=== PATIENT | female | born 1960 | race Caucasian/White ===

== ENCOUNTER → 2018-04-13 | Outpatient (CLI) | payer OTHER ==
[~2018-04-13] MED LIST: ACHD5005 PO; ALBU2.5V4 IH; AMLO10TA PO; AMLO10TA4 PO; BUDE6HFA IH; CIPR500T4 PO; DOCU-143 PO; FENO134C PO; FLUT9.9S NS; IOHEXOL 350 MG/ML 100 ML (OMNIPAQUE 350) VIAL IV ONE; LISI10TA2 PO; MTF500T PO; NS 250 ML (IVPB) BAG IV ONE; OXYC-12 PO; PIOG30TA38 PO; RT-ALBUINH IH
[2018-04-13 12:32] LABS: CREATININE SERUM 1.03 MG/DL (0.60-1.30)
--- NOTE | 2018-04-13 14:06 | Diagnostic Imaging Report ---
PROCEDURE: CT abdomen and pelvis with contrast. TECHNIQUE: Multiple contiguous axial images were obtained through the abdomen and pelvis after administration of intravenous contrast. INDICATION: Left lower quadrant pain. FINDINGS: The previous CT abdomen/pelvis exam of 03/09/2016 noted a 3.3 cm defect in the anterior abdominal wall on the left. A portion of the mesenteric fat and a segment of bowel had extended through this defect. There is no obstruction of the bowel, however. Reportedly, in the interval since the prior exam, the defect was surgically repaired. On this study, however, there is again evidence of a defect in the anterior abdominal wall on the left. This now measures 4.1 cm. Numerous segments of small bowel have extended through this defect, although there is no obstruction of the bowel. No other acute abnormality of the abdomen is identified. The liver, spleen, pancreas, adrenals, gallbladder, kidneys, aorta, and inferior vena cava are unremarkable for an acute abnormality. The stomach is not well distended and consequently difficult to assess. The appendix was visualized and is not abnormally thickened. The appendix does appear to lie low in the pelvis on the left. The urinary bladder and prostate gland are grossly unremarkable. The sections through the lung bases fail to show any sign of pneumonia or of pleural effusion. 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 The bone windows are unremarkable for a fracture or for a destructive lesion. IMPRESSION: 1. In the interval since the prior exam, a recurrent hernia has developed through the anterior abdominal wall on the left. There are now numerous segments of small bowel present within the hernia. The segments of bowel are probably incarcerated, but there is no obstruction of the bowel. 2. There is no acute abnormality of the abdomen or pelvis noted otherwise. 3. These results were discussed with Dr. Wynne. Dictated by: Dictated on workstation # [id number]
== END ==
LOC: RAD 11:37
PROVIDERS: ATTEND Surgery
DX: K43.2 Incisional hernia without obstruction or gangrene (principal)
CPT/HCPCS: 36415; 74177; 82565; 84520

== ENCOUNTER 2018-05-01 05:48 | Outpatient (CLI) | payer OTHER ==
[~2018-05-01] VITALS: Ht 162.6 cm; Wt 78.0 kg
[~2018-05-01 05:48] MED LIST changes: -IOHEXOL 350 MG/ML 100 ML (OMNIPAQUE 350) VIAL IV ONE; -NS 250 ML (IVPB) BAG IV ONE
[2018-05-01 14:57] VITALS: BP 147/96
[2018-05-01] MEDS ORDERED: LISI10TA2 PO (15:01)
[2018-05-01] MEDS ORDERED: METF-397 PO (15:01)
[2018-05-01] MEDS ORDERED: BUDE10.2 IH (15:01)
== END 2018-05-01 15:10 | disposition home or self-care (01) ==
LOC: PREOP 05:48
PROVIDERS: ATTEND Surgery
DX: Z01.818 Encounter for other preprocedural examination (principal)
CPT/HCPCS: 87081

== ENCOUNTER 2018-05-04 07:50 | Day surgery (SDC) | payer OTHER ==
[~2018-05-04] VITALS: Ht 162.6 cm; Wt 78.0 kg
[~2018-05-04 07:50] MED LIST changes: +BUDE10.2 IH; +METF-397 PO
--- OUTSIDE RECORDS SUMMARY | 2018-05-04 07:54 | XMS REPORT ---
Author Author LEONA CALVO [facility] Address [address] [place] [address] Care Team Providers Care Community Organizer Name Role Phone LEONA CALVO Unavailable PROBLEMS Type Condition ICD9-CM Code JQC18-JG Code Onset Dates Condition Status SNOMED Code Problem Unilateral inguinal hernia without obstruction or gangrene, recurrence not specified K40.90 Active 65363552 Problem Breast lesion N64.9 Active 072724301 Problem Vaginal lesion N89.8 Active 866708373 Problem Type 2 diabetes mellitus without complication E11.9 Active 811063964 Problem Normal cardiac stress test Z13.6 Active 065090541 Problem Diabetes E11.9 Active 063476016 Problem Establishing care with new doctor, encounter for Z71.89 Active 973328521 Problem Hyperlipidemia, unspecified hyperlipidemia type E78.5 Active 07192764 Problem Cough R05 Active 67260557 Problem Hammertoe M20.40 Active 256498574 Problem Sleep apnea G47.30 Active 00690698 Problem Tobacco dependence F17.200 Active 20849447 Problem Abnormal colonoscopy R93.3 Active 411518151 Problem Unilateral recurrent inguinal hernia without obstruction or gangrene K40.91 Active 03064709 Problem COPD (chronic obstructive pulmonary disease) J44.9 Active 86939179 Problem GERD (gastroesophageal reflux disease) K21.9 Active 505954261 Problem Essential hypertension I10 Active 39300768 Problem Gastroparesis K31.84 Active 133480740 Problem Hyperlipidemia E78.5 Active 79121290 Problem Stress incontinence in female N39.3 Active 96497754 ALLERGIES Substance Reaction Event Type Date Status Sulfamethoxazole Unknown Drug Allergy Jan, Active Lipitor Stiff neck, aching muscles in neck Drug Allergy Jan, Active ENCOUNTERS Encounter Location Date Diagnosis [facility] [address] [facility] [id number] [address] Jan, Chigger bites B88.0 [facility] [id number] [place] [address] Dec, Type 2 diabetes mellitus without complication E11.9 and Unilateral recurrent inguinal hernia without obstruction or gangrene K40.91 [facility] [id number] [place] [address]396 November, Essential hypertension I10 and Diabetes E11.9 [facility] [address] [address] Oct, [facility] [address] [address] Sep, Diabetes E11.9 and Essential hypertension I10 [place] [address] [address] Aug, Diabetes E11.9 ; Viral upper respiratory tract infection J06.9 ; COPD (chronic obstructive pulmonary disease) J44.9 ; Essential hypertension I10 ; Unilateral recurrent inguinal hernia without obstruction or gangrene K40.91 ; Dysuria R30.0 ; Yeast infection of the vagina B37.3 and Vaginal itching L29.8 [facility] [id number] [place] [address] Jul, Essential hypertension I10 and COPD (chronic obstructive pulmonary disease) J44.9 [facility] [id number] [place] [address]- 5[address] Mar, Left lower quadrant pain R10.32 ; Type 2 diabetes mellitus without complication E11.9 and Cardiac arrhythmia, unspecified cardiac arrhythmia type I49.9 [facility] [id number] [place] [address]- 0712 Oct, COPD (chronic obstructive pulmonary disease) J44.9 ; Diabetes E11.9 and Mouth pain K13.79 [facility] [id number] [place] [address]64- [address] Sep, [facility] [address] [address] Sep, COPD (chronic obstructive pulmonary disease) J44.9 ; Diabetes E11.9 and Mouth pain K13.[address] [address] Aug, Type 2 diabetes mellitus without complication E11.9 [place] [address] [address] Aug, [address] [address] Aug, Type 2 diabetes mellitus without complication E11.[address] [address] Aug, Establishing care with new doctor, encounter for Z71.89 ; Type 2 diabetes mellitus without complication E11.9 ; Essential hypertension I10 ; Cough R05 ; Hammertoe M20.40 and Sleep apnea G47.[address] [address]- [address] Jul, [address] [address] Jun, Vaginal lesion N89.[address] [address] Jun, [address] [address]- [address] Jun, Well woman exam Z01.419 ; Papanicolaou smear Z12.4 ; COPD ( chronic obstructive pulmonary disease) J44.9 ; Routine screening for STI ( sexually transmitted infection) Z11.3 ; Vaginal itching L29.8 ; Vaginal lesion N89.8 ; Hyperlipidemia, unspecified hyperlipidemia type E78.5 ; Type 2 diabetes mellitus without complication E11.9 ; Vaginal dryness N89.8 ; Unilateral inguinal hernia without obstruction or gangrene, recurrence not specified K40.90 ; Cough R05 ; Stress incontinence in female N39.3 and Breast lesion N64.[address] [address] May, Bronchitis J40 [facility] [address] [id number] [address] May, Routine adult health maintenance Z00.00 ; Essential hypertension I10 ; Hyperlipidemia E78.5 ; COPD (chronic obstructive pulmonary disease) J44.9 ; Unilateral recurrent inguinal hernia without obstruction or gangrene K40.91 and Type 2 diabetes mellitus without complication E11.9 [facility] [id number] [place] [address] 98947- 7880 Oct, [facility] [id number] [place] [address] 45583- 5732 Oct, [facility] [id number] [place] [address] 37670- 9174 Sep, [facility] [id number] [place] [address] 69116- 1168 Sep, [facility] [id number] [place] [address] 28183- 3679 Sep, [facility] [id number] [place] [address] 14580- 4899 Sep, [facility] [id number] [place] [address] 02402- 5629 Aug, [facility] [address] [address] Aug, [facility] [id number] [place] [address] 52403- 0877 Jul, [facility] [address] [address] Jul, [facility] [id number] [place] [address] 949486- 8554 Jun, [facility] [address] [address] Jun, [facility] [id number] [place] [address] Jun, [facility] [place] [facility] [address] [id number] [place] [address] Jun, [facility] [place] [facility] [address] [id number] [place] [address] Jun, [facility] [place] [facility] [address] [id number] [place] [address]199 Mar, [facility] [place] [facility] [address] [id number] [place] [address] 1796 Mar, [facility] [place] [facility] [address] [id number] [place] [address]- 55[address] Feb, [facility] [place] [facility] [address] [id number] [place] [address]- 2396 Feb, [facility] [place] [facility] [address] [id number] [place] [address]- 5040 Feb, [facility] [place] [facility] [address] [id number] [place] [address]- 4357 Feb, [facility] [place] [facility] [address] [id number] [place] [address] 5750 Dec, [facility] [place] [facility] [address] [id number] [place] [address]- 8821 Dec, [facility] [place] [facility] [address] [id number] [place] [address]- 7476 November, [facility] [place] [facility] [address] [id number] [place] [address]- 6102 November, [facility] [place] [facility] [address] [id number] [place] [address]- 7321 November, [facility] [place] [facility] [address] [id number] [place] [address]- 0192 November, [facility] [place] [facility] [address] [id number] [place] [address]- 5498 Sep, [facility] [place] [facility] [address] [id number] [place] [address]- 4344 Sep, [facility] [place] [facility] [address] [id number] [place] [address]- 8295 Sep, [facility] [place] [facility] [address] [id number] [place] [address]- 2679 Sep, [facility] [place] [facility] [address] [id number] [place] [address]- 2219 Jul, [facility] [place] [facility] [address] [id number] [place] [address]- 9360 Jul, [facility] [place] [facility] [address] [id number] [place] [address]- 3888 Jun, [facility] [address] [id number] [place] [address]- 5485 Jun, [facility] [place] [facility] [address] [id number] [place] [address]- 2604 Jun, [facility] [place] [facility] [address] [id number] [place] [address]- 7764 Jun, [facility] [place] [facility] [address] [id number] [place] [address]- 6061 May, [facility] [place] [facility] [address] [id number] [place] [address]- 8561 May, [facility] [place] [facility] [address] [id number] [place] [address]- 2546 Apr, [facility] [place] [facility] [address] [id number] [place] [address]- 2541 Apr, [facility] [place] [facility] [address] [id number] [place] [address]- 2546 Apr, [facility] [place] [facility] [address] [id number] [place] [address]- 2542 Mar, [facility] [place] [facility] [address] [id number] [place] [address]- 4285 Mar, [facility] [address] [id number] [place] [address] Mar, [facility] [place] [facility] [address] [id number] [place] [address]- 0008 Feb, [facility] [place] [facility] [address] [id number] [place] [address]- 2161 Feb, [facility] [place] [facility] [address] [id number] [place] [address]- 9781 Jan, [facility] [place] [facility] [address] [id number] [place] [address]- 6379 November, [facility] [place] [facility] [address] [id number] [place] [address]- 4731 Oct, [facility] [place] [facility] [address] [id number] [place] [address]- 3821 Oct, [facility] [place] [facility] [address] [id number] [place] [address]- 6224 Jul, [facility] [place] [facility] [address] [id number] [place] [address]- 2783 Jul, [facility] [place] [facility] [address] [id number] [place] [address]- 0533 Jul, [facility] [place] [facility] [address] [id number] [place] [address]- 0819 Jul, [facility] [place] [facility] [address] [id number] [place] [address]- 7511 Jul, [facility] [place] [facility] [address] [id number] [place] [address]- 7196 Jul, [facility] [place] [facility] [address] [id number] [place] [address]- 3981 Jul, [facility] [place] [facility] [address] [id number] [place] [address]- 8221 Jul, [facility] [place] [facility] [address] [id number] [place] [address]- 6427 Jun, [facility] [place] [facility] [address] [id number] [place] [address]- 5111 Jun, [facility] [place] [facility] [address] [id number] [place] [address]- 6041 Apr, [facility] [place] [facility] [address] [id number] [place] [address] Apr, [facility] [place] [facility] [address] [id number] [place] [address]- 2245 Apr, [facility] [place] [facility] [address] [id number] [place] [address]- 9709 Apr, [facility] [place] [facility] [address] [id number] [place] [address]- 9905 Apr, [facility] [place] [facility] [address] [id number] [place] [address]- 9422 Apr, [facility] [place] [facility] [address] [id number] [place] [address]- 8551 Apr, [facility] [place] [facility] [address] [id number] [place] [address]- 8119 Apr, [facility] [place] [facility] [address] [id number] [place] [address]- 6459 Apr, [facility] [place] [facility] [address] [id number] [place] [address]- 6608 Apr, [facility] [place] [facility] [address] [id number] [place] [address]- 0739 Mar, [facility] [place] [facility] [address] [id number] [place] [address]- 1679 Mar, [facility] [place] [facility] [address] [id number] [place] [address]- 4749 Feb, [facility] [place] [facility] [address] [id number] [place] [address]- 8325 Feb, [facility] [place] [facility] [address] [id number] [place] [address]- 2208 Feb, [facility] [place] [facility] [address] [id number] [place] [address]- 7666 Feb, [facility] [place] [facility] [address] [id number] [place] [address]- 1687 Feb, [facility] [place] [facility] [address] [id number] [place] [address]- 0005 Feb, [facility] [place] [facility] [address] [id number] [place] [address]- 6877 Feb, [facility] [place] [facility] [address] [id number] [place] [address]- 4935 Feb, [facility] [place] [facility] [address] [id number] [place] [address]- 0299 Feb, [facility] [place] [facility] [address] [id number] [place] [address]- 6150 Feb, [facility] [place] [facility] [address] [id number] [place] [address]- 5945 Jan, [facility] [place] [facility] [address] [id number] [place] [address]- 0362 Jan, [facility] [place] [facility] [address] [id number] [place] [address]- 7742 Jan, [facility] [place] [facility] [address] [id number] [place] [address]- 8640 Jan, [facility] [place] [facility] [address] [id number] [place] [address]- 5100 November, [facility] [place] [facility] [address] [id number] [place] [address]- 7935 Oct, [facility] [place] [facility] [address] [id number] [place] [address]- 7847 Sep, [facility] [place] [facility] [address] [id number] [place] [address]- 3373 Sep, [facility] [address] [facility] [id number] [place] [address]- 7128 Sep, [facility] [address] [facility] [id number] [address]- [address] Sep, IMMUNIZATIONS No Known Immunizations SOCIAL HISTORY Never Assessed REASON FOR VISIT Rash Pt has a very itchy rash on body, started at ankles and wrists and has spread over last 3-4 days BOO Tran PLAN OF CARE Activity Details Follow Up prn Reason: VITAL SIGNS Height 64 in 2018-01-02 Weight 161.4 lbs 2018-01-02 Temperature 98.2 degrees Fahrenheit 2018-01-02 Heart Rate 78 bpm 2018-01-02 Respiratory Rate 22 2018-01-02 BMI 27.70 kg/m2 2018-01-02 Blood pressure systolic 160 mmHg 2018-01-02 Blood pressure diastolic 98 mmHg 2018-01-02 MEDICATIONS Medication Instructions Dosage Frequency Start Date End Date Duration Status HydrOXYzine HCl 25 MG Orally 4 times a day 1 tablet as needed 6h Jan, Active Symbicort 160-4.5 mcg/actuation inhale 2 puffs by inhalation route 2 times per day in the morning and evening Oct, Active MetFORMIN HCl ER 500 MG Orally twice a day 2 tablets with meals 12h Sep 45 days Active Flonase 50 mcg/actuation 1 sprays by Nasal route 2 times per day in each nostril Oct, Active ProAir HFA 90 mcg/actuation 2 puffs by Inhalation route 4 times per day for 30 day(s) Sep, Active Lisinopril 20 MG Orally Once a day 0.5 tablet 24h 180 days Active Amlodipine Besylate 10 MG Orally Once a day 1 tablet 24h 90 days Active RESULTS No Results PROCEDURES No Known procedures INSTRUCTIONS MEDICATIONS ADMINISTERED No Known Medications MEDICAL (GENERAL) HISTORY Type Description Date Medical History hypertension Medical History type II diabetes Medical History chronic obstructive pulmonary disease (COPD) Medical History hyperlipidemia Medical History gastroparesis Medical History sleep apnea (CPAP) Medical History incisional hernia Medical History Abnormal colonoscopy Surgical History tonsillectomy 2002 Surgical History partial hysterectomy- still has ovaries 1991 Surgical History removal of pre-cancerous cells from cervix 2002 Surgical History Colonoscopy 09/2015 Hospitalization History Surgery and OB deliveries only Hospitalization History Overnight Monitoring for pain management of abdominal hernia 2014
--- OUTSIDE RECORDS SUMMARY | 2018-05-04 07:54 | XMS REPORT ---
Author Author MERARY JOSUE Organization [facility] Address [address] [place] [address] Care Team Providers Care Stabilizer Operator Name Role Phone MERARY JOSUE Unavailable PROBLEMS Type Condition ICD9-CM Code ETZ65-NO Code Onset Dates Condition Status SNOMED Code Problem Unilateral inguinal hernia without obstruction or gangrene, recurrence not specified K40.90 Active 48399658 Problem Breast lesion N64.9 Active 565951238 Problem Vaginal lesion N89.8 Active 725511363 Problem Type 2 diabetes mellitus without complication E11.9 Active 492735184 Problem Normal cardiac stress test Z13.6 Active 097860473 Problem Diabetes E11.9 Active 817696600 Problem Establishing care with new doctor, encounter for Z71.89 Active 526263999 Problem Hyperlipidemia, unspecified hyperlipidemia type E78.5 Active 27083877 Problem Cough R05 Active 21368506 Problem Hammertoe M20.40 Active 453879319 Problem Sleep apnea G47.30 Active 69438232 Problem Tobacco dependence F17.200 Active 69134992 Problem Abnormal colonoscopy R93.3 Active 799672149 Problem Unilateral recurrent inguinal hernia without obstruction or gangrene K40.91 Active 87690883 Problem COPD (chronic obstructive pulmonary disease) J44.9 Active 05031818 Problem GERD (gastroesophageal reflux disease) K21.9 Active 395866187 Problem Essential hypertension I10 Active 37218437 Problem Gastroparesis K31.84 Active 743104871 Problem Hyperlipidemia E78.5 Active 36152585 Problem Stress incontinence in female N39.3 Active 61359197 ALLERGIES Substance Reaction Event Type Date Status Sulfamethoxazole Unknown Drug Allergy Dec, Active Lipitor Stiff neck, aching muscles in neck Drug Allergy Dec, Active ENCOUNTERS Encounter Location Date Diagnosis [facility] [address] [facility] [id number] [address] Jan, Chigger bites B88.0 [facility] [id number] [place] [address] 2737 Dec, Type 2 diabetes mellitus without complication E11.9 and Unilateral recurrent inguinal hernia without obstruction or gangrene K40.91 [facility] [id number] [place] [address]- 26[address] November, Essential hypertension I10 and Diabetes E11.9 [facility] [address] [address] Oct, [place] [id number] [place] [address]- 6764 Sep, Diabetes E11.9 and Essential hypertension I10 [place] [id number] [place] [address]367- 1806 Aug, Diabetes E11.9 ; Viral upper respiratory tract infection J06.9 ; COPD (chronic obstructive pulmonary disease) J44.9 ; Essential hypertension I10 ; Unilateral recurrent inguinal hernia without obstruction or gangrene K40.91 ; Dysuria R30.0 ; Yeast infection of the vagina B37.3 and Vaginal itching L29.8 [facility] [id number] [place] [address] Jul, Essential hypertension I10 and COPD (chronic obstructive pulmonary disease) J44.9 [facility] [id number] [place] [address]- 7140 Mar, Left lower quadrant pain R10.32 ; Type 2 diabetes mellitus without complication E11.9 and Cardiac arrhythmia, unspecified cardiac arrhythmia type I49.9 [place] [id number] [place] [address]- 0361 Oct, COPD (chronic obstructive pulmonary disease) J44.9 ; Diabetes E11.9 and Mouth pain K13.79 [facility] [id number] [place] [address]- 3458 Sep, [facility] [id number] [place] [address] 36[address]- 3438 Sep, COPD (chronic obstructive pulmonary disease) J44.9 ; Diabetes E11.9 and Mouth pain K13.[address] [address] Aug, Type 2 diabetes mellitus without complication E11.9 [place] [address] [address] Aug, [address] [address] Aug, Type 2 diabetes mellitus without complication E11.[address] [address] Aug, Establishing care with new doctor, encounter for Z71.89 ; Type 2 diabetes mellitus without complication E11.9 ; Essential hypertension I10 ; Cough R05 ; Hammertoe M20.40 and Sleep apnea G47.[address] [address] Jul, [address] [address]- [address] Jun, Vaginal lesion N89.[address] [address]- [address]87 Jun, [address] [address]- [address] 09 Jun, 2015 Well woman exam Z01.419 ; Papanicolaou smear [...] in female N39.3 and Breast lesion N64.[address] [address] May, Bronchitis J40 [facility] [address] [address] May, Routine adult health maintenance Z00.00 ; Essential hypertension I10 ; Hyperlipidemia E78.5 ; COPD (chronic obstructive pulmonary disease) J44.9 ; Unilateral recurrent inguinal hernia without obstruction or gangrene K40.91 and Type 2 diabetes mellitus without complication E11.9 [facility] [address] [id number] [address] Oct, [facility] [address], [place] [address] Oct, [facility] [id number] [place] [address]- 4048 Sep, [facility] [address], [place] [address] Sep, [facility] [address], [place] [address] Sep, [facility] [address], [place] [address] Sep, [facility] [address], [place] [address] Aug, [facility] [address], [place] [address] Aug, [facility] [address], [place] [address] Jul, [facility] [address], [place] [address] Jul, [facility] [address] [address] Jun, [facility] [address] [address] Jun, [facility] [address] [place] [address] Jun, [facility] [address] [id number] [place] [address]- [address] Jun, [facility] [place] [facility] [address] [id number] [place] [address]- 9211 Jun, [facility] [address] [id number] [place] [address]- 6099 Mar, [facility] [place] [facility] [address] [id number] [place] [address]- 47[address] Mar, [facility] [place] [facility] [address] [id number] [place] [address]- 1159 Feb, [facility] [place] [facility] [address] [id number] [place] [address]- 5231 Feb, [facility] [place] [facility] [address] [id number] [place] [address]- 9690 Feb, [facility] [place] [facility] [address] [id number] [place] [address]- 9138 Feb, [facility] [place] [facility] [address] [id number] [place] [address]- 6[address] Dec, [facility] [place] [facility] [address] [id number] [place] [address]- 377[address] Dec, [facility] [place] [facility] [address] [id number] [place] [address]- 3074 November, [facility] [place] [facility] [address] [id number] [place] [address]- 9341 November, [facility] [place] [facility] [address] [id number] [place] [address]- 6380 November, [facility] [place] [facility] [address] [id number] [place] [address]- 6676 November, [facility] [place] [facility] [address] [id number] [place] [address]- 2191 Sep, [facility] [place] [facility] [address] [id number] [place] [address]- 1491 Sep, [facility] [place] [facility] [address] [id number] [place] [address]- 2339 Sep, [facility] [place] [facility] [address] [id number] [place] [address]- 7617 Sep, [facility] [place] [facility] [address] [id number] [place] [address]- 7463 Jul, [facility] [place] [facility] [address] [id number] [place] [address]- 9595 Jul, [facility] [place] [facility] [address] [id number] [place] [address]- 1575 Jun, [facility] [place] [facility] [address] [id number] [place] [address]- 5654 Jun, [facility] [place] [facility] [address] [id number], [place] [address]- [address] Jun, [facility] [place] [facility] [address] [id number] [place] [address]- 7130 Jun, [facility] [place] [facility] [address] [facility] [id number], [place] [address]- [address] May, [facility] [place] [facility] [address] [id number], [place] [address]- 3064 May, [facility] [place] [facility] [address] [id number], [place] [address]- 3242 Apr, [facility] [place] [facility] [address] [id number], [place] [address]- 1704 Apr, [facility] [place] [facility] [address] [id number], [place] [address]- 6206 Apr, [facility] [place] [facility] [address] [facility] [id number], [place] [address]- 5[address] Mar, [facility] [place] [facility] [address] [id number], [place] [address]- 3299 Mar, [facility] [address] [id number] [place] [address]- 2112 Mar, [facility] [address] [id number] [place] [address]- 3311 Feb, [facility] [address] [id number] [place] [address]- 8975 Feb, [facility] [address] [id number] [place] [address]- 7691 Jan, [facility] [address] [id number] [place] [address]- 4090 November, [facility] [address] [id number] [place] [address]- 1180 Oct, [facility] [address] [id number] [place] [address]- 9938 Oct, [facility] [address] [id number] [place] [address]- 4033 Jul, [facility] [address] [id number] [place] [address]- 8712 Jul, [facility] [address] [id number] [place] [address]- 8064 Jul, [facility] [address] [id number] [place] [address]- 8118 Jul, [facility] [place] [facility] [address] [id number], [place] [address]- 7307 Jul, [facility] [place] [facility] [address] [id number] [place] [address]- 3746 14 Jul, 2012 [facility] [place] [facility] [address] [id number] [place] [address]- 9636 Jul, [facility] [place] [facility] [address] [id number] [place] [address]- 9388 Jul, [facility] [place] [facility] [address] [id number] [place] [address] Jun, [facility] [place] [facility] [address] [id number] [place] [address] Jun, [facility] [place] [facility] [address] [id number] [place] [address]- 0375 Apr, [facility] [place] [facility] [address] [id number] [place] [address]- 4351 Apr, [facility] [place] [facility] [address] [id number] [place] [address]- 0796 Apr, [facility] [place] [facility] [address] [id number] [place] [address]- 4202 Apr, [facility] [place] [facility] [address] [id number] [place] [address]- 5755 Apr, [facility] [place] [facility] [address] [id number] [place] [address]- 1626 Apr, [facility] [place] [facility] [address] [id number] [place] [address]- 8622 Apr, [facility] [place] [facility] [address] [id number] [place] [address]- 0132 Apr, [facility] [place] [facility] [address] [id number] [place] [address]- 4309 Apr, [facility] [place] [facility] [address] [id number] [place] [address]- 8634 Apr, [facility] [place] [facility] [address] [id number] [place] [address]- 8809 Mar, [facility] [place] [facility] [address] [id number] [place] [address] Mar, [facility] [place] [facility] [address] [id number] [place] [address] Feb, [facility] [place] [facility] [address] [id number] [place] [address]- 7135 Feb, [facility] [place] [facility] [address] [id number] [place] [address]- 6987 Feb, [facility] [place] [facility] [address] [id number] [place] [address]- 4122 Feb, [facility] [place] [facility] [address] [id number] [place] [address]- 3302 Feb, [facility] [place] [facility] [address] [id number] [place] [address]- 7155 Feb, [facility] [place] [facility] [address] [id number] [place] [address]- 4222 Feb, [facility] [place] [facility] [address] [id number] [place] [address]- 7115 Feb, [facility] [place] [facility] [address] [id number] [place] [address]- 2900 Feb, [facility] [place] [facility] [address] [id number] [place] [address]- 5821 Feb, [facility] [place] [facility] [address] [id number] [place] [address]- 7389 Jan, [facility] [place] [facility] [address] [id number] [place] [address]- 8926 Jan, [facility] [place] [facility] [address] [id number] [place] [address]- 7842 Jan, [facility] [place] [facility] [address] [id number] [place] [address]- 9587 Jan, [facility] [place] [facility] [address] [id number] [place] [address]- 2602 November, [facility] [place] [facility] [address] [id number] [place] [address]- 7831 Oct, [facility] [place] [facility] [address] [id number] [place] [address]- 8857 Sep, [facility] [place] [facility] [address] [facility] [id number] [place] [address]- 77[address] Sep, [facility] [address] [facility] [id number] [place] [address]- 7984 Sep, [facility] [address] [facility] [id number] [place] [address]- 1474 Sep, IMMUNIZATIONS No Known Immunizations SOCIAL HISTORY Never Assessed REASON FOR VISIT Diabetes, PT is here with concerns about getting the hernia sergury-Lyn HADDAD PLAN OF CARE Activity Details Follow Up 3 Months Reason:DM VITAL SIGNS Height 64 in 2017-12-19 Weight 166.7 lbs 2017-12-19 Temperature 97.9 degrees Fahrenheit 2017-12-19 Heart Rate 74 bpm 2017-12-19 Respiratory Rate 18 2017-12-19 Oximetry on room air:97 % 2017-12-19 BMI 28.61 kg/m2 2017-12-19 Blood pressure systolic 108 mmHg 2017-12-19 Blood pressure diastolic 76 mmHg 2017-12-19 MEDICATIONS Medication Instructions Dosage Frequency Start Date End Date Duration Status Symbicort 160-4.5 mcg/actuation inhale 2 puffs by inhalation route 2 times per day in the morning and evening Oct, Active Flonase 50 mcg/actuation 1 sprays by Nasal route 2 times per day in each nostril Oct, Active Amlodipine Besylate 10 MG Orally Once a day 1 tablet 24h 90 days Active Lisinopril 20 MG Orally Once a day 0.5 tablet 24h 180 days Active MetFORMIN HCl ER 500 MG Orally twice a day 2 tablets with meals 12h Sep 45 days Active ProAir HFA 90 mcg/actuation 2 puffs by Inhalation route 4 times per day for 30 day(s) Sep, Active RESULTS Name Result Date Reference Range A1C (IN HOUSE) 2017-12-19 A1C IN HOUSE 6.9 4.3 - 5.6 % Previous A1c 7.4 Lot 856 Exp date 09/2019 MICROALBUMIN, URINE (IN HOUSE) 2017-12-19 MICROALBUMIN abnormal Lot # [id number] Exp date 10/2018 Clarity clear Color yellow ALB 150 CRE 300 A:C (IN HOUSE) 30-300 Control normal Control Lot # Exp date PROCEDURES Procedure Date Ordered Result Body Site MICROALBUMIN, SEMIQUANT December 19, 2017 GLYCATED HEMOGLOBIN TEST December 19, 2017 INSTRUCTIONS MEDICATIONS ADMINISTERED No Known Medications MEDICAL [...]
--- OUTSIDE RECORDS SUMMARY | 2018-05-04 07:54 | XMS REPORT ---
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 Name Role Phone BRIDGETT SAMAYOA Unavailable PROBLEMS Type Condition ICD9-CM Code JOA14-US Code Onset Dates Condition Status SNOMED Code Problem Unilateral inguinal hernia without obstruction or gangrene, recurrence not specified K40.90 Active 59528606 Problem Breast lesion N64.9 Active 028955830 Problem Vaginal lesion N89.8 Active 152170385 Problem Type 2 diabetes mellitus without complication E11.9 Active 562336473 Problem Normal cardiac stress test Z13.6 Active 286851825 Problem Diabetes E11.9 Active 431968567 Problem Establishing care with new doctor, encounter for Z71.89 Active 052144063 Problem Hyperlipidemia, unspecified hyperlipidemia type E78.5 Active 68294373 Problem Cough R05 Active 41032010 Problem Hammertoe M20.40 Active 354547360 Problem Sleep apnea G47.30 Active 28599518 Problem Tobacco dependence F17.200 Active 44096596 Problem Abnormal colonoscopy R93.3 Active 148950238 Problem Unilateral recurrent inguinal hernia without obstruction or gangrene K40.91 Active 01450003 Problem COPD (chronic obstructive pulmonary disease) J44.9 Active 04798705 Problem GERD (gastroesophageal reflux disease) K21.9 Active 207729620 Problem Essential hypertension I10 Active 79315468 Problem Gastroparesis K31.84 Active 488982853 Problem Hyperlipidemia E78.5 Active 83315302 Problem Stress incontinence in female N39.3 Active 56046479 ALLERGIES Substance Reaction Event Type Date Status Sulfamethoxazole Unknown Drug Allergy Mar, Active Lipitor Stiff neck, aching muscles in neck Drug Allergy Mar, Active ENCOUNTERS Encounter Location Date Diagnosis [facility] [address] [facility] [id number] [place] [address] Apr, [facility] [address] [place] [id number] [place] [address]- 1522 14 Mar, 2018 Kaity vaginitis B37.3 [place] [address] [address]- [address] Jan, Chigger bites B88.0 [place] [address] [id number] [place] [address]181- 3430 Dec, Type 2 diabetes mellitus without complication E11.9 and Unilateral recurrent inguinal hernia without obstruction or gangrene K40.91 [place] [address] [address] [id number] [place] [address] 16260- 9655 November, Essential hypertension I10 and Diabetes E11.9 [place] [address] [address]- 1171 Oct, [place] [address] [address]- [address] Sep, Diabetes E11.9 and Essential hypertension I10 [place] [address] [id number] [place] [address] 90147- 6491 Aug, Diabetes E11.9 ; Viral upper respiratory tract infection J06.9 ; COPD (chronic obstructive pulmonary disease) J44.9 ; Essential hypertension I10 ; Unilateral recurrent inguinal hernia without obstruction or gangrene K40.91 ; Dysuria R30.0 ; Yeast infection of the vagina B37.3 and Vaginal itching L29.8 [facility] [id number] [place] [address]65 -[address]73 Jul, Essential hypertension I10 and COPD (chronic obstructive pulmonary disease) J44.9 [place] [address] [address] [id number] [place] [address] 03232- 0706 Mar, Left lower quadrant pain R10.32 ; Type 2 diabetes mellitus without complication E11.9 and Cardiac arrhythmia, unspecified cardiac arrhythmia type I49.9 [place] [address] [address] [id number] [place] [address] 22588- 4797 Oct, COPD (chronic obstructive pulmonary disease) J44.9 ; Diabetes E11.9 and Mouth pain K13.79 [place] [address] [id number] [place] [address] 06994- 2423 Sep, [address] [address] Sep, COPD (chronic obstructive pulmonary disease) J44.9 ; Diabetes E11.9 and Mouth pain K13.[address] [address]- 9240 Aug, Type 2 diabetes mellitus without complication E11.[address] [address]- [address] Aug, [address] [address]- 5172 Aug, Type 2 diabetes mellitus without complication E11.[address] [address]- 2270 Aug, Establishing care with new doctor, encounter for Z71.89 ; Type 2 diabetes mellitus without complication E11.9 ; Essential hypertension I10 ; Cough R05 ; Hammertoe M20.40 and Sleep apnea G47.30 [place] [id number] [place] [address] 6[address]- [address]157 Jul, [place] [id number] [place] [address] 32382- 9759 Jun, Vaginal lesion N89.[address] 8[address]- [address] Jun, [place] [id number] [place] [address] 19648- 4485 Jun, Well woman exam Z01.419 ; Papanicolaou [...] in female N39.3 and Breast lesion N64.9 [facility] [id number] [place] [address] 08797- 2042 May, Bronchitis J40 [facility] [address] [address]- [address] May, Routine adult health maintenance Z00.00 ; Essential hypertension I10 ; Hyperlipidemia E78.5 ; COPD (chronic obstructive pulmonary disease) J44.9 ; Unilateral recurrent inguinal hernia without obstruction or gangrene K40.91 and Type 2 diabetes mellitus without complication E11.9 [facility] [id number] [place] [address] 18241- 8703 Oct, [facility] [id number] [place] [address] 21627- 4808 Oct, [facility] [id number] [place] [address] 93940- 7985 Sep, [facility] [id number] [place] [address] 96380- 3215 Sep, [facility] [id number] [place] [address] 42987- 2333 Sep, [facility] [id number] [place] [address] 29299- 7803 Sep, [facility] [id number] [place] [address] 29248- 3207 Aug, [facility] [id number] [place] [address] 02104- 2039 Aug, [facility] [id number] [place] [address] 51699- 5559 Jul, [facility] [id number] [place] [address] 13727- 0071 Jul, [facility] [place] [facility] [address] [id number] [place] [address]- 1753 Jun, [facility] [place] [facility] [address] [id number] [place] [address]- 0168 Jun, [facility] [place] [facility] [address] [id number] [place] [address]- 2402 Jun, [facility] [place] [facility] [address] [id number] [place] [address]- 3787 Jun, [facility] [place] [facility] [address] [id number] [place] [address]- 6013 Jun, [facility] [place] [facility] [address] [id number] [place] [address]- 9993 Mar, [facility] [place] [facility] [address] [id number] [place] [address] Mar, [facility] [place] [facility] [address] [id number] [place] [address]- 2109 Feb, [facility] [place] [facility] [address] [id number] [place] [address]- 4609 Feb, [facility] [place] [facility] [address] [id number] [place] [address]- 9188 Feb, [facility] [place] [facility] [address] [id number] [place] [address]- 2491 Feb, [facility] [place] [facility] [address] [id number] [place] [address]- 5602 Dec, [facility] [place] [facility] [address] [id number] [place] [address]- 0555 Dec, [facility] [place] [facility] [address] [id number] [place] [address]- 0962 November, [facility] [place] [facility] [address] [id number] [place] [address]- 4756 November, [facility] [place] [facility] [address] [id number] [place] [address]- 2205 November, [facility] [place] [facility] [address] [id number] [place] [address]- 2266 November, [facility] [place] [facility] [address] [id number] [place] [address]- 6355 Sep, [facility] [place] [facility] [address] [id number] [place] [address]- 3732 Sep, [facility] [place] [facility] [address] [id number] [place] [address]- 9852 Sep, [facility] [place] [facility] [address] [id number] [place] [address]- 6137 Sep, [facility] [place] [facility] [address] [id number] [place] [address]- 6938 Jul, [facility] [place] [facility] [address] [id number] [place] [address]- 8488 Jul, [facility] [place] [facility] [address] [id number] [place] [address]- 2968 Jun, [facility] [place] [facility] [address] [id number] [place] [address]- 7897 Jun, [facility] [place] [facility] [address] [id number] [place] [address]- 9487 Jun, [facility] [place] [facility] [address] [id number], [place] [address]- 8070 Jun, [facility] [place] [facility] [address] [id number], [place] [address]- 2547 May, [facility] [place] [facility] [address] [id number] [place] [address]- 2549 May, [facility] [place] [facility] [address] [id number], [place] [address]- 5146 Apr, [facility] [place] [facility] [address] [id number] [place] [address]- 2546 Apr, [facility] [place] [facility] [address] [id number] [place] [address]- 2147 Apr, [facility] [address] [id number] [place] [address]- 3099 Mar, [facility] [place] [facility] [address] [id number] [place] [address]- 0483 Mar, [facility] [address] [id number] [place] [address]- 6453 Mar, [facility] [place] [facility] [address] [id number] [place] [address]- 1894 Feb, [facility] [address] [id number] [place] [address]- 4238 Feb, [facility] [address] [id number] [place] [address]- 9787 Jan, [facility] [address] [id number] [place] [address]- 4822 November, [facility] [address] [id number] [place] [address]- 5467 Oct, [facility] [address] [id number] [place] [address]- 2235 Oct, [facility] [address] [id number] [place] [address]- 2574 Jul, [facility] [address] [id number] [place] [address]- 0259 Jul, [facility] [place] [facility] [address] [id number] [place] [address]- 3782 24 Jul, 2012 [facility] [place] [facility] [address] [id number] [place] [address]- 4992 Jul, [facility] [place] [facility] [address] [id number] [place] [address]- 4797 15 Jul, 2012 [facility] [place] [facility] [address] [id number] [place] [address]- 5787 14 Jul, 2012 [facility] [place] [facility] [address] [id number] [place] [address]- 6977 Jul, [facility] [place] [facility] [address] [id number] [place] [address]- 8685 Jul, [facility] [place] [facility] [address] [id number] [place] [address]- 8738 Jun, [facility] [place] [facility] [address] [id number] [place] [address]- 2727 Jun, [facility] [place] [facility] [address] [id number] [place] [address]- 0894 Apr, [facility] [place] [facility] [address] [id number] [place] [address]- 2994 Apr, [facility] [place] [facility] [address] [id number] [place] [address]- 7872 Apr, [facility] [place] [facility] [address] [id number] [place] [address]- 0912 Apr, [facility] [place] [facility] [address] [id number] [place] [address]- 8553 Apr, [facility] [place] [facility] [address] [id number] [place] [address]- 0236 Apr, [facility] [place] [facility] [address] [id number] [place] [address]- 9999 Apr, [facility] [place] [facility] [address] [id number] [place] [address]- 7337 Apr, [facility] [place] [facility] [address] [id number] [place] [address]- 8711 Apr, [facility] [place] [facility] [address] [id number] [place] [address]- 7516 Apr, [facility] [place] [facility] [address] [id number] [place] [address]- 6282 Mar, [facility] [place] [facility] [address] [id number] [place] [address]- 0785 Mar, [facility] [place] [facility] [address] [id number] [place] [address]- 4455 Feb, [facility] [place] [facility] [address] [id number] [place] [address]- 8937 Feb, [facility] [place] [facility] [address] [id number] [place] [address]- 7508 Feb, [facility] [place] [facility] [address] [id number] [place] [address]- 7085 Feb, [facility] [place] [facility] [address] [id number] [place] [address]- 4228 Feb, [facility] [place] [facility] [address] [id number] [place] [address]- 2569 Feb, [facility] [place] [facility] [address] [id number] [place] [address]- 0809 Feb, [facility] [place] [facility] [address] [id number] [place] [address]- 1723 Feb, [facility] [place] [facility] [address] [id number] [place] [address]- 9832 Feb, [facility] [place] [facility] [address] [id number] [place] [address]- 4802 Feb, [facility] [place] [facility] [address] [id number] [place] [address]- 0512 Jan, [facility] [place] [facility] [address] [id number] [place] [address]- 4150 Jan, [facility] [place] [facility] [address] [id number] [place] [address]- 9472 Jan, [facility] [place] [facility] [address] [id number] [place] [address]- 2552 Jan, [facility] [place] [facility] [address] [id number] [place] [address]- 5245 November, [facility] [place] [facility] [address] [facility] [id number] [place] [address]- 6170 Oct, [facility] [address] [facility] [id number], [place] [address]- 4991 Sep, [facility] [address] [facility] [id number], [place] [address]- 4674 Sep, [facility] [address] [facility] [id number], [place] [address]- 9717 Sep, [facility] [address] [facility] [id number], [place] [address]- 0885 Sep, IMMUNIZATIONS No Known Immunizations SOCIAL HISTORY Never Assessed REASON FOR VISIT Vaginal itching and redness off and on for about a month. BOO More, check belly button. BOO More PLAN OF CARE Activity Details Follow Up 1 Week Reason: VITAL SIGNS Height 64 in 2018-03-17 Weight 166.8 lbs 2018-03-17 Temperature 97.6 degrees Fahrenheit 2018-03-17 Heart Rate 87 bpm 2018-03-17 Respiratory Rate 20 2018-03-17 BMI 28.63 kg/m2 2018-03-17 Blood pressure systolic 154 mmHg 2018-03-17 Blood pressure diastolic 88 mmHg 2018-03-17 MEDICATIONS Medication Instructions Dosage Frequency Start Date End Date Duration Status Flonase 50 mcg/actuation 1 sprays by Nasal route 2 times per day in each nostril Oct, Active Diflucan 150 MG Orally one time 1 tablet Mar, Mar, 1 dose Active Lisinopril 20 MG Orally Once a day 0.5 tablet 24h 180 days Active Symbicort 160-4.5 mcg/actuation inhale 2 puffs by inhalation route 2 times per day in the morning and evening Oct, Active ProAir HFA 90 mcg/actuation 2 puffs by Inhalation route 4 times per day for 30 day(s) Sep, Active MetFORMIN HCl ER 500 MG Orally twice a day 2 tablets with meals 12h 07 Sep 45 days Active Amlodipine Besylate 10 MG Orally Once a day 1 tablet 24h 90 days Active RESULTS No Results PROCEDURES Procedure Date Ordered Result Body Site Bacterial Vaginosis In House Mar 17, 2018 CULTURE, BACTERIA, OTHER Mar 17, 2018 INSTRUCTIONS MEDICATIONS ADMINISTERED No Known Medications MEDICAL [...]
--- OUTSIDE RECORDS SUMMARY | 2018-05-04 07:55 | XMS REPORT ---
Author Author MERARY JOSUE [facility] Address [address] [place] [address] Care Team Providers Care End Lathe Operator Name Role Phone MERARY JSOUE Unavailable PROBLEMS Type Condition ICD9-CM Code RFC41-SD Code Onset Dates Condition Status SNOMED Code Problem Unilateral inguinal hernia without obstruction or gangrene, recurrence not specified K40.90 Active 95583510 Problem Breast lesion N64.9 Active 057256871 Problem Vaginal lesion N89.8 Active 154750852 Problem Type 2 diabetes mellitus without complication E11.9 Active 722973694 Problem Normal cardiac stress test Z13.6 Active 080516159 Problem Diabetes E11.9 Active 613947086 Problem Establishing care with new doctor, encounter for Z71.89 Active 868963204 Problem Hyperlipidemia, unspecified hyperlipidemia type E78.5 Active 10125935 Problem Cough R05 Active 93271636 Problem Hammertoe M20.40 Active 575040806 Problem Sleep apnea G47.30 Active 73933006 Problem Tobacco dependence F17.200 Active 51048180 Problem Abnormal colonoscopy R93.3 Active 813107601 Problem Unilateral recurrent inguinal hernia without obstruction or gangrene K40.91 Active 62694836 Problem COPD (chronic obstructive pulmonary disease) J44.9 Active 44792360 Problem GERD (gastroesophageal reflux disease) K21.9 Active 979128973 Problem Essential hypertension I10 Active 34136840 Problem Gastroparesis K31.84 Active 194288448 Problem Hyperlipidemia E78.5 Active 69052082 Problem Stress incontinence in female N39.3 Active 58570375 ALLERGIES No Information ENCOUNTERS Encounter Location Date Diagnosis [facility] [address] [facility] [id number] [address] Jan, Chigger bites B88.0 [facility] [address] [facility] [id number] [address] Dec, Type 2 diabetes mellitus without complication E11.9 and Unilateral recurrent inguinal hernia without obstruction or gangrene K40.91 [facility] [id number] [place] [address] November, Essential hypertension I10 and Diabetes E11.9 [facility] [id number] [place] [address] 70993- 3094 Oct, [facility] [address] [address] Sep, Diabetes E11.9 and Essential hypertension I10 [place] [id number] [place] [address] 11870- 8436 Aug, Diabetes E11.9 ; Viral upper respiratory tract infection J06.9 ; COPD (chronic obstructive pulmonary disease) J44.9 ; Essential hypertension I10 ; Unilateral recurrent inguinal hernia without obstruction or gangrene K40.91 ; Dysuria R30.0 ; Yeast infection of the vagina B37.3 and Vaginal itching L29.8 [facility] IN [facility] [id number] [place] [address] -[address]239 Jul, Essential hypertension I10 and COPD (chronic obstructive pulmonary disease) J44.9 [place] [id number] [place] [address] 92936- 7566 Mar, Left lower quadrant pain R10.32 ; Type 2 diabetes mellitus without complication E11.9 and Cardiac arrhythmia, unspecified cardiac arrhythmia type I49.9 [place] [id number] [place] [address] 64499- 9818 Oct, COPD (chronic obstructive pulmonary disease) J44.9 ; Diabetes E11.9 and Mouth pain K13.79 [facility] [id number] [place] [address] 13548- 9770 Sep, [place] [id number] [place] [address] 61236- 1531 Sep, COPD (chronic obstructive pulmonary disease) J44.9 ; Diabetes E11.9 and Mouth pain K13.79 [place] [id number] [place] [address] 05347- 7140 Aug, Type 2 diabetes mellitus without complication E11.9 [place] [id number] [place] [address] 32439- 5289 Aug, [place] [id number] [place] [address] 47206- 7129 Aug, Type 2 diabetes mellitus without complication E11.9 [place] [address] [id number] [place] [address] 09610- 6014 Aug, Establishing care with new doctor, encounter for Z71.89 ; Type 2 diabetes mellitus without complication E11.9 ; Essential hypertension I10 ; Cough R05 ; Hammertoe M20.40 and Sleep apnea G47.30 [place] [id number] [place] [address] 26526- 6670 Jul, [place] [address] [address]- [address] Jun, Vaginal lesion N89.8 [place] [address] [id number] [place] [address] 44925- 5675 Jun, [place] [id number] [place] [address] 75314- 7521 Jun, Well woman exam Z01.419 ; Papanicolaou [...] in female N39.3 and Breast lesion N64.9 [place] [address] [id number] [place] [address] 80761- 6822 May, Bronchitis J40 [place] [address] [place] [address]- 1503 May, Routine adult health maintenance Z00.00 ; Essential hypertension I10 ; Hyperlipidemia E78.5 ; COPD (chronic obstructive pulmonary disease) J44.9 ; Unilateral recurrent inguinal hernia without obstruction or gangrene K40.91 and Type 2 diabetes mellitus without complication E11.9 [facility] [address] [address] Oct, [facility] [id number] [place] [address] 71100- 7564 Oct, [facility] [address] [address] Sep, [facility] [id number] [place] [address] 80763- 5246 Sep, [facility] [address] [id number] [address] 7798 Sep, [facility] [id number] [address] 15[address] Sep, [facility] [address] [address] 4099 Aug, [facility] [address] [address] 14[address] Aug, [facility] [address] [address] 8[address] Jul, [facility] [address] [address] 6255 Jul, [facility] [address] [address] Jun, [facility] [address] [address] 3879 Jun, [facility] [id number] [address]- 5710 Jun, [facility] [id number] [place] [address] 2088 Jun, [facility] [address] [id number] [place] [address]- 7881 Jun, [facility] [place] [facility] [address] [id number] [place] [address]- 9136 Mar, [facility] [address] [id number] [place] [address]- 6636 Mar, [facility] [place] [facility] [address] [id number] [place] [address]- 8444 Feb, [facility] [place] [facility] [address] [id number] [place] [address]- 9145 Feb, [facility] [place] [facility] [address] [id number] [place] [address]- 7550 Feb, [facility] [place] [facility] [address] [id number] [place] [address]- 4898 Feb, [facility] [address] [id number] [place] [address]- 6037 Dec, [facility] [place] [facility] [address] [id number] [place] [address]- 4294 Dec, [facility] [address] [id number] [place] [address]- 3889 November, [facility] [place] [facility] [address] [id number] [place] [address]- 5495 November, [facility] [place] [facility] [address] [id number] [place] [address]- 9690 November, [facility] [place] [facility] [address] [id number] [place] [address]- 5808 November, [facility] [place] [facility] [address] [id number] [place] [address]- 5532 Sep, [facility] [place] [facility] [address] [id number] [place] [address]- 3122 Sep, [facility] [place] [facility] [address] [id number] [place] [address]- 8596 Sep, [facility] [place] [facility] [address] [id number] [place] [address]- 1975 Sep, [facility] [place] [facility] [address] [id number] [place] [address]- 5051 Jul, [facility] [place] [facility] [address] [id number] [place] [address]- 6916 Jul, [facility] [place] [facility] [address] [id number] [place] [address]- 4193 Jun, [facility] [place] [facility] [address] [id number] [place] [address]- 4931 Jun, [facility] [place] [facility] [address] [id number] [place] [address]- 6506 Jun, [facility] [place] [facility] [address] [id number] [place] [address]- 6279 Jun, [facility] [place] [facility] [address] [id number] [place] [address]- 5518 May, [facility] [place] [facility] [address] [facility] [id number] [place] [address]- 4219 May, [facility] [place] [facility] [address] [facility] [id number] [place] [address]- 0924 Apr, [facility] [place] [facility] [address] [id number] [place] [address]- 8500 Apr, [facility] [place] [facility] [address] [id number] [place] [address]- 5174 Apr, [facility] [place] [facility] [address] [id number] [place] [address]- 4306 Mar, [facility] [place] [facility] [address] [id number] [place] [address]- 9776 Mar, [facility] [place] [facility] [address] [id number] [place] [address]- 3734 Mar, [facility] [address] [id number] [place] [address]- 9925 Feb, [facility] [address] [id number] [place] [address]- 0900 Feb, [facility] [address] [id number] [place] [address]- 5017 Jan, [facility] [address] [id number] [place] [address]- 1747 November, [facility] [address] [id number] [place] [address]- 5809 Oct, [facility] [address] [id number] [place] [address]- 1670 Oct, [facility] [address] [id number] [place] [address]- 6493 Jul, [facility] [address] [id number] [place] [address]- 9832 Jul, [facility] [address] [id number] [place] [address]- 5999 Jul, [facility] [address] [id number] [place] [address]- 6349 Jul, [facility] [address] [id number] [place] [address]- 5410 Jul, [facility] [address] [id number] [place] [address]- 8455 Jul, [facility] [place] [facility] [address] [id number] [place] [address]- 1616 Jul, [facility] [place] [facility] [address] [id number] [place] [address]- 4631 Jul, [facility] [address] [id number] [place] [address]- 2498 Jun, [facility] [place] [facility] [address] [id number] [place] [address] Jun, [facility] [place] [facility] [address] [id number] [place] [address] Apr, [facility] [place] [facility] [address] [id number] [place] [address] Apr, [facility] [place] [facility] [address] [id number] [place] [address]- 8742 Apr, [facility] [place] [facility] [address] [id number] [place] [address]- 0844 Apr, [facility] [place] [facility] [address] [id number] [place] [address]- 4917 Apr, [facility] [place] [facility] [address] [id number] [place] [address]- 4504 Apr, [facility] [place] [facility] [address] [id number] [place] [address]- 7669 Apr, [facility] [place] [facility] [address] [id number] [place] [address]- 1318 Apr, [facility] [place] [facility] [address] [id number] [place] [address]- 4622 Apr, [facility] [place] [facility] [address] [id number] [place] [address]- 2938 Apr, [facility] [place] [facility] [address] [id number] [place] [address]- 1429 Mar, [facility] [place] [facility] [address] [id number] [place] [address]- 0537 Mar, [facility] [place] [facility] [address] [id number] [place] [address]- 4424 Feb, [facility] [place] [facility] [address] [id number] [place]99 Feb, [facility] [place] [facility] [address] [id number] [place] [address]- 5783 Feb, [facility] [place] [facility] [address] [id number] [place] [address]- 2883 Feb, [facility] [place] [facility] [address] [id number] [place] [address]- 6458 Feb, [facility] [place] [facility] [address] [id number] [place] [address]- 2879 Feb, [facility] [place] [facility] [address] [id number] [place] [address]- 7872 Feb, [facility] [place] [facility] [address] [id number] [place] [address]- 7541 Feb, [facility] [place] [facility] [address] [id number] [place] [address]- 8562 Feb, [facility] [place] [facility] [address] [id number] [place] [address]- 8676 Feb, [facility] [place] [facility] [address] [id number] [place] [address]- 1763 Jan, [facility] [place] [facility] [address] [id number] [place] [address]- 0776 Jan, [facility] [place] [facility] [address] [id number] [place] [address]- 1963 Jan, [facility] [place] [facility] [address] [id number] [place] [address]- 4404 Jan, [facility] [place] [facility] [address] [id number] [place] [address]- 4839 November, [facility] [place] [facility] [address] [id number] [place] [address]- 0647 Oct, [facility] [place] [facility] [address] [id number] [place] [address]- 4429 Sep, [facility] [place] [facility] [address] [id number] [place] [address]- 4675 Sep, [facility] [place] [facility] [address] [facility] [id number] [place] [address]- 0507 Sep, [facility] [address] [facility] [id number] [place] [address]- 7990 Sep, IMMUNIZATIONS No Known Immunizations SOCIAL HISTORY Never Assessed REASON FOR VISIT Repository Medication PLAN OF CARE VITAL SIGNS MEDICATIONS Medication Instructions Dosage Frequency Start Date End Date Duration Status Amlodipine Besylate 10 MG Orally Once a day 1 tablet 24h 90 days Active MetFORMIN HCl ER 500 MG Orally twice a day 2 tablets with meals 12h 07 Sep 45 days Active RESULTS No Results PROCEDURES No [...]
--- OUTSIDE RECORDS SUMMARY | 2018-05-04 07:55 | XMS REPORT ---
Author Author MERARY JOSUE Organization [facility] Address [address] [place] [address] Care Team Providers Care Side Laster Staple Name Role Phone MERARY JOSUE Unavailable PROBLEMS Type Condition ICD9-CM Code BHL12-[place] Code Onset Dates Condition Status SNOMED Code Problem Unilateral inguinal hernia without obstruction or gangrene, recurrence not specified K40.90 Active 12215512 Problem Breast lesion N64.9 Active 206439713 Problem Vaginal lesion N89.8 Active 385911444 Problem Type 2 diabetes mellitus without complication E11.9 Active 225314712 Problem Normal cardiac stress test Z13.6 Active 473708241 Problem Diabetes E11.9 Active 284390794 Problem Establishing care with new doctor, encounter for Z71.89 Active 584456871 Problem Hyperlipidemia, unspecified hyperlipidemia type E78.5 Active 36768444 Problem Cough R05 Active 49513803 Problem Hammertoe M20.40 Active 010405173 Problem Sleep apnea G47.30 Active 53551350 Problem Tobacco dependence F17.200 Active 92065410 Problem Abnormal colonoscopy R93.3 Active 525893509 Problem Unilateral recurrent inguinal hernia without obstruction or gangrene K40.91 Active 12581794 Problem COPD (chronic obstructive pulmonary disease) J44.9 Active 83757630 Problem GERD (gastroesophageal reflux disease) K21.9 Active 599652625 Problem Essential hypertension I10 Active 14295969 Problem Gastroparesis K31.84 Active 800689766 Problem Hyperlipidemia E78.5 Active 87939948 Problem Stress incontinence in female N39.3 Active 48195270 ALLERGIES Substance Reaction Event Type Date Status Sulfamethoxazole Unknown Drug Allergy Sep, Active Lipitor Stiff neck, aching muscles in neck Drug Allergy Sep, Active ENCOUNTERS Encounter Location Date Diagnosis [facility] [address] [facility] [id number] [address] Jan, Chigger bites B88.0 [facility] [id number] [place] [address] Dec, Type 2 diabetes mellitus without complication E11.9 and Unilateral recurrent inguinal hernia without obstruction or gangrene K40.91 [facility] [id number] [place] [address]- [address] November, Essential hypertension I10 and Diabetes E11.9 [facility] [address] [address] Oct, [place] [id number] [place] [address]- 7614 Sep, Diabetes E11.9 and Essential hypertension I10 [place] [id number] [place] [address]- 8322 Aug, Diabetes E11.9 ; Viral upper respiratory tract infection J06.9 ; COPD (chronic obstructive pulmonary disease) J44.9 ; Essential hypertension I10 ; Unilateral recurrent inguinal hernia without obstruction or gangrene K40.91 ; Dysuria R30.0 ; Yeast infection of the vagina B37.3 and Vaginal itching L29.8 [facility] IN [facility] [id number] [place] [address] Jul, Essential hypertension I10 and COPD (chronic obstructive pulmonary disease) J44.9 [facility] [id number] [place] [address]- [address] Mar, Left lower quadrant pain R10.32 ; Type 2 diabetes mellitus without complication E11.9 and Cardiac arrhythmia, unspecified cardiac arrhythmia type I49.9 [place] [id number] [place] [address]- 7305 Oct, COPD (chronic obstructive pulmonary disease) J44.9 ; Diabetes E11.9 and Mouth pain K13.79 [facility] [id number] [place] [address]- [address] Sep, [facility] [id number] [place] [address]- 47[address] Sep, COPD (chronic obstructive pulmonary disease) J44.9 ; Diabetes E11.9 and Mouth pain K13.[address] [address] Aug, Type 2 diabetes mellitus without complication E11.9 [place] [address] [address] Aug, [address] [address]- [address] Aug, Type 2 diabetes mellitus without complication E11.[address] [address]- [address] Aug, Establishing care with new doctor, encounter for Z71.89 ; Type 2 diabetes mellitus without complication E11.9 ; Essential hypertension I10 ; Cough R05 ; Hammertoe M20.40 and Sleep apnea G47.[address] [address]- [address] Jul, [address] [address]- [address] Jun, Vaginal lesion N89.[address] [address]- [address] Jun, [address] [address]- [address] 09 Jun, 2015 Well woman exam Z01.419 [...] in female N39.3 and Breast lesion N64.[address] [address] May, Bronchitis J40 [facility] [address] [address] May, Routine adult health maintenance Z00.00 ; Essential hypertension I10 ; Hyperlipidemia E78.5 ; COPD (chronic obstructive pulmonary disease) J44.9 ; Unilateral recurrent inguinal hernia without obstruction or gangrene K40.91 and Type 2 diabetes mellitus without complication E11.9 [facility] [address] [id number] [address] Oct, [facility] [address] [address] Oct, [facility] [id number] [place] [address]284- 0962 Sep, [facility] [id number], [place] [address] Sep, [facility] [address] [address] Sep, [facility] [address] [address] Sep, [facility] [address] [address] Aug, [facility] [address] [address] Aug, [facility] [address], [place] [address] Jul, [facility] [address] [address] Jul, [facility] [address] [address] Jun, [facility] [address] [address] Jun, [facility] [id number] [place] [address] Jun, [facility] [address] [id number] [place] [address] 98[address] Jun, [facility] [place] [facility] [address] [id number] [place] [address] 5[address] Jun, [facility] [address] [id number] [place] [address] 57[address] Mar, [facility] [place] [facility] [address] [id number] [place] [address]- 64[address] Mar, [facility] [place] [facility] [address] [id number] [place] [address]- 0712 Feb, [facility] [place] [facility] [address] [id number] [place] [address]- 0896 Feb, [facility] [place] [facility] [address] [id number] [place] [address]- 6710 Feb, [facility] [place] [facility] [address] [id number] [place] [address]- 2514 Feb, [facility] [place] [facility] [address] [id number] [place] [address]- 4242 Dec, [facility] [place] [facility] [address] [id number] [place] [address]- 6130 Dec, [facility] [place] [facility] [address] [id number] [place] [address]- 67[address] November, [facility] [place] [facility] [address] [id number] [place] [address]- 4[address] November, [facility] [place] [facility] [address] [id number] [place] [address]- 6927 November, [facility] [place] [facility] [address] [id number] [place] [address]- 0226 November, [facility] [place] [facility] [address] [id number] [place] [address]- 0540 Sep, [facility] [place] [facility] [address] [id number] [place] [address]- 9563 Sep, [facility] [place] [facility] [address] [id number] [place] [address]- 0253 Sep, [facility] [place] [facility] [address] [id number] [place] [address]- 7839 Sep, [facility] [place] [facility] [address] [id number] [place] [address]- 5186 Jul, [facility] [place] [facility] [address] [id number] [place] [address]- 7317 Jul, [facility] [place] [facility] [address] [id number] [place] [address]- 1496 Jun, [facility] [place] [facility] [address] [id number] [place] [address]- 4113 Jun, [facility] [place] [facility] [address] [id number], [place] [address]- [address] Jun, [facility] [place] [facility] [address] [id number] [place] [address]- 37[address] Jun, [facility] [place] [facility] [address] [facility] [id number], [place] [address] May, [facility] [place] [facility] [address] [id number], [place] [address]- [address] May, [facility] [place] [facility] [address] [id number], [place] [address]- 64[address] Apr, [facility] [place] [facility] [address] [id number], [place] [address]- [address] Apr, [facility] [place] [facility] [address] [id number], [place] [address]- [address] Apr, [facility] [place] [facility] [address] [facility] [id number], [place] [address]- 1826 Mar, [facility] [place] [facility] [address] [id number], [place] [address]- 0847 Mar, [facility] [address] [id number] [place] [address]- 3067 Mar, [facility] [address] [id number] [place] [address]- 6520 Feb, [facility] [address] [id number] [place] [address]- 9339 Feb, [facility] [address] [id number] [place] [address]- 8198 Jan, [facility] [address] [id number] [place] [address]- 8698 November, [facility] [address] [id number] [place] [address]- 8652 Oct, [facility] [address] [id number] [place] [address]- 4465 Oct, [facility] [address] [id number] [place] [address]- 4185 Jul, [facility] [address] [id number] [place] [address]- 7456 Jul, [facility] [address] [id number] [place] [address]- 6432 Jul, [facility] [address] [id number] [place] [address]- 1245 Jul, [facility] [place] [facility] [address] [id number], [place] [address]- 9275 Jul, [facility] [place] [facility] [address] [id number] [place] [address]- 1316 14 Jul, 2012 [facility] [place] [facility] [address] [id number] [place] [address]- 1959 Jul, [facility] [place] [facility] [address] [id number] [place] [address]- 4277 Jul, [facility] [place] [facility] [address] [id number] [place] [address] Jun, [facility] [place] [facility] [address] [id number] [place] [address] Jun, [facility] [place] [facility] [address] [id number] [place] [address]- 5357 Apr, [facility] [place] [facility] [address] [id number] [place] [address]- 8941 Apr, [facility] [place] [facility] [address] [id number] [place] [address]- 3595 Apr, [facility] [place] [facility] [address] [id number] [place] [address]- 1060 Apr, [facility] [place] [facility] [address] [id number] [place] [address]- 2730 Apr, [facility] [place] [facility] [address] [id number] [place] [address]- 7966 Apr, [facility] [place] [facility] [address] [id number] [place] [address]- 8654 Apr, [facility] [place] [facility] [address] [id number] [place] [address]- 7924 Apr, [facility] [place] [facility] [address] [id number] [place] [address]- 5787 Apr, [facility] [place] [facility] [address] [id number] [place] [address]- 8876 Apr, [facility] [place] [facility] [address] [id number] [place] [address]- 3490 Mar, [facility] [place] [facility] [address] [id number] [place] 164[address] Mar, [facility] [place] [facility] [address] [id number] [place] [address] Feb, [facility] [place] [facility] [address] [id number] [place] [address]- 3586 Feb, [facility] [place] [facility] [address] [id number] [place] [address]- 1226 Feb, [facility] [place] [facility] [address] [id number] [place] [address]- 7459 Feb, [facility] [place] [facility] [address] [id number] [place] [address]- 7761 Feb, [facility] [place] [facility] [address] [id number] [place] [address]- 3498 Feb, [facility] [place] [facility] [address] [id number] [place] [address]- 7423 Feb, [facility] [place] [facility] [address] [id number] [place] [address]- 7451 Feb, [facility] [place] [facility] [address] [id number] [place] [address]- 6477 Feb, [facility] [place] [facility] [address] [id number] [place] [address]- 0258 Feb, [facility] [place] [facility] [address] [id number] [place] [address]- 3598 Jan, [facility] [place] [facility] [address] [id number] [place] [address]- 6066 Jan, [facility] [place] [facility] [address] [id number] [place] [address]- 1747 Jan, [facility] [place] [facility] [address] [id number] [place] [address]- 9358 Jan, [facility] [place] [facility] [address] [id number] [place] [address]- 1265 November, [facility] [place] [facility] [address] [id number] [place] [address]- 1212 Oct, [facility] [place] [facility] [address] [id number] [place] [address]- 1192 Sep, [facility] [place] [facility] [address] [facility] [id number] [place] [address]- 0600 Sep, [facility] [address] [facility] [id number] [place] [address]- 3015 Sep, [facility] [address] [facility] [id number] [place] [address]- 8902 Sep, IMMUNIZATIONS No Known Immunizations SOCIAL HISTORY Never Assessed REASON FOR VISIT Diabetes - Jermaine HADDAD PLAN OF CARE Activity Details Follow Up 3 Months Reason:DM VITAL SIGNS Height 64 in 2017-09-07 Weight 170.8 lbs 2017-09-07 Temperature 98.4 degrees Fahrenheit 2017-09-07 Heart Rate 88 bpm 2017-09-07 Respiratory Rate 20 2017-09-07 Oximetry on room air:98 % 2017-09-07 BMI 29.31 kg/m2 2017-09-07 Blood pressure systolic 140 mmHg 2017-09-07 Blood pressure diastolic 90 mmHg 2017-09-07 MEDICATIONS Medication Instructions Dosage Frequency Start Date End Date Duration Status ProAir HFA 90 mcg/actuation 2 puffs by Inhalation route 4 times per day for 30 day(s) Sep, Active Flonase 50 mcg/actuation 1 sprays by Nasal route 2 times per day in each nostril Oct, Active MetFORMIN HCl ER 500 mg Orally twice a day 2 tablets with meals 12h Sep 90 days Active Amlodipine Besylate 10 MG Orally Once a day 1 tablet 24h 90 days Active Lisinopril 20 MG Orally Once a day 0.5 tablet 24h 180 days Active Symbicort 160-4.5 mcg/actuation inhale 2 puffs by inhalation route 2 times per day in the morning and evening Oct, Active RESULTS No Results PROCEDURES No Known [...]
--- OUTSIDE RECORDS SUMMARY | 2018-05-04 07:55 | XMS REPORT ---
Author Author MERARY JOSUE [facility] Address [address] [place] [address] Care Team Providers Care Clerk Typist Name Role Phone MERARY JOSUE Unavailable PROBLEMS Type Condition ICD9-CM Code ATT90-DW Code Onset Dates Condition Status SNOMED Code Problem Unilateral inguinal hernia without obstruction or gangrene, recurrence not specified K40.90 Active 44389223 Problem Breast lesion N64.9 Active 312048366 Problem Vaginal lesion N89.8 Active 141772755 Problem Type 2 diabetes mellitus without complication E11.9 Active 905210709 Problem Normal cardiac stress test Z13.6 Active 633441049 Problem Diabetes E11.9 Active 302640383 Problem Establishing care with new doctor, encounter for Z71.89 Active 873304348 Problem Hyperlipidemia, unspecified hyperlipidemia type E78.5 Active 25846611 Problem Cough R05 Active 40025253 Problem Hammertoe M20.40 Active 279845862 Problem Sleep apnea G47.30 Active 95214655 Problem Tobacco dependence F17.200 Active 58271267 Problem Abnormal colonoscopy R93.3 Active 574108828 Problem Unilateral recurrent inguinal hernia without obstruction or gangrene K40.91 Active 59607450 Problem COPD (chronic obstructive pulmonary disease) J44.9 Active 80192677 Problem GERD (gastroesophageal reflux disease) K21.9 Active 471137207 Problem Essential hypertension I10 Active 96489860 Problem Gastroparesis K31.84 Active 604362881 Problem Hyperlipidemia E78.5 Active 91114485 Problem Stress incontinence in female N39.3 Active 85304680 ALLERGIES No Information ENCOUNTERS Encounter Location Date Diagnosis [facility] [address] [id number] [address] Jan, Chigger bites B88.0 [facility] [address] [id number], [place] [address] Dec, Type 2 diabetes mellitus without complication E11.9 and Unilateral recurrent inguinal hernia without obstruction or gangrene K40.91 [facility] [id number] [place] [address] November, Essential hypertension I10 and Diabetes E11.9 [facility] [id number] [place] [address] 81736- [address]209 Oct, [facility] [address] [address] Sep, Diabetes E11.9 and Essential hypertension I10 [facility] [id number] [place] [address]- 7554 Aug, Diabetes E11.9 ; Viral upper respiratory tract infection J06.9 ; COPD (chronic obstructive pulmonary disease) J44.9 ; Essential hypertension I10 ; Unilateral recurrent inguinal hernia without obstruction or gangrene K40.91 ; Dysuria R30.0 ; Yeast infection of the vagina B37.3 and Vaginal itching L29.8 [facility] [id number] [place] [address] -[address]95 Jul, Essential hypertension I10 and COPD (chronic obstructive pulmonary disease) J44.9 [facility] [id number] [place] [address] 19368- 3777 Mar, Left lower quadrant pain R10.32 ; Type 2 diabetes mellitus without complication E11.9 and Cardiac arrhythmia, unspecified cardiac arrhythmia type I49.9 [facility] [id number] [place] [address] 16053- 5924 Oct, COPD (chronic obstructive pulmonary disease) J44.9 ; Diabetes E11.9 and Mouth pain K13.79 [facility] [id number] [place] [address] 86506- 2496 Sep, [facility] [id number] [place] [address] 51180- 6900 Sep, COPD (chronic obstructive pulmonary disease) J44.9 ; Diabetes E11.9 and Mouth pain K13.79 [facility] [id number] [place] [address] 90167- 7728 Aug, Type 2 diabetes mellitus without complication E11.9 [facility] [id number] [place] [address] 92457- 2329 Aug, [facility] [id number] [place] [address] 70913- 2288 Aug, Type 2 diabetes mellitus without complication E11.9 [facility] [id number] [place] [address] 16292- 7732 Aug, Establishing care with new doctor, encounter for Z71.89 ; Type 2 diabetes mellitus without complication E11.9 ; Essential hypertension I10 ; Cough R05 ; Hammertoe M20.40 and Sleep apnea G47.30 [facility] [id number] [place] [address] 84605- 8113 Jul, [facility] [address] [address]- [address] Jun, Vaginal lesion N89.8 [facility] [id number] [place] [address] 51361- 2863 Jun, [facility] [id number] [place] [address] 61330- 2230 Jun, Well woman exam Z01.419 ; Papanicolaou [...] in female N39.3 and Breast lesion N64.9 [facility] [id number] [place] [address] 38608- 9226 May, Bronchitis J40 [facility] [address] [place] [address] 9[address] May, Routine adult health maintenance Z00.00 ; Essential hypertension I10 ; Hyperlipidemia E78.5 ; COPD (chronic obstructive pulmonary disease) J44.9 ; Unilateral recurrent inguinal hernia without obstruction or gangrene K40.91 and Type 2 diabetes mellitus without complication E11.9 [facility] [address] [address] Oct, [facility] [id number] [place] [address] 55968- 7248 Oct, [facility] [address] [address] Sep, [facility] [id number] [place] [address] 68134- 0103 Sep, [facility] [address] [id number] [address] Sep, [facility] [address] [id number] [address] Sep, [facility] [address] [address] Aug, [facility] [address] [address] Aug, [facility] [address] [address]64 Jul, [facility] [address] [address] Jul, [facility] [address] Jun, [facility] [address] [address]99 Jun, [facility] [address] [address] Jun, [facility] [address] [place] [address] Jun, [facility] [address] [id number] [place] [address]- 95[address] Jun, [facility] [place] [facility] [address] [id number] [place] [address]- 0496 Mar, [facility] [address] [id number] [place] [address]- 1307 Mar, [facility] [place] [facility] [address] [id number] [place] [address]- 7669 Feb, [facility] [place] [facility] [address] [id number] [place] [address]- 4066 Feb, [facility] [place] [facility] [address] [id number] [place] [address]- 3562 Feb, [facility] [place] [facility] [address] [id number] [place] [address]- 7295 Feb, [facility] [address] [id number] [place] [address]- 5741 Dec, [facility] [place] [facility] [address] [id number] [place] [address]- 7672 Dec, [facility] [address] [id number] [place] [address]- 1682 November, [facility] [place] [facility] [address] [id number] [place] [address]- 3488 November, [facility] [place] [facility] [address] [id number] [place] [address]- 7251 November, [facility] [place] [facility] [address] [id number] [place] [address]- 3586 November, [facility] [place] [facility] [address] [id number] [place] [address]- 7414 Sep, [facility] [place] [facility] [address] [id number] [place] [address]- 3339 Sep, [facility] [place] [facility] [address] [id number] [place] [address]- 9928 Sep, [facility] [place] [facility] [address] [id number] [place] [address]- 0878 Sep, [facility] [place] [facility] [address] [id number] [place] [address]- 8435 Jul, [facility] [place] [facility] [address] [id number] [place] [address]- 3743 Jul, [facility] [place] [facility] [address] [id number] [place] [address]- 2443 Jun, [facility] [place] [facility] [address] [id number] [place] [address]- 8247 Jun, [facility] [place] [facility] [address] [id number] [place] [address]- 0486 Jun, [facility] [place] [facility] [address] [id number] [place] [address]- 5853 Jun, [facility] [place] [facility] [address] [id number] [place] [address]- 9445 May, [facility] [place] [facility] [address] [id number], [place] [address]- 6777 May, [facility] [place] [facility] [address] [id number], [place] [address]- 0501 Apr, [facility] [place] [facility] [address] [id number], [place] [address]- 3699 Apr, [facility] [place] [facility] [address] [id number] [place] [address]- 0335 Apr, [facility] [place] [facility] [address] [id number], [place] [address]- 2906 Mar, [facility] [place] [facility] [address] [id number], [place] [address]- 8896 Mar, [facility] [place] [facility] [address] [id number], [place] [address]- 2114 Mar, [facility] [address] [id number] [place] [address]- 2005 Feb, [facility] [address] [id number] [place] [address]- 5619 Feb, [facility] [address] [id number] [place] [address]- 6753 Jan, [facility] [address] [id number] [place] [address]- 1290 November, [facility] [address] [id number] [place] [address]- 1431 Oct, [facility] [address] [id number] [place] [address]- 4584 Oct, [facility] [address] [id number] [place] [address]- 4248 Jul, [facility] [address] [id number] [place] [address]- 4977 Jul, [facility] [address] [id number] [place] [address]- 8606 Jul, [facility] [address] [id number] [place] [address]- 6455 Jul, [facility] [address] [id number] [place] [address]- 9401 Jul, [facility] [address] [id number], [place] [address]- 9394 Jul, [facility] [place] [facility] [address] [id number] [place] [address]- 9072 Jul, [facility] [place] [facility] [address] [id number] [place] [address]- 5625 Jul, [facility] [address] [id number] [place] [address]- 5662 Jun, [facility] [place] [facility] [address] [id number] [place] [address] Jun, [facility] [place] [facility] [address] [id number] [place] [address] Apr, [facility] [place] [facility] [address] [id number] [place] [address] Apr, [facility] [place] [facility] [address] [id number] [place] [address]- 4390 Apr, [facility] [place] [facility] [address] [id number] [place] [address]- 7573 Apr, [facility] [place] [facility] [address] [id number] [place] [address]- 5613 Apr, [facility] [place] [facility] [address] [id number] [place] [address]- 8555 Apr, [facility] [place] [facility] [address] [id number] [place] [address]- 6700 Apr, [facility] [place] [facility] [address] [id number] [place] [address]- 5019 Apr, [facility] [place] [facility] [address] [id number] [place] [address]- 9442 Apr, [facility] [place] [facility] [address] [id number] [place] [address]- 7224 Apr, [facility] [place] [facility] [address] [id number] [place] [address]- 4861 Mar, [facility] [place] [facility] [address] [id number] [place] [address]- 4565 Mar, [facility] [place] [facility] [address] [id number] [place] [address]- 8605 Feb, [facility] [place] [facility] [address] [id number] [place] [address] Feb, [facility] [place] [facility] [address] [id number] [place] [address]- 3131 Feb, [facility] [place] [facility] [address] [id number] [place] [address]- 0263 Feb, [facility] [place] [facility] [address] [id number] [place] [address]- 7517 Feb, [facility] [place] [facility] [address] [id number] [place] [address]- 6697 Feb, [facility] [place] [facility] [address] [id number] [place] [address]- 1055 Feb, [facility] [place] [facility] [address] [id number] [place] [address]- 6293 Feb, [facility] [place] [facility] [address] [id number] [place] [address]- 0481 Feb, [facility] [place] [facility] [address] [id number] [place] [address]- 7231 Feb, [facility] [place] [facility] [address] [id number] [place] [address]- 2830 Jan, [facility] [place] [facility] [address] [id number] [place] [address]- 9219 Jan, [facility] [place] [facility] [address] [id number] [place] [address]- 0293 Jan, [facility] [place] [facility] [address] [id number] [place] [address]- 5443 Jan, [facility] [place] [facility] [address] [id number] [place] [address]- 6036 November, [facility] [place] [facility] [address] [id number] [place] [address]- 6154 Oct, [facility] [place] [facility] [address] [id number] [place] [address]- 4424 Sep, [facility] [place] [facility] [address] [id number] [place] [address]- 1645 Sep, [facility] [place] [facility] [address] [id number] [place] [address]- 5400 Sep, [facility] [address] [id number] [place] [address]- 1090 Sep, IMMUNIZATIONS No Known Immunizations SOCIAL HISTORY Never Assessed REASON FOR VISIT Appointment PLAN OF CARE VITAL SIGNS MEDICATIONS Unknown Medications RESULTS No Results PROCEDURES No Known procedures [...]
--- OUTSIDE RECORDS SUMMARY | 2018-05-04 07:56 | XMS REPORT ---
Author Author BALAJI DAMON [facility] eClinicalWorks Address Unknown Phone Unavailable Care Team Providers Care Steward/Stewardess Tourist Class Name Role Phone BALAJI DAMON Unavailable Allergies, Adverse Reactions, Alerts Substance Reaction Event Type Sulfamethoxazole Info Not Available Drug Allergy Lipitor Stiff neck, aching muscles in neck Drug Allergy Problems Problem Type Condition Code Onset Dates Condition Status Assessment Breast lesion N64.9 Active Assessment Stress incontinence in female N39.3 Active Problem Gastroparesis K31.84 Active Assessment Cough R05 Active Problem Essential hypertension I10 Active Assessment Unilateral inguinal hernia without obstruction or gangrene, recurrence not specified K40.90 Active Problem Tobacco dependence F17.200 Active Problem COPD (chronic obstructive pulmonary disease) J44.9 Active Problem GERD (gastroesophageal reflux disease) K21.9 Active Problem Hyperlipidemia, unspecified hyperlipidemia type E78.5 Active Problem Unilateral inguinal hernia without obstruction or gangrene, recurrence not specified K40.90 Active Assessment Hyperlipidemia, unspecified hyperlipidemia type E78.5 Active Assessment Type 2 diabetes mellitus without complication E11.9 Active Problem Vaginal lesion N89.8 Active Assessment Vaginal dryness N89.8 Active Problem Type 2 diabetes mellitus without complication E11.9 Active Problem Hyperlipidemia E78.5 Active Problem Stress incontinence in female N39.3 Active Problem Breast lesion N64.9 Active Assessment Routine screening for STI (sexually transmitted infection) Z11.3 Active Assessment COPD (chronic obstructive pulmonary disease) J44.9 Active Assessment Vaginal lesion N89.8 Active Assessment Vaginal itching L29.8 Active Problem Unilateral recurrent inguinal hernia without obstruction or gangrene K40.91 Active Problem Sleep apnea G47.30 Active Assessment Papanicolaou smear Z12.4 Active Assessment Well woman exam Z01.419 Active Medications Medication Code System Code Instructions Start Date End Date Status Dosage Norvasc [facility] [address]-07 10 MG Orally Once a day 1 tablet Fenofibrate Micronized [facility] [address]-71 134 MG Orally Once a day Jul 18, 2014 take 1 capsule (134 mg) by oral route once daily with food Symbicort [facility] [address]-36 160-4.5 mcg/actuation October 30, 2012 inhale 2 puffs by inhalation route 2 times per day in the morning and evening MiraLax [facility] [address]-47 17 gram/dose Orally Once a day Jun 25, 2014 take 8.5 g mixed with 8 oz. water or juice by Oral route 1 time per day metformin ND 0 500 mg sq 2 times a day Mar 11, 2014 2 tablet by Oral route 2 times per day ProAir HFA [facility] [address]-48 90 mcg/actuation September 23, 2011 2 puffs by Inhalation route 4 times per day for 30 day(s) Albuterol Sulfate [facility] [address]-71 2.5 mg /3 mL (0.083 %) September 07, 2013 1 Each by Inhalation route every 4 hours for cough and wheeze PRN for wheezing or cough Lisinopril [facility] [address]-69 10 MG Orally Once a day September 05, 2014 take 1 tablet by Oral route 1 time per day Take in am Procedures Procedure Coding System Code Date No Charge CPT-4 22945 Jun 11, 2015 TRICHOMONAS VAGIN, DIR PROBE CPT-4 14419 Jun 11, 2015 SPECIMEN HANDLING CPT-4 07968 Jun 11, 2015 TEST FOR BLOOD, FECES CPT-4 11051 Jun 11, 2015 CULTURE, BACTERIA, OTHER CPT-4 77545 Jun 11, 2015 Office Visit, Est Pt., Level 3 CPT-4 97388 Jun 11, 2015 Vital Signs Date/Time: Jun 11, 2015 Temperature 97.5 F Weight 183.9 lbs Height 64 in BMI 31.56 Index Blood Pressure Diastolic 74 mmHg Blood Pressure Systolic 115 mmHg Cardiac Monitoring Heart Rate 90 bpm Results No Known Results Summary Purpose eClinicalWorks Submission
--- OUTSIDE RECORDS SUMMARY | 2018-05-04 07:56 | XMS REPORT ---
Author Author BALAJI DAMON [facility] eClinicalWorks Address Unknown Phone Unavailable Care Team Providers Care Air Tucker Name Role Phone BALAJI DAMON Unavailable Allergies No Known Allergies Problems Problem Type Condition Code Onset Dates Condition Status Problem Tobacco dependence F17.200 Active Problem COPD (chronic obstructive pulmonary disease) J44.9 Active Problem GERD (gastroesophageal reflux disease) K21.9 Active Problem Hyperlipidemia, unspecified hyperlipidemia type E78.5 Active Problem Unilateral inguinal hernia without obstruction or gangrene, recurrence not specified K40.90 Active Problem Vaginal lesion N89.8 Active Problem Type 2 diabetes mellitus without complication E11.9 Active Problem Hyperlipidemia E78.5 Active Problem Stress incontinence in female N39.3 Active Problem Breast lesion N64.9 Active Problem Unilateral recurrent inguinal hernia without obstruction or gangrene K40.91 Active Problem Sleep apnea G47.30 Active Problem Gastroparesis K31.84 Active Problem Essential hypertension I10 Active Medications Medication Code System Code Instructions Start Date End Date Status Dosage Diflucan [facility] [address]-36 150 MG Orally Once a day Jun 16, 2015 1 tablet Results No Known Results Summary Purpose eClinicalWorks Submission
--- OUTSIDE RECORDS SUMMARY | 2018-05-04 07:56 | XMS REPORT ---
Author Author KALIA SHAH Organization [facility] Address [address] [place] [address] Care Team Providers Care Smocker Name Role Phone KALIA SHAH Unavailable PROBLEMS Type Condition ICD9-CM Code XNM87-IU Code Onset Dates Condition Status SNOMED Code Problem Unilateral inguinal hernia without obstruction or gangrene, recurrence not specified K40.90 Active 79823682 Problem Breast lesion N64.9 Active 349314759 Problem Vaginal lesion N89.8 Active 996795034 Problem Type 2 diabetes mellitus without complication E11.9 Active 745108417 Problem Normal cardiac stress test Z13.6 Active 231237047 Problem Diabetes E11.9 Active 836635167 Problem Establishing care with new doctor, encounter for Z71.89 Active 294737708 Problem Hyperlipidemia, unspecified hyperlipidemia type E78.5 Active 69923233 Problem Cough R05 Active 21033030 Problem Hammertoe M20.40 Active 325509663 Problem Sleep apnea G47.30 Active 29542003 Problem Tobacco dependence F17.200 Active 90878753 Problem Abnormal colonoscopy R93.3 Active 128002340 Problem Unilateral recurrent inguinal hernia without obstruction or gangrene K40.91 Active 85950644 Problem COPD (chronic obstructive pulmonary disease) J44.9 Active 04019615 Problem GERD (gastroesophageal reflux disease) K21.9 Active 193984269 Problem Essential hypertension I10 Active 73561296 Problem Gastroparesis K31.84 Active 008033463 Problem Hyperlipidemia E78.5 Active 65663023 Problem Stress incontinence in female N39.3 Active 09036891 ALLERGIES Substance Reaction Event Type Date Status Sulfamethoxazole Unknown Drug Allergy Jul, Active Lipitor Stiff neck, aching muscles in neck Drug Allergy Jul, Active ENCOUNTERS Encounter Location Date Diagnosis [facility] [address] [facility] [id number] [address] Dec, Type 2 diabetes mellitus without complication E11.9 and Unilateral recurrent inguinal hernia without obstruction or gangrene K40.91 [facility] [address] [address] November, Essential hypertension I10 and Diabetes E11.9 [facility] [id number] [place] [address] Oct, [facility] [id number] [place] [address] 40662- 5917 Sep, Diabetes E11.9 and Essential hypertension I10 [facility] [facility] [id number] [place] [address]692- 4757 Aug, Diabetes E11.9 ; Viral upper respiratory tract infection J06.9 ; COPD (chronic obstructive pulmonary disease) J44.9 ; Essential hypertension I10 ; Unilateral recurrent inguinal hernia without obstruction or gangrene K40.91 ; Dysuria R30.0 ; Yeast infection of the vagina B37.3 and Vaginal itching L29.8 [facility] [id number] [place] [address] Jul, Essential hypertension I10 and COPD (chronic obstructive pulmonary disease) J44.9 [facility] [facility] [id number] [place] [address] 47707- 4565 Mar, Left lower quadrant pain R10.32 ; Type 2 diabetes mellitus without complication E11.9 and Cardiac arrhythmia, unspecified cardiac arrhythmia type I49.9 [facility] [facility] [id number] [address] Oct, COPD (chronic obstructive pulmonary disease) J44.9 ; Diabetes E11.9 and Mouth pain K13.79 [facility] [id number] [place] [address] 85371- 7639 Sep, [facility] [id number] [place] [address] 46128- 1563 Sep, COPD (chronic obstructive pulmonary disease) J44.9 ; Diabetes E11.9 and Mouth pain K13.79 [place] [id number] [place] [address] 9[address]11- 0645 Aug, Type 2 diabetes mellitus without complication E11.9 [place] [address] [address] Aug, [facility] [facility] [id number] [place] [address] 7[address]87- 1[address] Aug, Type 2 diabetes mellitus without complication E11.9 [facility] [facility] [address] [address] Aug, Establishing care with new doctor, encounter for Z71.89 ; Type 2 diabetes mellitus without complication E11.9 ; Essential hypertension I10 ; Cough R05 ; Hammertoe M20.40 and Sleep apnea G47.30 [place] [id number] [place] [address]76- [address]796 Jul, [address] [address] Jun, Vaginal lesion N89.[address] [address]- [address] Jun, [address] [address]- 1388 Jun, Well woman exam Z01.419 ; Papanicolaou [...] in female N39.3 and Breast lesion N64.9 [place] [id number] [place] [address]40- 7139 May, Bronchitis J40 [address] [address] May, Routine adult health maintenance Z00.00 ; Essential hypertension I10 ; Hyperlipidemia E78.5 ; COPD (chronic obstructive pulmonary disease) J44.9 ; Unilateral recurrent inguinal hernia without obstruction or gangrene K40.91 and Type 2 diabetes mellitus without complication E11.9 [facility] [address] [address] 14 Oct, 2014 [facility] [id number] [place] [address] 74254- 9645 Oct, [facility] [address] [address] Sep, [facility] [id number] [place] [address]53- 4517 Sep, [facility] [id number] [address] Sep, [facility] [address] [place] [address] 28654- 3198 Sep, [facility] [address] [address] Aug, [facility] [address] [address] Aug, [facility] [address] [address] Jul, [facility] [address] [address] Jul, [facility] [address] [address] Jun, [facility] [address] [address] Jun, [facility] [id number] [address] Jun, [facility] [id number] [place] [address] [place] [address] Jun, [facility] [place] [facility] [address] [id number] [place] [address]21 Jun, [facility] [place] [facility] [address] [id number] [place] [address] 2833 Mar, [facility] [place] [facility] [address] [id number] [place] [address] 6426 Mar, [facility] [place] [facility] [address] [id number] [place] [address] Feb, [facility] [place] [facility] [address] [id number] [place] [address]- 9710 Feb, [facility] [place] [facility] [address] [id number] [place] [address]- 4212 Feb, [facility] [place] [facility] [address] [id number] [place] [address]- 0076 Feb, [facility] [place] [facility] [address] [id number] [place] [address]- 9589 Dec, [facility] [place] [facility] [address] [id number] [place] [address]- 2372 Dec, [facility] [place] [facility] [address] [id number] [place] [address]- 8705 November, [facility] [place] [facility] [address] [id number] [place] [address]- 7976 November, [facility] [place] [facility] [address] [id number] [place] [address]- 5401 November, [facility] [place] [facility] [address] [id number] [place] [address]- 8175 November, [facility] [place] [facility] [address] [id number] [place] [address]- 9291 Sep, [facility] [place] [facility] [address] [id number] [place] [address]- 0157 Sep, [facility] [place] [facility] [address] [id number] [place] [address] 2549 07 Sep, 2013 [facility] [place] [facility] [address] [id number] [place] [address]- 1629 07 Sep, 2013 [facility] [place] [facility] [address] [id number] [place] [address]- 9709 Jul, [facility] [place] [facility] [address] [id number] [place] [address]- 5818 Jul, [facility] [place] [facility] [address] [id number] [place] [address]- 7789 05 Jun, 2013 [facility] [place] [facility] [address] [id number] [place] [address]- 7265 Jun, [facility] [place] [facility] [address] [id number] [place] [address]- 7482 Jun, [facility] [place] [facility] [address] [id number] [place] [address]- 3385 Jun, [facility] [place] [facility] [address] [id number] [place] [address]- 8039 May, [facility] [place] [facility] [address] [id number] [place] [address]- 7465 May, [facility] [place] [facility] [address] [facility] [id number] [place] [address]- 7846 Apr, [facility] [place] [facility] [address] [id number] [place] [address]- 254 Apr, [facility] [place] [facility] [address] [id number] [place] [address]- 2545 Apr, [facility] [place] [facility] [address] [id number] [place] [address]- 2546 27 Mar, 2013 [facility] [place] [facility] [address] [id number] [place] [address]- 2546 18 Mar, 2013 [facility] [place] [facility] [address] [id number] [place] [address]- 7316 Mar, [facility] [address] [id number] [place] [address]- 5971 Feb, [facility] [address] [id number] [place] [address]- 8456 Feb, [facility] [address] [id number] [place] [address]- 5234 Jan, [facility] [address] [id number] [place] [address]- 6378 November, [facility] [address] [id number] [place] [address]- 6361 Oct, [facility] [address] [id number] [place] [address]- 6203 Oct, [facility] [address] [id number] [place] [address]- 3318 Jul, [facility] [place] [facility] [address] [id number] [address]- 4[address] Jul, [facility] [address] [id number] [place] [address]- 7841 Jul, [facility] [place] [facility] [address] [id number] [place] [address]- 0798 Jul, [facility] [address] [id number] [place] [address]- 4265 Jul, [facility] [place] [facility] [address] [id number] [address]- 4306 Jul, [facility] [place] [facility] [address] [id number] [place] [address]- 1074 Jul, [facility] [place] [facility] [address] [id number] [place] [address]- 5058 Jul, [facility] [place] [facility] [address] [id number] [place] [address]- 1374 Jun, [facility] [place] [facility] [address] [id number] [place] [address]- 5312 Jun, [facility] [place] [facility] [address] [id number] [place] [address]- 7360 Apr, [facility] [place] [facility] [address] [id number] [place] [address]- 5389 Apr, [facility] [place] [facility] [address] [id number] [place] [address]- 4899 Apr, [facility] [place] [facility] [address] [id number] [place] [address]- 8089 Apr, [facility] [place] [facility] [address] [id number] [place] [address]- 9533 Apr, [facility] [place] [facility] [address] [id number] [place] [address]- 3582 Apr, [facility] [place] [facility] [address] [id number] [place] [address]- 4090 Apr, [facility] [place] [facility] [address] [id number] [place] [address]- 6706 Apr, [facility] [place] [facility] [address] [id number] [place] [address]- 3108 Apr, [facility] [place] [facility] [address] [id number] [place] [address]- 2564 Apr, [facility] [place] [facility] [address] [id number] [place] [address]- 7937 Mar, [facility] [place] [facility] [address] [id number] [place] [address]- 2531 Mar, [facility] [place] [facility] [address] [id number] [place] [address] Feb, [facility] [place] [facility] [address] [id number] [place] [address]- 4666 Feb, [facility] [place] [facility] [address] [id number] [place] [address]- 2901 Feb, [facility] [place] [facility] [address] [id number] [place] [address]- 7119 Feb, [facility] [place] [facility] [address] [id number] [place] [address]- 9114 Feb, [facility] [place] [facility] [address] [id number] [place] [address]- 6812 Feb, [facility] [place] [facility] [address] [id number] [place] [address]- 1953 Feb, [facility] [place] [facility] [address] [id number] [place] [address]- 2790 Feb, [facility] [place] [facility] [address] [id number] [place] [address]- 0809 Feb, [facility] [place] [facility] [address] [id number] [place] [address]- 0907 Feb, [facility] [place] [facility] [address] [id number] [place] [address]- 1975 Jan, [facility] [place] [facility] [address] [id number] [place] [address]- 3874 Jan, [facility] [place] [facility] [address] [id number] [place] [address]- 9475 Jan, [facility] [place] [facility] [address] [id number] [place] [address]- 0921 Jan, [facility] [place] [facility] [address] [id number] [place] [address]- 6080 November, [facility] [place] [facility] [address] [id number] [place] [address]- 5618 Oct, [facility] [place] [facility] [address] [id number] [place] [address]- 9218 Sep, [facility] [place] [facility] [address] [id number] [place] [address]- 5637 Sep, [facility] [place] [facility] [address] [id number] [place] [address]99 Sep, [facility] [address] [facility] [id number] [place] [address]- 2517 Sep, IMMUNIZATIONS No Known Immunizations SOCIAL HISTORY Never Assessed REASON FOR VISIT Shortness of breath, cough- out of all chronic meds JStrasserRN PLAN OF CARE Activity Details Follow Up prn Reason: VITAL SIGNS Height 64 in 2017-07-27 Weight 176 lbs 2017-07-27 Temperature 98.2 degrees Fahrenheit 2017-07-27 Heart Rate 85 bpm 2017-07-27 Respiratory Rate 20 2017-07-27 Oximetry 90 % 2017-07-27 BMI 30.21 kg/m2 2017-07-27 Blood pressure systolic 170 mmHg 2017-07-27 Blood pressure diastolic 110 mmHg 2017-07-27 MEDICATIONS Medication Instructions Dosage Frequency Start Date End Date Duration Status Fenofibrate Micronized 134 MG Orally Once a day take 1 capsule (134 mg) by oral route once daily with food 24h Jul, Not-Taking Lisinopril 10 MG TAKE ONE TABLET BY MOUTH ONCE DAILY IN THE MORNING 30 Active Flonase 50 mcg/actuation 1 sprays by Nasal route 2 times per day in each nostril Oct, Not-Taking Albuterol Sulfate 2.5 mg /3 mL (0.083 %) 1 Each by Inhalation route every 4 hours for cough and wheeze PRN for wheezing or cough Sep, Active Actos 30 MG Orally Once a day samples 1 tablet Aug, Not- Taking MiraLax 17 gram/dose Orally Once a day take 8.5 g mixed with 8 oz. water or juice by Oral route 1 time per day 24h Jun, Not-Taking Amlodipine Besylate 10 MG TAKE ONE TABLET BY MOUTH ONCE DAILY 90 Not-Taking Norvasc 10 MG Orally Once a day 1 tablet 24h 30 days Active ProAir HFA 90 mcg/actuation 2 puffs by Inhalation route 4 times per day for 30 day(s) Sep, Active Diflucan 150 MG Orally Once a day 1 tablet 24h 14 Jun, 2015 1 dose Not -Taking metformin 500 mg sq 2 times a day 2 tablet by Oral route 2 times per day 12h 08 Mar, 2014 Not-Taking Symbicort 160-4.5 mcg/actuation inhale 2 puffs by inhalation route 2 times per day in the morning and evening Oct, Not-Taking RESULTS No Results PROCEDURES Procedure Date Ordered Result Body Site MEASURE BLOOD OXYGEN LEVEL Jul 27, 2017 INSTRUCTIONS MEDICATIONS ADMINISTERED No Known Medications [...]
--- OUTSIDE RECORDS SUMMARY | 2018-05-04 07:56 | XMS REPORT ---
Author Author BALAJI DAMON [facility] eClinicalWorks Address Unknown Phone Unavailable Care Team Providers Care Chief Sales Officer Name Role Phone BALAJI DAMON Unavailable Allergies, [...] apnea G47.30 Active Problem Gastroparesis K31.84 Active Assessment Vaginal lesion N89.8 Active Problem Essential hypertension I10 Active Medications Medication Code System Code Instructions Start Date End Date Status Dosage metformin NDC 0 500 mg sq 2 times a day Mar 11, 2014 2 tablet by Oral route 2 times per day MiraLax [facility] [address]-83 17 gram/dose Orally Once a day Jun 25, 2014 take 8.5 g mixed with 8 oz. water or juice by Oral route 1 time per day Symbicort [facility] [address]-66 160-4.5 mcg/actuation October 30, 2012 inhale 2 puffs by inhalation route 2 times per day in the morning and evening Lisinopril [facility] [address]-62 10 MG Orally Once a day September 05, 2014 take 1 tablet by Oral route 1 time per day Take in am ProAir HFA [facility] [address]-76 90 mcg/actuation September 23, 2011 2 puffs by Inhalation route 4 times per day for 30 day(s) Albuterol Sulfate [facility] [address]-59 2.5 mg /3 mL (0.083 %) September 07, 2013 1 Each by Inhalation route every 4 hours for cough and wheeze PRN for wheezing or cough [facility] [address]-48 10 MG Orally Once a day 1 tablet Procedures Procedure Coding System Code Date BIOPSY OF VAGINA CPT-4 23708 Jun 23, 2015 Vital Signs Date/Time: Jun 23, 2015 Temperature 97.5 F Weight 185.8 lbs Height 64 in BMI 31.89 Index Blood Pressure Diastolic 92 mmHg Blood Pressure Systolic 146 mmHg Cardiac Monitoring Heart Rate 84 bpm Results No Known Results Summary Purpose eClinicalWorks Submission
--- OUTSIDE RECORDS SUMMARY | 2018-05-04 07:56 | XMS REPORT ---
Author Author MERARY JOSUE [facility] eClinicalWorks Address Unknown Phone Unavailable Care Team Providers Care Grounds Keeper Name Role Phone MERARY JOSUE CP Unavailable Allergies, Adverse Reactions, Alerts Substance Reaction Event Type Sulfamethoxazole Info Not Available Drug Allergy Lipitor Stiff neck, aching muscles in neck Drug Allergy Problems Problem Type Condition Code Onset Dates Condition Status Assessment Bronchitis J40 Active Problem Sleep apnea G47.30 Active Problem Unilateral recurrent inguinal hernia without obstruction or gangrene K40.91 Active Problem Hyperlipidemia E78.5 Active Problem COPD (chronic obstructive pulmonary disease) J44.9 Active Problem Type 2 diabetes mellitus without complication E11.9 Active Problem Essential hypertension I10 Active Problem Gastroparesis K31.84 Active Problem GERD (gastroesophageal reflux disease) K21.9 Active Problem Tobacco dependence F17.200 Active Medications Medication Code System Code Instructions Start Date End Date Status Dosage MiraLax [facility] [address]-86 17 gram/dose Orally Once a day Jun 25, 2014 take 8.5 g mixed with 8 oz. water or juice by Oral route 1 time per day Zithromax Z-Jonathan [facility] [address]-55 250 MG Orally Once a day May 27, 2015 Jun 01, 2015 2 tablets on the first day, then 1 tablet daily for 4 days Albuterol Sulfate [facility] [address]-94 2.5 mg /3 mL (0.083 %) September 07, 2013 1 Each by Inhalation route every 4 hours for cough and wheeze PRN for wheezing or cough Lisinopril [facility] [address]-80 10 MG Orally Once a day September 05, 2014 take 1 tablet by Oral route 1 time per day Take in am metformin ND 0 500 mg sq 2 times a day Mar 11, 2014 2 tablet by Oral route 2 times per day ProAir HFA [facility] [address]-01 90 mcg/actuation September 23, 2011 2 puffs by Inhalation route 4 times per day for 30 day(s) Fenofibrate Micronized [facility] [address]-03 134 MG Orally Once a day Jul 18, 2014 take 1 capsule (134 mg) by oral route once daily with food Symbicort [facility] [address]-31 160-4.5 mcg/actuation October 30, 2012 inhale 2 puffs by inhalation route 2 times per day in the morning and evening Norvasc [facility] [address]-51 10 MG Orally Once a day 1 tablet Procedures Procedure Coding System Code Date Office Visit, Est Pt., Level 3 CPT-4 29522 May 27, 2015 Vital Signs Date/Time: May 27, 2015 Temperature 97.8 F Weight 180.5 lbs Height 64 in BMI 30.98 Index Blood Pressure Diastolic 76 mmHg Blood Pressure Systolic 102 mmHg Cardiac Monitoring Heart Rate 96 bpm Results No Known Results Summary Purpose eClinicalWorks Submission
--- OUTSIDE RECORDS SUMMARY | 2018-05-04 07:56 | XMS REPORT ---
Author Author ABIGAIL GOMEZ [facility] eClinicalWorks Address Unknown Phone Unavailable Care Team Providers Care Risk Intern Name Role Phone ABIGAIL GOMEZ CP Unavailable Allergies No Known Allergies Problems Problem [...] Active Problem Essential hypertension I10 Active Medications No Known Medications Results No Known Results Summary Purpose eClinicalWorks Submission
--- OUTSIDE RECORDS SUMMARY | 2018-05-04 07:56 | XMS REPORT ---
Author Author ABIAGIL GOMEZ [facility] eClinicalWorks Address Unknown Phone Unavailable Care Team Providers Care Associate Professor Of Management Name Role Phone ABIGAIL GOMEZ Unavailable Allergies, Adverse Reactions, Alerts Substance Reaction Event Type Sulfamethoxazole Info Not Available Drug Allergy Lipitor Stiff neck, aching muscles in neck Drug Allergy Problems Problem Type Condition Code Onset Dates Condition Status Assessment Routine adult health maintenance Z00.00 Active Problem Sleep apnea G47.30 Active Problem Unilateral recurrent inguinal hernia without obstruction or gangrene K40.91 Active Problem Hyperlipidemia E78.5 Active Problem COPD (chronic obstructive pulmonary disease) J44.9 Active Problem Type 2 diabetes mellitus without complication E11.9 Active Problem Essential hypertension I10 Active Problem Gastroparesis K31.84 Active Problem GERD (gastroesophageal reflux disease) K21.9 Active Problem Tobacco dependence F17.200 Active Assessment Unilateral recurrent inguinal hernia without obstruction or gangrene K40.91 Active Assessment COPD (chronic obstructive pulmonary disease) J44.9 Active Assessment Hyperlipidemia E78.5 Active Assessment Type 2 diabetes mellitus without complication E11.9 Active Assessment Essential hypertension I10 Active Medications Medication Code System Code Instructions Start Date End Date Status Dosage Norvasc [facility] [address]-66 10 MG Orally Once a day 1 tablet Lisinopril [facility] [address]-85 10 MG Orally Once a day September 05, 2014 take 1 tablet by Oral route 1 time per day Take in am MiraLax [facility] [address]-28 17 gram/dose Orally Once a day Jun 25, 2014 take 8.5 g mixed with 8 oz. water or juice by Oral route 1 time per day Fenofibrate Micronized [facility] [address]-49 134 MG Orally Once a day Jul 18, 2014 take 1 capsule (134 mg) by oral route once daily with food Albuterol Sulfate [facility] [address]-13 2.5 mg /3 mL (0.083 %) September 07, 2013 1 Each by Inhalation route every 4 hours for cough and wheeze PRN for wheezing or cough metformin NDC 0 500 mg sq 2 times a day Mar 11, 2014 2 tablet by Oral route 2 times per day Procedures Procedure Coding System Code Date Office Visit, Est Pt., Level 4 CPT-4 94945 May 14, 2015 GLYCATED HEMOGLOBIN TEST CPT-4 68990 May 14, 2015 Vital Signs Date/Time: May 14, 2015 Temperature 97.7 F Weight 187.8 lbs Height 64 in BMI 32.23 Index Blood Pressure Diastolic 100 mmHg Blood Pressure Systolic 176 mmHg Cardiac Monitoring Heart Rate 84 bpm Results Name Result Date Reference Range Unit Abnormality Flag A1C (IN HOUSE) Summary Purpose eClinicalWorks Submission
--- OUTSIDE RECORDS SUMMARY | 2018-05-04 07:57 | XMS REPORT ---
Author Author MERARY JOSUE [facility] Address [address] [place] [address] Care Team Providers Care Project Management Instructor Name Role Phone MERARY JOSUE Unavailable PROBLEMS Type Condition ICD9-CM Code RGY52-OD Code Onset Dates Condition Status SNOMED Code Problem Type 2 diabetes mellitus without complication E11.9 Active 10118343 Problem Stress incontinence in female N39.3 Active 12166458 Problem Breast lesion N64.9 Active 511724366 Problem Establishing care with new doctor, encounter for Z71.89 Active 727911455 Assessment Left lower quadrant pain R10.32 Mar, Active 888294232 Problem Cough R05 Active 31849577 Assessment Cardiac arrhythmia, unspecified cardiac arrhythmia type I49.9 Mar, Active 36855703 Problem Hyperlipidemia, unspecified hyperlipidemia type E78.5 Active 95174622 Problem Unilateral inguinal hernia without obstruction or gangrene, recurrence not specified K40.90 Active 88724186 Problem Hammertoe M20.40 Active 384567947 Problem Vaginal lesion N89.8 Active 490770581 Problem Unilateral recurrent inguinal hernia without obstruction or gangrene K40.91 Active 21407175 Problem Sleep apnea G47.30 Active 12009436 Problem Normal cardiac stress test Z13.6 Active 191780317 Problem Abnormal colonoscopy R93.3 Active 107266469 Problem Tobacco dependence F17.200 Active 49198356 Problem GERD (gastroesophageal reflux disease) K21.9 Active 181194023 Problem Gastroparesis K31.84 Active 239676763 Problem COPD (chronic obstructive pulmonary disease) J44.9 Active 60166664 Problem Essential hypertension I10 Active 67149062 Problem Hyperlipidemia E78.5 Active 73042476 ALLERGIES Substance Reaction Event Type Date Status Sulfamethoxazole Unknown Drug Allergy Mar, Active Lipitor Stiff neck, aching muscles in neck Drug Allergy Mar, Active SOCIAL HISTORY No smoking Hx information available PLAN OF CARE VITAL SIGNS Height 64 in 2016-03-04 Weight 175.0 lbs 2016-03-04 Heart Rate 88 bpm 2016-03-04 Respiratory Rate 20 2016-03-04 BMI 30.04 kg/m2 2016-03-04 Blood pressure systolic 158 mmHg 2016-03-04 Blood pressure diastolic 102 mmHg 2016-03-04 MEDICATIONS Medication Instructions Dosage Frequency Start Date End Date Duration Status ProAir HFA 90 mcg/actuation 2 puffs by Inhalation route 4 times per day for 30 day(s) Sep, Active Symbicort 160-4.5 mcg/actuation inhale 2 puffs by inhalation route 2 times per day in the morning and evening Oct, Active Actos 30 MG Orally Once a day samples 1 tablet Aug, Active MiraLax 17 gram/dose Orally Once a day take 8.5 g mixed with 8 oz. water or juice by Oral route 1 time per day 24h Jun, Active Lisinopril 10 MG TAKE ONE TABLET BY MOUTH ONCE DAILY IN THE MORNING 30 Active Norvasc 10 MG Orally Once a day 1 tablet 24h Active Albuterol Sulfate 2.5 mg /3 mL (0.083 %) 1 Each by Inhalation route every 4 hours for cough and wheeze PRN for wheezing or cough Sep, Active metformin 500 mg sq 2 times a day 2 tablet by Oral route 2 times per day 12h Mar, Active Flonase 50 mcg/actuation 1 sprays by Nasal route 2 times per day in each nostril Oct, Active Amlodipine Besylate 10 MG TAKE ONE TABLET BY MOUTH ONCE DAILY 90 Active RESULTS Name Result Date Reference Range CBC 2016-03-04 Please note WBC RBC Hemoglobin Hematocrit MCV MCH MCHC RDW Platelets NRBC Neutrophils Lymphs Monocytes Eos Basos Immature Granulocytes Neutrophils (Absolute) Lymphs (Absolute) Monocytes(Absolute) Eos (Absolute) Baso (Absolute) Immature Grans (Abs) Immature Cells Bands Blasts/blast like cells Megakaryocytes Metamyelocytes Myelocytes Other, Lineage Uncertain Promyelocytes Hematology Comments: Request Problem Request Problem CMP 2016-03-04 NTI Urine Tube (Shields) [place] CMP14 Default Request Problem Request Problem Sodium, Serum Potassium, Serum Chloride, Serum Carbon Dioxide, Total BUN Creatinine, Serum eGFR If NonAfricn Am eGFR If Africn Am BUN/Creatinine Ratio Glucose, Serum Calcium, Serum Bilirubin, Total AST (SGOT) ALT (SGPT) Alkaline Phosphatase, S Protein, Total, Serum Albumin, Serum Globulin, Total A/G Ratio Specimen Identification Status Please note A1C (IN HOUSE) 2016-03-04 A1C IN HOUSE 6.8 4.3 - 5.6 % Previous A1c 6.[id number] Scan : Abdomen & Pelvis w/ Contrast 2016-03-09 PROCEDURES Procedure Date Ordered Related Diagnosis Body Site Office Visit, Est Pt., Level 3 Mar 04, 2016 IMMUNIZATIONS No Known Immunizations
--- OUTSIDE RECORDS SUMMARY | 2018-05-04 07:59 | XMS REPORT | Continuity of Care Document ---
Author Author [facility] Address Unknown Phone Unavailable Allergies Active Description Code Type Severity Reaction Onset Reported/Identified Relationship to Patient Clinical Status Yes Sulfa(Sulfonamide Antibiotics) Drug Allergy N/A N/A 09/23/2011 Yes Sulfa(Sulfonamide Antibiotics) Drug Allergy 09/23/2011 Yes Lipitor 10 mg tablet Drug Allergy N/A N/A 07/25/2012 Yes Lipitor 10 mg tablet Drug Allergy 07/25/2012 Yes Sulfa (Sulfonamide Antibiotics) [id number] Drug Allergy Mild N/A 2014 Yes Khxpveg-Xhh-Nua Reductase Inhibitor [id number] Drug Allergy Unknown N/A Medications There is no data. Problems Date Dx Coded Attending Type Code Diagnosis Diagnosed By 09/23/2011 401.1 HYPERTENSION, BENIGN ESSENTIAL 09/23/2011 466.0 Bronchitis, Acute 09/23/2011 V65.42 COUNSELING - SMOKING CESSATION 09/23/2011 V70.0 ROUTINE GENERAL MEDICAL EXAMINATION AT A HEALTH CARE FACILITY 09/23/2011 KIMMIE HATHAWAY DO 401.1 HYPERTENSION, BENIGN ESSENTIAL 09/23/2011 KIMMIE HATHAWAY DO 466.0 Bronchitis, Acute 09/23/2011 KIMMIE HATHAWAY DO V65.42 COUNSELING - SMOKING CESSATION 09/23/2011 KIMMIE HATHAWAY DO V70.0 ROUTINE GENERAL MEDICAL EXAMINATION AT A HEALTH CARE FACILITY 09/23/2011 YE MIRZA APRN 401.1 HYPERTENSION, BENIGN ESSENTIAL 09/23/2011 YE MIRZA APRN 466.0 Bronchitis, Acute 09/23/2011 YE MIRZA APRN V65.42 COUNSELING - SMOKING CESSATION 09/23/2011 YE MIRZA APRN V70.0 ROUTINE GENERAL MEDICAL EXAMINATION AT A HEALTH CARE FACILITY 09/23/2011 KIMMIE HATHAWAY DO 401.1 HYPERTENSION, BENIGN ESSENTIAL 09/23/2011 KIMMIE HATHAWAY DO K 466.0 Bronchitis, Acute 09/23/2011 HATHAWAY DO, KIMMIE K V65.42 COUNSELING - SMOKING CESSATION 09/23/2011 HATHAWAY DO, KIMMIE K V70.0 ROUTINE GENERAL MEDICAL EXAMINATION AT A HEALTH CARE FACILITY 09/23/2011 401.1 HYPERTENSION, BENIGN ESSENTIAL 09/23/2011 466.0 Bronchitis, Acute 09/23/2011 V65.42 COUNSELING - SMOKING CESSATION 09/23/2011 V70.0 ROUTINE GENERAL MEDICAL EXAMINATION AT A HEALTH CARE FACILITY 09/23/2011 401.1 HYPERTENSION, BENIGN ESSENTIAL 09/23/2011 466.0 Bronchitis, Acute 09/23/2011 V65.42 COUNSELING - SMOKING CESSATION 09/23/2011 V70.0 ROUTINE GENERAL MEDICAL EXAMINATION AT A HEALTH CARE FACILITY 09/23/2011 401.1 HYPERTENSION, BENIGN ESSENTIAL 09/23/2011 466.0 Bronchitis, Acute 09/23/2011 V65.42 COUNSELING - SMOKING CESSATION 09/23/2011 V70.0 ROUTINE GENERAL MEDICAL EXAMINATION AT A HEALTH CARE FACILITY 09/23/2011 HATHAWAY DO, KIMMIE K 401.1 HYPERTENSION, BENIGN ESSENTIAL 09/23/2011 HATHAWAY DO, KIMMIE K 466.0 Bronchitis, Acute 09/23/2011 HATHAWAY DO, KIMMIE K V65.42 COUNSELING - SMOKING CESSATION 09/23/2011 HATHAWAY DO, KIMMIE K V70.0 ROUTINE GENERAL MEDICAL EXAMINATION AT A HEALTH CARE FACILITY 09/23/2011 HATHAWAY DO, KIMMIE K 401.1 HYPERTENSION, BENIGN ESSENTIAL 09/23/2011 HATHAWAY DO, KIMMIE K 466.0 Bronchitis, Acute 09/23/2011 HATHAWAY DO, KIMMIE K V65.42 COUNSELING - SMOKING CESSATION 09/23/2011 HATHAWAY DO, KIMMIE K V70.0 ROUTINE GENERAL MEDICAL EXAMINATION AT A HEALTH CARE FACILITY 09/23/2011 HATHAWAY DO, KIMMIE K 401.1 HYPERTENSION, BENIGN ESSENTIAL 09/23/2011 HATHAWAY DO, KIMMIE K 466.0 Bronchitis, Acute 09/23/2011 HATHAWAY DO, KIMMIE K V65.42 COUNSELING - SMOKING CESSATION 09/23/2011 HATHAWAY DO, KIMMIE K V70.0 ROUTINE GENERAL MEDICAL EXAMINATION AT A HEALTH CARE FACILITY 09/23/2011 HATHAWAY DO, KIMMIE K 401.1 HYPERTENSION, BENIGN ESSENTIAL 09/23/2011 HATHAWAY DO, KIMMIE K 466.0 Bronchitis, Acute 09/23/2011 HATHAWAY DO, KIMMIE K V65.42 COUNSELING - SMOKING CESSATION 09/23/2011 HATHAWAY DO, KIMMIE K V70.0 ROUTINE GENERAL MEDICAL EXAMINATION AT A HEALTH CARE FACILITY 09/23/2011 ROLAND SIZER MACHINE, TIN R 401.1 HYPERTENSION, BENIGN ESSENTIAL 09/23/2011 ROLAND SIZER MACHINE, TIN R 466.0 Bronchitis, Acute 09/23/2011 ROLAND SIZER MACHINE, TIN R V65.42 COUNSELING - SMOKING CESSATION 09/23/2011 ROLAND SIZER MACHINE, TIN R V70.0 ROUTINE GENERAL MEDICAL EXAMINATION AT A HEALTH CARE FACILITY 09/23/2011 YUKI SIZER MACHINEREGYE R 401.1 HYPERTENSION, BENIGN ESSENTIAL 09/23/2011 YUKI SIZER MACHINE, YE R 466.0 Bronchitis, Acute 09/23/2011 YUKI SIZER MACHINE, YE R V65.42 COUNSELING - SMOKING CESSATION 09/23/2011 YUKI SIZER MACHINE YE R V70.0 ROUTINE GENERAL MEDICAL EXAMINATION AT A HEALTH CARE FACILITY 09/23/2011 HATHAWAY DO, KIMMIE K 401.1 HYPERTENSION, BENIGN ESSENTIAL 09/23/2011 HATHAWAY DO, KIMMIE K 466.0 Bronchitis, Acute 09/23/2011 HATHAWAY DO, KIMMIE K V65.42 COUNSELING - SMOKING CESSATION 09/23/2011 HATHAWAY DO, KIMMIE K V70.0 ROUTINE GENERAL MEDICAL EXAMINATION AT A HEALTH CARE FACILITY 09/23/2011 HATHAWAY DO, KIMMIE K 401.1 HYPERTENSION, BENIGN ESSENTIAL 09/23/2011 HATHAWAY DO, KIMMIE K 466.0 Bronchitis, Acute 09/23/2011 HATHAWAY DO, KIMMIE K V65.42 COUNSELING - SMOKING CESSATION 09/23/2011 HATHAWAY DO, KIMMIE K V70.0 ROUTINE GENERAL MEDICAL EXAMINATION AT A HEALTH CARE FACILITY 09/23/2011 HATHAWAY DO, KIMMIE K 401.1 HYPERTENSION, BENIGN ESSENTIAL 09/23/2011 HATHAWAY DO, KIMMIE K 466.0 Bronchitis, Acute 09/23/2011 HATHAWAY DO, KIMMIE K V65.42 COUNSELING - SMOKING CESSATION 09/23/2011 HATHAWAY DO, KIMMIE K V70.0 ROUTINE GENERAL MEDICAL EXAMINATION AT A HEALTH CARE FACILITY 09/23/2011 HATHAWAY DO, KIMMIE K 401.1 HYPERTENSION, BENIGN ESSENTIAL 09/23/2011 HATHAWAY DO, KIMMIE K 466.0 Bronchitis, Acute 09/23/2011 HATHAWAY DO, KIMMIE K V65.42 COUNSELING - SMOKING CESSATION 09/23/2011 HATHAWAY DO, KIMMIE K V70.0 ROUTINE GENERAL MEDICAL EXAMINATION AT A HEALTH CARE FACILITY 09/23/2011 ALLYSON VERA APRN 401.1 HYPERTENSION, BENIGN ESSENTIAL 09/23/2011 ALLYSON VERA APRN 466.0 Bronchitis, Acute 09/23/2011 ALLYSON VERA APRN V65.42 COUNSELING - SMOKING CESSATION 09/23/2011 ALLYSON VERA APRN V70.0 ROUTINE GENERAL MEDICAL EXAMINATION AT A HEALTH CARE FACILITY 09/29/2011 790.29 PREDIABETES 09/29/2011 HATHAWAY DO, KIMMIE K 790.29 Prediabetes 09/29/2011 YE MIRZA APRN R 790.29 Prediabetes 09/29/2011 HATHAWAY DO, KIMMIE K 790.29 Prediabetes 09/29/2011 790.29 Prediabetes 09/29/2011 790.29 Prediabetes 09/29/2011 790.29 Prediabetes 09/29/2011 HATHAWAY DO, KIMMIE K 790.29 Prediabetes 09/29/2011 HATHAWAY DO, KIMMIE K 790.29 Prediabetes 09/29/2011 HATHAWAY DO, KIMMIE K 790.29 Prediabetes 09/29/2011 HATHAWAY DO, KIMMIE K 790.29 Prediabetes 09/29/2011 TIN WATKINS APRN R 790.29 Prediabetes 09/29/2011 YE MIRZA APRN R 790.29 Prediabetes 09/29/2011 HATHAWAY DO, KIMMIE K 790.29 Prediabetes 09/29/2011 HATHAWAY DO, KIMMIE K 790.29 Prediabetes 09/29/2011 HATHAWAY DO, KIMMIE K 790.29 PREDIABETES 09/29/2011 HATHAWAY DO, KIMMIE K 790.29 Prediabetes 09/29/2011 ALLYSON VERA APRN 790.29 Prediabetes 01/11/2012 228.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 UNSPECIFIED SITE 01/11/2012 786.05 SHORTNESS OF BREATH 01/11/2012 V16.3 FAMILY HISTORY OF MALIGNANT NEOPLASM OF BREAST 01/11/2012 HATHAWAY DO, KIMMIE K 228.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 UNSPECIFIED SITE 01/11/2012 HATHAWAY DO, KIMMIE K 786.05 Shortness Of Breath 01/11/2012 HATHAWAY DO, KIMMIE K V16.3 FAMILY HISTORY OF MALIGNANT NEOPLASM OF BREAST 01/11/2012 YE MIRZA APRN R 228.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 UNSPECIFIED SITE 01/11/2012 MIRZA SIZER MACHINE, YE R 786.05 Shortness Of Breath 01/11/2012 MIRZA SIZER MACHINE, YE R V16.3 FAMILY HISTORY OF MALIGNANT NEOPLASM OF BREAST 01/11/2012 HATHAWAY DO, KIMMIE K 228.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 UNSPECIFIED SITE 01/11/2012 HATHAWAY DO, KIMMIE K 786.05 Shortness Of Breath 01/11/2012 HATHAWAY DO, KIMMIE K V16.3 FAMILY HISTORY OF MALIGNANT NEOPLASM OF BREAST 01/11/2012 228.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 UNSPECIFIED SITE 01/11/2012 786.05 Shortness Of Breath 01/11/2012 V16.3 FAMILY HISTORY OF MALIGNANT NEOPLASM OF BREAST 01/11/2012 228.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 UNSPECIFIED SITE 01/11/2012 786.05 Shortness Of Breath 01/11/2012 V16.3 FAMILY HISTORY OF MALIGNANT NEOPLASM OF BREAST 01/11/2012 228.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 UNSPECIFIED SITE 01/11/2012 786.05 Shortness Of Breath 01/11/2012 V16.3 FAMILY HISTORY OF MALIGNANT NEOPLASM OF BREAST 01/11/2012 HATHAWAY DO, KIMMIE K 228.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 UNSPECIFIED SITE 01/11/2012 HATHAWAY DO, KIMMIE K 786.05 Shortness Of Breath 01/11/2012 HATHAWAY DO, KIMMIE K V16.3 FAMILY HISTORY OF MALIGNANT NEOPLASM OF BREAST 01/11/2012 HATHAWAY DO, KIMMIE K 228.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 UNSPECIFIED SITE 01/11/2012 HATHAWAY DO, KIMMIE K 786.05 Shortness Of Breath 01/11/2012 HATHAWAY DO, KIMMIE K V16.3 FAMILY HISTORY OF MALIGNANT NEOPLASM OF BREAST 01/11/2012 HATHAWAY DO, KIMMIE K 228.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 UNSPECIFIED SITE 01/11/2012 HATHAWAY DO, KIMMIE K 786.05 Shortness Of Breath 01/11/2012 HATHAWAY DO, KIMMIE K V16.3 FAMILY HISTORY OF MALIGNANT NEOPLASM OF BREAST 01/11/2012 HATHAWAY DO, KIMMIE K 228.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 UNSPECIFIED SITE 01/11/2012 HATHAWAY DO, KIMMIE K 786.05 Shortness Of Breath 01/11/2012 HATHAWAY DO, KIMMIE K V16.3 FAMILY HISTORY OF MALIGNANT NEOPLASM OF BREAST 01/11/2012 ROLAND SIZER MACHINE, TIN R 228.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 UNSPECIFIED SITE 01/11/2012 ROLAND SIZER MACHINE, TIN R 786.05 Shortness Of Breath 01/11/2012 KATIE WATKINS APRNINA R V16.3 FAMILY HISTORY OF MALIGNANT NEOPLASM OF BREAST 01/11/2012 BARON MIRZA APRNIA R 228.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 UNSPECIFIED SITE 01/11/2012 BARON MIRZA APRNIA R 786.05 Shortness Of Breath 01/11/2012 BARON MIRZA APRNIA R V16.3 FAMILY HISTORY OF MALIGNANT NEOPLASM OF BREAST 01/11/2012 HATHAWAY DO, KIMMIE K 228.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 UNSPECIFIED SITE 01/11/2012 HATHAWAY DO, KIMMIE K 786.05 Shortness Of Breath 01/11/2012 HATHAWAY DO, KIMMIE K V16.3 FAMILY HISTORY OF MALIGNANT NEOPLASM OF BREAST 01/11/2012 HATHAWAY DO, KIMMIE K 228.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 UNSPECIFIED SITE 01/11/2012 HATHAWAY DO, KIMMIE K 786.05 Shortness Of Breath 01/11/2012 HATHAWAY DO, KIMMIE K V16.3 FAMILY HISTORY OF MALIGNANT NEOPLASM OF BREAST 01/11/2012 HATHAWAY DO, KIMMIE K 228.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 UNSPECIFIED SITE 01/11/2012 HATHAWAY DO, KIMMIE K 786.05 SHORTNESS OF BREATH 01/11/2012 HATHAWAY DO, KIMMIE K V16.3 FAMILY HISTORY OF MALIGNANT NEOPLASM OF BREAST 01/11/2012 HATHAWAY DO, KIMMIE K 228.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 UNSPECIFIED SITE 01/11/2012 HATHAWAY DO, KIMMIE K 786.05 Shortness Of Breath 01/11/2012 HATHAWAY DO, KIMMIE K V16.3 FAMILY HISTORY OF MALIGNANT NEOPLASM OF BREAST 01/11/2012 ALLYSON VERA APRN 228.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 UNSPECIFIED SITE 01/11/2012 ALLYSON VERA APRN 786.05 Shortness Of Breath 01/11/2012 ALLYSON VERA APRN V16.3 FAMILY HISTORY OF MALIGNANT NEOPLASM OF BREAST 02/15/2012 V76.10 BREAST CANCER SCREENING 02/15/2012 V76.47 VAGINAL PAP SMEAR SCREENING 02/15/2012 HATHAWAY DO KIMMIE K V76.10 Breast Cancer Screening 02/15/2012 HATHAWAY DO, KIMMIE K V76.47 Vaginal Pap Smear Screening 02/15/2012 YE MIRZA APRN R V76.10 Breast Cancer Screening 02/15/2012 YE MIRZA APRN R V76.47 Vaginal Pap Smear Screening 02/15/2012 HATHAWAY DO, KIMMIE K V76.10 Breast Cancer Screening 02/15/2012 HATHAWAY DO, KIMMIE K V76.47 Vaginal Pap Smear Screening 02/15/2012 V76.10 Breast Cancer Screening 02/15/2012 V76.47 Vaginal Pap Smear Screening 02/15/2012 V76.10 Breast Cancer Screening 02/15/2012 V76.47 Vaginal Pap Smear Screening 02/15/2012 V76.10 Breast Cancer Screening 02/15/2012 V76.47 Vaginal Pap Smear Screening 02/15/2012 HATHAWAY DO, KIMMIE K V76.10 Breast Cancer Screening 02/15/2012 HATHAWAY DO, KIMMIE K V76.47 Vaginal Pap Smear Screening 02/15/2012 HATHAWAY DO, KIMMIE K V76.10 Breast Cancer Screening 02/15/2012 HATHAWAY DO, KIMMIE K V76.47 Vaginal Pap Smear Screening 02/15/2012 HATHAWAY DO, KIMMIE K V76.10 Breast Cancer Screening 02/15/2012 HATHAWAY DO, KIMMIE K V76.47 Vaginal Pap Smear Screening 02/15/2012 HATHAWAY DO, KIMMIE K V76.10 Breast Cancer Screening 02/15/2012 HATHAWAY DO, KIMIME K V76.47 Vaginal Pap Smear Screening 02/15/2012 ROLAND COLLINS TIN R V76.10 Breast Cancer Screening 02/15/2012 ROLAND COLLINS TIN R V76.47 Vaginal Pap Smear Screening 02/15/2012 REG MIRZA APRNRICIA R V76.10 Breast Cancer Screening 02/15/2012 BARON MIRZA APRNIA R V76.47 Vaginal Pap Smear Screening 02/15/2012 HATHAWAY DO, KIMMIE K V76.10 Breast Cancer Screening 02/15/2012 HATHAWAY DO, KIMMIE K V76.47 Vaginal Pap Smear Screening 02/15/2012 HATHAWAY DO, KIMMIE K V76.10 Breast Cancer Screening 02/15/2012 HATHAWAY DO, KIMMIE K V76.47 Vaginal Pap Smear Screening 02/15/2012 HATHAWAY DO, KIMMIE K V76.10 BREAST CANCER SCREENING 02/15/2012 HATHAWAY DO, KIMMIE K V76.47 VAGINAL PAP SMEAR SCREENING 02/15/2012 HATHAWAY DO, KIMMIE K V76.10 Breast Cancer Screening 02/15/2012 HATHAWAY DO, KIMMIE K V76.47 Vaginal Pap Smear Screening 02/15/2012 ALLYSON VERA APRN V76.10 Breast Cancer Screening 02/15/2012 ALLYSON VERA APRN V76.47 Vaginal Pap Smear Screening 02/28/2012 709.9 UNSPECIFIED DISORDER OF SKIN AND SUBCUTANEOUS TISSUE 02/28/2012 HATHAWAY DO, KIMMIE K 709.9 Unspecified Disorder Of Skin And Subcutaneous Tissue 02/28/2012 YE MIRZA APRN 709.9 Unspecified Disorder Of Skin And Subcutaneous Tissue 02/28/2012 HATHAWAY DO, KIMMIE K 709.9 Unspecified Disorder Of Skin And Subcutaneous Tissue 02/28/2012 709.9 Unspecified Disorder Of Skin And Subcutaneous Tissue 02/28/2012 709.9 Unspecified Disorder Of Skin And Subcutaneous Tissue 02/28/2012 709.9 Unspecified Disorder Of Skin And Subcutaneous Tissue 02/28/2012 HATHAWAY DO, KIMMIE K 709.9 Unspecified Disorder Of Skin And Subcutaneous Tissue 02/28/2012 HATHAWAY DO, KIMMIE K 709.9 Unspecified Disorder Of Skin And Subcutaneous Tissue 02/28/2012 HATHAWAY DO, KIMMIE K 709.9 Unspecified Disorder Of Skin And Subcutaneous Tissue 02/28/2012 HATHAWAY DO, KIMMIE K 709.9 Unspecified Disorder Of Skin And Subcutaneous Tissue 02/28/2012 TIN WATKINS APRN 709.9 Unspecified Disorder Of Skin And Subcutaneous Tissue 02/28/2012 YE MIRZA APRN R 709.9 Unspecified Disorder Of Skin And Subcutaneous Tissue 02/28/2012 HATHAWAY DO, KIMMIE K 709.9 Unspecified Disorder Of Skin And Subcutaneous Tissue 02/28/2012 HATHAWAY DO, KIMMIE K 709.9 Unspecified Disorder Of Skin And Subcutaneous Tissue 02/28/2012 HATHAWAY DO, KIMMIE K 709.9 UNSPECIFIED DISORDER OF SKIN AND SUBCUTANEOUS TISSUE 02/28/2012 HATHAWAY DO, KIMMIE K 709.9 Unspecified Disorder Of Skin And Subcutaneous Tissue 02/28/2012 ALLYSON VERA APRN 709.9 Unspecified Disorder Of Skin And Subcutaneous Tissue 04/24/2012 276.51 DEHYDRATION 04/24/2012 HATHAWAY DO, KIMMIE K 276.51 Dehydration 04/24/2012 YE MIRZA APRN R 276.51 Dehydration 04/24/2012 HATHAWAY DO, KIMMIE K 276.51 Dehydration 04/24/2012 276.51 Dehydration 04/24/2012 276.51 Dehydration 04/24/2012 276.51 Dehydration 04/24/2012 HATHAWAY DO, KIMMIE K 276.51 Dehydration 04/24/2012 HATHAWAY DO, KIMMIE K 276.51 Dehydration 04/24/2012 HATHAWAY DO, KIMMIE K 276.51 Dehydration 04/24/2012 HATHAWAY DO, KIMMIE K 276.51 Dehydration 04/24/2012 TIN WATKINS APRN 276.51 Dehydration 04/24/2012 BARON MIRZA APRNIA R 276.51 Dehydration 04/24/2012 HATHAWAY DO, KIMMIE K 276.51 Dehydration 04/24/2012 HATHAWAY DO, KIMMIE K 276.51 Dehydration 04/24/2012 HATHAWAY DO, KIMMIE K 276.51 DEHYDRATION 04/24/2012 HATHAWAY DO, KIMMIE K 276.51 Dehydration 04/24/2012 ALLYSON VERA APRN 276.51 Dehydration 05/01/2012 250.00 DIABETES MELLITUS TYPE 2 05/01/2012 729.82 CRAMP OF LIMB 05/01/2012 780.50 UNSPECIFIED SLEEP DISTURBANCE 05/01/2012 780.57 UNSPECIFIED SLEEP APNEA 05/01/2012 HATHAWAY DO, KIMMIE K 250.00 DIABETES MELLITUS TYPE 2 05/01/2012 HATHAWAY DO, KIMMIE K 729.82 CRAMP OF LIMB 05/01/2012 HATHAWAY DO, KIMMIE K 780.50 UNSPECIFIED SLEEP DISTURBANCE 05/01/2012 HATHAWAY DO, KIMMIE K 780.57 UNSPECIFIED SLEEP APNEA 05/01/2012 BARON MIRZA APRNIA R 250.00 DIABETES MELLITUS TYPE 2 05/01/2012 YE MIRZA APRN R 729.82 CRAMP OF LIMB 05/01/2012 BARON MIRZA APRNIA R 780.50 UNSPECIFIED SLEEP DISTURBANCE 05/01/2012 BARON MIRZA APRNIA R 780.57 UNSPECIFIED SLEEP APNEA 05/01/2012 HATHAWAY DO, KIMMIE K 250.00 DIABETES MELLITUS TYPE 2 05/01/2012 HATHAWAY DO, KIMMIE K 729.82 Cramp Of Limb 05/01/2012 HATHAWAY DO, KIMMIE K 780.50 UNSPECIFIED SLEEP DISTURBANCE 05/01/2012 HATHAWAY DO, KIMMIE K 780.57 UNSPECIFIED SLEEP APNEA 05/01/2012 250.00 DIABETES MELLITUS TYPE 2 05/01/2012 729.82 Cramp Of Limb 05/01/2012 780.50 UNSPECIFIED SLEEP DISTURBANCE 05/01/2012 780.57 UNSPECIFIED SLEEP APNEA 05/01/2012 250.00 DIABETES MELLITUS TYPE 2 05/01/2012 729.82 Cramp Of Limb 05/01/2012 780.50 UNSPECIFIED SLEEP DISTURBANCE 05/01/2012 780.57 UNSPECIFIED SLEEP APNEA 05/01/2012 250.00 DIABETES MELLITUS TYPE 2 05/01/2012 729.82 Cramp Of Limb 05/01/2012 780.50 UNSPECIFIED SLEEP DISTURBANCE 05/01/2012 780.57 UNSPECIFIED SLEEP APNEA 05/01/2012 HATHAWAY DO, KIMMIE K 250.00 DIABETES MELLITUS TYPE 2 05/01/2012 HATHAWAY DO, KIMMIE K 729.82 Cramp Of Limb 05/01/2012 HATHAWAY DO, KIMMIE K 780.50 UNSPECIFIED SLEEP DISTURBANCE 05/01/2012 HATHAWAY DO, KIMMIE K 780.57 UNSPECIFIED SLEEP APNEA 05/01/2012 HATHAWAY DO, KIMMIE K 250.00 DIABETES MELLITUS TYPE 2 05/01/2012 HATHAWAY DO, KIMMIE K 729.82 Cramp Of Limb 05/01/2012 HATHAWAY DO, KIMMIE K 780.50 UNSPECIFIED SLEEP DISTURBANCE 05/01/2012 HATHAWAY DO, KIMMIE K 780.57 UNSPECIFIED SLEEP APNEA 05/01/2012 HATHAWAY DO, KIMMIE K 250.00 DIABETES MELLITUS TYPE 2 05/01/2012 HATHAWAY DO, KIMMIE K 729.82 Cramp Of Limb 05/01/2012 HATHAWAY DO, KIMMIE K 780.50 UNSPECIFIED SLEEP DISTURBANCE 05/01/2012 HATHAWAY DO, KIMMIE K 780.57 UNSPECIFIED SLEEP APNEA 05/01/2012 HATHAWAY DO, KIMMIE K 250.00 DIABETES MELLITUS TYPE 2 05/01/2012 HATHAWAY DO, KIMMIE K 729.82 Cramp Of Limb 05/01/2012 HATHAWAY DO, KIMMIE K 780.50 UNSPECIFIED SLEEP DISTURBANCE 05/01/2012 HATHAWAY DO, KIMMIE K 780.57 UNSPECIFIED SLEEP APNEA 05/01/2012 ROLAND SIZER MACHINE, TIN R 250.00 DIABETES MELLITUS TYPE 2 05/01/2012 ROLAND SIZER MACHINE, TIN R 729.82 Cramp Of Limb 05/01/2012 ROLAND SIZER MACHINE, TIN R 780.50 UNSPECIFIED SLEEP DISTURBANCE 05/01/2012 ROLAND SIZER MACHINE, TIN R 780.57 UNSPECIFIED SLEEP APNEA 05/01/2012 YUKI SIZER MACHINEREGYE R 250.00 DIABETES MELLITUS TYPE 2 05/01/2012 YUKI SIZER MACHINE YE R 729.82 Cramp Of Limb 05/01/2012 YE MIRZA APRN R 780.50 UNSPECIFIED SLEEP DISTURBANCE 05/01/2012 YE MIRZA APRN R 780.57 UNSPECIFIED SLEEP APNEA 05/01/2012 HATHAWAY DO, KIMMIE K 250.00 DIABETES MELLITUS TYPE 2 05/01/2012 HATHAWAY DO, KIMMIE K 729.82 Cramp Of Limb 05/01/2012 HATHAWAY DO, KIMMIE K 780.50 UNSPECIFIED SLEEP DISTURBANCE 05/01/2012 HATHAWAY DO, KIMMIE K 780.57 UNSPECIFIED SLEEP APNEA 05/01/2012 HATHAWAY DO, KIMMIE K 250.00 DIABETES MELLITUS TYPE 2 05/01/2012 HATHAWAY DO, KIMMIE K 729.82 Cramp Of Limb 05/01/2012 HATHAWAY DO, KIMMIE K 780.50 UNSPECIFIED SLEEP DISTURBANCE 05/01/2012 HATHAWAY DO, KIMMIE K 780.57 UNSPECIFIED SLEEP APNEA 05/01/2012 HATHAWAY DO, KIMMIE K 250.00 DIABETES MELLITUS TYPE 2 05/01/2012 HATHAWAY DO, KIMMIE K 729.82 CRAMP OF LIMB 05/01/2012 HATHAWAY DO, KIMMIE K 780.50 UNSPECIFIED SLEEP DISTURBANCE 05/01/2012 HATHAWAY DO, KIMMIE K 780.57 UNSPECIFIED SLEEP APNEA 05/01/2012 HATHAWAY DO, KIMMIE K 250.00 DIABETES MELLITUS TYPE 2 05/01/2012 HATHAWAY DO, KIMMIE K 729.82 Cramp Of Limb 05/01/2012 HATHAWAY DO, KIMMIE K 780.50 UNSPECIFIED SLEEP DISTURBANCE 05/01/2012 HATHAWAY DO, KIMMIE K 780.57 UNSPECIFIED SLEEP APNEA 05/01/2012 ALLYSON VERA APRN 250.00 DIABETES MELLITUS TYPE 2 05/01/2012 ALLYSON VERA APRN 729.82 Cramp Of Limb 05/01/2012 ALLYSON VERA APRN 780.50 UNSPECIFIED SLEEP DISTURBANCE 05/01/2012 ALLYSON VERA APRN 780.57 UNSPECIFIED SLEEP APNEA 07/11/2012 YE MIRZA APRN R 112.1 CANDIDIASIS VAGINAL 07/11/2012 YE MIRZA APRN R 455.6 UNSPECIFIED HEMORRHOIDS WITHOUT COMPLICATION 07/11/2012 YE MIRZA APRN R 461.9 SINUSITIS ACUTE 07/11/2012 YE MIRZA APRN R 564.00 UNSPECIFIED CONSTIPATION 07/11/2012 HATHAWAY DO, KIMMIE K 112.1 Candidiasis Vaginal 07/11/2012 HATHAWAY DO, KIMMIE K 455.6 UNSPECIFIED HEMORRHOIDS WITHOUT COMPLICATION 07/11/2012 HATHAWAY DO, KIMMIE K 461.9 Sinusitis Acute 07/11/2012 HATHAWAY DO, KIMMIE K 564.00 Unspecified Constipation 07/11/2012 112.1 Candidiasis Vaginal 07/11/2012 455.6 UNSPECIFIED HEMORRHOIDS WITHOUT COMPLICATION 07/11/2012 461.9 Sinusitis Acute 07/11/2012 564.00 Unspecified Constipation 07/11/2012 112.1 Candidiasis Vaginal 07/11/2012 455.6 UNSPECIFIED HEMORRHOIDS WITHOUT COMPLICATION 07/11/2012 461.9 Sinusitis Acute 07/11/2012 564.00 Unspecified Constipation 07/11/2012 112.1 Candidiasis Vaginal 07/11/2012 455.6 UNSPECIFIED HEMORRHOIDS WITHOUT COMPLICATION 07/11/2012 461.9 Sinusitis Acute 07/11/2012 564.00 Unspecified Constipation 07/11/2012 HATHAWAY DO, KIMMIE K 112.1 Candidiasis Vaginal 07/11/2012 HATHAWAY DO, KIMMIE K 455.6 UNSPECIFIED HEMORRHOIDS WITHOUT COMPLICATION 07/11/2012 HATHAWAY DO, KIMMIE K 461.9 Sinusitis Acute 07/11/2012 HATHAWAY DO, KIMMIE K 564.00 Unspecified Constipation 07/11/2012 HATHAWAY DO, KIMMIE K 112.1 Candidiasis Vaginal 07/11/2012 HATHAWAY DO, KIMMIE K 455.6 UNSPECIFIED HEMORRHOIDS WITHOUT COMPLICATION 07/11/2012 HATHAWAY DO, KIMMIE K 461.9 Sinusitis Acute 07/11/2012 HATHAWAY DO, KIMMIE K 564.00 Unspecified Constipation 07/11/2012 HATHAWAY DO, KIMMIE K 112.1 Candidiasis Vaginal 07/11/2012 HATHAWAY DO, KIMMIE K 455.6 UNSPECIFIED HEMORRHOIDS WITHOUT COMPLICATION 07/11/2012 HATHAWAY DO, KIMMIE K 461.9 Sinusitis Acute 07/11/2012 HATHAWAY DO, KIMMIE K 564.00 Unspecified Constipation 07/11/2012 HATHAWAY DO, KIMMIE K 112.1 Candidiasis Vaginal 07/11/2012 HATHAWAY DO, KIMMIE K 455.6 UNSPECIFIED HEMORRHOIDS WITHOUT COMPLICATION 07/11/2012 HATHAWAY DO, KIMMIE K 461.9 Sinusitis Acute 07/11/2012 HATHAWAY DO, KIMMIE K 564.00 Unspecified Constipation 07/11/2012 ROLAND SIZER MACHINE, TIN R 112.1 Candidiasis Vaginal 07/11/2012 ROLAND SIZER MACHINE, TIN R 455.6 UNSPECIFIED HEMORRHOIDS WITHOUT COMPLICATION 07/11/2012 ROLAND SIZER MACHINE, TIN R 461.9 Sinusitis Acute 07/11/2012 ROLAND SIZER MACHINE, TIN R 564.00 Unspecified Constipation 07/11/2012 YUKI SIZER MACHINE, YE R 112.1 Candidiasis Vaginal 07/11/2012 YUKI SIZER MACHINE, YE R 455.6 UNSPECIFIED HEMORRHOIDS WITHOUT COMPLICATION 07/11/2012 YUKI SIZER MACHINE, YE R 461.9 Sinusitis Acute 07/11/2012 YUKI SIZER MACHINE, YE R 564.00 Unspecified Constipation 07/11/2012 HATHAWAY DO, KIMMIE K 112.1 Candidiasis Vaginal 07/11/2012 HATHAWAY DO, KIMMIE K 455.6 UNSPECIFIED HEMORRHOIDS WITHOUT COMPLICATION 07/11/2012 HATHAWAY DO, KIMMIE K 461.9 Sinusitis Acute 07/11/2012 HATHAWAY DO, KIMMIE K 564.00 Unspecified Constipation 07/11/2012 HATHAWAY DO, KIMMIE K 112.1 Candidiasis Vaginal 07/11/2012 HATHAWAY DO, KIMMIE K 455.6 UNSPECIFIED HEMORRHOIDS WITHOUT COMPLICATION 07/11/2012 HATHAWAY DO, KIMMIE K 461.9 Sinusitis Acute 07/11/2012 HATHAWAY DO, KIMMIE K 564.00 Unspecified Constipation 07/11/2012 HATHAWAY DO, KIMMIE K 112.1 Candidiasis Vaginal 07/11/2012 HATHAWAY DO, KIMMIE K 455.6 UNSPECIFIED HEMORRHOIDS WITHOUT COMPLICATION 07/11/2012 HATHAWAY DO, KIMMIE K 461.9 Sinusitis Acute 07/11/2012 HATHAWAY DO, KIMMIE K 564.00 Unspecified Constipation 07/11/2012 ALLYSON VERA APRN T 112.1 Candidiasis Vaginal 07/11/2012 JODY MAYERNALLYSON T 455.6 UNSPECIFIED HEMORRHOIDS WITHOUT COMPLICATION 07/11/2012 ALLYSON VERA APRN T 461.9 Sinusitis Acute 07/11/2012 ALLYSON VERA APRN T 564.00 Unspecified Constipation 07/25/2012 YUKI COLLINS, YE R 564.00 CONSTIPATION 07/25/2012 HATHAWAY DO, KIMMIE K 564.00 CONSTIPATION 07/25/2012 564.00 CONSTIPATION 07/25/2012 564.00 CONSTIPATION 07/25/2012 564.00 CONSTIPATION 07/25/2012 HATHAWAY DO, KIMMIE K 564.00 CONSTIPATION 07/25/2012 HATHAWAY DO, KIMMIE K 564.00 CONSTIPATION 07/25/2012 HATHAWAY DO, KIMMIE K 564.00 CONSTIPATION 07/25/2012 HATHAWAY DO, KIMMIE K 564.00 CONSTIPATION 07/25/2012 TIN WATKINS APRN R 564.00 CONSTIPATION 07/25/2012 YE MIRZA APRN R 564.00 CONSTIPATION 07/25/2012 HATHAWAY DO, KIMMIE K 564.00 CONSTIPATION 07/25/2012 HATHAWAY DO, KIMMIE K 564.00 CONSTIPATION 07/25/2012 HATHAWAY DO, KIMMIE K 564.00 CONSTIPATION 07/25/2012 ALLYSON VERA APRN 564.00 CONSTIPATION 08/01/2012 HATHAWAY DO, KIMMIE K 536.3 GASTROPARESIS 08/01/2012 536.3 GASTROPARESIS 08/01/2012 536.3 GASTROPARESIS 08/01/2012 536.3 GASTROPARESIS 08/01/2012 HATHAWAY DO, KIMMIE K 536.3 GASTROPARESIS 08/01/2012 HATHAWAY DO, KIMMIE K 536.3 GASTROPARESIS 08/01/2012 HATHAWAY DO, KIMMIE K 536.3 GASTROPARESIS 08/01/2012 HATHAWAY DO, KIMMIE K 536.3 GASTROPARESIS 08/01/2012 TIN WATKINS APRN R 536.3 GASTROPARESIS 08/01/2012 YE MIRZA APRN R 536.3 GASTROPARESIS 08/01/2012 HATHAWAY DO, KIMMIE K 536.3 GASTROPARESIS 08/01/2012 HATHAWAY DO, KIMMIE K 536.3 GASTROPARESIS 08/01/2012 HATHAWAY DO, KIMMIE K 536.3 GASTROPARESIS 08/01/2012 ALLYSON VERA APRN 536.3 GASTROPARESIS 10/30/2012 078.10 VIRAL WARTS UNSPECIFIED 10/30/2012 388.70 OTALGIA UNSPECIFIED 10/30/2012 521.00 UNSPECIFIED DENTAL CARIES 10/30/2012 627.8 OTHER SPECIFIED MENOPAUSAL AND POSTMENOPAUSAL DISORDERS 10/30/2012 791.0 PROTEINURIA 10/30/2012 078.10 VIRAL WARTS UNSPECIFIED 10/30/2012 388.70 OTALGIA UNSPECIFIED 10/30/2012 521.00 UNSPECIFIED DENTAL CARIES 10/30/2012 627.8 OTHER SPECIFIED MENOPAUSAL AND POSTMENOPAUSAL DISORDERS 10/30/2012 791.0 PROTEINURIA 10/30/2012 078.10 VIRAL WARTS UNSPECIFIED 10/30/2012 388.70 OTALGIA UNSPECIFIED 10/30/2012 521.00 UNSPECIFIED DENTAL CARIES 10/30/2012 627.8 OTHER SPECIFIED MENOPAUSAL AND POSTMENOPAUSAL DISORDERS 10/30/2012 791.0 PROTEINURIA 10/30/2012 HATHAWAY DO, KIMMIE K 078.10 VIRAL WARTS UNSPECIFIED 10/30/2012 HATHAWAY DO, KIMMIE K 388.70 OTALGIA UNSPECIFIED 10/30/2012 HATHAWAY DO, KIMMIE K 521.00 UNSPECIFIED DENTAL CARIES 10/30/2012 HATHAWAY DO, KIMMIE K 627.8 OTHER SPECIFIED MENOPAUSAL AND POSTMENOPAUSAL DISORDERS 10/30/2012 HATHAWAY DO, KIMMIE K 791.0 PROTEINURIA 10/30/2012 HATHAWAY DO, KIMMIE K 078.10 VIRAL WARTS UNSPECIFIED 10/30/2012 HATHAWAY DO, KIMMIE K 388.70 OTALGIA UNSPECIFIED 10/30/2012 HATHAWAY DO, KIMMIE K 521.00 UNSPECIFIED DENTAL CARIES 10/30/2012 HATHAWAY DO, KIMMIE K 627.8 OTHER SPECIFIED MENOPAUSAL AND POSTMENOPAUSAL DISORDERS 10/30/2012 HATHAWAY DO, KIMMIE K 791.0 PROTEINURIA 10/30/2012 HATHAWAY DO, KIMMIE K 078.10 VIRAL WARTS UNSPECIFIED 10/30/2012 HATHAWAY DO, KIMMIE K 388.70 OTALGIA UNSPECIFIED 10/30/2012 HATHAWAY DO, KIMMIE K 521.00 UNSPECIFIED DENTAL CARIES 10/30/2012 HATHAWAY DO, KIMMIE K 627.8 OTHER SPECIFIED MENOPAUSAL AND POSTMENOPAUSAL DISORDERS 10/30/2012 HATHAWAY DO, KIMMIE K 791.0 PROTEINURIA 10/30/2012 HATHAWAY DO, KIMMIE K 078.10 VIRAL WARTS UNSPECIFIED 10/30/2012 HATHAWAY DO, KIMMIE K 388.70 OTALGIA UNSPECIFIED 10/30/2012 HATHAWAY DO, KIMMIE K 521.00 UNSPECIFIED DENTAL CARIES 10/30/2012 HATHAWAY DO, KIMMEI K 627.8 OTHER SPECIFIED MENOPAUSAL AND POSTMENOPAUSAL DISORDERS 10/30/2012 HATHAWAY DO, KIMMIE K 791.0 PROTEINURIA 10/30/2012 TIN WATKINS APRN 078.10 VIRAL WARTS UNSPECIFIED 10/30/2012 ROLAND SIZER MACHINE, TIN R 388.70 OTALGIA UNSPECIFIED 10/30/2012 ROLAND SIZER MACHINE, TIN R 521.00 UNSPECIFIED DENTAL CARIES 10/30/2012 ROLAND SIZER MACHINE, TIN R 627.8 OTHER SPECIFIED MENOPAUSAL AND POSTMENOPAUSAL DISORDERS 10/30/2012 ROLAND SIZER MACHINE, TIN R 791.0 PROTEINURIA 10/30/2012 YUKI SIZER MACHINE, YE R 078.10 VIRAL WARTS UNSPECIFIED 10/30/2012 YUKI SIZER MACHINEREGYE R 388.70 OTALGIA UNSPECIFIED 10/30/2012 YUKI SIZER MACHINE, YE R 521.00 UNSPECIFIED DENTAL CARIES 10/30/2012 YUKI SIZER MACHINE, YE R 627.8 OTHER SPECIFIED MENOPAUSAL AND POSTMENOPAUSAL DISORDERS 10/30/2012 YUKI SIZER MACHINEREGYE R 791.0 PROTEINURIA 10/30/2012 HATHAWAY DO, KIMMIE K 078.10 VIRAL WARTS UNSPECIFIED 10/30/2012 HATHAWAY DO, KIMMIE K 388.70 OTALGIA UNSPECIFIED 10/30/2012 HATHAWAY DO, KIMMIE K 521.00 UNSPECIFIED DENTAL CARIES 10/30/2012 HATHAWAY DO, KIMMIE K 627.8 OTHER SPECIFIED MENOPAUSAL AND POSTMENOPAUSAL DISORDERS 10/30/2012 HATHAWAY DO, KIMMIE K 791.0 PROTEINURIA 10/30/2012 HATHAWAY DO, KIMMIE K 078.10 VIRAL WARTS UNSPECIFIED 10/30/2012 HATHAWAY DO, KIMMIE K 388.70 OTALGIA UNSPECIFIED 10/30/2012 HATHAWAY DO, KIMMIE K 521.00 UNSPECIFIED DENTAL CARIES 10/30/2012 HATHAWAY DO, KIMMIE K 627.8 OTHER SPECIFIED MENOPAUSAL AND POSTMENOPAUSAL DISORDERS 10/30/2012 HATHAWAY DO, KIMMIE K 791.0 PROTEINURIA 10/30/2012 HATHAWAY DO, KIMMIE K 078.10 VIRAL WARTS UNSPECIFIED 10/30/2012 HATHAWAY DO, KIMMIE K 388.70 OTALGIA UNSPECIFIED 10/30/2012 HATHAWAY DO, KIMMIE K 521.00 UNSPECIFIED DENTAL CARIES 10/30/2012 HATHAWAY DO, KIMMIE K 627.8 OTHER SPECIFIED MENOPAUSAL AND POSTMENOPAUSAL DISORDERS 10/30/2012 HATHAWAY DO, KIMMIE K 791.0 PROTEINURIA 10/30/2012 ALLYSON VERA APRN 078.10 VIRAL WARTS UNSPECIFIED 10/30/2012 ALLYSON VERA APRN 388.70 OTALGIA UNSPECIFIED 10/30/2012 ALLYSON VERA APRN 521.00 UNSPECIFIED DENTAL CARIES 10/30/2012 ALLYSON VERA APRN 627.8 OTHER SPECIFIED MENOPAUSAL AND POSTMENOPAUSAL DISORDERS 10/30/2012 ALLYSON VERA APRN 791.0 PROTEINURIA 01/01/2013 132.2 PHTHIRUS PUBIS (PUBIC LOUSE) 01/01/2013 132.2 PHTHIRUS PUBIS (PUBIC LOUSE) 01/01/2013 HATHAWAY DO, KIMMIE K 132.2 PHTHIRUS PUBIS (PUBIC LOUSE) 01/01/2013 HATHAWAY DO, KIMMIE K 132.2 PHTHIRUS PUBIS (PUBIC LOUSE) 01/01/2013 HATHAWAY DO, KIMMIE K 132.2 PHTHIRUS PUBIS (PUBIC LOUSE) 01/01/2013 HATHAWAY DO, KIMMIE K 132.2 PHTHIRUS PUBIS (PUBIC LOUSE) 01/01/2013 ROLAND COLLINS TIN R 132.2 PHTHIRUS PUBIS (PUBIC LOUSE) 01/01/2013 REG MIRZA APRNRICIA R 132.2 PHTHIRUS PUBIS (PUBIC LOUSE) 01/01/2013 HATHAWAY DO, KIMMIE K 132.2 PHTHIRUS PUBIS (PUBIC LOUSE) 01/01/2013 HATHAWAY DO, KIMMIE K 132.2 PHTHIRUS PUBIS (PUBIC LOUSE) 01/01/2013 HATHAWAY DO, KIMMIE K 132.2 PHTHIRUS PUBIS (PUBIC LOUSE) 01/01/2013 ALLYSON VERA APRN 132.2 PHTHIRUS PUBIS (PUBIC LOUSE) 03/08/2013 530.81 GERD 03/08/2013 729.5 PAIN IN LIMB 03/08/2013 V58.69 LONG-TERM ( CURRENT) USE OF OTHER MEDICATIONS 03/08/2013 HATHAWAY DO, KIMMIE K 530.81 GERD 03/08/2013 HATHAWAY DO, KIMMIE K 729.5 PAIN IN LIMB 03/08/2013 HATHAWAY DO, KIMMIE K V58.69 LONG-TERM (CURRENT) USE OF OTHER MEDICATIONS 03/08/2013 HATHAWAY DO, KIMMIE K 530.81 GERD 03/08/2013 HATHAWAY DO, KIMMIE K 729.5 PAIN IN LIMB 03/08/2013 HATHAWAY DO, KIMMIE K V58.69 LONG-TERM (CURRENT) USE OF OTHER MEDICATIONS 03/08/2013 HATHAWAY DO, KIMMIE K 530.81 GERD 03/08/2013 HATHAWAY DO, KIMMIE K 729.5 PAIN IN LIMB 03/08/2013 HATHAWAY DO, KIMMIE K V58.69 LONG-TERM (CURRENT) USE OF OTHER MEDICATIONS 03/08/2013 HATHAWAY DO, KIMMIE K 530.81 GERD 03/08/2013 HATHAWAY DO, KIMMIE K 729.5 PAIN IN LIMB 03/08/2013 HATHAWAY DO, KIMMIE K V58.69 LONG-TERM (CURRENT) USE OF OTHER MEDICATIONS 03/08/2013 ROLAND SIZER MACHINE, TIN R 530.81 GERD 03/08/2013 ROLAND SIZER MACHINE, TIN R 729.5 PAIN IN LIMB 03/08/2013 ROLAND SIZER MACHINE, TIN R V58.69 LONG-TERM (CURRENT) USE OF OTHER MEDICATIONS 03/08/2013 BARON MIRZA APRNIA R 530.81 GERD 03/08/2013 REG MIRZA APRNRICIA R 729.5 PAIN IN LIMB 03/08/2013 YUKI MAYERN YE R V58.69 LONG-TERM (CURRENT) USE OF OTHER MEDICATIONS 03/08/2013 HATHAWAY DO, KIMMIE K 530.81 GERD 03/08/2013 HATHAWAY DO, KIMMIE K 729.5 PAIN IN LIMB 03/08/2013 HATHAWAY DO, KIMMIE K V58.69 LONG-TERM (CURRENT) USE OF OTHER MEDICATIONS 03/08/2013 HATHAWAY DO, KIMMIE K 530.81 GERD 03/08/2013 HATHAWAY DO, KIMMIE K 729.5 PAIN IN LIMB 03/08/2013 HATHAWAY DO, KIMMIE K V58.69 LONG-TERM (CURRENT) USE OF OTHER MEDICATIONS 03/08/2013 HATHAWAY DO, KIMMIE K 530.81 GERD 03/08/2013 HATHAWAY DO, KIMMIE K 729.5 PAIN IN LIMB 03/08/2013 HATHAWAY DO, KIMMIE K V58.69 LONG-TERM (CURRENT) USE OF OTHER MEDICATIONS 03/08/2013 ALLYSON VERA APRN 530.81 GERD 03/08/2013 ALLYSON VERA APRN 729.5 PAIN IN LIMB 03/08/2013 ALLYSON VERA APRN V58.69 LONG-TERM (CURRENT) USE OF OTHER MEDICATIONS 04/10/2013 HATHAWAY DO, KIMMIE K 550.90 HERNIA INGUINAL 04/10/2013 HATHAWAY DO, KIMMIE K 550.90 HERNIA INGUINAL 04/10/2013 HATHAWAY DO, KIMMIE K 550.90 HERNIA INGUINAL 04/10/2013 ROLAND MAYERNKATIETIN R 550.90 HERNIA INGUINAL 04/10/2013 YUKI MAYERNYE R 550.90 HERNIA INGUINAL 04/10/2013 HATHAWAY DO, KIMMIE K 550.90 HERNIA INGUINAL 04/10/2013 HATHAWAY DO, KIMMIE K 550.90 HERNIA INGUINAL 04/10/2013 HATHAWAY DO, KIMMIE K 550.90 HERNIA INGUINAL 04/10/2013 ALLYSON VERA APRN 550.90 HERNIA INGUINAL 05/21/2013 HATHAWAY DO, KIMMIE K 522.5 PERIAPICAL ABSCESS WITHOUT SINUS 05/21/2013 HATHAWAY DO, KIMMIE K 522.5 PERIAPICAL ABSCESS WITHOUT SINUS 05/21/2013 KATIE WATKINS APRNINA R 522.5 PERIAPICAL ABSCESS WITHOUT SINUS 05/21/2013 YE MIRZA APRN R 522.5 PERIAPICAL ABSCESS WITHOUT SINUS 05/21/2013 HATHAWAY DO, KIMMIE K 522.5 PERIAPICAL ABSCESS WITHOUT SINUS 05/21/2013 HATHAWAY DO, KIMMIE K 522.5 PERIAPICAL ABSCESS WITHOUT SINUS 05/21/2013 HATHAWAY DO, KIMMIE K 522.5 PERIAPICAL ABSCESS WITHOUT SINUS 05/21/2013 ALLYSON VERA APRN 522.5 PERIAPICAL ABSCESS WITHOUT SINUS 06/04/2013 HATHAWAY DO, KIMMIE K 272.4 OTHER AND UNSPECIFIED HYPERLIPIDEMIA 06/04/2013 HATHAWAY DO, KIMMIE K 496 COPD 06/04/2013 ROLAND COLLINS TIN R 272.4 OTHER AND UNSPECIFIED HYPERLIPIDEMIA 06/04/2013 ROLAND MAYERN TIN R 496 COPD 06/04/2013 REG MIRZA APRNRICIA R 272.4 OTHER AND UNSPECIFIED HYPERLIPIDEMIA 06/04/2013 YUKI MAYERN, YE R 496 COPD 06/04/2013 HATHAWAY DO, KIMMIE K 272.4 OTHER AND UNSPECIFIED HYPERLIPIDEMIA 06/04/2013 HATHAWAY DO, KIMMIE K 496 COPD 06/04/2013 HATHAWAY DO, KIMMIE K 272.4 OTHER AND UNSPECIFIED HYPERLIPIDEMIA 06/04/2013 HATHAWAY DO, KIMMIE K 496 COPD 06/04/2013 HATHAWAY DO, KIMMIE K 272.4 OTHER AND UNSPECIFIED HYPERLIPIDEMIA 06/04/2013 HATHAWAY DO, KIMMIE K 496 COPD 06/04/2013 ALLYSON VERA APRN 272.4 OTHER AND UNSPECIFIED HYPERLIPIDEMIA 06/04/2013 ALLYSON VERA APRN 496 COPD 07/31/2013 ROLAND SIZER MACHINE, TIN R 461.9 SINUSITIS ACUTE 07/31/2013 ROLAND SIZER MACHINE, TIN R 786.2 COUGH 07/31/2013 ROLAND SIZER MACHINE, TIN R 789.09 ABDOMINAL PAIN OTHER SPECIFIED SITE 07/31/2013 BARON MIRZA APRNIA R 461.9 SINUSITIS ACUTE 07/31/2013 YUKI SIZER MACHINE, YE R 786.2 COUGH 07/31/2013 YUKI SIZER MACHINE, YE R 789.09 ABDOMINAL PAIN OTHER SPECIFIED SITE 07/31/2013 HATHAWAY DO, KIMMIE K 461.9 SINUSITIS ACUTE 07/31/2013 HATHAWAY DO, KIMMIE K 786.2 COUGH 07/31/2013 HATHAWAY DO, KIMMIE K 789.09 ABDOMINAL PAIN OTHER SPECIFIED SITE 07/31/2013 HATHAWAY DO, KIMMIE K 461.9 SINUSITIS ACUTE 07/31/2013 HATHAWAY DO, KIMMIE K 786.2 COUGH 07/31/2013 HATHAWAY DO, KIMMIE K 789.09 ABDOMINAL PAIN OTHER SPECIFIED SITE 07/31/2013 HATHAWAY DO, KIMMIE K 461.9 SINUSITIS ACUTE 07/31/2013 HATHAWAY DO, KIMMIE K 786.2 COUGH 07/31/2013 HATHAWAY DO, KIMMIE K 789.09 ABDOMINAL PAIN OTHER SPECIFIED SITE 07/31/2013 ALLYSON VERA APRN 461.9 SINUSITIS ACUTE 07/31/2013 ALLYSON VERA APRN 786.2 COUGH 07/31/2013 ALLYSON VERA APRN 789.09 ABDOMINAL PAIN OTHER SPECIFIED SITE 09/07/2013 YE MIRZA APRN R 305.1 TOBACCO ABUSE 09/07/2013 BARON MIRZA APRNIA R 491.21 BRONCHITIS AECB 09/07/2013 HATHAWAY DO, KIMMIE K 305.1 TOBACCO ABUSE 09/07/2013 HATHAWAY DO, KIMMIE K 491.21 BRONCHITIS AECB 09/07/2013 HATHAWAY DO, KIMMIE K 305.1 TOBACCO ABUSE 09/07/2013 HATHAWAY DO, KIMMIE K 491.21 BRONCHITIS AECB 09/07/2013 HATHAWAY DO, KIMMIE K 305.1 TOBACCO ABUSE 09/07/2013 HATHAWAY DO, IKMMIE K 491.21 BRONCHITIS AECB 09/07/2013 ALLYSON VERA APRN 305.1 TOBACCO ABUSE 09/07/2013 ALLYSON VERA APRN 491.21 BRONCHITIS AECB 12/04/2013 HATHAWAY DO KIMMIE K 112.1 CANDIDIASIS OF VULVA AND VAGINA 12/04/2013 HATHAWAY ENOCH SKINNERA K 228.01 HEMANGIOMA OF SKIN AND SUBCUTANEOUS TISSUE 12/04/2013 HATHAWAY KIMMIE SKINNER K 564.00 UNSPECIFIED CONSTIPATION 12/04/2013 ENOCH HATHAWAY DOA K 112.1 CANDIDIASIS OF VULVA AND VAGINA 12/04/2013 MAG SKINNERENOCHA K 228.01 HEMANGIOMA OF SKIN AND SUBCUTANEOUS TISSUE 12/04/2013 HATHAWAY DO KIMMIE K 564.00 UNSPECIFIED CONSTIPATION 12/04/2013 MAG SKINNER KIMMIE K 112.1 CANDIDIASIS OF VULVA AND VAGINA 12/04/2013 HATHAWAY DO KIMMIE K 228.01 HEMANGIOMA OF SKIN AND SUBCUTANEOUS TISSUE 12/04/2013 HATHAWAY KIMMIE SKINNER K 564.00 UNSPECIFIED CONSTIPATION 12/04/2013 ALLYSON VERA APRN 112.1 CANDIDIASIS OF VULVA AND VAGINA 12/04/2013 ALLYSON VERA APRN 228.01 HEMANGIOMA OF SKIN AND SUBCUTANEOUS TISSUE 12/04/2013 ALLYSON VERA APRN 564.00 UNSPECIFIED CONSTIPATION 06/25/2014 KIMMIE HATHAWAY DO 625.8 OTHER SPECIFIED SYMPTOMS ASSOCIATED WITH FEMALE GENITAL ORGANS 06/25/2014 KIMMIE HATHAWAY DO 780.79 OTHER MALAISE AND FATIGUE 06/25/2014 ALLYSON VERA APRN 625.8 OTHER SPECIFIED SYMPTOMS ASSOCIATED WITH FEMALE GENITAL ORGANS 06/25/2014 ALLYSON VERA APRN 780.79 OTHER MALAISE AND FATIGUE 10/02/2014 ALLYSON VERA APRN 493.92 ASTHMA (ACUTE) EXACERBATION 11/16/2014 DENA MINOR MD Ot 250.00 DIAB CARMEN WO COMPL, TYPE II OR UNSPEC TY 11/16/2014 DENA MINOR MD Ot 272.0 PURE HYPERCHOLESTEROLEM 11/16/2014 DENA MINOR MD Ot 305.1 TOBACCO USE DISORDER 11/16/2014 DENA MINOR MD Ot 401.9 HYPERTENSION NOS 11/16/2014 DENA MINOR MD Ot 496 CHR AIRWAY OBSTRUCT NEC 11/16/2014 DENA MINOR MD Ot 552.20 OBSTR VENTRAL HERNIA NOS 11/16/2014 IVÁN WALL, DENA Ot 250.00 11/16/2014 IVÁN WALL, DENA Ot 272.0 11/16/2014 IVÁN WALL, DENA Ot 305.1 11/16/2014 IVÁN WALL, DENA Ot 401.9 11/16/2014 IVÁN WALL, DENA Ot 496 11/16/2014 IVÁN WALL, DENA Ot 552.20 11/18/2014 GASPAR PA, ATRUN M Ot 429.9 11/18/2014 GASPAR PA, TARUN M Ot 491.21 11/18/2014 GASPAR PA, TARUN M Ot 793.11 11/18/2014 Ot 496 11/18/2014 Ot 786.6 11/18/2014 Ot 496 11/18/2014 Ot 786.6 12/17/2014 GASPAR PA, TARUN M Ot 429.9 12/17/2014 GASPAR PA, TARUN M Ot 491.21 12/17/2014 GASPAR PA, TARUN M Ot 793.11 12/17/2014 Ot 496 12/17/2014 Ot 786.6 12/17/2014 Ot 496 12/17/2014 Ot 786.6 02/05/2015 Ot 496 02/05/2015 Ot 786.6 06/17/2015 GASPAR PA, TARUN M Ot 429.9 06/17/2015 GASPAR PA, TARUN M Ot 491.21 06/17/2015 GASPAR PA, TARUN M Ot 793.11 06/17/2015 Ot 496 06/17/2015 Ot 786.6 09/02/2015 GASPAR PA, TARUN M Ot 429.9 09/02/2015 GASPAR PA, TARUN M Ot 491.21 09/02/2015 GASPAR PA, TARUN M Ot 793.11 09/02/2015 Ot 496 09/02/2015 Ot 786.6 09/02/2015 BALAJI DAMON APRN Ot Z12.31 09/02/2015 ZEV PALMA DO Ot K63.5 POLYP OF [place] 09/10/2015 ZEV PALMA DO Ot Z01.818 09/10/2015 ZEV PALMA DO Ot Z01.818 03/05/2016 LIAT, MERARY THRESHING OPERATOR Ot R10.32 LEFT LOWER QUADRANT PAIN 03/10/2016 MERARY JOSUE Ot R10.32 LEFT LOWER QUADRANT PAIN 03/31/2016 TARUN YANG Ot 429.9 HEART DISEASE NOS 03/31/2016 TARUN YANG Ot 491.21 OBSTR CHRONIC BRONCHITIS, W (ACUTE) EXAC 03/31/2016 TARUN YANG Ot 793.11 SOLITARY PULMONARY NODULE 03/31/2016 Ot 496 CHR AIRWAY OBSTRUCT NEC 03/31/2016 Ot 786.6 CHEST SWELLING/MASS/LUMP 03/31/2016 BALAJI DAMON APRN Ot Z12.31 ENCNTR SCREEN MAMMOGRAM FOR MALIGNANT NE 03/31/2016 ZEV PALMA DO Ot Z01.818 ENCOUNTER FOR OTHER PREPROCEDURAL EXAMIN 03/31/2016 MERARY JOSUE Ot R10.32 LEFT LOWER QUADRANT PAIN 03/31/2016 MERARY JOSUE Ot R10.32 LEFT LOWER QUADRANT PAIN 04/05/2016 ZEV PALMA DO Ot K43.9 VENTRAL HERNIA WITHOUT OBSTRUCTION OR GA 04/05/2016 ZEV PALMA DO Ot Z01.818 ENCOUNTER FOR OTHER PREPROCEDURAL EXAMIN 04/06/2016 TARUN YANG Ot 429.9 HEART DISEASE NOS 04/06/2016 TARUN YANG Ot 491.21 OBSTR CHRONIC BRONCHITIS, W (ACUTE) EXAC 04/06/2016 TARUN YANG Ot 793.11 SOLITARY PULMONARY NODULE 04/06/2016 Ot 496 CHR AIRWAY OBSTRUCT NEC 04/06/2016 Ot 786.6 CHEST SWELLING/MASS/LUMP 04/06/2016 BALAJI DAMON APRN Ot Z12.31 ENCNTR SCREEN MAMMOGRAM FOR MALIGNANT NE 04/06/2016 ZEV PALMA DO Ot Z01.818 ENCOUNTER FOR OTHER PREPROCEDURAL EXAMIN 04/06/2016 MERARY JOSUE THRESHING OPERATOR Ot R10.32 LEFT LOWER QUADRANT PAIN 04/06/2016 MERARY JOSUE THRESHING OPERATOR Ot R10.32 LEFT LOWER QUADRANT PAIN 04/06/2016 MERARY JOSUEP Ot R10.32 LEFT LOWER QUADRANT PAIN 04/06/2016 MERARY JOSUE THRESHING OPERATOR Ot R10.32 LEFT LOWER QUADRANT PAIN 04/06/2016 TARUN YANG Ot 429.9 HEART DISEASE NOS 04/06/2016 TARUN YANG Ot 491.21 OBSTR CHRONIC BRONCHITIS, W (ACUTE) EXAC 04/06/2016 TARUN YANG Ot 793.11 SOLITARY PULMONARY NODULE 04/06/2016 Ot 496 CHR AIRWAY OBSTRUCT NEC 04/06/2016 Ot 786.6 CHEST SWELLING/MASS/LUMP 04/07/2016 TARUN YANG Ot 429.9 HEART DISEASE NOS 04/07/2016 TARUN YANG Ot 491.21 OBSTR CHRONIC BRONCHITIS, W (ACUTE) EXAC 04/07/2016 TARUN YANG Ot 793.11 SOLITARY PULMONARY NODULE 04/07/2016 ZEV PALMA DO Ot K43.9 VENTRAL HERNIA WITHOUT OBSTRUCTION OR GA 04/07/2016 ZEV PALMA DO Ot Z01.818 ENCOUNTER FOR OTHER PREPROCEDURAL EXAMIN 04/13/2016 TARUN YANG Ot 429.9 HEART DISEASE NOS 04/13/2016 TARUN YANG Ot 491.21 OBSTR CHRONIC BRONCHITIS, W (ACUTE) EXAC 04/13/2016 TARUN YANG Ot 793.11 SOLITARY PULMONARY NODULE 04/13/2016 Ot 496 CHR AIRWAY OBSTRUCT NEC 04/13/2016 Ot 786.6 CHEST SWELLING/MASS/LUMP 04/13/2016 BALAJI DAMON APRN Ot Z12.31 ENCNTR SCREEN MAMMOGRAM FOR MALIGNANT NE 04/13/2016 ZEV PALMA DO Ot Z01.818 ENCOUNTER FOR OTHER PREPROCEDURAL EXAMIN 04/13/2016 MERARY JOSUE THRESHING OPERATOR Ot R10.32 LEFT LOWER QUADRANT PAIN 04/13/2016 MERARY JOSUEP Ot R10.32 LEFT LOWER QUADRANT PAIN 04/16/2016 MIKAL WALL FACJacky, VIVEK FACP CCDS Ot E11.9 TYPE 2 DIABETES MELLITUS WITHOUT COMPLIC 04/16/2016 MIKAL WALL FACJacky, VIVEK FACP CCDS Ot I10 ESSENTIAL (PRIMARY) HYPERTENSION 04/16/2016 MIKAL WALL FACC, ALI FACP CCDS Ot J44.9 CHRONIC OBSTRUCTIVE PULMONARY DISEASE, U 04/16/2016 MIKAL WALL FACC, ALI FACP CCDS Ot R06.02 SHORTNESS OF BREATH 04/16/2016 MIKAL WALL FACC, ALI FACP CCDS Ot R07.89 OTHER CHEST PAIN 04/16/2016 MIKAL WALL FACC, ALI FACP CCDS Ot Z72.0 TOBACCO USE 04/16/2016 MIKAL WALL FACC, ALI FACP CCDS Ot E11.9 TYPE 2 DIABETES MELLITUS WITHOUT COMPLIC 04/16/2016 MIKAL WALL FACC, ALI FACP CCDS Ot I10 ESSENTIAL (PRIMARY) HYPERTENSION 04/16/2016 MIKAL WALL FACC, ALI FACP CCDS Ot J44.9 CHRONIC OBSTRUCTIVE PULMONARY DISEASE, U 04/16/2016 MIKAL WALL FACC, ALI FACP CCDS Ot R06.02 SHORTNESS OF BREATH 04/16/2016 MIKAL YANG, ALI FACP CCDS Ot R07.89 OTHER CHEST PAIN 04/16/2016 MIKAL WALL [facility], ALI FACP CCDS Ot Z72.0 TOBACCO USE 04/21/2016 ZEV PALMA DO Ot K43.9 VENTRAL HERNIA WITHOUT OBSTRUCTION OR GA 04/21/2016 ZEV PALMA DO Ot Z01.812 ENCOUNTER FOR PREPROCEDURAL LABORATORY E 04/21/2016 ZEV PALMA DO Ot Z11.2 ENCOUNTER FOR SCREENING FOR OTHER BACTER 04/22/2016 ZEV PALMA DO Ot K43.9 VENTRAL HERNIA WITHOUT OBSTRUCTION OR GA 04/22/2016 ZEV PALMA DO Ot Z01.812 ENCOUNTER FOR PREPROCEDURAL LABORATORY E 04/22/2016 ZEV PALMA DO Ot Z11.2 ENCOUNTER FOR SCREENING FOR OTHER BACTER 04/22/2016 ZEV PALMA DO Ot K43.9 VENTRAL HERNIA WITHOUT OBSTRUCTION OR GA 04/22/2016 ZEV PALMA DO Ot Z01.812 ENCOUNTER FOR PREPROCEDURAL LABORATORY E 04/22/2016 ZEV PALMA DO Ot Z11.2 ENCOUNTER FOR SCREENING FOR OTHER BACTER 04/29/2016 ZEV PALMA DO Ot K43.9 VENTRAL HERNIA WITHOUT OBSTRUCTION OR GA 04/30/2016 ZEV PALMA DO Ot K43.9 VENTRAL HERNIA WITHOUT OBSTRUCTION OR GA 05/24/2016 TARUN YANG Ot 429.9 HEART DISEASE NOS 05/24/2016 TARUN YANG Ot 491.21 OBSTR CHRONIC BRONCHITIS, W (ACUTE) EXAC 05/24/2016 TARUN YANG Ot 793.11 SOLITARY PULMONARY NODULE 05/24/2016 Ot 496 CHR AIRWAY OBSTRUCT NEC 05/24/2016 Ot 786.6 CHEST SWELLING/MASS/LUMP 05/24/2016 BALAJI DAMON APRN Ot Z12.31 ENCNTR SCREEN MAMMOGRAM FOR MALIGNANT NE 05/24/2016 ZEV PALMA DO Ot Z01.818 ENCOUNTER FOR OTHER PREPROCEDURAL EXAMIN 05/24/2016 MERARY JOSUE THRESHING OPERATOR Ot R10.32 LEFT LOWER QUADRANT PAIN 05/24/2016 MERARY JOSUE THRESHING OPERATOR Ot R10.32 LEFT LOWER QUADRANT PAIN 05/24/2016 MIKAL WALL FACC, ALI FACP CCDS Ot E11.9 TYPE 2 DIABETES MELLITUS WITHOUT COMPLIC 05/24/2016 MIKAL WALL FACC, ALI FACP CCDS Ot I10 ESSENTIAL (PRIMARY) HYPERTENSION 05/24/2016 MIKAL WALL FACC, VIVEK FACP CCDS Ot J44.9 CHRONIC OBSTRUCTIVE PULMONARY DISEASE, U 05/24/2016 MIKAL WALL FACC, ALI FACP CCDS Ot R06.02 SHORTNESS OF BREATH 05/24/2016 MIKAL WALL FACC, ALI FACP CCDS Ot R07.89 OTHER CHEST PAIN 05/24/2016 MIKAL WALL FACC, ALI FACP CCDS Ot Z72.0 TOBACCO USE 05/24/2016 MIKAL WALL FACC, ALI FACP CCDS Ot E11.9 TYPE 2 DIABETES MELLITUS WITHOUT COMPLIC 05/24/2016 MIKAL WALL FACC, ALI FACP CCDS Ot I10 ESSENTIAL (PRIMARY) HYPERTENSION 05/24/2016 MIKAL WALL FACC, ALI FACP CCDS Ot J43.8 OTHER EMPHYSEMA 05/24/2016 MIKAL WALL FACC, ALI FACP CCDS Ot R06.02 SHORTNESS OF BREATH 05/24/2016 MIKAL WALL FACC, ALI FACP CCDS Ot R07.89 OTHER CHEST PAIN 05/24/2016 MIKAL WALL FACC, ALI FACP CCDS Ot Z72.0 TOBACCO USE 05/24/2016 Ot 496 CHR AIRWAY OBSTRUCT NEC 05/24/2016 Ot 786.6 CHEST SWELLING/MASS/LUMP 05/24/2016 MERARY JOSUE THRESHING OPERATOR Ot R10.32 LEFT LOWER QUADRANT PAIN 05/24/2016 MERARY JOSUE THRESHING OPERATOR Ot R10.32 LEFT LOWER QUADRANT PAIN 05/24/2016 MIKAL WALL FACC, ALI FACP CCDS Ot E11.9 TYPE 2 DIABETES MELLITUS WITHOUT COMPLIC 05/24/2016 MIKAL WALL FACC, ALI FACP CCDS Ot I10 ESSENTIAL (PRIMARY) HYPERTENSION 05/24/2016 MIKAL WALL FACC, ALI FACP CCDS Ot J44.9 CHRONIC OBSTRUCTIVE PULMONARY DISEASE, U 05/24/2016 MIKAL WALL FACC, ALI FACP CCDS Ot R06.02 SHORTNESS OF BREATH 05/24/2016 MIKAL WALL FACC, ALI FACP CCDS Ot R07.89 OTHER CHEST PAIN 05/24/2016 MIKAL WALL FACC, ALI FACP CCDS Ot Z72.0 TOBACCO USE 05/24/2016 MIKAL WALL FACC, ALI FACP CCDS Ot E11.9 TYPE 2 DIABETES MELLITUS WITHOUT COMPLIC 05/24/2016 MIKAL WALL FACC, ALI FACP CCDS Ot I10 ESSENTIAL (PRIMARY) HYPERTENSION 05/24/2016 MIKAL WALL FACC, ALI FACP CCDS Ot J43.8 OTHER EMPHYSEMA 05/24/2016 MIKAL WALL FACC, ALI FACP CCDS Ot R06.02 SHORTNESS OF BREATH 05/24/2016 MIKAL WALL FACC, ALI FACP CCDS Ot R07.89 OTHER CHEST PAIN 05/24/2016 MIKAL WALL FACC, ALI FACP CCDS Ot Z72.0 TOBACCO USE 05/25/2016 MIKAL WALL FACC, ALI FACP CCDS Ot E11.9 TYPE 2 DIABETES MELLITUS WITHOUT COMPLIC 05/25/2016 MIKAL WALL FACC, ALI FACP CCDS Ot I10 ESSENTIAL (PRIMARY) HYPERTENSION 05/25/2016 MIKAL WALL FACC, ALI FACP CCDS Ot J43.8 OTHER EMPHYSEMA 05/25/2016 MIKAL WALL FACC, ALI FACP CCDS Ot R06.02 SHORTNESS OF BREATH 05/25/2016 MIKAL WALL FACC, ALI FACP CCDS Ot R07.89 OTHER CHEST PAIN 05/25/2016 MIKAL WALL FACC, ALI FACP CCDS Ot Z72.0 TOBACCO USE 04/13/2018 TARUN YANG Ot 429.9 HEART DISEASE NOS 04/13/2018 TARUN YANG Ot 491.21 OBSTR CHRONIC BRONCHITIS, W (ACUTE) EXAC 04/13/2018 TARUN YANG Ot 793.11 SOLITARY PULMONARY NODULE 04/13/2018 Ot 496 CHR AIRWAY OBSTRUCT NEC 04/13/2018 Ot 786.6 CHEST SWELLING/MASS/LUMP 04/13/2018 BALAJI DAMON APRN Ot Z12.31 ENCNTR SCREEN MAMMOGRAM FOR MALIGNANT NE 04/13/2018 ZEV PALMA DO Ot Z01.818 ENCOUNTER FOR OTHER PREPROCEDURAL EXAMIN 04/13/2018 MERARY JOSUE THRESHING OPERATOR Ot R10.32 LEFT LOWER QUADRANT PAIN 04/13/2018 MERARY JOSUE THRESHING OPERATOR Ot R10.32 LEFT LOWER QUADRANT PAIN 04/13/2018 MIKAL WALL FACC, VIVEK FACP CCDS Ot E11.9 TYPE 2 DIABETES MELLITUS WITHOUT COMPLIC 04/13/2018 MIKAL WALL FACC, ALI FACP CCDS Ot I10 ESSENTIAL (PRIMARY) HYPERTENSION 04/13/2018 MIKAL WALL FACC, ALI FACP CCDS Ot J44.9 CHRONIC OBSTRUCTIVE PULMONARY DISEASE, U 04/13/2018 MIKAL WALL FACC, ALI FACP CCDS Ot R06.02 SHORTNESS OF BREATH 04/13/2018 MIKAL WALL FACC, ALI FACP CCDS Ot R07.89 OTHER CHEST PAIN 04/13/2018 MIKAL WALL FACC, VIVEK FACP CCDS Ot Z72.0 TOBACCO USE 04/13/2018 MIKAL WALL FACC, ALI FACP CCDS Ot E11.9 TYPE 2 DIABETES MELLITUS WITHOUT COMPLIC 04/13/2018 MIKAL WALL FACC, ALI FACP CCDS Ot I10 ESSENTIAL (PRIMARY) HYPERTENSION 04/13/2018 MIKAL WALL FACC, ALI FACP CCDS Ot J43.8 OTHER EMPHYSEMA 04/13/2018 MIKAL WALL FACC, ALI FACP CCDS Ot R06.02 SHORTNESS OF BREATH 04/13/2018 MIKAL WALL FACC, ALI FACP CCDS Ot R07.89 OTHER CHEST PAIN 04/13/2018 MIKAL WALL FACC, ALI FACP CCDS Ot Z72.0 TOBACCO USE 04/13/2018 TARUN YANG Ot 429.9 HEART DISEASE NOS 04/13/2018 TARUN YANG Ot 491.21 OBSTR CHRONIC BRONCHITIS, W (ACUTE) EXAC 04/13/2018 TARUN YANG Ot 793.11 SOLITARY PULMONARY NODULE 04/13/2018 Ot 496 CHR AIRWAY OBSTRUCT NEC 04/13/2018 Ot 786.6 CHEST SWELLING/MASS/LUMP 04/13/2018 BALAJI DAMON APRN Ot Z12.31 ENCNTR SCREEN MAMMOGRAM FOR MALIGNANT NE 04/13/2018 ZEV PALMA DO Ot Z01.818 ENCOUNTER FOR OTHER PREPROCEDURAL EXAMIN 04/13/2018 MERARY JOSUE THRESHING OPERATOR Ot R10.32 LEFT LOWER QUADRANT PAIN 04/13/2018 MERARY JOSUE THRESHING OPERATOR Ot R10.32 LEFT LOWER QUADRANT PAIN 04/13/2018 MIKAL WALL FACC, ALI FACP CCDS Ot E11.9 TYPE 2 DIABETES MELLITUS WITHOUT COMPLIC 04/13/2018 MIKAL WALL FACC, ALI FACP CCDS Ot I10 ESSENTIAL (PRIMARY) HYPERTENSION 04/13/2018 MIKAL WALL FACC, ALI FACP CCDS Ot J44.9 CHRONIC OBSTRUCTIVE PULMONARY DISEASE, U 04/13/2018 MIKAL WALL FACC, ALI FACP CCDS Ot R06.02 SHORTNESS OF BREATH 04/13/2018 MIKAL WALL FACC, ALI FACP CCDS Ot R07.89 OTHER CHEST PAIN 04/13/2018 MIKAL WALL FACC, ALI FACP CCDS Ot Z72.0 TOBACCO USE 04/13/2018 MIKAL WALL FACC, ALI FACP CCDS Ot E11.9 TYPE 2 DIABETES MELLITUS WITHOUT COMPLIC 04/13/2018 MIKAL WALL FACC, ALI FACP CCDS Ot I10 ESSENTIAL (PRIMARY) HYPERTENSION 04/13/2018 MIKAL WALL FACC, ALI FACP CCDS Ot J43.8 OTHER EMPHYSEMA 04/13/2018 MIKAL WALL FACC, ALI FACP CCDS Ot R06.02 SHORTNESS OF BREATH 04/13/2018 MIKAL WALL FACC, ALI FACP CCDS Ot R07.89 OTHER CHEST PAIN 04/13/2018 MIKAL WALL FACC, ALI FACP CCDS Ot Z72.0 TOBACCO USE 04/14/2018 ZEV PALMA DO Ot K43.2 INCISIONAL HERNIA WITHOUT OBSTRUCTION OR Procedures Code Description [place] [address] A1C (IN-HOUSE) 05/01/2012 07641 CMP 05/01/2012 28769 LIPID PANEL 05/01/2012 [id number] GFR CALC (RESULT ONLY) 05/01/2012 63596 ROUTINE VENIPUNCTURE 10/30/2012 36842 MICRO ALBUMIN-IN HOUSE 10/30/2012 21593 A1C (IN-HOUSE) 10/30/2012 22866 CMP 10/30/2012 [id number] GFR CALC (RESULT ONLY) 10/30/2012 18485 MICROALBUMIN 10/31/2012 26884 WART DESTRUCT 1-14 (CRYO) 11/01/2012 JOSE SIMS 03/21/2013 78802 ROUTINE VENIPUNCTURE 05/21/2013 95286 THERAPUTIC INJ SQ/IM 05/21/2013 J0696 ROCEPHIN INJ 1 g 05/21/2013 J1040 DEPO MEDROL 80 MG INJ 05/21/2013 85568 CMP 05/21/2013 49691 MICROALBUMIN 05/21/2013 35441 MICRO ALBUMIN-IN HOUSE 05/21/2013 55787 A1C (IN-HOUSE) 06/04/2013 80289 UA W/ CULTURE IF INDICATED 07/31/2013 36167 OXIMETRY 08/01/2013 03740 NEBULIZER TREATMENT 09/07/2013 J7644 ATROVENT/IPRATROPIUM BROMIDE NON-COMP 09/07/2013 66430 A1C (IN-HOUSE) 12/04/2013 24362 A1C (IN-HOUSE) 03/11/2014 39037 ROUTINE VENIPUNCTURE 06/25/2014 32137 XRAY CHEST 2 VIEW 06/25/[address] CHEST W/O DYE 06/25/2014 84086 EKG, TRACING (IN-HOUSE) 06/25/2014 82519 A1C (IN-HOUSE) 06/25/2014 56093 MICRO ALBUMIN-IN HOUSE 06/25/2014 37391 CBC 06/26/2014 [id number] GFR CALC (RESULT ONLY) 06/26/2014 33135 CMP 06/26/2014 70580 LIPID PANEL 06/26/2014 66363 MICROALBUMIN 06/26/[address] CHEST W/O DYE 06/28/2014 J7613 ALBUTEROL UNIT DOSE FORM INHALED 10/02/2014 88950 THERAPUTIC INJ SQ/IM 10/02/2014 J2930 SOLUMEDROL INJ 10/02/2014 77286 OXIMETRY 10/04/2014 Results Test Result Range Automated blood complete blood count (hemogram) panel - 03/04/16 17:45 Blood leukocytes automated count (number/volume) 6.4 10*3/uL 4.3-11.0 Blood erythrocytes automated count (number/volume) 5.01 10*6/uL 4.35-5.85 Venous blood hemoglobin measurement (mass/volume) 13.4 g/dL 11.5-16.0 Blood hematocrit (volume fraction) 40 % 35-52 Automated erythrocyte mean corpuscular volume 81 [foz_us] 80-99 Automated erythrocyte mean corpuscular hemoglobin (mass per erythrocyte) 27 pg 25-34 Automated erythrocyte mean corpuscular hemoglobin concentration measurement ( mass/volume) 33 g/dL 32-36 Automated erythrocyte distribution width ratio 15.4 % 10.0-14.5 Automated blood platelet count (count/volume) 356 10*3/uL 130-400 Automated blood platelet mean volume measurement 9.5 [foz_us] 7.4-10.4 Comprehensive metabolic panel - 03/04/16 17:45 Serum or plasma sodium measurement (moles/volume) 139 mmol/L 135-145 Serum or plasma potassium measurement (moles/volume) 3.6 mmol/L 3.6-5.0 Serum or plasma chloride measurement (moles/volume) 101 mmol/L 98-107 Carbon dioxide 26 mmol/L 21-32 Serum or plasma anion gap determination (moles/volume) 12 mmol/L 5-14 Serum or plasma urea nitrogen measurement (mass/volume) 18 mg/dL 7-18 Serum or plasma creatinine measurement (mass/volume) 1.01 mg/dL 0.60-1.30 Serum or plasma urea nitrogen/creatinine mass ratio 18 NRG Serum or plasma creatinine measurement with calculation of estimated glomerular filtration rate 56 NRG Serum or plasma glucose measurement (mass/volume) 101 mg/dL 70-105 Serum or plasma calcium measurement (mass/volume) 9.5 mg/dL 8.5-10.1 Serum or plasma total bilirubin measurement (mass/volume) 0.4 mg/dL 0.1-1.0 Serum or plasma alkaline phosphatase measurement (enzymatic activity/volume) 81 U/L 40-136 Serum or plasma aspartate aminotransferase measurement (enzymatic activity/ volume) 17 U/L 5-34 Serum or plasma alanine aminotransferase measurement (enzymatic activity/volume ) 16 U/L 0-55 Serum or plasma protein measurement (mass/volume) 7.7 g/dL 6.4-8.2 Serum or plasma albumin measurement (mass/volume) 4.3 g/dL 3.2-4.5 Automated blood complete blood count (hemogram) panel - 03/09/16 07:53 Blood leukocytes automated count (number/volume) 8.4 10*3/uL 4.3-11.0 Blood erythrocytes automated count (number/volume) 4.79 10*6/uL 4.35-5.85 Venous blood hemoglobin measurement (mass/volume) 13.1 g/dL 11.5-16.0 Blood hematocrit (volume fraction) 39 % 35-52 Automated erythrocyte mean corpuscular volume 82 [foz_us] 80-99 Automated erythrocyte mean corpuscular hemoglobin (mass per erythrocyte) 27 pg 25-34 Automated erythrocyte mean corpuscular hemoglobin concentration measurement ( mass/volume) 34 g/dL 32-36 Automated erythrocyte distribution width ratio 15.2 % 10.0-14.5 Automated blood platelet count (count/volume) 364 10*3/uL 130-400 Automated blood platelet mean volume measurement 10.0 [foz_us] 7.4-10.4 Comprehensive metabolic panel - 03/09/16 07:53 Serum or plasma sodium measurement (moles/volume) 141 mmol/L 135-145 Serum or plasma potassium measurement (moles/volume) 3.3 mmol/L 3.6-5.0 Serum or plasma chloride measurement (moles/volume) 101 mmol/L 98-107 Carbon dioxide 25 mmol/L 21-32 Serum or plasma anion gap determination (moles/volume) 15 mmol/L 5-14 Serum or plasma urea nitrogen measurement (mass/volume) 11 mg/dL 7-18 Serum or plasma creatinine measurement (mass/volume) 0.84 mg/dL 0.60-1.30 Serum or plasma urea nitrogen/creatinine mass ratio 13 NRG Serum or plasma creatinine measurement with calculation of estimated glomerular filtration rate > NRG Serum or plasma glucose measurement (mass/volume) 129 mg/dL 70-105 Serum or plasma calcium measurement (mass/volume) 9.6 mg/dL 8.5-10.1 Serum or plasma total bilirubin measurement (mass/volume) 0.2 mg/dL 0.1-1.0 Serum or plasma alkaline phosphatase measurement (enzymatic activity/volume) 84 U/L 40-136 Serum or plasma aspartate aminotransferase measurement (enzymatic activity/ volume) 14 U/L 5-34 Serum or plasma alanine aminotransferase measurement (enzymatic activity/volume ) 14 U/L 0-55 Serum or plasma protein measurement (mass/volume) 7.4 g/dL 6.4-8.2 Serum or plasma albumin measurement (mass/volume) 4.1 g/dL 3.2-4.5 Complete blood count (CBC) with automated white blood cell (WBC) differential - 04/21/16 15:25 Blood leukocytes automated count (number/volume) 6.0 10*3/uL 4.3-11.0 Blood erythrocytes automated count (number/volume) 4.80 10*6/uL 4.35-5.85 Venous blood hemoglobin measurement (mass/volume) 13.1 g/dL 11.5-16.0 Blood hematocrit (volume fraction) 39 % 35-52 Automated erythrocyte mean corpuscular volume 82 [foz_us] 80-99 Automated erythrocyte mean corpuscular hemoglobin (mass per erythrocyte) 27 pg 25-34 Automated erythrocyte mean corpuscular hemoglobin concentration measurement ( mass/volume) 33 g/dL 32-36 Automated erythrocyte distribution width ratio 15.2 % 10.0-14.5 Automated blood platelet count (count/volume) 358 10*3/uL 130-400 Automated blood platelet mean volume measurement 10.2 [foz_us] 7.4-10.4 Automated blood neutrophils/100 leukocytes 58 % 42-75 Automated blood lymphocytes/100 leukocytes 27 % 12-44 Blood monocytes/100 leukocytes 10 % 0-12 Automated blood eosinophils/100 leukocytes 3 % 0-10 Automated blood basophils/100 leukocytes 2 % 0-10 Blood neutrophils automated count (number/volume) 3.5 10*3 1.8-7.8 Blood lymphocytes automated count (number/volume) 1.6 10*3 1.0-4.0 Blood monocytes automated count (number/volume) 0.6 10*3 0.0-1.0 Automated eosinophil count 0.2 10*3/uL 0.0-0.3 Automated blood basophil count (count/volume) 0.1 10*3/uL 0.0-0.1 Methicillin resistant Staphylococcus aureus (MRSA) screening culture - 15:25 Methicillin resistant Staphylococcus aureus (MRSA) screening culture NEG NRG Capillary blood glucose measurement by glucometer (mass/volume) - 04/29/16 06: 41 Capillary blood glucose measurement by glucometer (mass/volume) 160 mg/dL 70-110 Capillary blood glucose measurement by glucometer (mass/volume) - 04/29/16 09: 18 Capillary blood glucose measurement by glucometer (mass/volume) 141 mg/dL 70-110 CULTURE, URINE - 08/08/17 18:25 CULTURE, URINE, ROUTINE SEE NOTE NRG CULTURE, GENITAL - 03/17/18 16:55 CULTURE, GENITAL SEE NOTE NRG [id number] - 04/13/18 12:05 Serum or plasma urea nitrogen measurement (mass/volume) 16 mg/dL 7-18 Serum or plasma creatinine measurement (mass/volume) 1.03 mg/dL 0.60-1.30 Serum or plasma urea nitrogen/creatinine mass ratio 16 NRG Serum or plasma creatinine measurement with calculation of estimated glomerular filtration rate 55 NRG Methicillin resistant Staphylococcus aureus (MRSA) screening culture - 15:07 Methicillin resistant Staphylococcus aureus (MRSA) screening culture NEG NRG Encounters ACCT No. Visit Date/Time Discharge Status Pt. Type Provider Facility Loc./Unit Complaint [id number] 10/02/2014 17:35:00 10/02/2014 23:59:59 CLS Outpatient ALLYSON VERA APRN [id number] 06/25/2014 16:15:00 06/25/2014 23:59:59 CLS Outpatient KIMMIE HATHAWAY DO [id number] 03/11/2014 15:54:00 03/11/2014 23:59:59 CLS Outpatient KIMMIE HATHAWAY DO [id number] 12/04/2013 16:18:00 12/04/2013 23:59:59 CLS Outpatient KIMMIE HATHAWAY DO [id number] 09/07/2013 13:23:00 09/07/2013 23:59:59 CLS Outpatient YE MIRZA APRN [id number] 07/31/2013 18:05:00 07/31/2013 23:59:59 CLS Outpatient TIN WATKINS APRN [id number] 06/04/2013 14:03:00 06/04/2013 23:59:59 CLS Outpatient KIMMIE HATHAWAY DO [id number] 05/21/2013 14:11:00 05/21/2013 23:59:59 CLS Outpatient KIMMIE HATHAWAY DO [id number] 04/10/2013 09:27:00 04/10/2013 23:59:59 CLS Outpatient KIMMIE HATHAWAY DO [id number] 03/21/2013 14:57:00 03/21/2013 23:59:59 CLS Outpatient KIMMIE HATHAWAY DO [id number] 08/01/2012 09:28:00 08/01/2012 23:59:59 CLS Outpatient KIMMIE HATHAWAY DO [id number] 07/25/2012 14:16:00 07/25/2012 23:59:59 CLS Outpatient YE MIRZA APRN [id number] 07/11/2012 11:29:00 07/11/2012 23:59:59 CLS Outpatient KIMMIE HATHAWAY DO Geraldine [id number] 05/01/2012 14:44:00 05/01/2012 23:59:59 CLS Outpatient [id number] 05/01/2012 14:44:00 05/01/2012 23:59:59 CLS Outpatient KIMMIE HATHAWAY DO [id number] 03/08/2013 11:06:00 Document Registration [id number] 01/01/2013 13:13:00 Document Registration [id number] 10/30/2012 14:06:00 Document Registration [id number] 05/01/2018 05:48:00 05/01/2018 15:10:00 DIS Outpatient ZEV PALMA DO [facility] PREOP RECURRENT SPIGELIAN HERNIA [id number] 04/13/2018 11:37:00 04/13/2018 23:59:59 CLS Outpatient ZEV PALMA DO [facility] RAD HERNIA OF ABD CAVITY [id number] 04/29/2016 06:18:00 04/29/2016 12:14:00 [facility] [id number] 04/21/2016 14:56:00 04/21/2016 16:00:00 DIS Outpatient ZEV PALMA DO [facility] PREOP LEFT SPIGELILAN HERNIA [id number] 04/14/2016 15:25:00 04/14/2016 23:59:59 CLS Outpatient MIKAL WALL FACC, VIVEK BISHOP CCDS [facility] CARD CHEST DISCOMFORT [id number] 04/13/2016 13:19:00 04/13/2016 23:59:59 CLS Outpatient MIKAL WALL FACC, VIVEK BISHOP CCDS [facility] CARD SOB,COPD,DMII ,CHEST DISCOMFORT [id number] 04/08/2016 09:00:00 04/08/2016 23:59:59 CLS Preadmit ZEV PALMA DO [facility] LEFT SPIGELIAN HERNIA [id number] 04/05/2016 15:03:00 04/05/2016 16:30:00 DIS Outpatient ZEV PALMA DO [facility] PREOP LEFT SPIGELIAN HERNIA [id number] 03/09/2016 07:41:00 03/09/2016 23:59:59 CLS Outpatient MERARY JOSUE [facility] RAD LLQ PAIN [id number] 03/04/2016 17:34:00 03/04/2016 23:59:59 CLS Outpatient MERARY JOSUE [facility] LAB LEFT LOWER QUADRANT PAIN [id number] 09/02/2015 09:09:00 09/02/2015 15:05:00 DIS Outpatient ZEV PALMA DO [facility] POSITIVE FOR OCCULT BLOOD IN STOOL [id number] 08/29/2015 05:41:00 08/29/2015 23:59:59 CLS Outpatient ZEV PALMA DO [facility] PREOP OCCULT BLOOD IN STOOL [id number] 08/01/2015 05:41:00 08/01/2015 23:59:59 CLS Outpatient ZEV PALMA DO [facility] PREOP [id number] 06/17/2015 13:49:00 06/17/2015 23:59:59 CLS Outpatient BALAJI DAMON APRN [facility] RAD SCREENING [id number] 11/16/2014 03:19:00 11/16/2014 13:05:00 DIS Inpatient DENA MINOR MD [facility] SURGICAL ABD PAIN,HERNIA [id number] 06/26/2014 07:58:00 06/26/2014 23:59:59 CLS Outpatient TARUN YANG [facility] RAD COPD BRONCHITIS [id number] 05/04/2018 09:00:00 PEN Preadmit ZEV PALMA DO [facility] SDC RECURRENT SPIGELIAN HERNIA [id number] 11/18/2014 11:06:00 Document Registration [id number] 11/16/2014 01:53:00 Document Registration [id number] 01/02/2018 15:20:00 01/02/2018 23:59:59 CLS Outpatient MERARY JOSUE APRN [facility] [id number] 03/17/2018 14:20:00 Document Registration [id number] 08/08/2017 16:40:00 Document Registration
[2018-05-04] MEDS ORDERED: ceFAZolin INJECTION 1,000 MG in NS (IVPB) 50 ML IV ONE (08:00)
--- NOTE | 2018-05-04 08:10 | Progress Note-Pre Operative ---
Pre-Operative Progress Note H&P Reviewed The H&P was reviewed, patient examined and no changes noted. Date Seen by Provider: May 04, 2018 Time Seen by Provider: 08:09 Date H&P Reviewed: May 04, 2018 Time H&P Reviewed: 08:09 Pre-Operative Diagnosis: recurrent left spigelian hernia ZEV PALMA DO May 04, 2018 08:09
[2018-05-04] MEDS ORDERED: CATHETER FLUSH 10 ML SYR IV PRN (08:15)
[2018-05-04] MEDS: LACTATED RINGERS 1,000 ML IV PRN ×2 (08:25→10:44)
[2018-05-04] MEDS ORDERED: LIDOCAINE 1% INJ 20 ML 20 ML VIAL ONE (08:40)
[2018-05-04] MEDS ORDERED: BUPIVACAINE 0.5% 30 ML (SENSORCAINE) VIAL ONE ×2 (08:40→11:14)
[2018-05-04 08:43] LABS: BASOPHILS # (AUTO) 0.1 10^3/uL (0.0-0.1); BASOPHILS % (AUTO) 1 % (0-10); EOSINOPHILS # (AUTO) 0.1 10^3/uL (0.0-0.3); EOSINOPHILS % (AUTO) 2 % (0-10); HEMATOCRIT 43 % (35-52); HEMOGLOBIN 14.5 G/DL (11.5-16.0); LYMPHOCYTES # (AUTO) 1.9 X 10^3 (1.0-4.0); LYMPHOCYTES % (AUTO) 25 % (12-44); MEAN CORPUSCULAR HEMOGLOBIN 28 PG (25-34); MEAN CORPUSCULAR HGB CONC 34 G/DL (32-36); MEAN CORPUSCULAR VOLUME 84 FL (80-99); MEAN PLATELET VOLUME 9.8 FL (7.4-10.4); MONOCYTES # (AUTO) 0.8 X 10^3 (0.0-1.0); MONOCYTES % (AUTO) 10 % (0-12); NEUTROPHILS # (AUTO) 4.6 X 10^3 (1.8-7.8); NEUTROPHILS % (AUTO) 62 % (42-75); PLATELET COUNT 341 10^3/uL (130-400); RED BLOOD COUNT 5.11 10^6/uL (4.35-5.85); RED CELL DISTRIBUTION WIDTH 14.5 % (10.0-14.5); WHITE BLOOD COUNT 7.4 10^3/uL (4.3-11.0)
[2018-05-04] MEDS ORDERED: RT-ALBUTEROL SULF 2.5 MG/3 ML PRE-MIX VIAL INH ONE (09:00)
[2018-05-04] MEDS ORDERED: FAMOTIDINE 20MG/2ML IV (PEPCID) IV ONE (09:00)
[2018-05-04] MEDS ORDERED: LIDOCAINE PF 2% 5 ML (XYLOCAINE) VIAL ONE (09:50)
[2018-05-04] MEDS ORDERED: ONDANSETRON 4 MG/2 ML (SDV) Z0FRAN ONE (09:50)
[2018-05-04] MEDS ORDERED: fentaNYL INJECTION 100 MCG/2 ML AMP ONE (09:50)
[2018-05-04] MEDS ORDERED: MIDAZOLAM 2 MG/2 ML (VERSED) VIAL ONE (09:50)
[2018-05-04] MEDS ORDERED: proPOfol 200 MG/20 ML (DIPRIVAN) VIAL IV ONE (09:50)
[2018-05-04] MEDS ORDERED: SEVOFLURANE (ULTANE) 15 ML INHAL SOLN ONE ×8 (10:00→12:56)
[2018-05-04] MEDS ORDERED: ROCURONIUM 10 MG/ML 5 ML SYRINGE IV ONE (11:14)
[2018-05-04] MEDS ORDERED: NEOSTIGMINE 1 MG/ML 5 ML SYRINGE ONE (11:26)
[2018-05-04] MEDS ORDERED: GLYCOPYRROLATE 0.2 MG/ML (ROBINUL) 2 ML VIAL ONE (11:26)
[2018-05-04] MEDS ORDERED: ONDANSETRON 4 MG/2 ML (SDV) Z0FRAN IVP PRN (13:00)
[2018-05-04] MEDS ORDERED: morphine INJ 10 MG/ML 1ML (SYR OR VIAL) IVP ONE (13:00)
[2018-05-04] MEDS ORDERED: MEPERIDINE (DEMEROL) INJ 50 MG/ML IVP ONE (13:00)
--- NOTE | 2018-05-04 13:12 | Anesthesia-General Post-Op ---
General Patient Condition Mental Status/LOC: Same as Preop Cardiovascular: Satisfactory Nausea/Vomiting: Absent Respiratory: Satisfactory Pain: Controlled Complications: Absent Post Op Complications Complications None Follow Up Care/Instructions Patient Instructions None needed. Anesthesia/Patient Condition Patient Condition Patient is doing well, no complaints, stable vital signs, no apparent adverse anesthesia problems. No complications reported per nursing. FEMI SULLIVAN CRNA May 04, 2018 13:12
--- NOTE | 2018-05-04 13:31 | Progress Note-Post Operative ---
Post-Operative Progess Note Surgeon (s)/Escrow Agent (s) Surgeon ZEV PALMA DO Escrow Agent: Dr. Galan Pre-Operative Diagnosis recurrent left spigelian hernia Post-Operative Diagnosis left recurrent incarcerated spigelian hernia Procedure & Operative Findings Date of Procedure 05/04/18 Procedure Performed/Findings laparoscopic to open left spigelian hernia repair. Anesthesia Type gen Estimated Blood Loss Estimated blood loss (mL): min Specimens/Packing Specimens Removed hernia sac ZEV PALMA DO May 04, 2018 13:31
[2018-05-04] MEDS ORDERED: ACHD5005 PO (13:33)
[2018-05-04] MEDS ORDERED: DOCU-143 PO (13:33)
--- NOTE | 2018-05-04 13:38 | Discharge Inst-Simple/Standard ---
Discharge Inst-Standard Discharge Medications New, Converted or Re-Newed RX: RX on Chart Patient Instructions/Follow Up Plan of Care/Instructions/FU: 3 weeks [place] Activity as Tolerated: No Discharge Diet: Regular Diet Other Inst to Patient Follow up Appt: Make appointment for 3 week. Instructions: No lifting greater than 10 pounds. No strenuous activity. May shower in 24 hours, no tub bath or soaking. Use incentive spirometer at home as directed. No Smoking Wear abdominal binder for comfort. Skin/Wound Care: May remove bandages in 24 hours. Symptoms to Report: Appetite Changes, Extremity Discoloration, Numbness/Tingling, Swelling Increased , Bleeding Excessive, Eyesight Changes, Pain Increased, Urine Color Change, Constipation(Persistent), Fever over 101 degree F, Pain/Pressure in chest, Urinating Difficulty, Cough Up/Vomit Blood, Heart Beat Irreg/Pounding, Pain/ Pressure in jaw, Vaginal Bleeding Increase, Cramps in feet or legs, Lightheadedness, Pain/Pressure in shoulder, Diarrhea(Persistent), Memory Changes Suddenly, Questions/Concerns, Weight gain consecutive days, Dizziness/ Fainting, Nausea/Vomiting, Shortness of Breath, Weight gain over 2 pounds If questions or concerns contact your physician Or seek help at emergency department. ZEV WYNNE DO May 04, 2018 13:38
[2018-05-04 14:16] VITALS: BP 162/86
[2018-05-04 14:20] VITALS: BP 162/86
[2018-05-04 14:45] VITALS: BP 158/96
[2018-05-04] MEDS ORDERED: HYDROcodone/APAP 5 MG/325 MG (LORTAB) TAB PO ONE (15:00)
[2018-05-04] MEDS ORDERED: HYDROcodone/APAP 5 MG/325 MG (LORTAB) TAB ONE (15:00)
[2018-05-04 15:15] VITALS: BP 145/88
--- NOTE | 2018-05-04 22:47 | OPERATIVE REPORT ---
DATE OF SERVICE: 05/04/2018 PREOPERATIVE DIAGNOSIS: Recurrent left spigelian hernia. POSTOPERATIVE DIAGNOSIS: Recurrent incarcerated left spigelian hernia. PROCEDURE: Laparoscopic to open left recurrent incarcerated spigelian hernia repair. SURGEON: Gelacio Wynne DO. SEO INTERN: Dr. Galan, assisted in retraction, dissection and closure. ANESTHESIA: General. ESTIMATED BLOOD LOSS: Minimal. COMPLICATIONS: None. INDICATIONS: The patient is a 58-year-old female with recurrent left spigelian hernia. She had a CT scan demonstrating the recurrence. She understands risks and benefits of procedure and wished to proceed with procedure. Consent was signed in the chart. PROCEDURE: The patient was taken to the operating suite. She was prepped and draped in sterile fashion. Surgical pause was performed. Incision was made in the left upper quadrant. A Zaina technique was used to enter the abdomen and once the abdomen was opened a balloon trocar was inserted and pneumoperitoneum was achieved. Under direct visualization of the laparoscope, a 5 mm trocar was placed in the right lower quadrant and one in the right upper quadrant. The omentum was caked up and attached to the mesh that was previously placed. This was then all dissected down both bluntly and with the LigaSure. Omentum and small bowel was incarcerated through the hernia defect, which was then able to be reduced. Once reduced, the defect was on the inferior aspect of the mesh extending caudad. At this time, it was determined to go open to close the defect. A 15 blade scalpel was used to make an incision over the defect. The hernia sac was dissected around bluntly and with cautery all the way down to the fascia, the hernia sac was then opened and amputated. The fascia still was fairly weak to this area, but was able to be closed with 0 Prolene in a running fashion. The muscle on top of the fascia has retracted, but it was able to be closed using 0 Vicryl in ftiptb-cn-herst fashion. At this time, it was determined that the best option for reinforcement would be Phasix with an onlay fashion. This was then cut to size and placed within the wound and tacked to the abdominal wall using 0 Vicryl. Adequate coverage over was present. The Navid's fascia was then closed using 3-0 Vicryl. The skin was closed with giselle. The abdomen was then reinsufflated. Demonstrating adequate closure on the inside. We considered using an underlay as well; however, due to the mesh abutting right up to the repair with questionable adherence to the previously placed mesh it is was felt this may cause more harm than good. The abdomen was reinspected. No other pathology noted. The 0 Vicryl was used to close the 12 mm incision for the balloon trocar. The abdomen was then desufflated, the trocars were removed. Skin was then closed with giselle. The abdomen was then washed and dried and sterile bandages were applied. The patient tolerated procedure well without any complications. She was taken to recovery room in stable condition. Job ID: [id number] DocumentID: [id number] Dictated Date: 05/04/2018 14:13:05 Investigation Specialist Date: 05/04/2018 22:46:23 Dictated By: DO SARAH BAY
== END 2018-05-04 16:10 | disposition home or self-care (01) ==
LOC: SDC 07:50
PROVIDERS: ATTEND Surgery
DX: K43.0 Incisional hernia with obstruction, without gangrene (principal); E11.40 Type 2 diabetes mellitus with diabetic neuropathy, unspecified; I10 Essential (primary) hypertension; F17.210 Nicotine dependence, cigarettes, uncomplicated; J44.9 Chronic obstructive pulmonary disease, unspecified; G47.33 Obstructive sleep apnea (adult) (pediatric); K21.9 Gastro-esophageal reflux disease without esophagitis; Z79.84 Long term (current) use of oral hypoglycemic drugs; Z79.899 Other long term (current) drug therapy
CPT/HCPCS: 36415; 82962; 85025; 88302; 94640; 94664

== ENCOUNTER → 2018-08-10 | Outpatient (CLI) | payer OTHER ==
--- NOTE | 2018-08-10 18:01 | Diagnostic Imaging Report ---
INDICATION: Left leg pain. TECHNIQUE: Left leg arterial Doppler study performed in routine fashion with color flow Doppler and waveform analysis. FINDINGS: The left common femoral artery is patent with triphasic flow. Profunda femoris artery is patent. There is occlusion of the left SFA in the mid thigh, with refilling distally via collaterals. Flow below the occluded level is monophasic. Tibial vessels are patent with monophasic flow. 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 Dictated by: Dictated on workstation # [id number]
== END ==
LOC: RAD 14:41
PROVIDERS: ATTEND Nurse Practitioner Community Health
DX: I77.1 Stricture of artery (principal); R25.2 Cramp and spasm
CPT/HCPCS: 93926

== ENCOUNTER 2018-10-03 07:22 | Day surgery (SDC) | payer OTHER ==
[2018-10-03] VITALS (15 sets, daily range): BP systolic 110–166; BP diastolic 67–108
[~2018-10-03] VITALS: Ht 162.6 cm; Wt 75.7 kg
[2018-10-03] MEDS ORDERED: LIDOCAINE 1% INJ 20 ML 20 ML VIAL ONE (07:38)
[2018-10-03] MEDS ORDERED: HEParin 1000 UNIT/ML (10ML VIAL) FOR BOLUS ONE ×2 (07:38→10:27)
[2018-10-03] MEDS: NS IV 1000 ML 1,000 ML IV SCH ×2 (08:03→16:14)
[2018-10-03 08:08] LABS: HEMOGLOBIN 13.5 G/DL (11.5-16.0); MEAN PLATELET VOLUME 9.7 FL (7.4-10.4); RED CELL DISTRIBUTION WIDTH 14.7 % (10.0-14.5); WHITE BLOOD COUNT 8.3 10^3/uL (4.3-11.0)
[2018-10-03 08:22] LABS: INR 0.9 (0.8-1.4); PROTHROMBIN TIME PATIENT 12.8 SEC (12.2-14.7)
[2018-10-03 08:28] LABS: ALBUMIN 4.2 GM/DL (3.2-4.5); BILIRUBIN,TOTAL 0.4 MG/DL (0.1-1.0); CALCIUM 10.1 MG/DL (8.5-10.1); CREATININE SERUM 1.15 MG/DL (0.60-1.30); POTASSIUM 3.7 MMOL/L (3.6-5.0); TOTAL PROTEIN 7.6 GM/DL (6.4-8.2)
[2018-10-03] MEDS ORDERED: OMEG1CAP58 PO (08:29)
[2018-10-03] MEDS ORDERED: CYAN250T PO (08:29)
[2018-10-03] MEDS ORDERED: AMLO10TA7 PO (08:29)
[2018-10-03] MEDS ORDERED: MAGN250T13 PO (08:29)
[2018-10-03] MEDS ORDERED: BIOT50002 SL (08:29)
[2018-10-03] MEDS ORDERED: CYCL10TA9 PO (08:29)
[2018-10-03] MEDS ORDERED: MIDAZOLAM 5 MG/5 ML (VERSED) VIAL ONE (09:47)
[2018-10-03] MEDS ORDERED: fentaNYL INJECTION 100 MCG/2 ML AMP ONE (09:47)
--- NOTE | 2018-10-03 10:11 | Cardiac Procedure Note-CS/ASA ---
Pre-Procedure Note Pre-Op Procedure Note H&P Reviewed The H&P was reviewed, patient examined and no changes noted. Date H&P Reviewed: Oct 03, 2018 Time H&P Reviewed: 10:11 Conscious Sedation Pre-Proced Time 10:11 ASA Score 3 For ASA 3 and 4: Consider anesthesia and medical clearance. Also, for patients with a history of failed moderate sedation consider anesthesia. Airway Lungs Heart ASA score ASA 1: a normal healthy patient ASA 2: a patient with a mild systemic disease (mid diabetes, controlled hypertension, obesity ASA 3: a patient with a severe systemic disease that limits activity (angina , COPD, prior Myocardial infarction) ASA 4: a patient with an incapacitating disease that is a constant threat to life (CHF, renal failure) ASA 5: a moribund patient not expected to survive 24 hrs. (ruptured aneurysm) ASA 6: a declared brain- patient whose organs are being harvested. For emergent operations, add the letter E after the classification Mallampati Classification Grade 2 Sedation Plan Analgesia, Amnesia, Plan communicated to team members, Discussed options with patient/fam, Discussed risks with patient/fam The patient is an appropriate candidate to undergo the planned procedure, sedation, and anesthesia. The patient immediately re-assessed prior to indication. VIVEK REN MD FACP FAC CCDS Oct 03, 2018 10:11
[2018-10-03] MEDS ORDERED: CLOPIDOGREL 300 MG (PLAVIX) TABLET PO ONE (11:43)
[2018-10-03] MEDS ORDERED: ASPIRIN 81 MG CHEW (CHILDREN'S ASA) ONE (11:43)
[2018-10-03] MEDS ORDERED: NS IV 1000 ML 1,000 ML IV SCH (12:05)
[2018-10-03] MEDS ORDERED: PATIENT MAY USE OWN MEDS, ALL PO SCH (12:15)
--- NOTE | 2018-10-03 12:52 | OPERATIVE REPORT ---
DATE OF SERVICE: 10/03/2018 PERIPHERAL ANGIOGRAPHY AND INTERVENTION REPORT INDICATIONS FOR PROCEDURE: The patient is a 58-year-old lady who has multiple peripheral arterial disease risk factors and symptoms of bilateral leg claudication and noninvasive imaging has shown considerable disease of the arterial circulation of the left leg. Angiography was carried out today after having obtained an informed consent. Informed consent was also obtained for ad hoc peripheral intervention, if needed. DESCRIPTION OF PROCEDURE: She was brought to the cardiac catheterization laboratory in a fasting state. The right groin was prepared and draped in the usual sterile fashion. A 1% lidocaine was used for local anesthesia. Modified Seldinger technique was used to advance a 5-Syriac sheath in the right femoral artery. We used a pigtail catheter to carry out abdominal aortic angiography. For this purpose, the pigtail was positioned at the level of L1 and abdominal aortic angiography was performed. The pigtail catheter was then pulled back to just above the aortoiliac bifurcation and bilateral leg artery angiography was performed with a runoff down to the level of the ankles. Subsequently, the pigtail catheter was removed after wiring the left common iliac artery. The wire was kept in position. We removed the 5-Syriac sheath. We advanced the long 6-Syriac sheath into the left common iliac artery over the wire. We then performed selective angiography of the arterial circulation of the left leg through the sheath. Subsequently, the percutaneous intervention was performed to the left superficial femoral artery that is described below. PERCUTANEOUS INTERVENTION TO THE LEFT SUPERFICIAL FEMORAL ARTERY: Following completion of the diagnostic procedure as described above, we proceeded with the percutaneous intervention to the long complete occlusion of the proximal and mid left superficial femoral artery. We used a Storq wire initially, but we were not able to cross the lesion. We then used a 0.018 Command wire to cross the lesion. The assistance was provided by a mini catheter. We were, eventually, able to cross the complete occlusion and the tip of the wire slid into the distal patent segment of the left superficial femoral artery. We were then able to advance this wire into the distal arterial circulation and this wire served as a rail for delivery of the interventional balloons and stents. Initially, we carried out balloon angioplasty of the left superficial femoral artery with a 4.0 x 200 balloon. This reduced the stenosis from 100% to approximately 60%. Small dissections were seen within the completely occluded area that was now open. We removed the balloon. We advanced an absolute Pro 6 x 100 stent. This was placed in the distal portion of the lesion. The stent was deployed. The delivery equipment was removed. We then advanced an absolute Pro 6 x 60 to cover the rest of the lesion. This proximal stent was made to slightly overlap the distal stent and deployed. The segment was then ballooned with a 5.0 x 150 mm balloon. The stent extends from the very proximal portion of the left superficial femoral artery to the mid to distal portion. Following the stent deployment, there was no significant residual stenosis and flow throughout the vessel is normal with a three-vessel distal runoff. She tolerated the procedure well. Angioplasty equipment was removed. The long sheath was exchanged over a wire for a short 6-Syriac sheath. Angiography of the right femoral artery had been carried out at the time of sheath insertion. At the end of the procedure, Mynx was used to achieve hemostasis. The patient received 7000 units of intravenous heparin during the interventional procedure. ABDOMINAL AORTIC ANGIOGRAPHY: Abdominal aortic angiography does not show any significant abdominal aortic aneurysm or dissection. The renal arteries are seen and did not show any significant lesion. There is mild tortuosity of the abdominal aorta. The aortoiliac junction is intact and does not show any significant aortoiliac disease or disease of the proximal iliac system. BILATERAL LEG ARTERY ANGIOGRAPHY: Bilateral leg artery angiography indicated complete mid vessel occlusion of the left superficial femoral artery through which successful intervention was carried out that is described above. The iliac arteries and the common femoral arteries are intact and without significant disease on both sides. The deep femoral arteries are intact and without significant disease on both sides. As stated, the left superficial femoral artery was occluded. The right superficial femoral artery has mild diffuse disease. The popliteal arteries are intact on both sides. On the right side, there appears to be a 2-vessel runoff (dorsalis pedis and peroneal). On the left side, there appears to be a 3-vessel runoff. CONCLUSIONS: Peripheral arterial disease primarily consisting of a long proximal and mid vessel occlusion of the left superficial femoral artery to which successful balloon angioplasty and stenting was carried out today. DISCUSSION AND RECOMMENDATIONS: Risk factor modification has been reviewed. She is being hospitalized for overnight observation. Job ID: [id number] DocumentID: [id number] Dictated Date: 10/03/2018 11:52:22 Mainframe Systems Administrator Date: 10/03/2018 12:52:05 Dictated By: VIVEK REN MD, MA, FACP, FACC,
[2018-10-03] MEDS: inSUlin ASPART (NovoLOG) 1 UNIT/0.01 ML (CHARGE PER UNIT) SC SCH ×3 (13:26→20:56)
[2018-10-03] MEDS ORDERED: RT-ADVAIR HFA 115/21 MCG PER PUFF IH SCH (20:00)
[2018-10-03] MEDS: ACETAMINOPHEN 325 MG TABLET PO PRN (20:57)
[2018-10-03] MEDS ORDERED: NON-FORMULARY MEDICATION 1 EA EA (Budesonide/Formoterol Fumarate (Symbicort 160-4.5 Mcg In IH SCH (21:00)
[2018-10-04 03:30] VITALS: BP 143/88
[2018-10-04] MEDS: ACETAMINOPHEN 325 MG TABLET PO PRN ×2 (03:35→09:48)
[2018-10-04] MEDS: NS IV 1000 ML 1,000 ML IV SCH (03:37)
[2018-10-04 03:55] LABS: HEMOGLOBIN 13.8 G/DL (11.5-16.0); MEAN PLATELET VOLUME 10.1 FL (7.4-10.4); RED CELL DISTRIBUTION WIDTH 15.4 % (10.0-14.5); WHITE BLOOD COUNT 8.3 10^3/uL (4.3-11.0)
[2018-10-04 04:15] LABS: BUN/CREATININE RATIO 15; CALCIUM 9.4 MG/DL (8.5-10.1); CARBON DIOXIDE 26 MMOL/L (21-32); CHLORIDE 104 MMOL/L (98-107); CREATININE SERUM 0.92 MG/DL (0.60-1.30); GFR ESTIMATED > 60; GLUCOSE 119 MG/DL (70-105); SODIUM 140 MMOL/L (135-145)
[2018-10-04] MEDS: inSUlin ASPART (NovoLOG) 1 UNIT/0.01 ML (CHARGE PER UNIT) SC SCH (04:58)
[2018-10-04] MEDS ORDERED: OMEGA 3 (FISH OIL) 1000 MG CAP PO SCH (07:00)
[2018-10-04 08:00] VITALS: BP 141/95
[2018-10-04] MEDS ORDERED: MAGNESIUM OXIDE (MAG-OX)400 MG TAB PO SCH (08:00)
--- NOTE | 2018-10-04 08:04 | Progress Note-Cardiology ---
Cardiology SOAP Progress Note Subjective: Lying in bed. No c/o CP, palpitations, syncope or near syncope. Denies any SOB. Denies any right groin pain. Frequent non-productive cough. Reports no leg discomfort bilat. Objective: I&O/Vital Signs 10/04/18 10/04/18 10/04/18 10/04/18 03:30 07:00 07:44 07:45 Temp 97.4 97.2 Pulse 96 86 Resp 22 B/P (MAP) 143/88 (106) Pulse Ox 95 94 O2 Delivery Nasal Cannula Room Air O2 Flow Rate 2.00 10/04/18 08:00 Pulse 75 Resp 10 B/P (MAP) 141/95 (110) Pulse Ox 91 O2 Delivery Nasal Cannula O2 Flow Rate 2.00 10/04/18 00:00 Intake Total 1850 ml Output Total 2000 ml Balance -150 ml Weight (Pounds): 167 Weight (Ounces): 0.0 Weight (Calculated Kilograms): 75.125998 Side: right Groin site without hematoma: Yes Condition: extremity w/d/p Bruising: mild bruising Constitutional: AAO x 3, well-developed, well-nourished Respiratory: No accessory muscle use, No respiratory distress; chest expansion is symmetric, chest is bilaterally symmetric, rhonchi (scattered) Cardiovascular: regular rate-rhythm; No JVD; S1 and S2 Gastrointestional: No tender; soft, round, audible bowel sounds Extremities: no lower extremity edema bilateral Neurologic/Psychiatric: grossly intact, power is 5/5 both on sides Skin: No rash, No ulcerations Results/Procedures: Labs Laboratory Tests 10/03/18 16:12: Glucometer 160H 10/03/18 20:47: Glucometer 235H 10/04/18 03:20: White Blood Count 8.3, Red Blood Count 4.88, Hemoglobin 13.8, Hematocrit 42, Mean Corpuscular Volume 86, Mean Corpuscular Hemoglobin 28, Mean Corpuscular Hemoglobin Concent 33, Red Cell Distribution Width 15.4H, Platelet Count 329, Mean Platelet Volume 10.1, Sodium Level 140, Potassium Level 4.0, Chloride Level 104, Carbon Dioxide Level 26, Anion Gap 10, Blood Urea Nitrogen 14, Creatinine 0.92, Estimat Glomerular Filtration Rate > 60, BUN/Creatinine Ratio 15, Glucose Level 119H, Calcium Level 9.4 Procedures S/P peripheral angiogram with successful intervention. Please refer to Dr. Turcios's procedure report of 10-03-18 for details. A/P: Assessment: Peripheral arterial disease primarily consisting of a long proximal and mid vessel occlusion of the left superficial femoral artery to which successful balloon angioplasty and stenting was carried out on 10-03-18 MPI of 04-13-16 showed no evidence of significant myocardial ischemia or infarction. Normal regional wall motion. LVEF 69%. Normal LV cavity size Echocardiogram of 04-14-16 showed LVEF approx 60%. Trivial to mild MR and TR. No evidence of any significant valvular stenosis. Thickening of the cephalic portion of the interatrial septum which measures 3.5 cm in diameter. This does not appear to be involved with any obstructive affect. Thickening was described on a CT scan of 06-26-14 6.8 cm intracardiac mass, most likely lipomatous hypertrophy of the interatrial septum, reported on CT chest of 06/26/14, stated to be unchanged on CT chest of 08/26/14 4 mm pleural-based RUL nodule, reported to be stable on the CT chest of 08/26/14 S/p surgery for large L-sided Sigelian hernia containing a loop of sigmoid colon in 2016, repeated in 2018 (Dr Wynne) Chronic tobacco use, for at least 30 yrs Hypertension DM II COPD ADAN, treated with CPAP, but she has been noncompliant Non-compliance Plan: OK to discharge home today Advise compliance with medications, instructions and f/u Advised immediate and complete smoking cessation Continue current medication regimen F/U appt with Dr. Turcios in 2 weeks Physician Assessment Physician Assessment No cp or palp or syncope or shortness of breath or groin discomfort Lungs: clear Cor: reg Ext: no c/c/e. mild bruising in R groin, no induration or tenderness, palpable distal pulses A&R * As documented in our note above that I updated (italics) and as noted below * I had a long discussion with regarding angio findings, interventions undertaken, treatment changes, risk factor modification, and outpatient f/u * We have advised to completely refrain from smoking EPIFANIO SCHOFIELD WOUND/OSTOMY CLINICAL NURSE SPECIALIST Oct 04, 2018 08:04 VIVEK TURCIOS MD [facility] Oct 04, 2018 13:25
[2018-10-04] MEDS: CYCLOBENZAPRINE 10 MG (FLEXERIL) TAB PO SCH ×2 (08:13→09:43)
[2018-10-04] MEDS ORDERED: FLUTICASONE NASAL SPRAY (FLONASE) 16 GM BTL NS SCH (09:00)
[2018-10-04] MEDS ORDERED: amLODIPine 10 MG (NORVASC) TAB PO SCH (09:00)
[2018-10-04] MEDS ORDERED: CYANOCOBALAMIN 250 MCG PO SCH (09:00)
[2018-10-04] MEDS ORDERED: NON-FORMULARY MEDICATION 1 EA EA (Fluticasone Propionate (Flonase Allergy Relief) 1 SPRAY) NS SCH (09:00)
[2018-10-04] MEDS ORDERED: ASPIRIN 81 MG CHEW (CHILDREN'S ASA) PO SCH (09:00)
[2018-10-04] MEDS ORDERED: CLOPIDOGREL 75 MG (PLAVIX) TABLET PO SCH (09:00)
[2018-10-04] MEDS ORDERED: NON-FORMULARY MEDICATION 1 EA EA (Amlodipine Besylate 10 MG) PO SCH (09:00)
[2018-10-04] MEDS ORDERED: lisINopril 10 MG (PRINIVIL) TABLET PO SCH (09:00)
[2018-10-04] MEDS ORDERED: NON-FORMULARY MEDICATION 1 EA EA (Biotin 5,000 MCG) SL SCH (09:00)
[2018-10-04] MEDS ORDERED: NON-FORMULARY MEDICATION 1 EA EA (Magnesium Oxide (Magnesium) 250 MG) PO SCH (09:00)
[2018-10-04] MEDS ORDERED: CLOP75TA28 PO (09:22)
[2018-10-04] MEDS ORDERED: ASPI-999 PO (09:22)
--- NOTE | 2018-10-04 09:24 | Discharge Inst-Cardiology ---
Discharge Inst-Cardiac Discharge Medications New Medications: Aspirin (Aspirin) 81 Mg Tab.chew 81 MG PO DAILY, #30 TAB 5 Refills Clopidogrel Bisulfate (Clopidogrel) 75 Mg Tablet 75 MG PO DAILY, #30 TAB 5 Refills Continued Medications: Amlodipine Besylate (Amlodipine Besylate) 10 Mg Tablet 10 MG PO DAILY, TAB Biotin (Biotin) 5,000 Mcg Tab.subl 5000 MCG SL DAILY, TAB Budesonide/Formoterol Fumarate (Symbicort 160-4.5 Mcg Inhaler) 10.2 Gm Hfa.aer.ad 2 PUFF IH BID, INHALER Cyanocobalamin (Vitamin B-12) (Vitamin B-12) 250 Mcg Tablet 250 MCG PO DAILY, TAB Cyclobenzaprine HCl (Cyclobenzaprine HCl) 10 Mg Tablet 10 MG PO DAILY, TAB Fluticasone Propionate (Flonase Allergy Relief) 9.9 Ml [place].susp 1 SPRAY NS DAILY, SPRAY Lisinopril (Lisinopril) 10 Mg Tablet 10 MG PO DAILY, TAB Magnesium Oxide (Magnesium) 250 Mg Tablet 250 MG PO DAILY, TAB Metformin HCl (Metformin HCl) 500 Mg Tablet 500 MG PO BID, TAB Jackson-3 Fatty Acids/Fish Oil (Jackson 3 1,000 mg Softgel) 1 Each Capsule 1 EACH PO DAILY, CAP New, Converted or Re-Newed RX: Transmitted to Pharmacy Patient Instructions Patient Instructions: DO NOT RESTART METFORMIN UNTIL SATURDAY, OCTOBER 06, 2018. THEN RESUME HOME DOSE Follow up appointment with Dr. Turcios in 2 weeks EPIFANIO SCHOFIELD Oct 04, 2018 09:24
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
== END 2018-10-04 11:00 | disposition home or self-care (01) ==
LOC: CATH 07:22 → ICU 11:55 → CATH 10-04 11:00
PROVIDERS: ATTEND Internal Medicine Cardiovascular Disease
DX: I70.203 Unspecified atherosclerosis of native arteries of extremities, bilateral legs (principal); Z11.2 Encounter for screening for other bacterial diseases; J44.9 Chronic obstructive pulmonary disease, unspecified; E11.9 Type 2 diabetes mellitus without complications; I10 Essential (primary) hypertension; F17.210 Nicotine dependence, cigarettes, uncomplicated; G47.33 Obstructive sleep apnea (adult) (pediatric); Z91.19 Patient's noncompliance with other medical treatment and regimen
CPT/HCPCS: 36415; 37226; 75625; 80048; 80053; 80061; 82962; 85027; 85610; 85730; 87081; 93005

== ENCOUNTER → 2018-12-19 | Outpatient (CLI) | payer OTHER ==
[~2018-12-19] MED LIST changes: +AMLO10TA7 PO; +ASPI-999 PO; +BIOT50002 SL; +CATHETER FLUSH 10 ML SYR IV PRN; +CLOP75TA28 PO; +CYAN250T PO; +CYCL10TA9 PO; +MAGN250T13 PO; +OMEG1CAP58 PO; +REGADENOSON 0.4 MG/5 ML SYR (LEXISCAN) IV ONE
--- NOTE | 2018-12-19 12:31 | Diagnostic Imaging Report ---
PROCEDURE: CT chest without contrast. TECHNIQUE: Multiple contiguous axial images were obtained through the chest without the use of intravenous contrast. Auto Exposure Controls were utilized during the CT exam to meet ALARA standards for radiation dose reduction. INDICATION: Hypertension and shortness of air with cardiac mass. COMPARISON: Comparison is made with CT abdomen and pelvis study from 04/13/2018. FINDINGS: No axillary lymphadenopathy is detected. Mediastinal and hilar evaluation is limited without intravenous contrast. There are coronary arterial calcifications present. A fat-containing mass in the region of the right atrium appears to be stable when compared with CT chest dating back to 08/26/2014. In the axial plane, this measures approximately 4.3 x 2.4 cm. No pericardial or pleural fluid is detected. Calcified granuloma right middle lobe is seen. No noncalcified nodules or pulmonary masses or infiltrates are seen. Upper abdomen is unremarkable. IMPRESSION: Stable noncontrast CT chest when compared with CT chest dated dating back to 2014. Fatty cardiac mass appears to be stable. No acute features seen. Dictated by: Dictated on workstation # [id number]
[2018-12-19 13:47] VITALS: BP 159/99
[2018-12-19 15:21] LABS: CALCIUM 8.7 MG/DL (8.5-10.1); CREATININE SERUM 1.03 MG/DL (0.60-1.30); POTASSIUM 3.9 MMOL/L (3.6-5.0)
--- NOTE | 2018-12-19 21:39 | STRESS TEST ---
DATE OF SERVICE: 12/19/2018 RESTING AND POST REGADENOSON TECHNETIUM-99M TETROFOSMIN SPECT CT IMAGING ORDERING PHYSICIAN: FORTUNATO Mendes. PRIMARY PHYSICIAN: [facility]. CLINICAL DIAGNOSIS: Shortness of breath, hypertension. Baseline images were carried out after injection of 9.15 mCi of technetium-99m Tetrofosmin. This was followed by 0.4 mg regadenoson, 28.4 mCi of technetium-99m Tetrofosmin stress imaging. The electrocardiogram showed sinus rhythm at baseline and did not change significantly with the regadenoson infusion. The patient tolerated the procedure well. Review of images at rest and following stress does not indicate any significant perfusion defects consistent with significant myocardial ischemia or infarction. Gated images show normal global left ventricular systolic function with normal regional wall motion. Left ventricular ejection fraction is calculated to be 75%. Left ventricular end diastolic volume is 47 mL. TID is absent (1.03). CONCLUSIONS: 1. No evidence of any significant myocardial ischemia or infarction on this study. 2. Normal regional wall motion. 3. Normal global left ventricular systolic function with a calculated ejection fraction of 75%. Job ID: [id number] DocumentID: [id number] Dictated Date: 12/19/2018 19:10:02 Molder Bench Date: 12/19/2018 21:39:08 Dictated By: VIVEK REN MD, MA, FACP, FACC,
== END ==
LOC: CARD 12:03
PROVIDERS: ATTEND Nurse Practitioner Family
DX: I10 Essential (primary) hypertension (principal); R06.02 Shortness of breath; I51.89 Other ill-defined heart diseases; I73.9 Peripheral vascular disease, unspecified
CPT/HCPCS: 36415; 71250; 78452; 80048; 93017

== ENCOUNTER → 2019-03-22 | Outpatient (CLI) | payer OTHER ==
[~2019-03-22] MED LIST changes: -CATHETER FLUSH 10 ML SYR IV PRN; -REGADENOSON 0.4 MG/5 ML SYR (LEXISCAN) IV ONE
--- NOTE | 2019-03-22 16:19 | Diagnostic Imaging Report ---
PROCEDURE: MR imaging cervical spine without contrast. TECHNIQUE: Multiplanar, multisequence MR imaging of the cervical spine was performed without contrast. INDICATION: Neck pain. COMPARISON: None. FINDINGS: Examination limited by motion. This particularly affects evaluation of cord signal and neural foraminal narrowing. Normal alignment. Vertebral body heights are preserved. Mild degenerative endplate changes are greatest at C5-C7. Normal bone marrow signal. Posterior disc osteophyte complex and ligamentous hypertrophy appear to result in moderate spinal canal narrowing at C5-C6 and C6-C7. No other substantial spinal canal narrowing given the limitations. There is likely moderate neural foraminal narrowing bilaterally at C5-C6 and on the left at C6-C7. Indeterminate poorly characterized soft tissue mass projecting laterally from the left lobe of thyroid measures approximately 4.0 x 2.8 cm. IMPRESSION: 1. Examination limited by motion. 2. There appears to be moderate spinal canal and neural foraminal narrowing at C5-C6 and C6-C7. 3. No convincing abnormal signal in the cervical cord given the limitations. 4. Indeterminate poorly characterized soft tissue mass projecting laterally from the region of the left thyroid lobe measuring at least 4.0 cm. If this is an unknown entity, recommend further evaluation with ultrasound or contrast-enhanced neck CT. Dictated by: Dictated on workstation # [id number]
== END ==
LOC: RAD 13:23
PROVIDERS: ATTEND Nurse Practitioner Community Health
DX: M48.02 Spinal stenosis, cervical region (principal); E07.89 Other specified disorders of thyroid; M25.512 Pain in left shoulder
CPT/HCPCS: 72141

== ENCOUNTER → 2019-03-27 | Outpatient (CLI) | payer OTHER ==
--- NOTE | 2019-03-27 18:31 | Diagnostic Imaging Report ---
MRI LT UPPER EXT JOINT W/O TECHNIQUE: Multiplanar, multisequence MR imaging of the left shoulder was performed without contrast. COMPARISON: None available. INDICATION: Left shoulder pain. FINDINGS: Rotator cuff: Full-thickness tear of the majority of the anterior two-thirds of the supraspinatus. The torn fibers are retracted to the level of the midhumeral head. The posterior-most insertional fibers of the supraspinatus may remain intact. Infraspinatus has mild tendinopathy along with low-grade partial-thickness interstitial tearing. Subscapularis is intact with mild tendinopathy. Teres minor is normal. No rotator cuff muscle atrophy. Glenoid labrum: By non-arthrogram imaging, the glenoid labrum appears intact. No para-labral cyst. Long head of biceps: Partial-thickness split longitudinal tearing of the extracapsular segment of the long head of the biceps is present. The origin of the long head of biceps on the supraglenoid tubercle remains intact. Bones and cartilage: Humeral head is normal in morphology without fracture or focal osseous lesion. No glenohumeral chondromalacia. Mild hypertrophic degenerative arthritis of the acromioclavicular joint. Soft tissues: Small glenohumeral joint effusion. No MRI findings to suggest adhesive capsulitis. No fluid or inflammatory like signal within the subacromial/subdeltoid space to indicate bursitis. IMPRESSION: 1. Full-thickness and near-complete tear of the anterior aspect of the supraspinatus. Torn fibers are retracted to the midhumeral head and there is no muscle belly atrophy. 2. Partial-thickness split longitudinal tear of the extracapsular segment of the long head of the biceps. 3. Mild hypertrophic degenerative arthritis of the acromioclavicular joint could predispose the subacromial impingement. Dictated by: Dictated on workstation # [id number]
== END ==
LOC: RAD 15:55
PROVIDERS: ATTEND Nurse Practitioner Community Health
DX: S46.112A Strain of muscle, fascia and tendon of long head of biceps, left arm, initial encounter (principal); M75.122 Complete rotator cuff tear or rupture of left shoulder, not specified as traumatic; M19.012 Primary osteoarthritis, left shoulder
CPT/HCPCS: 73221

== ENCOUNTER → 2019-04-06 | Outpatient (CLI) | payer OTHER ==
--- NOTE | 2019-04-06 17:05 | Diagnostic Imaging Report ---
PROCEDURE: US Thyroid. TECHNIQUE: Multiple real-time grayscale images were obtained of the thyroid in various projections. INDICATION: Left neck mass. COMPARISON: None available. FINDINGS: Right thyroid lobe: The right thyroid lobe measures 4.7 x 1.6 x 1.5 cm. It demonstrates diffuse homogeneous echogenicity. No nodules. Isthmus: The thyroid isthmus is normal in echogenicity and thickness measuring 0.3 cm. Left thyroid lobe: The left thyroid lobe measures 4.3 x 1.3 x 1.5 cm. It demonstrates diffuse homogeneous echogenicity. No nodules. There is a large hypoechoic solid vascular mass lateral to the left thyroid measuring 4.4 x 4.6 x 2.1 cm. IMPRESSION: 1. Large solid vascular mass adjacent to the left thyroid lobe could represent a parathyroid adenoma or a neoplastic process. ENT consultation is advised for further management. Dictated by: Dictated on workstation # [id number]
== END ==
LOC: RAD 13:15
PROVIDERS: ATTEND Nurse Practitioner Community Health
DX: E07.89 Other specified disorders of thyroid (principal)
CPT/HCPCS: 76536

== ENCOUNTER → 2019-04-27 | Outpatient (CLI) | payer OTHER ==
[~2019-04-27] MED LIST changes: +CATHETER FLUSH 10 ML SYR IV PRN; +HOLD METFORMIN - RECEIVED CONTRAST 20 ML VIAL IV SCH; +IOHEXOL 350 MG/ML 100 ML (OMNIPAQUE 350) VIAL IV ONE; +NS 100 ML (IVPB) BAG IV ONE
[2019-04-27 15:02] LABS: CREATININE SERUM 1.02 MG/DL (0.60-1.30)
--- NOTE | 2019-04-27 16:37 | Diagnostic Imaging Report ---
PROCEDURE: CT neck soft tissue with contrast. TECHNIQUE: Multiple contiguous axial images were obtained through the neck after the administration of contrast. Auto Exposure Controls were utilized during the CT exam to meet ALARA standards for radiation dose reduction. INDICATION: Mass in the area of the thyroid. Follow-up exam. COMPARISON: MRI cervical spine on 03/22/2019. Thyroid ultrasound on 04/06/2019. FINDINGS: Redemonstration of the soft tissue mass in the base of the left neck measuring 2.7 cm AP, 4.0 cm transverse, and 4.8 cm craniocaudal (image 68 series 2 and image 31 series 601). Prominent vessels are noted to be along the medial border of the mass and entering into the mass. This is displacing the left internal jugular vein anteriorly. No associated calcifications are seen with this mass. No significant inflammatory changes are visualized surrounding the mass. No evidence of invasion into adjacent structures. Mildly prominent lymph nodes are seen in the left neck adjacent to the mass. No pathologically enlarged lymphadenopathy is seen based on size criteria. No fluid collections are seen in the neck. The visualized intracranial contents demonstrate no evidence of pathologic intracranial enhancement or intracranial mass effect. Visualized orbital contents are unremarkable. The visualized paranasal sinuses are clear. The mastoids and middle ears are clear. The posterior nasopharynx and oropharynx demonstrate appropriate symmetry. There is no displacement of the parapharyngeal fat planes. There is no abnormal process evident within the prevertebral or retropharyngeal space. There is no evidence of abnormal thickening of the epiglottis or aryepiglottic folds. The vocal folds appear symmetric. The parotid, submandibular and thyroid gland are unremarkable. The vascular structures the neck demonstrate no evidence of high-grade stenosis on this nondedicated exam. Centrilobular emphysema is noted in the lung apices. There are mild degenerative features within the cervical spine without CT evidence of an acute or suspicious osseous abnormality. Cervical spine alignment appears within normal limits. IMPRESSION: 1. Vascular mass in the left base of the neck, relatively stable in size compared to the exam performed on 03/22/2019. This may represent slow flow vascular malformation although lack of calcification implies different etiology such as neoplasm or parathyroid adenoma. Recommend biopsy or surgical excision for further characterization. Dictated by: Dictated on workstation # [id number]
== END ==
LOC: RAD 14:05
PROVIDERS: ATTEND Nurse Practitioner Community Health
DX: D48.7 Neoplasm of uncertain behavior of other specified sites (principal)
CPT/HCPCS: 36415; 70491; 82565; 84520

== ENCOUNTER 2019-09-18 00:26 | Observation (INO) | payer OTHER ==
[~2019-09-18] VITALS: Ht 162.6 cm; Wt 74.6 kg
[~2019-09-18 00:26] MED LIST changes: -CATHETER FLUSH 10 ML SYR IV PRN; -HOLD METFORMIN - RECEIVED CONTRAST 20 ML VIAL IV SCH; -IOHEXOL 350 MG/ML 100 ML (OMNIPAQUE 350) VIAL IV ONE; -NS 100 ML (IVPB) BAG IV ONE
[2019-09-18] MEDS ORDERED: methylPREDNISolone 125 MG (Solu-MEDROL) VIAL IV STA (00:55)
[2019-09-18] MEDS ORDERED: RT-ALBUTEROL SULF 2.5 MG/3 ML PRE-MIX VIAL INH STA (00:55)
[2019-09-18] MEDS ORDERED: DEXAMETHASONE 4 MG/ML SDV (DECADRON) IH ONE (01:00)
[2019-09-18] MEDS ORDERED: RT-ALBUTEROL/IPRATROPIUM 3 ML (DUONEB) VIAL INH ONE (01:00)
[2019-09-18] MEDS ORDERED: NS IV 1000 ML 1,000 ML ONE (01:14)
[2019-09-18 01:15] LABS: BASOPHILS # (AUTO) 0.1 10^3/uL (0.0-0.1); BASOPHILS % (AUTO) 1 % (0-10); EOSINOPHILS # (AUTO) 0.1 10^3/uL (0.0-0.3); EOSINOPHILS % (AUTO) 1 % (0-10); HEMATOCRIT 42 % (35-52); HEMOGLOBIN 13.8 G/DL (11.5-16.0); LYMPHOCYTES # (AUTO) 1.2 X 10^3 (1.0-4.0); LYMPHOCYTES % (AUTO) 14 % (12-44); MEAN CORPUSCULAR HEMOGLOBIN 26 PG (25-34); MEAN CORPUSCULAR HGB CONC 33 G/DL (32-36); MEAN CORPUSCULAR VOLUME 81 FL (80-99); MEAN PLATELET VOLUME 10.2 FL (7.4-10.4); MONOCYTES # (AUTO) 0.8 X 10^3 (0.0-1.0); MONOCYTES % (AUTO) 9 % (0-12); NEUTROPHILS # (AUTO) 6.6 X 10^3 (1.8-7.8); NEUTROPHILS % (AUTO) 76 % (42-75); PLATELET COUNT 424 10^3/uL (130-400); RED CELL DISTRIBUTION WIDTH 14.5 % (10.0-14.5); WHITE BLOOD COUNT 8.7 10^3/uL (4.3-11.0)
--- NOTE | 2019-09-18 01:26 | ED Respiratory ---
General Chief Complaint: General Problems/Pain Stated Complaint: POST OP SHOULDER PAIN Source: patient History of Present Illness Date Seen by Provider: Sep 18, 2019 Time Seen by Provider: 00:52 Initial Comments PT ARRIVES VIA POV FROM HOME C/O SHORTNESS OF BREATH X 1 WEEK, WORSE TONIGHT C/O PRODUCTIVE COUGH X 1 WEEK--FROTHY WHITE SPUTUM NO FEVER AT ANY TIME OCCASIONALLY HURTS TO BREATHE, BUT NO ACTUAL CHEST PAIN NO SWELLING IN LEGS/ FEET PT HAS HISTORY OF COPD--USED ALBUTEROL NEBULIZER 2 HOURS AGO--IS THE ONLY TIME SHE HAS USED IT FOR THIS ILLNESS PT SMOKED 4 PPD, "JUST CUT BACK TO 1 PPD" PT HAD LEFT NECK MASS REMOVED 08/14/19 AT [place] 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 Allergies and Home Medications Allergies Coded Allergies: Sulfa (Sulfonamide Antibiotics) (Verified Allergy, Mild, 11/16/14) Fteqtjg-Vds-Lqv Reductase Inhibitor (Verified Allergy, Unknown, 08/29/15) Home Medications Amlodipine Besylate 10 Mg Tablet, 10 MG PO DAILY, (Reported) Aspirin 81 Mg Tab.chew, 81 MG PO DAILY Prescribed by: EPIFANIO SCHOFIELD on 10/04/18921 Biotin 5,000 Mcg Tab.subl, 5,000 MCG SL DAILY, (Reported) Budesonide/Formoterol Fumarate 10.2 Gm Hfa.aer.ad, 2 PUFF IH BID, (Reported) Clopidogrel Bisulfate 75 Mg Tablet, 75 MG PO DAILY Prescribed by: EPIFANIO SCHOFIELD on 10/04/18921 Cyanocobalamin (Vitamin B-12) 250 Mcg Tablet, 250 MCG PO DAILY, (Reported) Cyclobenzaprine HCl 10 Mg Tablet, 10 MG PO DAILY, (Reported) Fluticasone Propionate 9.9 Ml Dubois.susp, 1 SPRAY NS DAILY, (Reported) Lisinopril 10 Mg Tablet, 10 MG PO DAILY, (Reported) Magnesium Oxide 250 Mg Tablet, 250 MG PO DAILY, (Reported) Metformin HCl 500 Mg Tablet, 500 MG PO BID, (Reported) Summers-3 Fatty Acids/Fish Oil 1 Each Capsule, 1 EACH PO DAILY, (Reported) Patient Home Medication List Home Medication List Reviewed: Yes Review of Systems Review of Systems Constitutional: no symptoms reported; No chills, No diaphoresis, No dizziness, No fever EENTM: No throat pain, No throat swelling Respiratory: see HPI, cough, phlegm, short of breath, wheezing Cardiovascular: no symptoms reported; No chest pain, No edema, No palpitations, No syncope Gastrointestinal: no symptoms reported Genitourinary: no symptoms reported Musculoskeletal: no symptoms reported Skin: no symptoms reported Psychiatric/Neurological: No Symptoms Reported Hematologic/Lymphatic: No Symptoms Reported Immunological/Allergic: no symptoms reported Past Kcyasgf-Ygyrmk-Olqktx Hx Past Med/Social Hx: Reviewed and Corrections made Patient Social History Alcohol Use: Occasionally Uses Recreational Drug Use: Yes (THC "YEARS AGO" ) Drug of Choice: THC "YEARS AGO" Smoking Status: Current Everyday Smoker (4 PPD) Type Used: Cigarettes (4 PPD) Recent Foreign Travel: No Contact w/Someone Who Travel: No Recent Hopitalizations: No Immunizations Up To Date Tetanus Booster (TDap): More than 5yrs PED Vaccines UTD: No Seasonal Allergies Seasonal Allergies: No Past Medical History Surgeries: Yes Appendectomy, Hysterectomy, Tonsillectomy, Vascular Surgery Respiratory: Yes Asthma, Sleep Apnea, COPD Currently Using CPAP: Yes Cardiac: Yes Hypertension, Peripheral Vascular Neurological: Yes Headaches /Migraines Reproductive Disorders: No Female Reproductive Disorders: Denies 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, 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 Sexually Transmitted Disease: No HIV/AIDS: No Genitourinary: No Gastrointestinal: Yes Abdominal Hernia Musculoskeletal: Yes Arthritis Endocrine: Yes Diabetes, Non-Insulin dep HEENT: Yes (LEFT NECK MASS REMOVED 08/14/19) Loss of Vision: Bilateral Hearing Impairment: Denies Cancer: No Psychosocial: No Integumentary: No Blood Disorders: No Adverse Reaction/Blood Tranf: No (N/A) Family Medical History PSH: -HERNIA REPAIR X 2 -HYSTERCTOMY/OVARIES INTACT -TONSILECTOMY -STENTS IN LEFT LEG X 2 -REMOVAL OF LEFT NECK MASS 08/14/19 Physical Exam Vital Signs - First Documented 09/18/19 00:43 Temp 36.8 Pulse 20 Resp 20 B/P (MAP) 94/76 (82) Pulse Ox 95 O2 Delivery Room Air Capillary Refill : Height: 5'4.00" Weight: 167lbs. 0.0oz. [id number]; 28.7 BMI Method: General Appearance: WD/WN, no apparent distress, other (REEKS OF CIGARETTES) HEENT: PERRL/EOMI, normal ENT inspection, pharynx normal Neck: full range of motion, other (SURGICAL SITE TO LEFT NECK HEALING WELL WITH OUT SIGNS OF INFECTION) Respiratory: no respiratory distress, no accessory muscle use, wheezing (DIFFUSE WHEEZING BILATERALLY--RIGHT > LEFT), other (TALKS IN FULL SENTENCES, VOICE SLIGHTLY RASPY. 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, no motor/sensory deficits, alert, normal mood/affect, oriented x 3 Skin: normal color, warm/dry Focused Exam Sepsis Stage: Sepsis Possible Source: Pulmonary Lactate Level 09/18/19 01:40: Lactic Acid Level 2.57*H Time of Focused Exam: 01:50 Respiratory: No Accessory Muscle Use, No Respiratory Distress, Expiration, Wheezing Cardiovascular: Regular Rate, Rhythm, No Murmur Capillary Refill: Less Than 3 Seconds Peripheral Pulses: 2+ Dorsalis Pedis (R), 2+ Left Dors-Pedis (L), 2+ Radial Pulses (R), 2+ Radial Pulses (L) Skin: normal color Lactic Acid Level Laboratory Tests Test 09/18/19 01:40 Lactic Acid Level 2.57 MMOL/L (0.50-2.00) *H Within 3hrs of presentation: Admin fluids, Admin ABX, Blood cultures prior to ABX's, Focus exam, Lactate level Progress/Results/Core Measures Suspected Sepsis SIRS Temperature: Pulse: Respiratory Rate: Laboratory Tests 09/18/19 01:05: White Blood Count 8.7 Blood Pressure / Mean: 09/18/19 01:40: Lactic Acid Level 2.57*H Laboratory Tests 09/18/19 01:05: Creatinine 2.35H, INR Comment 1.0, Platelet Count 424H, Total Bilirubin 0.3 Results/Orders Lab Results Laboratory Tests Test 09/18/19 00:58 09/18/19 01:05 09/18/19 01:40 Range/Units Glucometer 183 H 70-110 MG/DL White Blood Count 8.7 4.3-11.0 10^3/uL Red Blood Count 5.24 4.35-5.85 10^6/uL Hemoglobin 13.8 11.5-16.0 G/DL Hematocrit 42 35-52 % Mean Corpuscular Volume 81 80-99 FL Mean Corpuscular Hemoglobin 26 25-34 PG Mean Corpuscular Hemoglobin Concent 33 32-36 G/DL Red Cell Distribution Width 14.5 10.0-14.5 % Platelet Count 424 H 130-400 10^3/uL Mean Platelet Volume 10.2 7.4-10.4 FL Neutrophils (%) (Auto) 76 H 42-75 % Lymphocytes (%) (Auto) 14 12-44 % Monocytes (%) (Auto) 9 0-12 % Eosinophils (%) (Auto) 1 0-10 % Basophils (%) (Auto) 1 0-10 % Neutrophils # (Auto) 6.6 1.8-7.8 X 10^3 Lymphocytes # (Auto) 1.2 1.0-4.0 X 10^3 Monocytes # (Auto) 0.8 0.0-1.0 X 10^3 Eosinophils # (Auto) 0.1 0.0-0.3 10^3/uL Basophils # (Auto) 0.1 0.0-0.1 10^3/uL Prothrombin Time 13.4 12.2-14.7 SEC INR Comment 1.0 0.8-1.4 Activated Partial Thromboplast Time 37 H 24-35 SEC Sodium Level 139 135-145 MMOL/L Potassium Level 3.9 3.6-5.0 MMOL/L Chloride Level 100 98-107 MMOL/L Carbon Dioxide Level 20 L 21-32 MMOL/L Anion Gap 19 H 5-14 MMOL/L Blood Urea Nitrogen 29 H 7-18 MG/DL Creatinine 2.35 H 0.60-1.30 MG/DL Estimat Glomerular Filtration Rate 21 BUN/Creatinine Ratio 12 Glucose Level 172 H 70-105 MG/DL Calcium Level 9.8 8.5-10.1 MG/DL Corrected Calcium 9.5 8.5-10.1 MG/DL Magnesium Level 2.0 1.6-2.4 MG/DL Total Bilirubin 0.3 0.1-1.0 MG/DL Aspartate Amino Transf (AST/SGOT) 12 5-34 U/L Alanine Aminotransferase (ALT/SGPT) 12 0-55 U/L Alkaline Phosphatase 89 40-136 U/L Total Creatine Kinase 68 29-168 U/L Creatine Kinase MB 1.8 <6.6 NG/ML Troponin I < 0.028 <0.028 NG/ML B-Type Natriuretic Peptide 53.9 <100.0 PG/ML Total Protein 8.2 6.4-8.2 GM/DL Albumin 4.4 3.2-4.5 GM/DL Procalcitonin 0.09 <0.10 NG/ML Lactic Acid Level 2.57 *H 0.50-2.00 MMOL/L Micro Results Microbiology 09/18/19 Influenza Types A,B Antigen (OBEY) - Final, Complete My Orders Orders - TIO ARBOLEDA DO Ed Iv/Invasive Line Start (09/18/19 00:55) Ekg Tracing (09/18/19 00:55) O2 (09/18/19 00:55) Monitor-Rhythm Ecg Trace Only (09/18/19 00:55) Chest 1 View, Ap/Pa Only (09/18/19 00:55) BNP (09/18/19 00:55) Cbc With Automated Diff (09/18/19 00:55) Comprehensive Metabolic Panel (09/18/19 00:55) Creatine Kinase (09/18/19 00:55) Creatine Kinase Mb (09/18/19 00:55) Lactic Acid Analyzer (09/18/19 00:55) Magnesium (09/18/19 00:55) Protime With Inr (09/18/19 00:55) Partial Thromboplastin Time (09/18/19 00:55) Ua Culture If Indicated (09/18/19 00:55) Blood Culture (09/18/19 00:55) Influenza A And B Antigens (09/18/19 00:55) Troponin I (09/18/19 00:55) Albuterol Pre-Mix Nebs (Rt) (Proventil (09/18/19 00:55) Albuterol/Ipra Inhalation Soln (Duoneb I (09/18/19 01:00) Dexamethasone Injection (Decadron Inject (09/18/19 01:00) Rt Request For Service (09/18/19 00:55) Methylprednisolone Sod Succ (Solu-Medrol (09/18/19 00:55) Svn Small Volume Nebulizer (09/18/19 00:55) Svn Small Volume Nebulizer (09/18/19 00:55) Ed Iv/Invasive Line Start (09/18/19 01:19) Ns Iv 1000 Ml (Sodium Chloride 0.9%) (09/18/19 01:19) Sputum Culture (09/18/19 01:19) Urine Culture (09/18/19 01:19) Vital Signs Adult Sepsis Patie Q15M (09/18/19 01:19) Remove Rings In Anticipation O (09/18/19 01:19) Ns Iv 1000 Ml (Sodium Chloride 0.9%) (09/18/19 01:14) Ceftriaxone For Iv Use (Rocephin For I (09/18/19 02:00) Azithromycin Injection (Zithromax Inject (09/18/19 02:00) Procalcitonin (Pct) (09/18/19 02:04) Medications Given in ED Current Medications Medications Dose Ordered Sig/Keisha Route Start Time Stop Time Status Last Admin Dose Admin Albuterol/ Ipratropium 3 ml ONCE ONCE INH 09/18/19 01:00 09/18/19 01:01 DC 09/18/19 01:11 3 ML Azithromycin 500 mg/Sodium Chloride 250 ml @ 250 mls/hr ONCE ONCE IV 09/18/19 02:00 09/18/19 02:59 DC 09/18/19 02:05 250 MLS/HR Ceftriaxone Sodium 1000 mg/ Sterile Water 10 ml @ 200 mls/hr ONCE ONCE IV 09/18/19 02:00 09/18/19 02:02 DC 09/18/19 02:05 200 MLS/HR Dexamethasone Sodium Phosphate 20 mg ONCE ONCE IH 09/18/19 01:00 09/18/19 01:01 DC 09/18/19 01:11 20 MG Vital Signs/I&O 09/18/19 09/18/19 00:43 01:12 Temp 36.8 Pulse 20 Resp 20 B/P (MAP) 94/76 (82) Pulse Ox 95 95 O2 Delivery Room Air Room Air Capillary Refill : Progress Note : Progress Note GIVEN HOUR LONG NEB TREATMENT WITH INCREASED AERATION AND DECREASED WHEEZING O2 SATS REMAINED IN MID TO UPPER 90'S NO DETERIORATION IN PT'S CONDITION DURING ER STAY ECG Initial ECG Impression Date: Sep 18, 2019 Initial ECG Impression Time: 01:13 Initial ECG Rate: 99 Initial ECG Rhythm: Normal Sinus Diagnostic Imaging Comments CXR--NO ACUTE PROCESS, PENDING RADIOLOGIST REVIEW Reviewed: Reviewed by Me Departure Communication (Admissions) 0212--SPOKE WITH DR. CAPELLAN, ACCEPTS PT FOR ADMIT. Impression Primary Impression: COPD exacerbation Additional Impressions: POSSIBLE SEPSIS NIDDM Acute renal insufficiency Influenza A Very heavy cigarette smoker Disposition: ADMITTED INPATIENT Condition: Improved Admissions Decision to Admit Reason: Admit from ER (General) Decision to Admit/Date: Sep 18, 2019 Time/Decision to Admit Time: 02:15 Departure-Patient Inst. Referrals: [facility] (PCP) Primary Care Physician MERARY JOSUE (Family) Primary Care Physician TIO ARBOLEDA DO Sep 18, 2019 01:26
[2019-09-18 01:32] LABS: PROTHROMBIN TIME PATIENT 13.4 SEC (12.2-14.7)
[2019-09-18 01:38] LABS: ALANINE AMINOTRANSFERASE 12 U/L (0-55); ALBUMIN 4.4 GM/DL (3.2-4.5); ALKALINE PHOSPHATASE 89 U/L (40-136); BILIRUBIN,TOTAL 0.3 MG/DL (0.1-1.0); BUN/CREATININE RATIO 12; CALCIUM 9.8 MG/DL (8.5-10.1); CARBON DIOXIDE 20 MMOL/L (21-32); CHLORIDE 100 MMOL/L (98-107); CREATINE KINASE 68 U/L (29-168); CREATININE SERUM 2.35 MG/DL (0.60-1.30); GFR ESTIMATED 21; GLUCOSE 172 MG/DL (70-105); POTASSIUM 3.9 MMOL/L (3.6-5.0); SODIUM 139 MMOL/L (135-145); TOTAL PROTEIN 8.2 GM/DL (6.4-8.2)
[2019-09-18 01:44] LABS: CREATINE KINASE MB 1.8 NG/ML (<6.6)
[2019-09-18] MEDS ORDERED: AZITHROMYCIN INJECTION 500 MG in NS (IVPB) 250 ML IV ONE (02:00)
[2019-09-18] MEDS: NS IV 1000 ML 1,000 ML IV SCH ×6 (02:00→20:42)
[2019-09-18] MEDS ORDERED: cefTRIAXone FOR IV USE 1,000 MG in WATER (STERILE) FOR INJECTION 10 ML IV ONE (02:00)
[2019-09-18] MEDS ORDERED: OSELTAMIVIR 75 MG (TAMIFLU) CAPSULE PO ONE (02:15)
[2019-09-18] MEDS ORDERED: NS IV 1000 ML 1,000 ML IV SCH (03:23)
[2019-09-18 04:29] LABS: BILIRUBIN,URINE NEGATIVE (NEGATIVE); CLARITY,URINE CLEAR; COLOR,URINE YELLOW; GLUCOSE, URINE (UA) TRACE (NEGATIVE); KETONES,URINE NEGATIVE (NEGATIVE); LEUKOCYTE ESTERASE ,URINE TRACE (NEGATIVE); NITRITE,URINE NEGATIVE (NEGATIVE); PROTEIN,URINE TRACE (NEGATIVE)
[2019-09-18 04:42] VITALS: BP 119/75
[2019-09-18 04:42] LABS: BACTERIA,URINE FEW /HPF; RBC,URINE 0-2 /HPF; WBC,URINE 0-2 /HPF
--- OUTSIDE RECORDS SUMMARY | 2019-09-18 04:43 | XMS REPORT ---
Author Author Dona MIRZA Organization [facility] [place] Address [address] [place] [address] Care Team Providers Care Regulatory Consultant Name Role Phone YE MIRZA Unavailable PROBLEMS Type Condition ICD9-CM Code ZIL29-KJ Code Onset Dates Condition S tatus SNOMED Code Problem Abnormal colonoscopy R93.3 Active 503036867 Problem Normal cardiac stress test Z13.6 Act alvarado 820413934 Problem Tobacco dependence F17.200 Active 8 5435153 Problem Sleep apnea G47.30 Active 17571185 Problem Hyperlipidemia E78.5 Active 96626 004 Problem Essential hypertension I10 Active 82615482 Problem Type 2 diabetes mellitus without complication E11. 9 Active 050540698 Problem Establishing care with new doctor, encounter for Z 71.89 Active 450794403 Problem Unilateral inguinal hernia w ithout obstruction or gangrene, recurrence not specified K40.90 Active 55226118 Problem Unilateral recurrent inguinal hernia without obs truction or gangrene K40.91 Active 02227159 Problem Hyperlipidemia, unspecified hyperlipidemia type E7 8.5 Active 18419491 Problem Vaginal lesion N89.8 Active 79818 7005 Problem Stress incontinence in female N39.3 Active 85069559 Problem Breast lesion N64.9 Active 264142 004 Problem Hammertoe M20.40 Active 805685231 Problem Cough R05 Active 33441021 Problem Irritable bowel syndrome with diarrhea K58.0 Active 976239263 Problem Other chronic pain G89.29 Active 8 3312776 Problem PVD (peripheral vascular disease) I73.9 Active 016153879 Problem Nontraumatic complete tear of left rotator cuff M7 5.122 Active [id number] Problem GERD (gastroesophageal reflux disease) K21.9 Active 042262437 Problem Abnormal drug screen R89.2 Active 016916692 Problem COPD (chronic obstructive pulmonary disease) J44.9 Active 13909019 Problem Gastroparesis K31.84 Active 832329 006 Problem Rotator cuff arthropathy of left shoulder M12.812 Active 15416518099838945 Problem Arterial stenosis I77.1 Active 68 987006 Problem Unspecified rotator cuff tea r or rupture of left shoulder, not specified as traumatic M75.102 Active 169035070465805 00 Problem Other specific arthropathies, not elsewhere clas sified, left shoulder M12.812 Active 225371706 ALLERGIES No Information ENCOUNTERS Encounter Location Date Diagnosis [place] [address] [address] Sep, [place] [address] [address] 17 Aug, 2019 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 [place] [address] [address] Aug, [place] [address] [address] Aug, 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 and COPD (chronic obstructive pulmonary disease) J44.9 [place] [address] [address] Aug, [place] [address] [address] Jul, [place] [address] [address] Jul, Mass of left side of neck R22.1 ; Type 2 diabetes mellitus without complication E11.9 ; COPD (chronic obstructive pulmonary disease) J44.9 ; Lung infiltrate R91.8 and 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 [place] [address] [address] Jun, [place] [address] [address] Jun, [place] [address] [address] Jun, Abnormal drug screen R89.2 [place] [address] [address] Jun, [place] [address] [address] Jun, Abnormal drug screen R89.2 [place] [address] [address] May, Encounter for immunization Z23 [place] [address] [address] May, Essential hypertension I10 ; Type 2 diab etes mellitus without complication E11.9 and Cramps, extremity R25.2 [place] [address] [address] May, Other chronic pain G89.29 and Dysuria R3 0.0 [place] [address] [address] May, Other chronic pain G89.29 ; Dysuria R30. 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812 and Unspecified rotator cuff tear or rupture of left shoulder, not specified as traumatic M75.102 [place] [address] [address] Mar, [place] [address] [address] Mar, [place] [address] [address] Mar, Thyroid mass E07.[address] [address] Mar, Cervicalgia M54.2 ; Left anterior should er pain M25.512 ; Type 2 diabetes mellitus without complication E11.9 and Localized edema R60.0 [place] [address] [address] Feb, [place] [address] [address] Feb, [place] [address] [address] Feb, [place] [address] [address] Jan, Cervicalgia M54.2 ; Dysuria R30.0 ; Type 2 diabetes mellitus E11.9 and Essential hypertension I10 [address] [address] Jan, Essential hypertension I10 and Type 2 di abetes mellitus E11.9 [place] [address] [address] Oct, Essential hypertension I10 [address] [address] Sep, Cramps, extremity R25.2 ; PVD (periphera l vascular disease) I73.9 ; Rotator cuff arthropathy of left shoulder M12.812 and Financial difficulties Z59.[address] [id number] [place] [address] 28 Aug, 2018 Rotator cuff arthropathy of left shoulde r M12.812 [place] [address] [address] 19 Aug, 2018 Arterial stenosis I77.1 [place] [address] [address] 13 Aug, 2018 [place] [address] [address] Aug, Type 2 diabetes mellitus E11.9 ; Left le g pain M79.605 ; Pain in left shoulder M25.512 ; Other chronic pain G89.29 ; Cramps, extremity R25.2 and Irritable bowel syndrome with diarrhea K58.0 [facility] [place] [address] [address] Jul, Dysuria R30.0 and Acute uppe r respiratory infection J06.9 [place] [address] [address] Jul, Type 2 diabetes mellitus E11.9 and Essen tial hypertension I10 [facility] [place] [address] [address] Jun, [facility] [place] [address] [address] Jun, Cough R05 and Acute pneumoni a J18.9 [place] [address] [address] Apr, Type 2 diabetes mellitus E11.9 ; COPD (c hronic obstructive pulmonary disease) J44.9 ; Essential hypertension I10 and Left leg pain M79.605 [place] [address] [address] Mar, Kaity vaginitis B37.3 [place] [address] [address] Jan, Chigger bites B88.0 [facility] [place] [address] [address] Dec, Type 2 diabetes mellitus without complic ation E11.9 and Unilateral recurrent inguinal hernia without obstruction or gangrene K40.91 [facility] [place] [address] [address] November, Essential hypertension I10 and Diabetes E11.9 [place] [address] [address] Oct, [place] [address] [address] Sep, Diabetes E11.9 and Essential hypertensio n I10 [place] [address] [address] Aug, Diabetes E11.9 ; Viral upper respiratory tract infection J06.9 ; COPD (chronic obstructive pulmonary disease) J44.9 ; Essential hypertension I10 ; Unilateral recurrent inguinal hernia without obstruction or gangrene K40.91 ; Dysuria R30.0 ; Yeast infection of the vagina B37.3 and Vaginal itching L29.8 [facility] [address] [facility] [id number] [address] [place] [address] Jul, Essential hypertension I10 a nd COPD (chronic obstructive pulmonary disease) J44.9 [facility] [place] [address] [address] Mar, Left lower quadrant pain R10.32 ; Type 2 diabetes mellitus without complication E11.9 and Cardiac arrhythmia, unspecified cardiac arrhythmia type I49.9 [facility] [place] [address] [address] Oct, COPD (chronic obstructive pulmonary dise ase) J44.9 ; Diabetes E11.9 and Mouth pain K13.79 [facility] [place] [address] [address] Sep, [place] [address] [address] Sep, COPD (chronic obstructive pulmonary dise ase) J44.9 ; Diabetes E11.9 and Mouth pain K13.[address] [address] Aug, Type 2 diabetes mellitus without complic ation E11.[address] [address] Aug, [address] [address] Aug, Type 2 diabetes mellitus without complic ation E11.[address] [address] Aug, Establishing care with new doctor, kwasi lao for Z71.89 ; Type 2 diabetes mellitus without complication E11.9 ; Essential hypertension I10 ; Cough R05 ; Hammertoe M20.40 and Sleep apnea G47.[address] [address] Jul, [address] [address] Jun, Vaginal lesion N89.[address] [address] Jun, [address] [address] Jun, Well woman exam Z01.419 ; Papanicolaou s mear Z12.4 ; COPD (chronic obstructive pulmonary disease) J44.9 ; Routine screening for STI (sexually transmitted infection) Z11.3 ; Vaginal itching L29.8 ; Vaginal lesion N89.8 ; Hyperlipidemia, unspecified hyperlipidemia type E78.5 ; Type 2 diabetes mellitus without complication E11.9 ; Vaginal dryness N89.8 ; Unilateral inguinal hernia without obstruction or gangrene, recurrence not specified K40.90 ; Cough R05 ; Stress incontinence in female N39.3 and Breast lesion N64.[address] [address] May, Bronchitis J40 [facility] [place] [address] [place] [id number] [place] [address] May, Routine adult health maintenance Z00.00 ; Essential hypertension I10 ; Hyperlipidemia E78.5 ; COPD (chronic obstructive pulmonary disease) J44.9 ; Unilateral recurrent inguinal hernia without obstruction or gangrene K40.91 and Type 2 diabetes mellitus without complication E11.9 [facility] [place] [address] [address] Oct, [facility] [place] [address] [address] Oct, [facility] [place] [address] [address] Sep, [facility] [place] [address] [address] Sep, [facility] [place] [address] [address] Sep, [facility] [place] [address] [address] Sep, [facility] [place] [address] [address] Aug, [facility] [place] [address] [address] Aug, [facility] [place] [address] [address] Jul, [facility] [place] [address] [place] [id number] [place] [address] Jul, [facility] [place] [address] [address] Jun, [facility] [place] [address] [address] Jun, [facility] [place] [address] [address] Jun, [facility] [place] [address] [place] [address] Jun, [facility] [place] [facility] [address] [facility] [id number] [place] [address] Jun, [facility] [place] [facility] [address] [id number] [place] [address] Mar, [facility] [place] [facility] [address] [id number] [place] [address] Mar, [facility] [place] [facility] [address] [id number] [place] [address] Feb, [facility] [place] [facility] [address] [id number] [place] [address] Feb, [facility] [place] [facility] [address] [id number] [place] [address] Feb, [facility] [place] [facility] [address] [id number] [place] [address] Feb, [facility] [place] [facility] [address] [id number] [place] [address] Dec, [facility] [place] [facility] [address] [id number] [place] [address] Dec, [facility] [place] [facility] [address] [id number] [place] [address] November, [facility] [place] [facility] [address] [id number] [place] [address] November, [facility] [place] [facility] [address] [id number] [place] [address] November, [facility] [place] [facility] [address] [id number] [place] [address] November, [facility] [place] [facility] [address] [id number] [place] [address] Sep, [facility] [place] [facility] [address] [id number] [place] [address] Sep, [facility] [place] [facility] [address] [id number] [place] [address] Sep, [facility] [place] [facility] [address] [id number] [place] [address] Sep, [facility] [place] [facility] [address] [id number] [place] [address] Jul, [facility] [place] [facility] [address] [id number] [place] [address] Jul, [facility] [place] [facility] [address] [place] [id number] [place] [address] Jun, [facility] [place] [facility] [address] [id number] [place] [address] Jun, [facility] [place] [facility] [address] [id number] [place] [address] Jun, [facility] [place] [facility] [address] [id number] [place] [address] Jun, [facility] [place] [facility] [address] [place] [id number] [place] [address] May, [facility] [place] [facility] [address] [place] [id number] [place] [address] May, [facility] [place] [facility] [address] [id number] [place] [address] Apr, [facility] [place] [facility] [address] [id number] [place] [address] Apr, [facility] [place] [facility] [address] [id number] [place] [address] Apr, [facility] [place] [facility] [address] [id number] [place] [address] Mar, [facility] [place] [facility] [address] [id number] [place] [address] Mar, [facility] [place] [facility] [address] [place] [id number] [place] [address] Mar, [facility] [place] [facility] [address] [id number] [place] [address] Feb, [facility] [place] [facility] [address] [place] [id number] [place] [address] Feb, [facility] [place] [facility] [address] [id number] [place] [address] Jan, [facility] [place] [facility] [address] [id number] [place] [address] November, [facility] [place] [facility] [address] [id number] [place] [address] Oct, [facility] [place] [facility] [address] [id number] [place] [address] Oct, [facility] [place] [facility] [address] [id number] [place] [address] Jul, [facility] [place] [facility] [address] [id number] [place] [address] Jul, [facility] [place] [facility] [address] [id number] [place] [address] Jul, [facility] [place] [facility] [address] [place] [id number] [place] [address] Jul, [facility] [place] [facility] [address] [id number] [place] [address] Jul, [facility] [place] [facility] [address] [id number] [place] [address] 14 Jul, 2012 [facility] [place] [facility] [address] [id number] [place] [address] Jul, [facility] [place] [facility] [address] [id number] [place] [address] Jul, [facility] [place] [facility] [address] [id number] [place] [address] Jun, [facility] [place] [facility] [address] [id number] [place] [address] Jun, [facility] [place] [facility] [address] [id number] [place] [address] Apr, [facility] [place] [facility] [address] [id number] [place] [address] Apr, [facility] [place] [facility] [address] [id number] [place] [address] Apr, [facility] [place] [facility] [address] [facility] [id number] [facility] [address] Apr, [facility] [place] [facility] [address] [facility] [id number] [place] [address] Apr, [facility] [place] [facility] [address] [id number] [place] [address] Apr, [facility] [place] [facility] [address] [id number] [place] [address] Apr, [facility] [place] [facility] [address] [facility] [id number] [place] [address] Apr, [facility] [place] [facility] [address] [id number] [place] [address] Apr, [facility] [place] [facility] [address] [id number] [place] [address] Apr, [facility] [place] [facility] [address] [id number] [place] [address] Mar, [facility] [place] [facility] [address] [id number] [place] [address] Mar, [facility] [place] [facility] [address] [id number] [place] [address] Feb, [facility] [place] [facility] [address] [id number] [place] [address] Feb, [facility] [place] [facility] [address] [id number] [place] [address] Feb, [facility] [place] [facility] [address] [facility] [id number] [place] [address] Feb, [facility] [place] [facility] [address] [id number] [place] [address] Feb, [facility] [place] [facility] [address] [id number] [place] [address] Feb, [facility] [place] [facility] [address] [id number] [place] [address] Feb, [facility] [place] [facility] [address] [place] [id number] [place] [address] Feb, [facility] [place] [address] [place] [id number] [place] [address] Feb, [facility] [place] [address] [place] [id number] [place] [address] Feb, [facility] [place] [address] [place] [id number] [place] [address] Jan, [facility] [place] [address] [place] [id number] [place] [address] Jan, [facility] [place] [address] [address] Jan, [facility] [place] [address] [address] Jan, [facility] [place] [address] [place] [id number] [place] [address] November, [facility] [place] [address] [address] Oct, [facility] [place] [address] [place] [id number] [place] [address] Sep, [facility] [place] [address] [address] Sep, [facility] [place] [address] [place] [id number] [place] [address] Sep, [facility] [place] [address] [place] [address] [id number] [place] [address] Sep, IMMUNIZATIONS No Known Immunizations SOCIAL HISTORY Never Assessed REASON FOR VISIT PLAN OF CARE VITAL SIGNS Weight 169.9 lbs 2013-09-07 Temperature 98 degrees Fahrenheit 2013-09-07 Heart Rate 98 bpm 2013-09-07 Blood pressure systolic 116 mmHg 2013-09-07 Blood pressure diastolic 70 mmHg 2013-09-07 MEDICATIONS Unknown Medications RESULTS No Results PROCEDURES Procedure Date Ordered Result Body Site IPRATROPIUM BROMIDE INHAL CHRISTOPH U-MG September 07, 2013 NEB/MDI RX INITIAL September 07, 2013 INSTRUCTIONS MEDICATIONS ADMINISTERED No Known Medications MEDICAL (GENERAL) HISTORY Type Description Date Medical History hypertension Medical History type II diabetes Medical History chronic obstructive pulmonary disease (C OPD) Medical History hyperlipidemia Medical History gastroparesis Medical History sleep apnea (CPAP) Medical History incisional hernia Medical History Abnormal colonoscopy Surgical History tonsillectomy 2002 Surgical History partial hysterectomy- still has ovaries 1991 Surgical History removal of pre-cancerous cells from cerv ix 2002 Surgical History Colonoscopy 09/2015 Surgical History left spigelian hernia repair 05/2018 Surgical History 2 stints put in left leg 11/2018 Surgical History biopsy of left neck mass 06/2019 Surgical History excision of left deep neck mass 08/2019 Hospitalization History Surgery and OB deliveries only Hospitalization History Overnight Monitoring for sarahi n management of abdominal hernia 2014 Hospitalization History stint in leg at via 2018 Hospitalization History neck surgery 08/2019
--- OUTSIDE RECORDS SUMMARY | 2019-09-18 04:43 | XMS REPORT ---
Author Author Migration, Dona Doctor Organization [facility] Address Unknown Phone Unavailable Care Team Providers Care Power House Engineer Name Role Phone Migration, Doctor Unavailable Unavailable PROBLEMS Type Condition ICD9-CM Code LIZ06-ZX Code Onset Dates Condition S tatus SNOMED Code Problem Abnormal colonoscopy R93.3 Active 531395894 Problem Normal cardiac stress test Z13.6 Act alvarado 263088784 Problem Tobacco dependence F17.200 Active 8 9316680 Problem Sleep apnea G47.30 Active 46046583 Problem Hyperlipidemia E78.5 Active 49690 004 Problem Essential hypertension I10 Active 67911040 Problem Type 2 diabetes mellitus without complication E11. 9 Active 818378300 Problem Establishing care with new doctor, encounter for Z 71.89 Active 466089989 Problem Unilateral inguinal hernia w ithout obstruction or gangrene, recurrence not specified K40.90 Active 59020523 Problem Unilateral recurrent inguinal hernia without obs truction or gangrene K40.91 Active 12721163 Problem Hyperlipidemia, unspecified hyperlipidemia type E7 8.5 Active 32638821 Problem Vaginal lesion N89.8 Active 93317 7005 Problem Stress incontinence in female N39.3 Active 22912159 Problem Breast lesion N64.9 Active 782605 004 Problem Hammertoe M20.40 Active 468299686 Problem Cough R05 Active 63721785 Problem Irritable bowel syndrome with diarrhea K58.0 Active 971406585 Problem Other chronic pain G89.29 Active 8 9068350 Problem PVD (peripheral vascular disease) I73.9 Active 784148289 Problem Nontraumatic complete tear of left rotator cuff M7 5.122 Active 0149764166205338 Problem GERD (gastroesophageal reflux disease) K21.9 Active 857203907 Problem Abnormal drug screen R89.2 Active 058320528 Problem COPD (chronic obstructive pulmonary disease) J44.9 Active 26724016 Problem Gastroparesis K31.84 Active 510861 006 Problem Rotator cuff arthropathy of left shoulder M12.812 Active 52464591693910303 Problem Arterial stenosis I77.1 Active 68 593654 Problem Unspecified rotator cuff tea r or rupture of left shoulder, not specified as traumatic M75.102 Active 882010135498461 00 Problem Other specific arthropathies, not elsewhere clas sified, left shoulder M12.812 Active 915550038 ALLERGIES No Information ENCOUNTERS Encounter Location Date Diagnosis [place] [address] [address] 18 Sep, 2019 [place] [address] [address] 11 Sep, 2019 Type 2 diabetes mellitus without complic ation E11.9 and Essential hypertension I10 [place] [address] [address] 04 Sep, 2019 [place] [address] [address] 17 Aug, 2019 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 [place] [address] [address] 10 Aug, 2019 [place] [address] [address] 10 Aug, 2019 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 and COPD (chronic obstructive pulmonary disease) J44.9 [place] [address] [address] 05 Aug, 2019 [place] [address] [address] Jul, [place] [address] [address] Jul, Mass of left side of neck R22.1 ; Type 2 diabetes mellitus without complication E11.9 ; COPD (chronic obstructive pulmonary disease) J44.9 ; Lung infiltrate R91.8 and 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 [place] [address] [address] Jun, [place] [address] [address] Jun, [place] [address] [address] Jun, Abnormal drug screen R89.2 [place] [address] [address] Jun, [place] [address] [address] Jun, Abnormal drug screen R89.2 [place] [address] [address] May, Encounter for immunization Z23 [place] [address] [address] May, Essential hypertension I10 ; Type 2 diab etes mellitus without complication E11.9 and Cramps, extremity R25.2 [place] [address] [address] May, Other chronic pain G89.29 and Dysuria R3 0.0 [place] [address] [address] May, Other chronic pain G89.29 ; Dysuria R30. 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 [place] [address] [address] Apr, 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 [place] [address] [address] Apr, Other specific arthropathies, not elsewh ere classified, left shoulder M12.812 and Unspecified rotator cuff tear or rupture of left shoulder, not specified as traumatic M75.102 [place] [address] [address] Mar, [place] [address] [address] Mar, [place] [address] [address] Mar, Thyroid mass E07.9 [place] [address] [address] Mar, Cervicalgia M54.2 ; Left anterior should er pain M25.512 ; Type 2 diabetes mellitus without complication E11.9 and Localized edema R60.0 [place] [address] [address] Feb, [place] [address] [address] Feb, [place] [address] [address] Feb, [place] [address] [address] Jan, Cervicalgia M54.2 ; Dysuria R30.0 ; Type 2 diabetes mellitus E11.9 and Essential hypertension I10 [place] [address] [address] Jan, Essential hypertension I10 and Type 2 di abetes mellitus E11.9 [place] [address] [address] Oct, Essential hypertension I10 [place] [address] [address] Sep, Cramps, extremity R25.2 ; PVD (periphera l vascular disease) I73.9 ; Rotator cuff arthropathy of left shoulder M12.812 and Financial difficulties Z59.8 [place] [address] [address] 28 Aug, 2018 Rotator cuff arthropathy of left shoulde r M12.812 [place] [address] [address] Aug, Arterial stenosis I77.1 [place] [address] [address] 13 Aug, 2018 [place] [address] [address] Aug, Type 2 diabetes mellitus E11.9 ; Left le g pain M79.605 ; Pain in left shoulder M25.512 ; Other chronic pain G89.29 ; Cramps, extremity R25.2 and Irritable bowel syndrome with diarrhea K58.0 [facility] [place] [address] [address] Jul, Dysuria R30.0 and Acute uppe r respiratory infection J06.[address] [address] Jul, Type 2 diabetes mellitus E11.9 and Essen tial hypertension I10 [facility] [address] [address] Jun, [facility] [address] [address] Jun, Cough R05 and Acute pneumoni a J18.[address] [address] Apr, Type 2 diabetes mellitus E11.9 ; COPD (c hronic obstructive pulmonary disease) J44.9 ; Essential hypertension I10 and Left leg pain M79.605 [place] [address] [address] Mar, Kaity vaginitis B37.3 [place] [address] [address] Jan, Chigger bites B88.0 [place] [address] [address] Dec, Type 2 diabetes mellitus without complic ation E11.9 and Unilateral recurrent inguinal hernia without obstruction or gangrene K40.91 [place] [address] [address] November, Essential hypertension I10 and Diabetes E11.9 [place] [address] [address] Oct, [place] [address] [address] Sep, Diabetes E11.9 and Essential hypertensio n I10 [address] [address] Aug, Diabetes E11.9 ; Viral upper respiratory tract infection J06.9 ; COPD (chronic obstructive pulmonary disease) J44.9 ; Essential hypertension I10 ; Unilateral recurrent inguinal hernia without obstruction or gangrene K40.91 ; Dysuria R30.0 ; Yeast infection of the vagina B37.3 and Vaginal itching L29.8 [facility] [address] [facility] [id number] [address] [place] [address] Jul, Essential hypertension I10 a nd COPD (chronic obstructive pulmonary disease) J44.9 [place] [address] [address] Mar, Left lower quadrant pain R10.32 ; Type 2 diabetes mellitus without complication E11.9 and Cardiac arrhythmia, unspecified cardiac arrhythmia type I49.9 [place] [address] [address] Oct, COPD (chronic obstructive pulmonary dise ase) J44.9 ; Diabetes E11.9 and Mouth pain K13.[address] [id number] [place] [address] Sep, [address] [address] Sep, COPD (chronic obstructive pulmonary dise ase) J44.9 ; Diabetes E11.9 and Mouth pain K13.[address] [address] Aug, Type 2 diabetes mellitus without complic ation E11.9 [place] [address] [address] Aug, [address] [address] Aug, Type 2 diabetes mellitus without complic ation E11.[address] [address] Aug, Establishing care with new doct[place] for Z71.89 ; Type 2 diabetes mellitus without complication E11.9 ; Essential hypertension I10 ; Cough R05 ; Hammertoe M20.40 and Sleep apnea G47.[address] [address] Jul, [address] [address] Jun, Vaginal lesion N89.[address] [address] Jun, [address] [address] 09 Jun, 2015 Well woman exam Z01.419 ; Papanicolaou s [...] in female N39.3 and Breast lesion N64.9 [facility] [address] [address] May, Bronchitis J40 [facility] [address] [address] May, Routine adult health maintenance Z00.00 ; Essential hypertension I10 ; Hyperlipidemia E78.5 ; COPD (chronic obstructive pulmonary disease) J44.9 ; Unilateral recurrent inguinal hernia without obstruction or gangrene K40.91 and Type 2 diabetes mellitus without complication E11.9 [facility] [address] [address] Oct, [facility] [address] [address] Oct, [facility] [address] [address] Sep, [facility] [address] [address] Sep, [facility] [address] [address] Sep, [facility] [address] [address] Sep, [facility] [address] [address] Aug, [facility] [address] [address] Aug, [facility] [address] [address] Jul, [facility] [address] [address] Jul, [facility] [address] [address] Jun, [facility] [address] [address] Jun, [facility] [place] [facility] [address] [facility] [id number] [place] [address] Jun, [facility] [place] [facility] [address] [id number] [place] [address] Jun, [facility] [place] [facility] [address] [id number] [place] [address] Jun, [facility] [place] [facility] [address] [id number] [place] [address] Mar, [facility] [place] [facility] [address] [facility] [id number] [place] [address] Mar, [facility] [place] [facility] [address] [id number] [place] [address] Feb, [facility] [place] [facility] [address] [id number] [place] [address] Feb, [facility] [place] [facility] [address] [id number] [place] [address] Feb, [facility] [place] [facility] [address] [id number] [place] [address] Feb, [facility] [place] [facility] [address] [id number] [place] [address] Dec, [facility] [place] [facility] [address] [id number] [place] [address] Dec, [facility] [place] [facility] [address] [id number] [place] [address] November, [facility] [place] [facility] [address] [id number] [place] [address] November, [facility] [place] [facility] [address] [id number] [place] [address] November, [facility] [place] [facility] [address] [id number] [place] [address] November, [facility] [place] [facility] [address] [id number] [place] [address] Sep, [facility] [place] [facility] [address] [id number] [place] [address] Sep, [facility] [place] [facility] [address] [id number] [place] [address] Sep, [facility] [place] [facility] [address] [id number] [place] [address] Sep, [facility] [place] [facility] [address] [id number] [place] [address] Jul, [facility] [place] [facility] [address] [id number] [place] [address] Jul, [facility] [place] [facility] [address] [id number] [place] [address] Jun, [facility] [place] [facility] [address] [place] [id number] [place] [address] Jun, [facility] [place] [facility] [address] [place] [id number] [place] [address] Jun, [facility] [place] [facility] [address] [id number] [place] [address] Jun, [facility] [place] [facility] [address] [id number] [place] [address] May, [facility] [place] [facility] [address] [place] [id number] [place] [address] May, [facility] [place] [facility] [address] [id number] [place] [address] Apr, [facility] [place] [facility] [address] [place] [id number] [place] [address] Apr, [facility] [place] [facility] [address] [id number] [place] [address] Apr, [facility] [place] [facility] [address] [place] [id number] [place] [address] Mar, [facility] [place] [facility] [address] [id number] [place] [address] Mar, [facility] [place] [facility] [address] [place] [id number] [place] [address] Mar, [facility] [place] [facility] [address] [id number] [place] [address] Feb, [facility] [place] [facility] [address] [id number] [place] [address] Feb, [facility] [place] [facility] [address] [id number] [place] [address] Jan, [facility] [place] [facility] [address] [id number] [place] [address] November, [facility] [place] [facility] [address] [id number] [place] [address] Oct, [facility] [place] [facility] [address] [id number] [place] [address] Oct, [facility] [place] [facility] [address] [id number] [place] [address] Jul, [facility] [place] [facility] [address] [place] [id number] [place] [address] Jul, [facility] [place] [facility] [address] [id number] [place] [address] Jul, [facility] [place] [facility] [address] [id number] [place] [address] Jul, [facility] [place] [facility] [address] [id number] [place] [address] Jul, [facility] [place] [facility] [address] [id number] [place] [address] Jul, [facility] [place] [facility] [address] [id number] [place] [address] Jul, [facility] [place] [facility] [address] [id number] [place] [address] Jul, [facility] [place] [facility] [address] [place] [id number] [place] [address] Jun, [facility] [place] [facility] [address] [id number] [place] [address] Jun, [facility] [place] [facility] [address] [id number] [place] [address] Apr, [facility] [place] [facility] [address] [facility] [id number] [place] [address] Apr, [facility] [place] [facility] [address] [facility] [id number] [place] [address] Apr, [facility] [place] [facility] [address] [id number] [place] [address] Apr, [facility] [place] [facility] [address] [id number] [place] [address] Apr, [facility] [place] [facility] [address] [facility] [id number] [place] [address] Apr, [facility] [place] [facility] [address] [id number] [place] [address] Apr, [facility] [place] [facility] [address] [id number] [place] [address] Apr, [facility] [place] [facility] [address] [id number] [place] [address] Apr, [facility] [place] [facility] [address] [facility] [id number] [place] [address] Apr, [facility] [place] [facility] [address] [id number] [place] [address] Mar, [facility] [place] [facility] [address] [id number] [place] [address] Mar, [facility] [place] [facility] [address] [id number] [place] [address] Feb, [facility] [place] [facility] [address] [facility] [id number] [place] [address] Feb, [facility] [place] [facility] [address] [facility] [id number] [place] [address] Feb, [facility] [place] [facility] [address] [facility] [id number] [place] [address] Feb, [facility] [place] [facility] [address] [id number] [place] [address] Feb, [facility] [place] [facility] [address] [place] [id number] [place] [address] Feb, [facility] [address] [place] [id number] [place] [address] Feb, [facility] [address] [place] [id number] [place] [address] Feb, [facility] [address] [place] [id number] [place] [address] Feb, [facility] [address] [place] [id number] [place] [address] Feb, [facility] [address] [place] [id number] [place] [address] Jan, [facility] [address] [place] [id number] [place] [address] Jan, [facility] [address] [place] [id number] [place] [address] Jan, [facility] [address] [place] [id number] [place] [address] Jan, [facility] [address] [place] [id number] [place] [address] November, [facility] [address] [place] [id number] [place] [address] Oct, [facility] [address] [place] [id number] [place] [address] Sep, [facility] [address] [place] [id number] [place] [address] Sep, [facility] [address] [place] [id number] [place] [address] Sep, [facility] [address] [place] [id number] [place] [address] Sep, IMMUNIZATIONS No Known Immunizations SOCIAL HISTORY Never Assessed REASON FOR VISIT PLAN OF CARE VITAL SIGNS MEDICATIONS Unknown [...]
--- OUTSIDE RECORDS SUMMARY | 2019-09-18 04:44 | XMS REPORT ---
Author Author Migration, Dona Doctor Organization [facility] Address Unknown Phone Unavailable Care Team Providers Care Agricultural Adviser Name Role Phone Migration, Doctor Unavailable Unavailable PROBLEMS Type Condition ICD9-CM Code RBD41-FR Code Onset Dates Condition S tatus SNOMED Code Problem Abnormal colonoscopy R93.3 Active 278515996 Problem Normal cardiac stress test Z13.6 Act alvarado 157423006 Problem Tobacco dependence F17.200 Active 8 3776170 Problem Sleep apnea G47.30 Active 32069985 Problem Hyperlipidemia E78.5 Active 60660 004 Problem Essential hypertension I10 Active 15884596 Problem Type 2 diabetes mellitus without complication E11. 9 Active 604107857 Problem Establishing care with new doctor, encounter for Z 71.89 Active 081622691 Problem Unilateral inguinal hernia w ithout obstruction or gangrene, recurrence not specified K40.90 Active 70130721 Problem Unilateral recurrent inguinal hernia without obs truction or gangrene K40.91 Active 01486051 Problem Hyperlipidemia, unspecified hyperlipidemia type E7 8.5 Active 16909816 Problem Vaginal lesion N89.8 Active 93779 7005 Problem Stress incontinence in female N39.3 Active 44646330 Problem Breast lesion N64.9 Active 536030 004 Problem Hammertoe M20.40 Active 954879338 Problem Cough R05 Active 69013055 Problem Irritable bowel syndrome with diarrhea K58.0 Active 593982927 Problem Other chronic pain G89.29 Active 8 0763816 Problem PVD (peripheral vascular disease) I73.9 Active 981018948 Problem Nontraumatic complete tear of left rotator cuff M7 5.122 Active 1051036705819437 Problem GERD (gastroesophageal reflux disease) K21.9 Active 672883887 Problem Abnormal drug screen R89.2 Active 640609413 Problem COPD (chronic obstructive pulmonary disease) J44.9 Active 00205881 Problem Gastroparesis K31.84 Active 517003 006 Problem Rotator cuff arthropathy of left shoulder M12.812 Active 94103284154520755 Problem Arterial stenosis I77.1 Active 68 191299 Problem Unspecified rotator cuff tea r or rupture of left shoulder, not specified as traumatic M75.102 Active 510652273849471 00 Problem Other specific arthropathies, not elsewhere clas sified, left shoulder M12.812 Active 245985049 ALLERGIES No Information ENCOUNTERS Encounter Location Date Diagnosis [place] [address] [address] Aug, [place] [address] [address] Aug, [place] [address] [address] Aug, 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 and COPD (chronic obstructive pulmonary disease) J44.9 [place] [address] [address] Aug, [place] [address] [address] Jul, [place] [address] [address] Jul, Mass of left side of neck R22.1 ; Type 2 diabetes mellitus without complication E11.9 ; COPD (chronic obstructive pulmonary disease) J44.9 ; Lung infiltrate R91.8 and 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 [place] [address] [address] Jun, [place] [address] [address] Jun, [place] [address] [address] Jun, Abnormal drug screen R89.2 [place] [address] [address] Jun, [place] [address] [address] Jun, Abnormal drug screen R89.2 [place] [address] [address] May, Encounter for immunization Z23 [place] [address] [address] May, Essential hypertension I10 ; Type 2 diab etes mellitus without complication E11.9 and Cramps, extremity R25.2 [place] [address] [address] May, Other chronic pain G89.29 and Dysuria R3 0.0 [place] [address] [address] May, Other chronic pain G89.29 ; Dysuria R30. 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 [place] [address] [address] Apr, 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 [place] [address] [address] Apr, Other specific arthropathies, not elsewh ere classified, left shoulder M12.812 and Unspecified rotator cuff tear or rupture of left shoulder, not specified as traumatic M75.102 [place] [address] [address] Mar, [place] [address] [address] Mar, [place] [address] [address] Mar, Thyroid mass E07.9 [place] [address] [address] Mar, Cervicalgia M54.2 ; Left anterior should er pain M25.512 ; Type 2 diabetes mellitus without complication E11.9 and Localized edema R60.0 [place] [address] [address] Feb, [place] [address] [address] Feb, [place] [address] [address] Feb, [place] [address] [address] Jan, Cervicalgia M54.2 ; Dysuria R30.0 ; Type 2 diabetes mellitus E11.9 and Essential hypertension I10 [place] [address] [address] Jan, Essential hypertension I10 and Type 2 di abetes mellitus E11.9 [place] [address] [address] Oct, Essential hypertension I10 [place] [address] [address] Sep, Cramps, extremity R25.2 ; PVD (periphera l vascular disease) I73.9 ; Rotator cuff arthropathy of left shoulder M12.812 and Financial difficulties Z59.8 [place] [address] [address] Aug, Rotator cuff arthropathy of left shoulde r M12.812 [place] [address] [address] Aug, Arterial stenosis I77.1 [place] [address] [address] Aug, [place] [address] [address] Aug, Type 2 diabetes mellitus E11.9 ; Left le g pain M79.605 ; Pain in left shoulder M25.512 ; Other chronic pain G89.29 ; Cramps, extremity R25.2 and Irritable bowel syndrome with diarrhea K58.0 [facility] [address] [address] Jul, Dysuria R30.0 and Acute uppe r respiratory infection J06.9 [place] [address] [address] Jul, Type 2 diabetes mellitus E11.9 and Essen tial hypertension I10 [facility] [place] [address] [address] Jun, [facility] [place] [address] [address] Jun, Cough R05 and Acute pneumoni a J18.9 [place] [address] [address] Apr, Type 2 diabetes mellitus E11.9 ; COPD (c hronic obstructive pulmonary disease) J44.9 ; Essential hypertension I10 and Left leg pain M79.605 [place] [address] [address] 14 Mar, 2018 Kaity vaginitis B37.3 [place] [address] [address] Jan, Chigger bites B88.0 [place] [address] [address] Dec, Type 2 diabetes mellitus without complic ation E11.9 and Unilateral recurrent inguinal hernia without obstruction or gangrene K40.91 [facility] [address] [place] [id number] [place] [address] November, Essential hypertension I10 and Diabetes E11.9 [facility] [address] [address] Oct, [place] [address] [address] Sep, Diabetes E11.9 and Essential hypertensio n I10 [place] [address] [address] Aug, Diabetes E11.9 ; Viral upper respiratory tract infection J06.9 ; COPD (chronic obstructive pulmonary disease) J44.9 ; Essential hypertension I10 ; Unilateral recurrent inguinal hernia without obstruction or gangrene K40.91 ; Dysuria R30.0 ; Yeast infection of the vagina B37.3 and Vaginal itching L29.8 [facility] [address] [facility] [id number] [address] [place] [address] Jul, Essential hypertension I10 a nd COPD (chronic obstructive pulmonary disease) J44.9 [place] [address] [address] Mar, Left lower quadrant pain R10.32 ; Type 2 diabetes mellitus without complication E11.9 and Cardiac arrhythmia, unspecified cardiac arrhythmia type I49.9 [place] [address] [address] Oct, COPD (chronic obstructive pulmonary dise ase) J44.9 ; Diabetes E11.9 and Mouth pain K13.79 [place] [address] [address] Sep, [place] [address] [address] Sep, COPD (chronic obstructive pulmonary dise ase) J44.9 ; Diabetes E11.9 and Mouth pain K13.79 [place] [address] [address] Aug, Type 2 diabetes mellitus without complic ation E11.9 [place] [address] [address] Aug, [place] [address] [address] Aug, Type 2 diabetes mellitus without complic ation E11.[address] [address] Aug, Establishing care with new doct[place] for Z71.89 ; Type 2 diabetes mellitus without complication E11.9 ; Essential hypertension I10 ; Cough R05 ; Hammertoe M20.40 and Sleep apnea G47.[address] [address] Jul, [address] [address] Jun, Vaginal lesion N89.[address] [address] Jun, [address] [address] Jun, Well woman exam Z01.419 ; Papanicolaou [...] in female N39.3 and Breast lesion N64.[address] [address] May, Bronchitis J40 [address] [address] May, Routine adult health maintenance Z00.00 ; Essential hypertension I10 ; Hyperlipidemia E78.5 ; COPD (chronic obstructive pulmonary disease) J44.9 ; Unilateral recurrent inguinal hernia without obstruction or gangrene K40.91 and Type 2 diabetes mellitus without complication E11.9 [facility] [address] [place] [id number] [place] [address] 14 Oct, 2014 [facility] [address] [place] [id number] [place] [address] Oct, [facility] [address] [address] Sep, [facility] [address] [address] Sep, [facility] [address] [place] [id number] [place] [address] Sep, [facility] [address] [place] [id number] [place] [address] Sep, [facility] [address] [place] [id number] [place] [address] Aug, [facility] [address] [place] [id number] [place] [address] Aug, [facility] [address] [address] Jul, [facility] [address] [place] [id number] [place] [address] Jul, [facility] [address] [place] [id number] [place] [address] Jun, [facility] [address] [place] [id number] [place] [address] Jun, [facility] [address] [place] [id number] [place] [address] Jun, [facility] [address] [place] [id number] [place] [address] Jun, [facility] [address] [place] [id number] [place] [address] Jun, [facility] [address] [place] [id number] [place] [address] Mar, [facility] [address] [facility] [id number] [place] [address] Mar, [facility] [address] [id number] [place] [address] Feb, [facility] [address] [address] [id number] [place] [address] Feb, [facility] [address] [id number] [place] [address] Feb, [facility] [address] [id number] [place] [address] Feb, [facility] [address] [id number] [place] [address] Dec, [facility] [address] [id number] [place] [address] Dec, [facility] [address] [facility] [id number] [place] [address] November, [facility] [address] [facility] [id number] [place] [address] November, [facility] [address] [facility] [id number] [place] [address] November, [facility] [address] [id number] [place] [address] November, [facility] [address] [id number] [place] [address] Sep, [facility] [address] [id number] [place] [address] Sep, [facility] [address] [facility] [id number] [place] [address] Sep, [facility] [address] [id number] [place] [address] Sep, [facility] [address] [id number] [place] [address] Jul, [facility] [address] [id number] [place] [address] Jul, [facility] [address] [id number] [place] [address] Jun, [facility] [address] [id number] [place] [address] Jun, [facility] [address] [place] [id number] [place] [address] Jun, [facility] [address] [id number] [place] [address] Jun, [facility] [address] [id number] [place] [address] May, [facility] [address] [id number] [place] [address] May, [facility] [address] [place] [id number] [place] [address] Apr, [facility] [address] [place] [id number] [place] [address] Apr, [facility] [address] [id number] [place] [address] Apr, [facility] [address] [id number] [place] [address] Mar, [facility] [address] [place] [id number] [place] [address] Mar, [facility] [address] [id number] [place] [address] Mar, [facility] [address] [facility] [id number] [place] [address] Feb, [facility] [address] [place] [id number] [place] [address] Feb, [facility] [address] [id number] [place] [address] Jan, [facility] [address] [place] [address] [id number] [place] [address] November, [facility] [address] [id number] [place] [address] Oct, [facility] [address] [id number] [place] [address] Oct, [facility] [address] [id number] [place] [address] Jul, [facility] [address] [id number] [place] [address] Jul, [facility] [address] [id number] [place] [address] Jul, [facility] [address] [id number] [place] [address] Jul, [facility] [address] [id number] [place] [address] Jul, [facility] [address] [id number] [place] [address] Jul, [facility] [address] [id number] [place] [address] Jul, [facility] [address] [id number] [place] [address] Jul, [facility] [address] [id number] [place] [address] Jun, [facility] [address] [id number] [place] [address] Jun, [facility] [address] [id number] [place] [address] Apr, [facility] [address] [id number] [place] [address] Apr, [facility] [address] [facility] [id number] [place] [address] Apr, [facility] [address] [id number] [place] [address] Apr, [facility] [address] [id number] [place] [address] Apr, [facility] [address] [facility] [id number] [facility] [place] [address] Apr, [facility] [address] [facility] [id number] [facility] [place] [address] Apr, [facility] [address] [id number] [place] [address] Apr, [facility] [address] [id number] [facility] [place] [address] Apr, [facility] [address] [facility] [id number] [facility] [place] [address] Apr, [facility] [address] [id number] [place] [address] Mar, [facility] [address] [id number] [place] [address] Mar, [facility] [address] [id number] [place] [address] Feb, [facility] [address] [id number] [place] [address] Feb, [facility] [address] [id number] [place] [address] Feb, [facility] [address] [id number] [place] [address] Feb, [facility] [address] [id number] [place] [address] Feb, [facility] [address] [id number] [place] [address] Feb, [facility] [address] [id number] [place] [address] Feb, [facility] [address] [id number] [place] [address] 14 Feb, 2012 [facility] [address] [id number] [place] [address] Feb, [facility] [address] [id number] [place] [address] Feb, [facility] [address] [id number] [place] [address] Jan, [facility] [id number] [place] [address] Jan, [facility] [id number] [place] [address] Jan, [facility] [address] [address] Jan, [facility] [id number] [place] [address] November, [facility] [id number] [place] [address] Oct, [facility] [id number] [place] [address] Sep, [facility] [id number] [place] [address] Sep, [facility] [id number] [place] [address] Sep, [facility] [id number] [place] [address] Sep, IMMUNIZATIONS No Known Immunizations SOCIAL HISTORY [...] History biopsy of left neck mass 06/2019 Hospitalization History Surgery and OB deliveries only Hospitalization History Overnight Monitoring for sarahi n management of abdominal hernia 2014 Hospitalization History stint in leg at via 2018
--- OUTSIDE RECORDS SUMMARY | 2019-09-18 04:44 | XMS REPORT ---
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 9 Active 915812836 Problem Hammertoe M20.40 Active 690259438 Problem Stress incontinence in female N39.3 Active 68874296 Problem GERD (gastroesophageal reflux disease) K21.9 Active 088187234 Problem Vaginal lesion N89.8 Active 16253 7005 Problem Breast lesion N64.9 Active 277002 004 Problem Hyperlipidemia, unspecified hyperlipidemia type E7 8.5 Active 73383150 Problem Unilateral inguinal hernia w ithout obstruction or gangrene, recurrence not specified K40.90 Active 22431729 Problem Establishing care with new doctor, encounter for Z 71.89 Active 344863350 Problem Cough R05 Active 85236869 Problem Irritable bowel syndrome with diarrhea K58.0 Active 540661902 Problem Other chronic pain G89.29 Active 8 4036693 Problem PVD (peripheral vascular disease) I73.9 Active 124637893 Problem Nontraumatic complete tear of left rotator cuff M7 5.122 Active 6830316516547500 Problem Hyperlipidemia E78.5 Active 59391 004 Problem Abnormal drug screen R89.2 Active 127626580 Problem Essential hypertension I10 Active 93112541 Problem COPD (chronic obstructive pulmonary disease) J44.9 Active 15154796 Problem Rotator cuff arthropathy of left shoulder M12.812 Active 77261990809430027 Problem Arterial stenosis I77.1 Active 68 114340 Problem Unspecified rotator cuff tea r or rupture of left shoulder, not specified as traumatic M75.102 Active 000959768268122 00 Problem Other specific arthropathies, not elsewhere clas sified, left shoulder M12.812 Active 844202096 ALLERGIES No Information ENCOUNTERS Encounter Location Date Diagnosis [place] [address] [address] Jul, [place] [address] [address] Jun, [place] [address] [address] Jun, [place] [address] [address] Jun, Abnormal drug screen R89.2 [place] [address] [address] Jun, [place] [address] [address] Jun, Abnormal drug screen R89.2 [place] [address] [address] May, Encounter for immunization Z23 [place] [address] [address] May, Essential hypertension I10 ; Type 2 diab etes mellitus without complication E11.9 and Cramps, extremity R25.2 [place] [address] [address] May, Other chronic pain G89.29 and Dysuria R3 0.0 [place] [address] [address] May, Other chronic pain G89.29 ; Dysuria R30. 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 ; Cervicalgia M54.2 ; Essential hypertension I10 ; COPD (chronic obstructive pulmonary disease) J44.9 and Diabetes E11.9 [place] [address] [address] May, Essential hypertension I10 [place] [address] [address] May, [place] [address] [address] Apr, [place] [address] [address] Apr, 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 [place] [address] [address] Apr, 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 [place] [address] [address] Apr, Other specific arthropathies, not elsewh ere classified, left shoulder M12.812 and Unspecified rotator cuff tear or rupture of left shoulder, not specified as traumatic M75.102 [place] [address] [address] Mar, [place] [address] [address] Mar, [place] [address] [address] Mar, Thyroid mass E07.9 [place] [address] [address] Mar, Cervicalgia M54.2 ; Left anterior should er pain M25.512 ; Type 2 diabetes mellitus without complication E11.9 and Localized edema R60.0 [place] [address] [address] Feb, [place] [address] [address] Feb, [place] [address] [address] Feb, [place] [address] [address] Jan, Cervicalgia M54.2 ; Dysuria R30.0 ; Type 2 diabetes mellitus E11.9 and Essential hypertension I10 [place] [address] [address] Jan, Essential hypertension I10 and Type 2 di abetes mellitus E11.9 [place] [address] [address] Oct, Essential hypertension I10 [place] [address] [address] Sep, Cramps, extremity R25.2 ; PVD (periphera l vascular disease) I73.9 ; Rotator cuff arthropathy of left shoulder M12.812 and Financial difficulties Z59.[address] [address] Aug, Rotator cuff arthropathy of left shoulde r M12.812 [place] [address] [address] Aug, Arterial stenosis I77.[address] [address] 13 Aug, [address] [address] Aug, Type 2 diabetes mellitus E11.9 ; Left le g pain M79.605 ; Pain in left shoulder M25.512 ; Other chronic pain G89.29 ; Cramps, extremity R25.2 and Irritable bowel syndrome with diarrhea K58.0 [facility] [address] [facility] [id number] [address] [place] [address] Jul, Dysuria R30.0 and Acute uppe r respiratory infection J06.9 [place] [address] [address] Jul, Type 2 diabetes mellitus E11.9 and Essen tial hypertension I10 [facility] [address] [place] [id number] [address] Jun, [facility] [place] [address] [place] [id number] [address] Jun, Cough R05 and Acute pneumoni a J18.9 [place] [address] [address] Apr, Type 2 diabetes mellitus E11.9 ; COPD (c hronic obstructive pulmonary disease) J44.9 ; Essential hypertension I10 and Left leg pain M79.605 [place] [address] [address] Mar, Kaity vaginitis B37.3 [place] [address] [address] Jan, Chigger bites B88.0 [place] [address] [address] Dec, Type 2 diabetes mellitus without complic ation E11.9 and Unilateral recurrent inguinal hernia without obstruction or gangrene K40.91 [place] [address] [address] November, Essential hypertension I10 and Diabetes E11.9 [place] [address] [address] Oct, [place] [address] [address] Sep, Diabetes E11.9 and Essential hypertensio n I10 [place] [address] [address] 05 Aug, 2017 Diabetes E11.9 ; Viral upper respiratory tract infection J06.9 ; COPD (chronic obstructive pulmonary disease) J44.9 ; Essential hypertension I10 ; Unilateral recurrent inguinal hernia without obstruction or gangrene K40.91 ; Dysuria R30.0 ; Yeast infection of the vagina B37.3 and Vaginal itching L29.8 [facility] [address] [place] [id number] [place] [address] Jul, Essential hypertension I10 a nd COPD (chronic obstructive pulmonary disease) J44.9 [place] [address] [address] Mar, Left lower quadrant pain R10.32 ; Type 2 diabetes mellitus without complication E11.9 and Cardiac arrhythmia, unspecified cardiac arrhythmia type I49.9 [place] [address] [address] Oct, COPD (chronic obstructive pulmonary dise ase) J44.9 ; Diabetes E11.9 and Mouth pain K13.79 [place] [address] [address] Sep, [place] [address] [address] Sep, COPD (chronic obstructive pulmonary dise ase) J44.9 ; Diabetes E11.9 and Mouth pain K13.79 [place] [address] [address] Aug, Type 2 diabetes mellitus without complic ation E11.9 [place] [address] [address] Aug, [place] [address] [address] Aug, Type 2 diabetes mellitus without complic ation E11.9 [place] [address] [address] Aug, Establishing care with new doctor, kwasi lao for Z71.89 ; Type 2 diabetes mellitus without complication E11.9 ; Essential hypertension I10 ; Cough R05 ; Hammertoe M20.40 and Sleep apnea G47.30 [place] [address] [address] Jul, [place] [address] [address] Jun, Vaginal lesion N89.8 [place] [address] [address] Jun, [place] [address] [address] Jun, Well woman exam Z01.419 ; Papanicolaou [...] in female N39.3 and Breast lesion N64.9 [place] [address] [address] May, Bronchitis J40 [place] [address] [address] May, Routine adult health maintenance Z00.00 ; Essential hypertension I10 ; Hyperlipidemia E78.5 ; COPD (chronic obstructive pulmonary disease) J44.9 ; Unilateral recurrent inguinal hernia without obstruction or gangrene K40.91 and Type 2 diabetes mellitus without complication E11.9 [place] [address] [address] Oct, [place] [address] [address] Oct, [place] [address] [address] Sep, [place] [address] [address] Sep, [place] [address] [address] Sep, [place] [address] [address] Sep, [place] [address] [address] Aug, [facility] [address] [facility] [id number] [place] [address] Aug, [facility] [address] [id number] [place] [address] Jul, [facility] [address] [id number] [place] [address] Jul, [facility] [address] [id number] [place] [address] Jun, [facility] [address] [id number] [place] [address] Jun, [facility] [address] [id number] [place] [address] Jun, [facility] [address] [id number] [place] [address] Jun, [facility] [address] [id number] [place] [address] Jun, [facility] [address] [id number] [place] [address] Mar, [facility] [address] [id number] [place] [address] Mar, [facility] [address] [id number] [place] [address] Feb, [facility] [address] [id number] [place] [address] Feb, [facility] [address] [id number] [place] [address] Feb, [facility] [address] [id number] [place] [address] Feb, [facility] [address] [id number] [place] [address] Dec, [facility] [address] [id number] [place] [address] Dec, [facility] [address] [id number] [place] [address] November, [facility] [address] [id number] [place] [address] November, [facility] [address] [id number] [place] [address] November, [facility] [address] [id number] [place] [address] November, [facility] [address] [id number] [place] [address] Sep, [facility] [address] [id number] [place] [address] Sep, [facility] [address] [id number] [place] [address] Sep, [facility] [address] [id number] [place] [address] Sep, [facility] [address] [id number] [place] [address] Jul, [facility] [address] [id number] [place] [address] Jul, [facility] [address] [id number] [place] [address] Jun, [facility] [address] [id number] [place] [address] Jun, [facility] [address] [id number] [place] [address] Jun, [facility] [address] [id number] [place] [address] Jun, [facility] [address] [place] [id number] [place] [address] May, [facility] [address] [id number] [place] [address] May, [facility] [address] [id number] [place] [address] Apr, [facility] [address] [id number] [place] [address] Apr, [facility] [address] [id number] [place] [address] Apr, [facility] [address] [id number] [place] [address] Mar, [facility] [address] [id number] [place] [address] Mar, [facility] [address] [id number] [place] [address] Mar, [facility] [address] [id number] [place] [address] Feb, [facility] [address] [id number] [place] [address] Feb, [facility] [address] [id number] [place] [address] Jan, [facility] [address] [id number] [place] [address] November, [facility] [address] [id number] [place] [address] Oct, [facility] [address] [id number] [place] [address] Oct, [facility] [address] [id number] [place] [address] Jul, [facility] [address] [id number] [place] [address] Jul, [facility] [address] [id number] [place] [address] Jul, [facility] [address] [id number] [place] [address] Jul, [facility] [address] [id number] [place] [address] Jul, [facility] [address] [id number] [place] [address] 14 Jul, 2012 [facility] [address] [id number] [place] [address] 08 Jul, 2012 [facility] [address] [id number] [place] [address] Jul, [facility] [address] [id number] [place] [address] Jun, [facility] [address] [id number] [place] [address] Jun, [facility] [address] [id number] [place] [address] Apr, [facility] [address] [id number] [place] [address] Apr, [facility] [address] [id number] [place] [address] Apr, [facility] [address] [id number] [place] [address] Apr, [facility] [address] [id number] [place] [address] Apr, [facility] [address] [id number] [place] [address] Apr, [facility] [address] [id number] [place] [address] Apr, [facility] [address] [id number] [place] [address] Apr, [facility] [address] [id number] [place] [address] Apr, [facility] [address] [id number] [place] [address] Apr, [facility] [address] [id number] [place] [address] 25 Mar, 2012 [facility] [address] [id number] [place] [address] 18 Mar, 2012 [facility] [address] [id number] [place] [address] Feb, [facility] [address] [id number] [place] [address] Feb, [facility] [address] [id number] [place] [address] Feb, [facility] [address] [id number] [place] [address] Feb, [facility] [address] [id number] [place] [address] Feb, [facility] [address] [id number] [place] [address] Feb, [facility] [address] [id number] [place] [address] Feb, [facility] [address] [id number] [place] [address] Feb, [facility] [address] [id number] [place] [address] Feb, [facility] [address] [id number] [place] [address] Feb, [facility] [address] [id number] [place] [address] Jan, [facility] [address] [id number] [place] [address] Jan, [facility] [address] [id number] [place] [address] Jan, [facility] [address] [id number] [place] [address] Jan, [facility] [address] [id number] [place] [address] November, [facility] [address] [id number] [place] [address] Oct, [facility] [address] [id number] [place] [address] Sep, [facility] [address] [facility] [id number] [place] [address] Sep, [facility] [address] [id number] [place] [address] Sep, [facility] [address] [facility] [id number] [place] [address] Sep, IMMUNIZATIONS No Known Immunizations SOCIAL HISTORY Never Assessed REASON FOR VISIT PLAN OF CARE VITAL SIGNS Height 64 in 2013-12-04 Weight 171.44 lbs 2013-12-04 Temperature 97.4 degrees Fahrenheit 2013-12-04 Heart Rate 88 bpm 2013-12-04 Respiratory Rate 20 2013-12-04 Blood pressure systolic 140 mmHg 2013-12-04 Blood pressure diastolic 98 mmHg 2013-12-04 MEDICATIONS Unknown Medications RESULTS No Results PROCEDURES Procedure Date Ordered Result Body Site GLYCATED HEMOGLOBIN TEST December 04, 2013 INSTRUCTIONS MEDICATIONS ADMINISTERED No Known Medications [...] 2 stints put in left leg 11/2018 Hospitalization History Surgery and OB deliveries only Hospitalization History Overnight Monitoring for sarahi n management of abdominal hernia 2014 Hospitalization History stint in leg at via 2018
--- OUTSIDE RECORDS SUMMARY | 2019-09-18 04:44 | XMS REPORT ---
Author Author Ana, Dona Doctor Organization [facility] Address Unknown Phone Unavailable Care Team Providers Care Brake Coupler Dinkey Name Role Phone Migration, Doctor Unavailable Unavailable PROBLEMS Type Condition ICD9-CM Code [id number] Code Onset Dates Condition S tatus SNOMED Code Problem Normal cardiac stress test Z13.6 Act alvarado [id number] Problem Abnormal colonoscopy R93.3 Active 949285593 Problem Sleep apnea G47.30 Active 40774183 Problem Unilateral recurrent inguinal hernia without obs truction or gangrene K40.91 Active 90414387 Problem Cough R05 Active 59176106 Problem Establishing care with new doctor, encounter for Z 71.89 Active 545122381 Problem COPD (chronic obstructive pulmonary disease) J44.9 Active 30296503 Problem Gastroparesis K31.84 Active 115562 006 Problem Unilateral inguinal hernia w ithout obstruction or gangrene, recurrence not specified K40.90 Active 78629069 Problem GERD (gastroesophageal reflux disease) K21.9 Active 858257605 Problem Breast lesion N64.9 Active 754948 004 Problem Vaginal lesion N89.8 Active 21978 7005 Problem Hyperlipidemia, unspecified hyperlipidemia type E7 8.5 Active 02946950 Problem Stress incontinence in female N39.3 Active 87945427 Problem Hammertoe M20.40 Active 430622931 Problem Diabetes E11.9 Active 485877983 Problem Type 2 diabetes mellitus without complication E11. 9 Active 300925458 Problem Rotator cuff arthropathy of left shoulder M12.812 Active 50558604851398802 Problem Essential hypertension I10 Active 54916001 Problem Arterial stenosis I77.1 Active 68 540584 Problem Tobacco dependence F17.200 Active 8 7992340 Problem Hyperlipidemia E78.5 Active 08272 004 Problem Type 2 diabetes mellitus E11.9 Activ e 67858363 Problem Irritable bowel syndrome with diarrhea K58.0 Active 241714439 Problem Other chronic pain G89.29 Active 8 0502522 Problem PVD (peripheral vascular disease) I73.9 Active 046010610 ALLERGIES No Information ENCOUNTERS Encounter Location Date Diagnosis [facility] [address] [id number] [address] [place] [id number] Mar, [facility] [address] [id number] [address] [place] [address] Feb, [facility] [address] [id number] [address] [place] [address] Feb, [facility] [address] [id number] [address] [place] [address] Feb, [facility] [address] [id number] [address] [place] [address] Jan, Cervicalgia M54.2 ; Dysuria R30.0 ; Type 2 diabetes mellitus E11.9 and Essential hypertension I10 [facility] [address] [place] [id number] [place] [address] Jan, Essential hypertension I10 a nd Type 2 diabetes mellitus E11.9 [facility] [address] [id number] [place] [address] Oct, Essential hypertension I10 [facility] [address] [id number] [place] [address] Sep, Cramps, extremity R25.2 ; PV D (peripheral vascular disease) I73.9 ; Rotator cuff arthropathy of left shoulder M12.812 and Financial difficulties Z59.8 [facility] [address] [id number] [address] [place] [address] Aug, Rotator cuff arthropathy of left shoulder M12.812 [facility] [address] [id number] [address] [place] [address] Aug, Arterial stenosis I77.1 [facility] [address] [address] [id number] [address] [place] [address] 13 Aug, 2018 [facility] [address] [id number] [address] [place] [address] Aug, Type 2 diabetes mellitus E11 .9 ; Left leg pain M79.605 ; Pain in left shoulder M25.512 ; Other chronic pain G89.29 ; Cramps, extremity R25.2 and Irritable bowel syndrome with diarrhea K58.0 [facility] [address] [address] Jul, Dysuria R30.0 and Acute uppe r respiratory infection J06.9 [place] [address] [address] Jul, Type 2 diabetes mellitus E11 .9 and Essential hypertension I10 [facility] [address] [address] Jun, [facility] [place] [address] [address] Jun, Cough R05 and Acute pneumoni a J18.9 [place] [address] [address] Apr, Type 2 diabetes mellitus E11 .9 ; COPD (chronic obstructive pulmonary disease) J44.9 ; Essential hypertension I10 and Left leg pain M79.605 [place] [address] [address] Mar, Kaity vaginitis B37.3 [place] [address] [address] Jan, Chigger bites B88.0 [place] [address] [address] Dec, Type 2 diabetes mellitus wit hout complication E11.9 and Unilateral recurrent inguinal hernia without obstruction or gangrene K40.91 [place] [address] [address] November, Essential hypertension I10 a nd Diabetes E11.9 [place] [address] [address] Oct, [place] [address] [place] [address] [place] [address] Sep, Diabetes E11.9 and Essential hypertension I10 [facility] [address] [address] Aug, Diabetes E11.9 ; Viral upper respiratory tract infection J06.9 ; COPD (chronic obstructive pulmonary disease) J44.9 ; Essential hypertension I10 ; Unilateral recurrent inguinal hernia without obstruction or gangrene K40.91 ; Dysuria R30.0 ; Yeast infection of the vagina B37.3 and Vaginal itching L29.8 [facility] [address] [address] Jul, Essential hypertension I10 a nd COPD (chronic obstructive pulmonary disease) J44.9 [place] [address] [address] Mar, Left lower quadrant pain R10 .32 ; Type 2 diabetes mellitus without complication E11.9 and Cardiac arrhythmia, unspecified cardiac arrhythmia type I49.9 [place] [address] [address] Oct, COPD (chronic obstructive pu lmonary disease) J44.9 ; Diabetes E11.9 and Mouth pain K13.79 [facility] [address] [address] Sep, [facility] [address] [address] Sep, COPD (chronic obstructive pu lmonary disease) J44.9 ; Diabetes E11.9 and Mouth pain K13.79 [place] [address] [address] Aug, Type 2 diabetes mellitus wit hout complication E11.9 [facility] [address] [address] Aug, [place] [address] [address] Aug, Type 2 diabetes mellitus wit hout complication E11.9 [place] [address] [place] [id number] [place] [address] Aug, Establishing care with patricio lopez for Z71.89 ; Type 2 diabetes mellitus without complication E11.9 ; Essential hypertension I10 ; Cough R05 ; Hammertoe M20.40 and Sleep apnea G47.30 [place] [address] [address] Jul, [place] [address] [address] Jun, Vaginal lesion N89.8 [place] [address] [address] 14 Jun, 2015 [place] [address] [address] Jun, Well woman exam Z01.419 ; Pa panicolaou smear Z12.4 ; COPD (chronic obstructive pulmonary disease) [...] in female N39.3 and Breast lesion N64.9 [place] [address] [place] [id number] [address] [place] [address] May, Bronchitis J40 [place] [address] [place] [id number] [address] [place] [address] May, Routine adult health mainten ance Z00.00 ; Essential hypertension I10 ; Hyperlipidemia E78.5 ; COPD (chronic obstructive pulmonary disease) J44.9 ; Unilateral recurrent inguinal hernia without obstruction or gangrene K40.91 and Type 2 diabetes mellitus without complication E11.9 [place] [address] [place] [id number] [address] [place] [address] 14 Oct, 2014 [facility] [address] [id number] [address] [place] [address], [place] [address] Oct, [facility] [address] [id number] [address] [place] [address] Sep, [facility] [address] [id number] [address] [place] [address], [place] [address] Sep, [facility] [address] [id number] [address] [place] [address] Sep, [facility] [address] [id number] [address] [place] [address], [place] [address] Sep, [facility] [address] [id number] [address] [place] [address], [place] [address] Aug, [facility] [address] [id number] [address] [place] [address], [place] [address] Aug, [facility] [address] [id number] [address] [place] [address], [place] [address] Jul, [facility] [address] [id number] [address] [place] [address], [place] [address] Jul, [facility] [address] [id number] [address] [place] [address], [place] [address] Jun, [facility] [address] [id number] [address] [place] [address], [place] [address] Jun, [facility] [address] [id number] [address] [place] [address] Jun, [facility] [address] [id number] [address] [place] [address], [place] [address] Jun, [facility] [address] [id number] [address] [place] [address], [place] [address] Jun, [facility] [address] [id number] [address] [place] [address], [place] [address] 08 Mar, 2014 [facility] [address] [id number] [facility] [place] [address] Mar, [facility] [address] [id number] [facility] [place] [address] Feb, [facility] [address] [id number] [address] [place] [address], [place] [address] Feb, [facility] [address] [id number] [address] [place] [address], [place] [address] Feb, [facility] [address] [id number] [address] [place] [address], [place] [address] Feb, [facility] [address] [id number] [address] [place] [address], [place] [address] Dec, [facility] [address] [id number] [address] [place] [address], [place] [address] Dec, [facility] [address] [id number] [address] [place] [address], [place] [address] November, [facility] [address] [id number] [address] [place] [address], [place] [address] November, [facility] [address] [id number] [address] [place] [address], [place] [address] November, [facility] [address] [id number] [address] [place] [address], [place] [address] November, [facility] [address] [id number] [address] [place] [address], [place] [address] Sep, [facility] [address] [id number] [address] [place] [address], [place] [address] Sep, [facility] [address] [id number] [address] [place] [address], [place] [address] Sep, [facility] [address] [id number] [address] [place] [address], [place] [address] Sep, [facility] [address] [id number] [address] [place] [address] [address] Jul, [facility] [address] [id number] [address] [place] [address], [place] [address] Jul, [facility] [address] [id number] [address] [place] [address], [place] [address] Jun, [facility] [address] [id number] [address] [place] [address], [place] [address] Jun, [facility] [address] [id number] [address] [place] [address], [place] [address] Jun, [facility] [address] [id number] [address] [place] [address], [place] [address] Jun, [facility] [address] [id number] [address] [place] [address], [place] [address] May, [facility] [address] [id number] [address] [place] [address], [place] [address] May, [facility] [address] [id number] [address] [place] [address], [place] [address] Apr, [facility] [address] [id number] [address] [place] [address], [place] [address] Apr, [facility] [address] [id number] [address] [place] [address], [place] [address] Apr, [facility] [address] [id number] [address] [place] [address], [place] [address] Mar, [facility] [address] [id number] [address] [place] [address] Mar, [facility] [address] [id number] [address] [place] [address], [place] [address] Mar, [facility] [address] [id number] [address] [place] [address], [place] [address] Feb, [facility] [address] [id number] [address] [place] [address], [place] [address] Feb, [facility] [address] [id number] [address] [place] [address], [place] [address] Jan, [facility] [address] [id number] [address] [place] [address], [place] [address] November, [facility] [address] [id number] [address] [place] [address], [place] [address] Oct, [facility] [address] [id number] [address] [place] [address], [place] [address] Oct, [facility] [address] [id number] [address] [place] [address], [place] [address] Jul, [facility] [address] [id number] [address] [place] [address], [place] [address] Jul, [facility] [address] [id number] [address] [place] [address], [place] [address] Jul, [facility] [address] [id number] [address] [place] [address], [place] [address] Jul, [facility] [address] [id number] [address] [place] [address], [place] [address] Jul, [facility] [address] [id number] [address] [place] [address], [place] [address] Jul, [facility] [address] [id number] [address] [place] [address], [place] [address] Jul, [facility] [address] [id number] [address] [place] [address], [place] [address] Jul, [facility] [address] [id number] [address] [place] [address], [place] [address] Jun, [facility] [address] [id number] [address] [place] [address], [place] [address] Jun, [facility] [address] [id number] [address] [place] [address], [place] [address] Apr, [facility] [address] [id number] [address] [place] [address], [place] [address] Apr, [facility] [address] [id number] [address] [place] [address], [place] [address] Apr, [facility] [address] [id number] [address] [place] [address], [place] [address] Apr, [facility] [address] [id number] [address] [place] [address], [place] [address] Apr, [facility] [address] [id number] [address] [place] [address], [place] [address] Apr, [facility] [address] [id number] [address] [place] [address], [place] [address] Apr, [facility] [address] [id number] [address] [place] [address], [place] [address] Apr, [facility] [address] [id number] [address] [place] [address], [place] [address] Apr, [facility] [address] [id number] [address] [place] [address], [place] [address] Apr, [facility] [address] [id number] [address] [place] [address], [place] [address] Mar, [facility] [address] [id number] [address] [place] [address], [place] [address] Mar, [facility] [address] [id number] [address] [place] [address], [place] [address] Feb, [facility] [address] [id number] [address] [place] [address], [place] [address] Feb, [facility] [address] [id number] [address] [place] [address], [place] [address] Feb, [facility] [address] [id number] [address] [place] [address], [place] [address] Feb, [facility] [address] [id number] [address] [place] [address], [place] [address] Feb, [facility] [address] [id number] [address] [place] [address] Feb, [facility] [address] [id number] [address] [place] [address] Feb, [facility] [address] [id number] [address] [place] [address] Feb, [facility] [address] [id number] [address] [place] [address] Feb, [facility] [address] [id number] [address] [place] [address] Feb, [facility] [address] [id number] [address] [place] [address] Jan, [facility] [address] [id number] [address] [place] [address] Jan, [facility] [address] [id number] [address] [place] [address] Jan, [facility] [address] [id number] [address] [place] [address] Jan, [facility] [address] [id number] [address] [place] [address] November, [facility] [address] [id number] [address] [place] [address] Oct, [facility] [address] [id number] [address] [place] [address] Sep, [facility] [address] [id number] [address] [place] [address] Sep, [facility] [address] [id number] [address] [place] [address] Sep, [facility] [address] [id number] [address] [place] [address] Sep, IMMUNIZATIONS No Known Immunizations SOCIAL HISTORY [...]
--- OUTSIDE RECORDS SUMMARY | 2019-09-18 04:44 | XMS REPORT ---
Author Author Ana, Dona Doctor Organization [facility] Address Unknown Phone Unavailable Care Team Providers Care Staff Training And Development Manager Name Role Phone Migration, Doctor Unavailable Unavailable PROBLEMS Type Condition ICD9-CM Code GWO69-IA Code Onset Dates Condition S tatus SNOMED Code Problem COPD (chronic obstructive pulmonary disease) J44.9 Active 84940955 Problem Hyperlipidemia E78.5 Active 30190 004 Problem Gastroparesis K31.84 Active 118341 006 Problem GERD (gastroesophageal reflux disease) K21.9 Active 631162076 Problem Unilateral inguinal hernia w ithout obstruction or gangrene, recurrence not specified K40.90 Active 92480952 Problem Unilateral recurrent inguinal hernia without obs truction or gangrene K40.91 Active 19491994 Problem Breast lesion N64.9 Active 991608 004 Problem Abnormal colonoscopy R93.3 Active 148237679 Problem Vaginal lesion N89.8 Active 59626 7005 Problem Normal cardiac stress test Z13.6 Act alvarado 082434096 Problem Establishing care with new doctor, encounter for Z 71.89 Active 425469782 Problem Cough R05 Active 66866661 Problem Hammertoe M20.40 Active 066107907 Problem Rotator cuff arthropathy of left shoulder M12.812 Active [id number] Problem Hyperlipidemia, unspecified hyperlipidemia type E7 8.5 Active 40849614 Problem Tobacco dependence F17.200 Active 8 4905007 Problem Arterial stenosis I77.1 Active 68 118932 Problem Stress incontinence in female N39.3 Active 47000637 Problem Sleep apnea G47.30 Active 79939544 Problem Essential hypertension I10 Active 93334008 Problem Type 2 diabetes mellitus without complication E11. 9 Active 203413677 Problem Other chronic pain G89.29 Active 8 6337560 Problem Irritable bowel syndrome with diarrhea K58.0 Active 083306422 Problem PVD (peripheral vascular disease) I73.9 Active 996000286 ALLERGIES No Information ENCOUNTERS Encounter Location Date Diagnosis [facility] [address] [facility] [id number] [address] [place] [address] Apr, [facility] [address] [facility] [id number] [address] [place] [address] Mar, Cervicalgia M54.2 ; Left ant erior shoulder pain M25.512 ; Type 2 diabetes mellitus without complication E11.9 and Localized edema R60.0 [facility] [address] [place] [id number] [address] [place] [address] Feb, [facility] [address] [place] [id number] [place] [address] Feb, [facility] [address] [place] [id number] [place] [address] Feb, [facility] [address] [place] [id number] [place] [address] Jan, Cervicalgia M54.2 ; Dysuria R30.0 ; Type 2 diabetes mellitus E11.9 and Essential hypertension I10 [facility] [address] [place] [id number] [place] [address] Jan, Essential hypertension I10 a nd Type 2 diabetes mellitus E11.9 [facility] [address] [place] [id number] [place] [address] Oct, Essential hypertension I10 [facility] [address] [place] [id number] [place] [address] Sep, Cramps, extremity R25.2 ; PV D (peripheral vascular disease) I73.9 ; Rotator cuff arthropathy of left shoulder M12.812 and Financial difficulties Z59.8 [facility] [address] [place] [id number] [address] [place] [address] Aug, Rotator cuff arthropathy of left shoulder M12.812 [facility] [address] [place] [id number] [address] [place] [address] Aug, Arterial stenosis I77.1 [facility] [address] [place] [id number] [place] [address] Aug, [facility] [id number] [place] [address] 04 Aug, 2018 Type 2 diabetes mellitus E11 .9 ; Left leg pain M79.605 ; Pain in left shoulder M25.512 ; Other chronic pain G89.29 ; Cramps, extremity R25.2 and Irritable bowel syndrome with diarrhea K58.0 [facility] [address] [address] Jul, Dysuria R30.0 and Acute uppe r respiratory infection J06.9 [place] [address] [place] [id number] [place] [address] Jul, Type 2 diabetes mellitus E11 .9 and Essential hypertension I10 [facility] [address] [address] Jun, [facility] [place] [address] [address] Jun, Cough R05 and Acute pneumoni a J18.9 [place] [address] [address] Apr, Type 2 diabetes mellitus E11 .9 ; COPD (chronic obstructive pulmonary disease) J44.9 ; Essential hypertension I10 and Left leg pain M79.605 [place] [address] [address] Mar, Kaity vaginitis B37.3 [place] [address] [address] Jan, Chigger bites B88.0 [place] [address] [address] Dec, Type 2 diabetes mellitus wit hout complication E11.9 and Unilateral recurrent inguinal hernia without obstruction or gangrene K40.91 [place] [address] [place] [id number] [place] [address] November, Essential hypertension I10 a nd Diabetes E11.9 [facility] [address] [place] [address] Oct, [facility] [address] [address] Sep, Diabetes E11.9 and Essential hypertension I10 [facility] [address] [address] Aug, Diabetes E11.9 ; Viral upper respiratory tract infection J06.9 ; COPD (chronic obstructive pulmonary disease) J44.9 ; Essential hypertension I10 ; Unilateral recurrent inguinal hernia without obstruction or gangrene K40.91 ; Dysuria R30.0 ; Yeast infection of the vagina B37.3 and Vaginal itching L29.[address] [facility] IN [facility] [address] [place] [id number] [address] [place] [address] Jul, Essential hypertension I10 a nd COPD (chronic obstructive pulmonary disease) J44.9 [place] [address] [address] Mar, Left lower quadrant pain R10 .32 ; Type 2 diabetes mellitus without complication E11.9 and Cardiac arrhythmia, unspecified cardiac arrhythmia type I49.9 [place] [address] [place] [id number] [address] [place] [address] Oct, COPD (chronic obstructive pu lmonary disease) J44.9 ; Diabetes E11.9 and Mouth pain K13.79 [facility] [address] [place] [id number] [address] [place] [address] Sep, [place] [address] [address] Sep, COPD (chronic obstructive pu lmonary disease) J44.9 ; Diabetes E11.9 and Mouth pain K13.79 [place] [address] [place] [id number] [place] [address] Aug, Type 2 diabetes mellitus wit hout complication E11.9 [facility] [address] [address] Aug, [place] [address] [facility] [id number] [address] [place] [address] Aug, Type 2 diabetes mellitus wit hout complication E11.9 [place] [address] [place] [id number] [place] [address] Aug, Establishing care with reji harmon, encounter for Z71.89 ; Type 2 diabetes mellitus without complication E11.9 ; Essential hypertension I10 ; Cough R05 ; Hammertoe M20.40 and Sleep apnea G47.30 [place] [address] [place] [address] Jul, [place] [address] [place] [id number] [place] [address] Jun, Vaginal lesion N89.8 [place] [address] [place] [id number] [address] [place] [address] 14 Jun, 2015 [place] [address] [place] [id number] [place] [address] 09 Jun, 2015 Well woman exam Z01.419 ; Pa panicolaou [...] in female N39.3 and Breast lesion N64.9 [place] [address] [facility] [id number] [address] [place] [address] May, Bronchitis J40 [place] [address] [place] [id number] [address] [place] [address] May, Routine adult health mainten ance Z00.00 ; Essential hypertension I10 ; Hyperlipidemia E78.5 ; COPD (chronic obstructive pulmonary disease) J44.9 ; Unilateral recurrent inguinal hernia without obstruction or gangrene K40.91 and Type 2 diabetes mellitus without complication E11.9 [facility] [address] [id number] [address] [place] [address] 14 Oct, 2014 [facility] [address] [id number] [address] [place] [address] Oct, [facility] [address] [id number] [address] [place] [address] Sep, [facility] [address] [id number] [address] [place] [address] Sep, [facility] [address] [id number] [address] [place] [address] Sep, [facility] [address] [id number] [address] [place] [address] Sep, [facility] [address] [id number] [address] [place] [address] Aug, [facility] [address] [id number] [address] [place] [address] Aug, [facility] [address] [id number] [address] [place] [address] Jul, [facility] [address] [id number] [address] [place] [address] Jul, [facility] [address] [id number] [address] [place] [address] Jun, [facility] [address] [id number] [address] [place] [address] Jun, [facility] [address] [id number] [address] [place] [address] Jun, [facility] [address] [id number] [address] [place] [address] Jun, [facility] [address] [id number] [address] [place] [address] Jun, [facility] [address] [id number] [facility] [place] [address] Mar, [facility] [address] [id number] [address] [place] [address], [place] [address] Mar, [facility] [address] [id number] [address] [place] [address], [place] [address] Feb, [facility] [address] [id number] [address] [place] [address], [place] [address] Feb, [facility] [address] [id number] [address] [place] [address], [place] [address] Feb, [facility] [address] [id number] [address] [place] [address], [place] [address] Feb, [facility] [address] [id number] [address] [place] [address], [place] [address] Dec, [facility] [address] [id number] [address] [place] [address], [place] [address] Dec, [facility] [address] [id number] [address] [place] [address], [place] [address] November, [facility] [address] [id number] [address] [place] [address], [place] [address] November, [facility] [address] [id number] [address] [place] [address], [place] [address] November, [facility] [address] [id number] [address] [place] [address], [place] [address] November, [facility] [address] [id number] [address] [place] [address], [place] [address] Sep, [facility] [address] [id number] [address] [place] [address], [place] [address] Sep, [facility] [address] [id number] [address] [place] [address], [place] [address] Sep, [facility] [address] [id number] [address] [place] [address], [place] [address] Sep, [facility] [address] [id number] [address] [place] [address], [place] [address] Jul, [facility] [address] [id number] [address] [place] [address], [place] [address] Jul, [facility] [address] [id number] [address] [place] [address], [place] [address] Jun, [facility] [address] [id number] [address] [place] [address], [place] [address] Jun, [facility] [address] [id number] [address] [place] [address], [place] [address] Jun, [facility] [address] [id number] [address] [place] [address], [place] [address] Jun, [facility] [address] [id number] [address] [place] [address], [place] [address] May, [facility] [address] [id number] [address] [place] [address], [place] [address] May, [facility] [address] [id number] [address] [place] [address], [place] [address] Apr, [facility] [address] [id number] [address] [place] [address], [place] [address] Apr, [facility] [address] [id number] [address] [place] [address], [place] [address] Apr, [facility] [address] [id number] [address] [place] [address], [place] [address] Mar, [facility] [address] [id number] [address] [place] [address], [place] [address] Mar, [facility] [address] [id number] [address] [place] [address], [place] [address] Mar, [facility] [address] [id number] [address] [place] [address], [place] [address] Feb, [facility] [address] [id number] [address] [place] [address], [place] [address] Feb, [facility] [address] [id number] [address] [place] [address], [place] [address] Jan, [facility] [address] [id number] [address] [place] [address], [place] [address] November, [facility] [address] [id number] [address] [place] [address], [place] [address] Oct, [facility] [address] [id number] [address] [place] [address], [place] [address] Oct, [facility] [address] [id number] [address] [place] [address], [place] [address] Jul, [facility] [address] [id number] [address] [place] [address], [place] [address] Jul, [facility] [address] [id number] [address] [place] [address], [place] [address] Jul, [facility] [address] [id number] [address] [place] [address], [place] [address] Jul, [facility] [address] [id number] [address] [place] [address], [place] [address] Jul, [facility] [address] [id number] [address] [place] [address], [place] [address] Jul, [facility] [address] [id number] [address] [place] [address], [place] [address] Jul, [facility] [address] [id number] [address] [place] [address], [place] [address] Jul, [facility] [address] [id number] [address] [place] [address], [place] [address] Jun, [facility] [address] [id number] [address] [place] [address], [place] [address] Jun, [facility] [address] [id number] [address] [place] [address], [place] [address] Apr, [facility] [address] [id number] [address] [place] [address], [place] [address] Apr, [facility] [address] [id number] [address] [place] [address], [place] [address] Apr, [facility] [address] [id number] [address] [place] [address], [place] [address] Apr, [facility] [address] [id number] [address] [place] [address], [place] [address] Apr, [facility] [address] [id number] [address] [place] [address], [place] [address] Apr, [facility] [address] [id number] [address] [place] [address], [place] [address] Apr, [facility] [address] [id number] [address] [place] [address], [place] [address] Apr, [facility] [address] [id number] [address] [place] [address], [place] [address] Apr, [facility] [address] [id number] [address] [place] [address], [place] [address] Apr, [facility] [address] [id number] [address] [place] [address], [place] [address] Mar, [facility] [address] [id number] [address] [place] [address], [place] [address] Mar, [facility] [address] [id number] [address] [place] [address], [place] [address] Feb, [facility] [address] [id number] [address] [place] [address], [place] [address] Feb, [facility] [address] [id number] [address] [place] [address], [place] [address] Feb, [facility] [address] [id number] [address] [place] [address], [place] [address] Feb, [facility] [address] [id number] [address] [place] [address], [place] [address] Feb, [facility] [address] [id number] [address] [place] [address], [place] [address] Feb, [facility] [address] [id number] [address] [place] [address], [place] [address] Feb, [facility] [address] [id number] [address] [place] [address], [place] [address] Feb, [facility] [address] [id number] [address] [place] [address], [place] [address] Feb, [facility] [address] [id number] [address] [place] [address], [place] [address] Feb, [facility] [address] [id number] [address] [place] [address], [place] [address] Jan, [facility] [address] [id number] [address] [place] [address], [place] [address] Jan, [facility] [address] [id number] [address] [place] [address], [place] [address] Jan, [facility] [address] [id number] [address] [place] [address], [place] [address] Jan, [facility] [address] [id number] [address] [place] [address], [place] [address] November, [facility] [address] [id number] [address] [place] [address], [place] [address] Oct, [facility] [address] [id number] [address] [place] [address], [place] [address] Sep, [facility] [address] [id number] [address] [place] [address], [place] [address] Sep, [facility] [address] [id number] [address] [place] [address], [place] [address] Sep, [facility] [address] [id number] [address] [place] [address], [place] [address] Sep, IMMUNIZATIONS No Known Immunizations SOCIAL HISTORY [...]
--- OUTSIDE RECORDS SUMMARY | 2019-09-18 04:44 | XMS REPORT ---
Author Author Migration, Dona Doctor Organization [facility] Address Unknown Phone Unavailable Care Team Providers Care Notary Public Name Role Phone Migration, Doctor Unavailable Unavailable PROBLEMS Type Condition ICD9-CM Code UWF24-YV Code Onset Dates Condition S tatus SNOMED Code Problem Abnormal colonoscopy R93.3 Active 790080859 Problem Normal cardiac stress test Z13.6 Act alvarado 907243658 Problem Tobacco dependence F17.200 Active 8 6866354 Problem Sleep apnea G47.30 Active 67276494 Problem Hyperlipidemia E78.5 Active 17787 004 Problem Essential hypertension I10 Active 34580762 Problem Type 2 diabetes mellitus without complication E11. 9 Active 242689840 Problem Establishing care with new doctor, encounter for Z 71.89 Active 906953476 Problem Unilateral inguinal hernia w ithout obstruction or gangrene, recurrence not specified K40.90 Active 14801133 Problem Unilateral recurrent inguinal hernia without obs truction or gangrene K40.91 Active 24267319 Problem Hyperlipidemia, unspecified hyperlipidemia type E7 8.5 Active 51673394 Problem Vaginal lesion N89.8 Active 44506 7005 Problem Stress incontinence in female N39.3 Active 58519163 Problem Breast lesion N64.9 Active 906344 004 Problem Hammertoe M20.40 Active 514514006 Problem Cough R05 Active 29492586 Problem Irritable bowel syndrome with diarrhea K58.0 Active 794290708 Problem Other chronic pain G89.29 Active 8 7379119 Problem PVD (peripheral vascular disease) I73.9 Active 690015038 Problem Nontraumatic complete tear of left rotator cuff M7 5.122 Active 7083727524384170 Problem GERD (gastroesophageal reflux disease) K21.9 Active 971180799 Problem Abnormal drug screen R89.2 Active 296574110 Problem COPD (chronic obstructive pulmonary disease) J44.9 Active 60619130 Problem Gastroparesis K31.84 Active 457796 006 Problem Rotator cuff arthropathy of left shoulder M12.812 Active 15176780012787529 Problem Arterial stenosis I77.1 Active 68 915110 Problem Unspecified rotator cuff tea r or rupture of left shoulder, not specified as traumatic M75.102 Active 273602117931003 00 Problem Other specific arthropathies, not elsewhere clas sified, left shoulder M12.812 Active 127156817 ALLERGIES No Information ENCOUNTERS Encounter Location Date Diagnosis [place] [address] [address] Aug, [place] [address] [address] Aug, [place] [address] [address] Aug, 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 and COPD (chronic obstructive pulmonary disease) J44.9 [place] [address] [address] Aug, [place] [address] [address] Jul, [place] [address] [address] Jul, Mass of left side of neck R22.1 ; Type 2 diabetes mellitus without complication E11.9 ; COPD (chronic obstructive pulmonary disease) J44.9 ; Lung infiltrate R91.8 and 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 [place] [address] [address] Jun, [place] [address] [address] Jun, [place] [address] [address] Jun, Abnormal drug screen R89.2 [place] [address] [address] Jun, [place] [address] [address] Jun, Abnormal drug screen R89.2 [place] [address] [address] May, Encounter for immunization Z23 [place] [address] [address] May, Essential hypertension I10 ; Type 2 diab etes mellitus without complication E11.9 and Cramps, extremity R25.2 [place] [address] [address] May, Other chronic pain G89.29 and Dysuria R3 0.0 [place] [address] [address] May, Other chronic pain G89.29 ; Dysuria R30. 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 [place] [address] [address] Apr, 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 [place] [address] [address] Apr, Other specific arthropathies, not elsewh ere classified, left shoulder M12.812 and Unspecified rotator cuff tear or rupture of left shoulder, not specified as traumatic M75.102 [place] [address] [address] Mar, [place] [address] [address] Mar, [place] [address] [address] Mar, Thyroid mass E07.9 [place] [address] [address] Mar, Cervicalgia M54.2 ; Left anterior should er pain M25.512 ; Type 2 diabetes mellitus without complication E11.9 and Localized edema R60.0 [place] [address] [address] Feb, [place] [address] [address] Feb, [place] [address] [address] Feb, [place] [address] [address] Jan, Cervicalgia M54.2 ; Dysuria R30.0 ; Type 2 diabetes mellitus E11.9 and Essential hypertension I10 [place] [address] [address] Jan, Essential hypertension I10 and Type 2 di abetes mellitus E11.9 [place] [address] [address] Oct, Essential hypertension I10 [place] [address] [address] Sep, Cramps, extremity R25.2 ; PVD (periphera l vascular disease) I73.9 ; Rotator cuff arthropathy of left shoulder M12.812 and Financial difficulties Z59.8 [place] [address] [address] Aug, Rotator cuff arthropathy of left shoulde r M12.812 [place] [address] [address] Aug, Arterial stenosis I77.1 [place] [address] [address] Aug, [place] [address] [address] Aug, Type 2 diabetes mellitus E11.9 ; Left le g pain M79.605 ; Pain in left shoulder M25.512 ; Other chronic pain G89.29 ; Cramps, extremity R25.2 and Irritable bowel syndrome with diarrhea K58.0 [facility] [address] [address] Jul, Dysuria R30.0 and Acute uppe r respiratory infection J06.9 [place] [address] [address] Jul, Type 2 diabetes mellitus E11.9 and Essen tial hypertension I10 [facility] IN [place] [address] [address] Jun, [facility] [place] [address] [address] Jun, Cough R05 and Acute pneumoni a J18.9 [place] [address] [address] Apr, Type 2 diabetes mellitus E11.9 ; COPD (c hronic obstructive pulmonary disease) J44.9 ; Essential hypertension I10 and Left leg pain M79.605 [place] [address] [address] 14 Mar, 2018 Kaity vaginitis B37.3 [place] [address] [address] Jan, Chigger bites B88.0 [place] [address] [address] Dec, Type 2 diabetes mellitus without complic ation E11.9 and Unilateral recurrent inguinal hernia without obstruction or gangrene K40.91 [facility] [address] [place] [id number] [place] [address] November, Essential hypertension I10 and Diabetes E11.9 [facility] [address] [address] Oct, [place] [address] [address] Sep, Diabetes E11.9 and Essential hypertensio n I10 [place] [address] [address] Aug, Diabetes E11.9 ; Viral upper respiratory tract infection J06.9 ; COPD (chronic obstructive pulmonary disease) J44.9 ; Essential hypertension I10 ; Unilateral recurrent inguinal hernia without obstruction or gangrene K40.91 ; Dysuria R30.0 ; Yeast infection of the vagina B37.3 and Vaginal itching L29.8 [facility] [address] [facility] [id number] [place] [address] Jul, Essential hypertension I10 a nd COPD (chronic obstructive pulmonary disease) J44.9 [place] [address] [address] Mar, Left lower quadrant pain R10.32 ; Type 2 diabetes mellitus without complication E11.9 and Cardiac arrhythmia, unspecified cardiac arrhythmia type I49.9 [place] [address] [address] Oct, COPD (chronic obstructive pulmonary dise ase) J44.9 ; Diabetes E11.9 and Mouth pain K13.79 [place] [address] [address] Sep, [place] [address] [address] Sep, COPD (chronic obstructive pulmonary dise ase) J44.9 ; Diabetes E11.9 and Mouth pain K13.79 [place] [address] [address] Aug, Type 2 diabetes mellitus without complic ation E11.9 [place] [address] [address] Aug, [place] [address] [address] Aug, Type 2 diabetes mellitus without complic ation E11.[address] [address] Aug, Establishing care with [place] for Z71.89 ; Type 2 diabetes mellitus without complication E11.9 ; Essential hypertension I10 ; Cough R05 ; Hammertoe M20.40 and Sleep apnea G47.[address] [address] Jul, [address] [address] Jun, Vaginal lesion N89.[address] [address] Jun, [address] [address] Jun, Well woman exam Z01.419 ; Papanicolaou [...] in female N39.3 and Breast lesion N64.[address] [address] May, Bronchitis J40 [address] [address] May, Routine adult health maintenance Z00.00 ; Essential hypertension I10 ; Hyperlipidemia E78.5 ; COPD (chronic obstructive pulmonary disease) J44.9 ; Unilateral recurrent inguinal hernia without obstruction or gangrene K40.91 and Type 2 diabetes mellitus without complication E11.9 [facility] [address] [place] [id number] [place] [address] 14 Oct, 2014 [facility] [address] [place] [id number] [place] [address] Oct, [facility] [address] [address] Sep, [facility] [address] [address] Sep, [facility] [address] [place] [id number] [place] [address] Sep, [facility] [address] [place] [id number] [place] [address] Sep, [facility] [address] [place] [id number] [place] [address] Aug, [facility] [address] [place] [id number] [place] [address] Aug, [facility] [address] [address] Jul, [facility] [address] [place] [id number] [place] [address] Jul, [facility] [address] [place] [id number] [address] Jun, [facility] [address] [place] [id number] [place] [address] Jun, [facility] [address] [place] [id number] [place] [address] Jun, [facility] [address] [place] [id number] [place] [address] Jun, [facility] [address] [place] [id number] [place] [address] Jun, [facility] [address] [place] [id number] [place] [address] Mar, [facility] [address] [facility] [id number] [place] [address] Mar, [facility] [address] [id number] [place] [address] Feb, [facility] [address] [id number] [place] [address] Feb, [facility] [address] [id number] [place] [address] Feb, [facility] [address] [id number] [place] [address] Feb, [facility] [address] [id number] [place] [address] Dec, [facility] [address] [id number] [place] [address] Dec, [facility] [address] [id number] [place] [address] November, [facility] [address] [id number] [place] [address] November, [facility] [address] [id number] [place] [address] November, [facility] [address] [id number] [place] [address] November, [facility] [address] [id number] [place] [address] Sep, [facility] [address] [id number] [place] [address] Sep, [facility] [address] [id number] [place] [address] Sep, [facility] [address] [id number] [place] [address] Sep, [facility] [address] [id number] [place] [address] Jul, [facility] [address] [id number] [place] [address] Jul, [facility] [address] [id number] [place] [address] Jun, [facility] [address] [id number] [place] [address] Jun, [facility] [address] [place] [id number] [place] [address] Jun, [facility] [address] [id number] [place] [address] Jun, [facility] [address] [id number] [place] [address] May, [facility] [address] [id number] [place] [address] May, [facility] [address] [place] [id number] [place] [address] Apr, [facility] [address] [place] [id number] [place] [address] Apr, [facility] [address] [id number] [place] [address] Apr, [facility] [address] [id number] [place] [address] Mar, [facility] [address] [place] [id number] [place] [address] Mar, [facility] [address] [id number] [place] [address] Mar, [facility] [address] [id number] [place] [address] Feb, [facility] [address] [place] [id number] [place] [address] Feb, [facility] [address] [id number] [place] [address] Jan, [facility] [address] [place] [id number] [place] [address] November, [facility] [address] [id number] [place] [address] Oct, [facility] [address] [id number] [place] [address] Oct, [facility] [address] [id number] [place] [address] Jul, [facility] [address] [id number] [place] [address] Jul, [facility] [address] [id number] [place] [address] Jul, [facility] [address] [id number] [place] [address] Jul, [facility] [address] [id number] [place] [address] Jul, [facility] [address] [id number] [place] [address] Jul, [facility] [address] [id number] [place] [address] Jul, [facility] [address] [id number] [place] [address] Jul, [facility] [address] [id number] [place] [address] Jun, [facility] [address] [id number] [place] [address] Jun, [facility] [address] [id number] [place] [address] Apr, [facility] [address] [id number] [place] [address] Apr, [facility] [address] [id number] [place] [address] Apr, [facility] [address] [id number] [place] [address] Apr, [facility] [address] [id number] [place] [address] Apr, [facility] [address] [facility] [id number] [facility] [place] [address] Apr, [facility] [address] [facility] [id number] [facility] [place] [address] Apr, [facility] [address] [id number] [place] [address] Apr, [facility] [address] [id number] [facility] [place] [address] Apr, [facility] [address] [facility] [id number] [facility] [place] [address] Apr, [facility] [address] [id number] [place] [address] Mar, [facility] [address] [id number] [place] [address] Mar, [facility] [address] [id number] [place] [address] Feb, [facility] [address] [id number] [place] [address] Feb, [facility] [address] [id number] [place] [address] Feb, [facility] [address] [id number] [place] [address] Feb, [facility] [address] [id number] [place] [address] Feb, [facility] [address] [id number] [place] [address] Feb, [facility] [address] [id number] [place] [address] Feb, [facility] [address] [id number] [place] [address] 14 Feb, 2012 [facility] [address] [id number] [place] [address] Feb, [facility] [address] [id number] [place] [address] Feb, [facility] [address] [id number] [place] [address] Jan, [facility] [id number] [place] [address] Jan, [facility] [id number] [place] [address] Jan, [facility] [address] [address] Jan, [facility] [id number] [place] [address] November, [facility] [id number] [place] [address] Oct, [facility] [id number] [place] [address] Sep, [facility] [id number] [place] [address] Sep, [facility] [id number] [place] [address] Sep, [facility] [id number] [place] [address] Sep, IMMUNIZATIONS No Known Immunizations SOCIAL HISTORY [...]
--- OUTSIDE RECORDS SUMMARY | 2019-09-18 04:45 | XMS REPORT ---
Author Author Ana, Dona Doctor Organization [facility] Address Unknown Phone Unavailable Care Team Providers Care Consumer Affairs Specialist Name Role Phone Migration, Doctor Unavailable Unavailable PROBLEMS Type Condition ICD9-CM Code OBP68-DH Code Onset Dates Condition S tatus SNOMED Code Problem Normal cardiac stress test Z13.6 Act alvarado 389001087 Problem Abnormal colonoscopy R93.3 Active 736433088 Problem Sleep apnea G47.30 Active 04798928 Problem Unilateral recurrent inguinal hernia without obs truction or gangrene K40.91 Active 14040328 Problem Cough R05 Active 41781192 Problem Establishing care with new doctor, encounter for Z 71.89 Active 390731338 Problem COPD (chronic obstructive pulmonary disease) J44.9 Active 29314118 Problem Gastroparesis K31.84 Active 005693 006 Problem Unilateral inguinal hernia w ithout obstruction or gangrene, recurrence not specified K40.90 Active 05509759 Problem GERD (gastroesophageal reflux disease) K21.9 Active 855658621 Problem Breast lesion N64.9 Active 484768 004 Problem Vaginal lesion N89.8 Active 41089 7005 Problem Hyperlipidemia, unspecified hyperlipidemia type E7 8.5 Active 69628014 Problem Stress incontinence in female N39.3 Active 63563580 Problem Hammertoe M20.40 Active 184588053 Problem Diabetes E11.9 Active 918373546 Problem Type 2 diabetes mellitus without complication E11. 9 Active 792948114 Problem Rotator cuff arthropathy of left shoulder M12.812 Active [id number] Problem Essential hypertension I10 Active 70993553 Problem Arterial stenosis I77.1 Active 68 358039 Problem Tobacco dependence F17.200 Active 8 1376073 Problem Hyperlipidemia E78.5 Active 42317 004 Problem Type 2 diabetes mellitus E11.9 Activ e 20960412 Problem Irritable bowel syndrome with diarrhea K58.0 Active 503553185 Problem Other chronic pain G89.29 Active 8 0623824 Problem PVD (peripheral vascular disease) I73.9 Active 830666383 ALLERGIES No Information ENCOUNTERS Encounter Location Date Diagnosis [facility] [address] [address] Mar, [place] [address] [address] Jan, Cervicalgia M54.2 ; Dysuria R30.0 ; Type 2 diabetes mellitus E11.9 and Essential hypertension I10 [place] [address] [address] Jan, Essential hypertension I10 a nd Type 2 diabetes mellitus E11.9 [place] [address] [address] Oct, Essential hypertension I10 [place] [address] [address] Sep, Cramps, extremity R25.2 ; PV D (peripheral vascular disease) I73.9 ; Rotator cuff arthropathy of left shoulder M12.812 and Financial difficulties Z59.8 [place] [address] [address] Aug, Rotator cuff arthropathy of left shoulder M12.812 [place] [address] [address] 19 Aug, 2018 Arterial stenosis I77.1 [place] [address] [address] Aug, [place] [address] [address] 04 Aug, 2018 Type 2 diabetes mellitus E11 .9 ; Left leg pain M79.605 ; Pain in left shoulder M25.512 ; Other chronic pain G89.29 ; Cramps, extremity R25.2 and Irritable bowel syndrome with diarrhea K58.0 [facility] [address] [place] [id number] [address] [place] [address] Jul, Dysuria R30.0 and Acute uppe r respiratory infection J06.9 [place] [address] [place] [id number] [place] [address] Jul, Type 2 diabetes mellitus E11 .9 and Essential hypertension I10 [facility] [address] [place] [id number] [address] [place] [address] Jun, [facility] [address] [place] [id number] [place] [address] Jun, Cough R05 and Acute pneumoni a J18.9 [place] [address] [place] [id number] [place] [address] Apr, Type 2 diabetes mellitus E11 .9 ; COPD (chronic obstructive pulmonary disease) J44.9 ; Essential hypertension I10 and Left leg pain M79.605 [place] [address] [place] [id number] [place] [address] 14 Mar, 2018 Kaity vaginitis B37.3 [place] [address] [address] Jan, Chigger bites B88.0 [place] [address] [place] [id number] [place] [address] Dec, Type 2 diabetes mellitus wit hout complication E11.9 and Unilateral recurrent inguinal hernia without obstruction or gangrene K40.91 [place] [address] [place] [id number] [place] [address] November, Essential hypertension I10 a nd Diabetes E11.9 [place] [address] [place] [id number] [place] [address] Oct, [place] [address] [place] [id number] [place] [address] Sep, Diabetes E11.9 and Essential hypertension I10 [place] [address] [place] [id number] [place] [address] 05 Aug, 2017 Diabetes E11.9 ; Viral upper respiratory tract infection J06.9 ; COPD (chronic obstructive pulmonary disease) J44.9 ; Essential hypertension I10 ; Unilateral recurrent inguinal hernia without obstruction or gangrene K40.91 ; Dysuria R30.0 ; Yeast infection of the vagina B37.3 and Vaginal itching L29.8 [facility] [address] [address] Jul, Essential hypertension I10 a nd COPD (chronic obstructive pulmonary disease) J44.9 [facility] [address] [address] Mar, Left lower quadrant pain R10 .32 ; Type 2 diabetes mellitus without complication E11.9 and Cardiac arrhythmia, unspecified cardiac arrhythmia type I49.9 [place] [address] [address] Oct, COPD (chronic obstructive pu lmonary disease) J44.9 ; Diabetes E11.9 and Mouth pain K13.79 [place] [address] [address] Sep, [facility] [address] [address] Sep, COPD (chronic obstructive pu lmonary disease) J44.9 ; Diabetes E11.9 and Mouth pain K13.79 [facility] [address] [address] Aug, Type 2 diabetes mellitus wit hout complication E11.9 [facility] [address] [address] Aug, [place] [address] [address] Aug, Type 2 diabetes mellitus wit hout complication E11.9 [place] [address] [address] Aug, Establishing care with reji harmon, encounter for Z71.89 ; Type 2 diabetes mellitus without complication E11.9 ; Essential hypertension I10 ; Cough R05 ; Hammertoe M20.40 and Sleep apnea G47.30 [facility] [address] [place] [address] Jul, [facility] [address] [address] Jun, Vaginal lesion N89.8 [place] [address] [address] Jun, [place] [address] [address] Jun, Well woman exam Z01.419 ; Pa [...] in female N39.3 and Breast lesion N64.9 [place] [address] [place] [id number] [place] [address] May, Bronchitis J40 [place] [address] [place] [id number] [place] [address] 11 May, 2015 [facility]ine [facility] ance Z00.00 ; Essential hypertension I10 ; Hyperlipidemia E78.5 ; COPD (chronic obstructive pulmonary disease) J44.9 ; Unilateral recurrent inguinal hernia without obstruction or gangrene K40.91 and Type 2 diabetes mellitus without complication E11.9 [place] [address] [place] [address] Oct, [place] [address] [address] Oct, [place] [address] [place] [id number] [place] [address] Sep, [place] [address] [address] Sep, [facility] [address] [id number] [address] [place] [address], [place] [address] Sep, [facility] [address] [id number] [address] [place] [address], [place] [address] Sep, [facility] [address] [id number] [address] [place] [address], [place] [address] Aug, [facility] [address] [id number] [address] [place] [address], [place] [address] Aug, [facility] [address] [id number] [address] [place] [address], [place] [address] Jul, [facility] [address] [id number] [address] [place] [address], [place] [address] Jul, [facility] [address] [id number] [address] [place] [address], [place] [address] Jun, [facility] [address] [id number] [address] [place] [address], [place] [address] Jun, [facility] [address] [id number] [address] [place] [address], [place] [address] Jun, [facility] [address] [id number] [address] [place] [address], [place] [address] Jun, [facility] [address] [id number] [address] [place] [address], [place] [address] Jun, [facility] [address] [id number] [address] [place] [address], [place] [address] Mar, [facility] [address] [id number] [address] [place] [address], [place] [address] Mar, [facility] [address] [id number] [address] [place] [address], [place] [address] Feb, [facility] [address] [id number] [address] [place] [address], [place] [address] Feb, [facility] [place] [facility] [address] [id number] [facility] [place] [address] Feb, [facility] [place] [facility] [address] [id number] [address] [place] [address], [place] [address] Feb, [facility] [place] [facility] [address] [id number] [address] [place] [address], [place] [address] Dec, [facility] [place] [facility] [address] [id number] [address] [place] [address], [place] [address] Dec, [facility] [place] [facility] [address] [id number] [address] [place] [address], [place] [address] November, [facility] [place] [facility] [address] [id number] [address] [place] [address], [place] [address] November, [facility] [place] [facility] [address] [id number] [address] [place] [address], [place] [address] November, [facility] [place] [facility] [address] [id number] [address] [place] [address], [place] [address] November, [facility] [address] [id number] [address] [place] [address], [place] [address] Sep, [facility] [place] [facility] [address] [id number] [address] [place] [address], [place] [address] Sep, [facility] [place] [facility] [address] [id number] [address] [place] [address], [place] [address] Sep, [facility] [place] [facility] [address] [id number] [address] [place] [address], [place] [address] Sep, [facility] [place] [facility] [address] [id number] [address] [place] [address], [place] [address] Jul, [facility] [place] [facility] [address] [id number] [address] [place] [address], [place] [address] Jul, [facility] [place] [facility] [address] [id number] [address] [place] [address], [place] [address] Jun, [facility] [place] [facility] [address] [id number] [address] [place] [address] [address] Jun, [facility] [address] [id number] [address] [place] [address], [place] [address] Jun, [facility] [address] [id number] [address] [place] [address], [place] [address] Jun, [facility] [address] [id number] [address] [place] [address], [place] [address] May, [facility] [address] [id number] [address] [place] [address], [place] [address] May, [facility] [address] [id number] [address] [place] [address], [place] [address] Apr, [facility] [address] [id number] [address] [place] [address], [place] [address] Apr, [facility] [address] [id number] [address] [place] [address], [place] [address] Apr, [facility] [address] [id number] [address] [place] [address], [place] [address] Mar, [facility] [address] [id number] [address] [place] [address], [place] [address] Mar, [facility] [address] [id number] [address] [place] [address], [place] [address] Mar, [facility] [address] [id number] [address] [place] [address], [place] [address] Feb, [facility] [place] [facility] [address] [id number] [address] [place] [address] Feb, [facility] [place] [facility] [address] [id number] [address] [place] [address], [place] [address] Jan, [facility] [place] [facility] [address] [id number] [address] [place] [address], [place] [address] November, [facility] [place] [facility] [address] [id number] [address] [place] [address], [place] [address] Oct, [facility] [address] [id number] [address] [place] [address], [place] [address] 29 Oct, 2012 [facility] [address] [id number] [address] [place] [address], [place] [address] Jul, [facility] [address] [id number] [address] [place] [address], [place] [address] Jul, [facility] [address] [id number] [address] [place] [address], [place] [address] Jul, [facility] [address] [id number] [address] [place] [address], [place] [address] Jul, [facility] [address] [id number] [address] [place] [address], [place] [address] Jul, [facility] [address] [id number] [address] [place] [address], [place] [address] Jul, [facility] [address] [id number] [address] [place] [address], [place] [address] Jul, [facility] [address] [id number] [address] [place] [address], [place] [address] Jul, [facility] [address] [id number] [address] [place] [address], [place] [address] Jun, [facility] [address] [id number] [address] [place] [address], [place] [address] Jun, [facility] [address] [id number] [address] [place] [address], [place] [address] Apr, [facility] [address] [id number] [address] [place] [address], [place] [address] Apr, [facility] [address] [id number] [address] [place] [address], [place] [address] Apr, [facility] [address] [id number] [address] [place] [address], [place] [address] Apr, [facility] [address] [id number] [address] [place] [address], [place] [address] Apr, [facility] [address] [id number] [address] [place] [address], [place] [address] Apr, [facility] [address] [id number] [address] [place] [address], [place] [address] Apr, [facility] [address] [id number] [address] [place] [address], [place] [address] Apr, [facility] [address] [id number] [address] [place] [address], [place] [address] Apr, [facility] [address] [id number] [address] [place] [address], [place] [address] Apr, [facility] [address] [id number] [address] [place] [address], [place] [address] Mar, [facility] [address] [id number] [address] [place] [address], [place] [address] Mar, [facility] [address] [id number] [address] [place] [address], [place] [address] Feb, [facility] [address] [id number] [address] [place] [address], [place] [address] Feb, [facility] [address] [id number] [address] [place] [address], [place] [address] Feb, [facility] [address] [id number] [address] [place] [address], [place] [address] Feb, [facility] [address] [id number] [address] [place] [address], [place] [address] Feb, [facility] [address] [id number] [address] [place] [address], [place] [address] Feb, [facility] [address] [id number] [address] [place] [address], [place] [address] Feb, [facility] [address] [id number] [address] [place] [address], [place] [address] 14 Feb, 2012 [facility] [address] [id number] [address] [place] [address] Feb, [facility] [address] [id number] [address] [place] [address] Feb, [facility] [address] [id number] [address] [place] [address] Jan, [facility] [address] [id number] [address] [place] [address] Jan, [facility] [address] [id number] [address] [place] [address] Jan, [facility] [address] [id number] [address] [place] [address] Jan, [facility] [address] [id number] [address] [place] [address] November, [facility] [address] [id number] [address] [place] [id number] Oct, [facility] [address] [id number] [address] [place] [address] Sep, [facility] [address] [id number] [address] [place] [address] Sep, [facility] [address] [id number] [address] [place] [address] Sep, [facility] [address] [id number] [address] [place] [address] Sep, IMMUNIZATIONS No Known Immunizations SOCIAL HISTORY [...] Hospitalization History stint in leg at via 2019
--- OUTSIDE RECORDS SUMMARY | 2019-09-18 04:45 | XMS REPORT ---
Author Author Ana, Dona Doctor Organization [facility] Address Unknown Phone Unavailable Care Team Providers Care Psychology Lecturer Name Role Phone Migration, Doctor Unavailable Unavailable PROBLEMS Type Condition ICD9-CM Code [id number] Code Onset Dates Condition S tatus SNOMED Code Problem Normal cardiac stress test Z13.6 Act alvarado 740585786 Problem Abnormal colonoscopy R93.3 Active 983812026 Problem Sleep apnea G47.30 Active 89586125 Problem Unilateral recurrent inguinal hernia without obs truction or gangrene K40.91 Active 63371120 Problem Cough R05 Active 79009454 Problem Establishing care with new doctor, encounter for Z 71.89 Active 250430806 Problem COPD (chronic obstructive pulmonary disease) J44.9 Active 94429777 Problem Gastroparesis K31.84 Active 886000 006 Problem Unilateral inguinal hernia w ithout obstruction or gangrene, recurrence not specified K40.90 Active 90067235 Problem GERD (gastroesophageal reflux disease) K21.9 Active 699074011 Problem Breast lesion N64.9 Active 544137 004 Problem Vaginal lesion N89.8 Active 00612 7005 Problem Hyperlipidemia, unspecified hyperlipidemia type E7 8.5 Active 82380981 Problem Stress incontinence in female N39.3 Active 83284046 Problem Hammertoe M20.40 Active 569860439 Problem Diabetes E11.9 Active 929728170 Problem Type 2 diabetes mellitus without complication E11. 9 Active 909608091 Problem Rotator cuff arthropathy of left shoulder M12.812 Active [id number] Problem Essential hypertension I10 Active 15976831 Problem Arterial stenosis I77.1 Active 68 617722 Problem Tobacco dependence F17.200 Active 8 0903871 Problem Hyperlipidemia E78.5 Active 99685 004 Problem Type 2 diabetes mellitus E11.9 Activ e 76965791 Problem Irritable bowel syndrome with diarrhea K58.0 Active 546225247 Problem Other chronic pain G89.29 Active 8 7433096 Problem PVD (peripheral vascular disease) I73.9 Active 036249028 ALLERGIES No Information ENCOUNTERS Encounter Location Date Diagnosis [facility] [address] [facility] [id number] [address] [place] [address] Mar, [facility] [address] [place] [id number] [address] [place] [address] Feb, [facility] [address] [facility] [id number] [address] [place] [address] Jan, Cervicalgia M54.2 ; Dysuria R30.0 ; Type 2 diabetes mellitus E11.9 and Essential hypertension I10 [facility] [address] [facility] [id number] [address] [place] [address] Jan, Essential hypertension I10 a nd Type 2 diabetes mellitus E11.9 [place] [address] [place] [id number] [address] [place] [address] Oct, Essential hypertension I10 [place] [address] [place] [id number] [address] [place] [address] Sep, Cramps, extremity R25.2 ; PV D (peripheral vascular disease) I73.9 ; Rotator cuff arthropathy of left shoulder M12.812 and Financial difficulties Z59.8 [facility] [address] [place] [id number] [address] [place] [address] 28 Aug, 2018 Rotator cuff arthropathy of left shoulder M12.812 [place] [id number] [place] [id number] [address] [place] [address] Aug, Arterial stenosis I77.1 [facility] [address] [place] [id number] [address] [place] [address] 13 Aug, 2018 [facility] [address] [place] [id number] [address] [place] [address] 04 Aug, 2018 Type 2 diabetes mellitus E11 .9 ; Left leg pain M79.605 ; Pain in left shoulder M25.512 ; Other chronic pain G89.29 ; Cramps, extremity R25.2 and Irritable bowel syndrome with diarrhea K58.0 [facility] [address] [facility] [id number] [address] [place] [address] Jul, Dysuria R30.0 and Acute uppe r respiratory infection J06.9 [place] [address] [address] Jul, Type 2 diabetes mellitus E11 .9 and Essential hypertension I10 [facility] [address] [address] Jun, [facility] [address] [address] Jun, Cough R05 and Acute pneumoni a J18.9 [place] [address] [address] Apr, Type 2 diabetes mellitus E11 .9 ; COPD (chronic obstructive pulmonary disease) J44.9 ; Essential hypertension I10 and Left leg pain M79.605 [place] [address] [address] Mar, Kaity vaginitis B37.3 [place] [address] [address] Jan, Chigger bites B88.0 [place] [address] [address] Dec, Type 2 diabetes mellitus wit hout complication E11.9 and Unilateral recurrent inguinal hernia without obstruction or gangrene K40.91 [place] [address] [place] [id number] [address] [place] [address] November, Essential hypertension I10 a nd Diabetes E11.9 [place] [address] [place] [id number] [address] [place] [address] Oct, [place] [address] [address] Sep, Diabetes E11.9 and Essential hypertension I10 [place] [address] [address] Aug, Diabetes E11.9 ; Viral upper respiratory tract infection J06.9 ; COPD (chronic obstructive pulmonary disease) J44.9 ; Essential hypertension I10 ; Unilateral recurrent inguinal hernia without obstruction or gangrene K40.91 ; Dysuria R30.0 ; Yeast infection of the vagina B37.3 and Vaginal itching L29.8 [facility] [address] [place] [id number] [address] [place] [address] Jul, Essential hypertension I10 a nd COPD (chronic obstructive pulmonary disease) J44.9 [facility] [address] [place] [id number] [address] [place] [address] Mar, Left lower quadrant pain R10 .32 ; Type 2 diabetes mellitus without complication E11.9 and Cardiac arrhythmia, unspecified cardiac arrhythmia type I49.9 [facility] [address] [place] [id number] [address] [place] [address] Oct, COPD (chronic obstructive pu lmonary disease) J44.9 ; Diabetes E11.9 and Mouth pain K13.79 [facility] [address] [place] [id number] [address] [place] [address] Sep, [facility] [address] [address] Sep, COPD (chronic obstructive pu lmonary disease) J44.9 ; Diabetes E11.9 and Mouth pain K13.79 [facility] [id number] [place] [address] Aug, Type 2 diabetes mellitus wit hout complication E11.9 [facility] [address] [place] [id number] [address] [place] [address] Aug, [facility] [address] [address] Aug, Type 2 diabetes mellitus wit hout complication E11.9 [facility] [address] [place] [id number] [address] [place] [address] Aug, Establishing care with reji harmon, encounter for Z71.89 ; Type 2 diabetes mellitus without complication E11.9 ; Essential hypertension I10 ; Cough R05 ; Hammertoe M20.40 and Sleep apnea G47.30 [place] [address] [address] Jul, [place] [address] [address] Jun, Vaginal lesion N89.8 [place] [address] [address] Jun, [place] [address] [address] Jun, Well woman exam Z01.419 ; Pa [...] in female N39.3 and Breast lesion N64.9 [place] [address] [address] May, Bronchitis J40 [address] [address] May, Routine adult health [facility] ance Z00.00 ; Essential hypertension I10 ; Hyperlipidemia E78.5 ; COPD (chronic obstructive pulmonary disease) J44.9 ; Unilateral recurrent inguinal hernia without obstruction or gangrene K40.91 and Type 2 diabetes mellitus without complication E11.9 [place] [address] [address] Oct, [place] [address] [address] Oct, [place] [address] [address] Sep, [facility] [address] [id number] [address] [place] [address], [place] [address] Sep, [facility] [address] [id number] [address] [place] [address], [place] [address] Sep, [facility] [address] [id number] [address] [place] [address], [place] [address] Sep, [facility] [address] [id number] [address] [place] [address], [place] [address] Aug, [facility] [address] [id number] [address] [place] [address], [place] [address] Aug, [facility] [address] [id number] [address] [place] [address], [place] [address] Jul, [facility] [address] [id number] [address] [place] [address], [place] [address] Jul, [facility] [address] [id number] [address] [place] [address], [place] [address] Jun, [facility] [address] [id number] [address] [place] [address], [place] [address] Jun, [facility] [address] [id number] [address] [place] [address], [place] [address] Jun, [facility] [address] [id number] [address] [place] [address], [place] [address] Jun, [facility] [address] [id number] [address] [place] [address], [place] [address] Jun, [facility] [address] [id number] [address] [place] [address], [place] [address] Mar, [facility] [address] [id number] [address] [place] [address], [place] [address] Mar, [facility] [address] [id number] [address] [place] [address], [place] [address] Feb, [facility] [address] [id number] [facility] [address] Feb, [facility] [address] [id number] [address] [place] [address], [place] [address] Feb, [facility] [address] [id number] [address] [place] [address], [place] [address] Feb, [facility] [address] [id number] [address] [place] [address], [place] [address] Dec, [facility] [address] [id number] [address] [place] [address], [place] [address] Dec, [facility] [address] [id number] [address] [place] [address], [place] [address] November, [facility] [address] [id number] [address] [place] [address], [place] [address] November, [facility] [address] [id number] [address] [place] [address], [place] [address] November, [facility] [address] [id number] [address] [place] [address], [place] [address] November, [facility] [address] [id number] [address] [place] [address], [place] [address] Sep, [facility] [address] [id number] [address] [place] [address], [place] [address] Sep, [facility] [address] [id number] [address] [place] [address], [place] [address] Sep, [facility] [address] [id number] [address] [place] [address], [place] [address] Sep, [facility] [address] [id number] [address] [place] [address], [place] [address] Jul, [facility] [address] [id number] [address] [place] [address], [place] [address] Jul, [facility] [address] [id number] [address] [place] [address] [address] Jun, [facility] [address] [id number] [address] [place] [address], [place] [address] Jun, [facility] [address] [id number] [address] [place] [address], [place] [address] Jun, [facility] [address] [id number] [address] [place] [address], [place] [address] Jun, [facility] [address] [id number] [address] [place] [address], [place] [address] May, [facility] [address] [id number] [address] [place] [address], [place] [address] May, [facility] [address] [id number] [address] [place] [address], [place] [address] Apr, [facility] [address] [id number] [address] [place] [address], [place] [address] Apr, [facility] [address] [id number] [address] [place] [address], [place] [address] Apr, [facility] [address] [id number] [address] [place] [address], [place] [address] Mar, [facility] [address] [id number] [address] [place] [address], [place] [address] Mar, [facility] [address] [id number] [address] [place] [address] Mar, [facility] [address] [id number] [address] [place] [address] Feb, [facility] [address] [id number] [address] [place] [address], [place] [address] Feb, [facility] [address] [id number] [address] [place] [address] Jan, [facility] [address] [id number] [address] [place] [address], [place] [address] November, [facility] [address] [id number] [address] [place] [address], [place] [address] 30 Oct, 2012 [facility] [address] [id number] [address] [place] [address], [place] [address] Oct, [facility] [address] [id number] [address] [place] [address], [place] [address] Jul, [facility] [address] [id number] [address] [place] [address], [place] [address] Jul, [facility] [address] [id number] [address] [place] [address], [place] [address] 24 Jul, 2012 [facility] [address] [id number] [address] [place] [address], [place] [address] Jul, [facility] [address] [id number] [address] [place] [address], [place] [address] 15 Jul, 2012 [facility] [address] [id number] [address] [place] [address], [place] [address] 14 Jul, 2012 [facility] [address] [id number] [address] [place] [address], [place] [address] Jul, [facility] [address] [id number] [address] [place] [address], [place] [address] Jul, [facility] [address] [id number] [address] [place] [address], [place] [address] Jun, [facility] [address] [id number] [address] [place] [address], [place] [address] Jun, [facility] [address] [id number] [address] [place] [address], [place] [address] Apr, [facility] [address] [id number] [address] [place] [address], [place] [address] Apr, [facility] [address] [id number] [address] [place] [address], [place] [address] Apr, [facility] [address] [id number] [address] [place] [address], [place] [address] Apr, [facility] [address] [id number] [address] [place] [address], [place] [address] Apr, [facility] [address] [id number] [address] [place] [address], [place] [address] Apr, [facility] [address] [id number] [address] [place] [address], [place] [address] Apr, [facility] [address] [id number] [address] [place] [address], [place] [address] Apr, [facility] [address] [id number] [address] [place] [address], [place] [address] Apr, [facility] [address] [id number] [address] [place] [address], [place] [address] Apr, [facility] [address] [id number] [address] [place] [address], [place] [address] Mar, [facility] [address] [id number] [address] [place] [address], [place] [address] Mar, [facility] [address] [id number] [address] [place] [address], [place] [address] Feb, [facility] [address] [id number] [address] [place] [address], [place] [address] Feb, [facility] [address] [id number] [address] [place] [address], [place] [address] Feb, [facility] [address] [id number] [address] [place] [address], [place] [address] Feb, [facility] [address] [id number] [address] [place] [address], [place] [address] Feb, [facility] [address] [id number] [address] [place] [address], [place] [address] Feb, [facility] [address] [id number] [address] [place] [address], [place] [address] Feb, [facility] [address] [id number] [address] [place] [address] Feb, [facility] [address] [id number] [address] [place] [address] Feb, [facility] [address] [id number] [address] [place] [address] Feb, [facility] [address] [id number] [address] [place] [address] Jan, [facility] [address] [id number] [address] [place] [address] Jan, [facility] [address] [id number] [address] [place] [address] Jan, [facility] [address] [id number] [address] [place] [address] Jan, [facility] [address] [id number] [address] [place] [address] November, [facility] [address] [id number] [address] [place] [address] Oct, [facility] [address] [id number] [address] [place] [address] Sep, [facility] [address] [id number] [address] [place] [address] Sep, [facility] [address] [id number] [address] [place] [address] Sep, [facility] [address] [id number] [address] [place] [address] Sep, IMMUNIZATIONS No Known Immunizations SOCIAL HISTORY Never Assessed REASON FOR VISIT PLAN OF CARE VITAL SIGNS Height 64 in 2014-03-11 Weight 175 lbs 2014-03-11 Temperature 98 degrees Fahrenheit 2014-03-11 Heart Rate 92 bpm 2014-03-11 Respiratory Rate 18 2014-03-11 Blood pressure systolic 160 mmHg 2014-03-11 Blood pressure diastolic 80 mmHg 2014-03-11 MEDICATIONS Unknown Medications RESULTS No Results PROCEDURES Procedure Date Ordered Result Body Site GLYCATED HEMOGLOBIN TEST Mar 11, 2014 INSTRUCTIONS MEDICATIONS ADMINISTERED No Known Medications MEDICAL [...]
--- OUTSIDE RECORDS SUMMARY | 2019-09-18 04:45 | XMS REPORT ---
Author Author Ana, Dona Doctor Organization [facility] Address Unknown Phone Unavailable Care Team Providers Care Web Designer Name Role Phone Migration, Doctor Unavailable Unavailable PROBLEMS Type Condition ICD9-CM Code [id number] Code Onset Dates Condition S tatus SNOMED Code Problem Normal cardiac stress test Z13.6 Act alvarado 752199119 Problem Abnormal colonoscopy R93.3 Active 733365247 Problem Sleep apnea G47.30 Active 30465733 Problem Unilateral recurrent inguinal hernia without obs truction or gangrene K40.91 Active 07105051 Problem Cough R05 Active 56662163 Problem Establishing care with new doctor, encounter for Z 71.89 Active 274387895 Problem COPD (chronic obstructive pulmonary disease) J44.9 Active 00860589 Problem Gastroparesis K31.84 Active 064727 006 Problem Unilateral inguinal hernia w ithout obstruction or gangrene, recurrence not specified K40.90 Active 06424145 Problem GERD (gastroesophageal reflux disease) K21.9 Active 889300832 Problem Breast lesion N64.9 Active 231829 004 Problem Vaginal lesion N89.8 Active 25792 7005 Problem Hyperlipidemia, unspecified hyperlipidemia type E7 8.5 Active 15725306 Problem Stress incontinence in female N39.3 Active 25170930 Problem Hammertoe M20.40 Active 910727685 Problem Diabetes E11.9 Active 409754964 Problem Type 2 diabetes mellitus without complication E11. 9 Active 149105738 Problem Rotator cuff arthropathy of left shoulder M12.812 Active [id number] Problem Essential hypertension I10 Active 33198544 Problem Arterial stenosis I77.1 Active 68 396544 Problem Tobacco dependence F17.200 Active 8 7275665 Problem Hyperlipidemia E78.5 Active 98380 004 Problem Type 2 diabetes mellitus E11.9 Activ e 04422284 Problem Irritable bowel syndrome with diarrhea K58.0 Active 584775285 Problem Other chronic pain G89.29 Active 8 4829382 Problem PVD (peripheral vascular disease) I73.9 Active 914826510 ALLERGIES No Information ENCOUNTERS Encounter Location Date Diagnosis [facility] [address] [address] Mar, [place] [address] [address] Jan, Cervicalgia M54.2 ; Dysuria R30.0 ; Type 2 diabetes mellitus E11.9 and Essential hypertension I10 [place] [address] [address] Jan, Essential hypertension I10 a nd Type 2 diabetes mellitus E11.9 [place] [address] [address] Oct, Essential hypertension I10 [place] [address] [address] Sep, Cramps, extremity R25.2 ; PV D (peripheral vascular disease) I73.9 ; Rotator cuff arthropathy of left shoulder M12.812 and Financial difficulties Z59.8 [place] [address] [address] Aug, Rotator cuff arthropathy of left shoulder M12.812 [place] [address] [address] 19 Aug, 2018 Arterial stenosis I77.1 [place] [address] [address] Aug, [place] [address] [address] 04 Aug, 2018 Type 2 diabetes mellitus E11 .9 ; Left leg pain M79.605 ; Pain in left shoulder M25.512 ; Other chronic pain G89.29 ; Cramps, extremity R25.2 and Irritable bowel syndrome with diarrhea K58.0 [facility] [address] [place] [id number] [place] [address] Jul, Dysuria R30.0 and Acute uppe r respiratory infection J06.9 [place] [address] [place] [id number] [address] [place] [address] Jul, Type 2 diabetes mellitus E11 .9 and Essential hypertension I10 [facility] [address] [place] [id number] [address] [place] [address] Jun, [facility] [address] [place] [id number] [address] [place] [address] Jun, Cough R05 and Acute pneumoni a J18.9 [place] [address] [place] [id number] [place] [address] Apr, Type 2 diabetes mellitus E11 .9 ; COPD (chronic obstructive pulmonary disease) J44.9 ; Essential hypertension I10 and Left leg pain M79.605 [place] [address] [place] [id number] [address] [place] [address] 14 Mar, 2018 Kaity vaginitis B37.3 [place] [address] [address] Jan, Chigger bites B88.0 [place] [address] [place] [id number] [place] [address] Dec, Type 2 diabetes mellitus wit hout complication E11.9 and Unilateral recurrent inguinal hernia without obstruction or gangrene K40.91 [place] [address] [place] [id number] [place] [address] November, Essential hypertension I10 a nd Diabetes E11.9 [place] [address] [place] [id number] [place] [address] Oct, [place] [address] [place] [id number] [place] [address] Sep, Diabetes E11.9 and Essential hypertension I10 [place] [address] [place] [id number] [place] [address] 05 Aug, 2017 Diabetes E11.9 ; Viral upper respiratory tract infection J06.9 ; COPD (chronic obstructive pulmonary disease) J44.9 ; Essential hypertension I10 ; Unilateral recurrent inguinal hernia without obstruction or gangrene K40.91 ; Dysuria R30.0 ; Yeast infection of the vagina B37.3 and Vaginal itching L29.8 [facility] [address] [address] Jul, Essential hypertension I10 a nd COPD (chronic obstructive pulmonary disease) J44.9 [facility] [address] [address] Mar, Left lower quadrant pain R10 .32 ; Type 2 diabetes mellitus without complication E11.9 and Cardiac arrhythmia, unspecified cardiac arrhythmia type I49.9 [place] [address] [address] Oct, COPD (chronic obstructive pu lmonary disease) J44.9 ; Diabetes E11.9 and Mouth pain K13.79 [place] [address] [address] Sep, [facility] [address] [address] Sep, COPD (chronic obstructive pu lmonary disease) J44.9 ; Diabetes E11.9 and Mouth pain K13.79 [facility] [address] [address] Aug, Type 2 diabetes mellitus wit hout complication E11.9 [facility] [address] [address] Aug, [place] [address] [address] Aug, Type 2 diabetes mellitus wit hout complication E11.9 [place] [address] [address] Aug, Establishing care with reji harmon, encounter for Z71.89 ; Type 2 diabetes mellitus without complication E11.9 ; Essential hypertension I10 ; Cough R05 ; Hammertoe M20.40 and Sleep apnea G47.30 [facility] [address] [place] [address] Jul, [facility] [address] [address] Jun, Vaginal lesion N89.8 [place] [address] [address] Jun, [place] [address] [address] Jun, Well woman exam Z01.419 ; Pa [...] in female N39.3 and Breast lesion N64.9 [place] [address] [place] [id number] [place] [address] May, Bronchitis J40 [place] [address] [place] [id number] [place] [address] 11 May, 2015 Routine [facility] ance Z00.00 ; Essential hypertension I10 ; Hyperlipidemia E78.5 ; COPD (chronic obstructive pulmonary disease) J44.9 ; Unilateral recurrent inguinal hernia without obstruction or gangrene K40.91 and Type 2 diabetes mellitus without complication E11.9 [place] [address] [place] [address] Oct, [place] [address] [address] Oct, [place] [address] [place] [id number] [place] [address] Sep, [place] [address] [address] Sep, [facility] [address] [id number] [address] [place] [address], [place] [address] Sep, [facility] [address] [id number] [address] [place] [address], [place] [address] Sep, [facility] [address] [id number] [address] [place] [address], [place] [address] Aug, [facility] [address] [id number] [address] [place] [address], [place] [address] Aug, [facility] [address] [id number] [address] [place] [address], [place] [address] Jul, [facility] [address] [id number] [address] [place] [address], [place] [address] Jul, [facility] [address] [id number] [address] [place] [address], [place] [address] Jun, [facility] [address] [id number] [address] [place] [address], [place] [address] Jun, [facility] [address] [id number] [address] [place] [address], [place] [address] Jun, [facility] [address] [id number] [address] [place] [address], [place] [address] Jun, [facility] [address] [id number] [address] [place] [address], [place] [address] Jun, [facility] [address] [id number] [address] [place] [address], [place] [address] Mar, [facility] [address] [id number] [address] [place] [address], [place] [address] Mar, [facility] [address] [id number] [address] [place] [address], [place] [address] Feb, [facility] [address] [id number] [address] [place] [address], [place] [address] Feb, [facility] [address] [id number] [facility] [place] [address] Feb, [facility] [address] [id number] [address] [place] [address], [place] [address] Feb, [facility] [address] [id number] [address] [place] [address], [place] [address] Dec, [facility] [address] [id number] [address] [place] [address], [place] [address] Dec, [facility] [address] [id number] [address] [place] [address], [place] [address] November, [facility] [address] [id number] [address] [place] [address], [place] [address] November, [facility] [address] [id number] [address] [place] [address], [place] [address] November, [facility] [address] [id number] [address] [place] [address], [place] [address] November, [facility] [address] [id number] [address] [place] [address], [place] [address] Sep, [facility] [address] [id number] [address] [place] [address], [place] [address] Sep, [facility] [address] [id number] [address] [place] [address], [place] [address] Sep, [facility] [address] [id number] [address] [place] [address], [place] [address] Sep, [facility] [address] [id number] [address] [place] [address], [place] [address] Jul, [facility] [address] [id number] [address] [place] [address], [place] [address] Jul, [facility] [address] [id number] [address] [place] [address], [place] [address] Jun, [facility] [address] [id number] [address] [place] [address] [address] Jun, [facility] [address] [id number] [address] [place] [address], [place] [address] Jun, [facility] [address] [id number] [address] [place] [address], [place] [address] Jun, [facility] [address] [id number] [address] [place] [address], [place] [address] May, [facility] [address] [id number] [address] [place] [address], [place] [address] May, [facility] [address] [id number] [address] [place] [address], [place] [address] Apr, [facility] [address] [id number] [address] [place] [address], [place] [address] Apr, [facility] [address] [id number] [address] [place] [address], [place] [address] Apr, [facility] [address] [id number] [address] [place] [address], [place] [address] Mar, [facility] [address] [id number] [address] [place] [address], [place] [address] Mar, [facility] [address] [id number] [address] [place] [address], [place] [address] Mar, [facility] [address] [id number] [address] [place] [address], [place] [address] Feb, [facility] [address] [id number] [address] [place] [address] Feb, [facility] [address] [id number] [address] [place] [address], [place] [address] Jan, [facility] [address] [id number] [address] [place] [address], [place] [address] November, [facility] [address] [id number] [address] [place] [address], [place] [address] Oct, [facility] [address] [id number] [address] [place] [address], [place] [address] 29 Oct, 2012 [facility] [address] [id number] [address] [place] [address], [place] [address] Jul, [facility] [address] [id number] [address] [place] [address], [place] [address] Jul, [facility] [address] [id number] [address] [place] [address], [place] [address] Jul, [facility] [address] [id number] [address] [place] [address], [place] [address] Jul, [facility] [address] [id number] [address] [place] [address], [place] [address] Jul, [facility] [address] [id number] [address] [place] [address], [place] [address] Jul, [facility] [address] [id number] [address] [place] [address], [place] [address] Jul, [facility] [address] [id number] [address] [place] [address], [place] [address] Jul, [facility] [address] [id number] [address] [place] [address], [place] [address] Jun, [facility] [address] [id number] [address] [place] [address], [place] [address] Jun, [facility] [address] [id number] [address] [place] [address], [place] [address] Apr, [facility] [address] [id number] [address] [place] [address], [place] [address] Apr, [facility] [address] [id number] [address] [place] [address], [place] [address] Apr, [facility] [address] [id number] [address] [place] [address], [place] [address] Apr, [facility] [address] [id number] [address] [place] [address], [place] [address] Apr, [facility] [address] [id number] [address] [place] [address], [place] [address] Apr, [facility] [address] [id number] [address] [place] [address], [place] [address] Apr, [facility] [address] [id number] [address] [place] [address], [place] [address] Apr, [facility] [address] [id number] [address] [place] [address], [place] [address] Apr, [facility] [address] [id number] [address] [place] [address], [place] [address] Apr, [facility] [address] [id number] [address] [place] [address], [place] [address] Mar, [facility] [address] [id number] [address] [place] [address], [place] [address] Mar, [facility] [address] [id number] [address] [place] [address], [place] [address] Feb, [facility] [address] [id number] [address] [place] [address], [place] [address] Feb, [facility] [address] [id number] [address] [place] [address], [place] [address] Feb, [facility] [address] [id number] [address] [place] [address], [place] [address] Feb, [facility] [address] [id number] [address] [place] [address], [place] [address] Feb, [facility] [address] [id number] [address] [place] [address], [place] [address] Feb, [facility] [address] [id number] [address] [place] [address], [place] [address] Feb, [facility] [address] [id number] [address] [place] [address], [place] [address] 14 Feb, 2012 [facility] [address] [id number] [address] [place] [address] Feb, [facility] [address] [id number] [address] [place] [address] Feb, [facility] [address] [id number] [address] [place] [address] Jan, [facility] [address] [id number] [address] [place] [address] Jan, [facility] [address] [id number] [address] [place] [address] Jan, [facility] [address] [id number] [address] [place] [address] Jan, [facility] [address] [id number] [address] [place] [address] November, [facility] [address] [id number] [address] [place] [address] Oct, [facility] [address] [id number] [address] [place] [address] Sep, [facility] [address] [id number] [address] [place] [address] Sep, [facility] [address] [id number] [address] [place] [address] Sep, [facility] [address] [id number] [address] [place] [address] Sep, IMMUNIZATIONS No Known Immunizations SOCIAL HISTORY Never Assessed REASON FOR VISIT PLAN OF CARE VITAL SIGNS MEDICATIONS Unknown Medications RESULTS No Results PROCEDURES Procedure Date Ordered Result Body Site CT THORAX W/O DYE Aug 06, 2014 INSTRUCTIONS MEDICATIONS ADMINISTERED No Known Medications [...]
--- OUTSIDE RECORDS SUMMARY | 2019-09-18 04:45 | XMS REPORT ---
Author Author Ana, Dona Doctor Organization [facility] Address Unknown Phone Unavailable Care Team Providers Care Shaker Tender Name Role Phone Migration, Doctor Unavailable Unavailable PROBLEMS Type Condition ICD9-CM Code LTZ63-KL Code Onset Dates Condition S tatus SNOMED Code Problem Normal cardiac stress test Z13.6 Act alvarado 041179419 Problem Abnormal colonoscopy R93.3 Active 747091991 Problem Sleep apnea G47.30 Active 58518136 Problem Unilateral recurrent inguinal hernia without obs truction or gangrene K40.91 Active 84850923 Problem Cough R05 Active 04717947 Problem Establishing care with new doctor, encounter for Z 71.89 Active 622255533 Problem COPD (chronic obstructive pulmonary disease) J44.9 Active 03046467 Problem Gastroparesis K31.84 Active 607345 006 Problem Unilateral inguinal hernia w ithout obstruction or gangrene, recurrence not specified K40.90 Active 12586658 Problem GERD (gastroesophageal reflux disease) K21.9 Active 363748508 Problem Breast lesion N64.9 Active 643259 004 Problem Vaginal lesion N89.8 Active 46547 7005 Problem Hyperlipidemia, unspecified hyperlipidemia type E7 8.5 Active 74478827 Problem Stress incontinence in female N39.3 Active 57319227 Problem Hammertoe M20.40 Active 127256358 Problem Diabetes E11.9 Active 045710415 Problem Type 2 diabetes mellitus without complication E11. 9 Active 410254906 Problem Rotator cuff arthropathy of left shoulder M12.812 Active [id number] Problem Essential hypertension I10 Active 39437097 Problem Arterial stenosis I77.1 Active 68 383220 Problem Tobacco dependence F17.200 Active 8 4179397 Problem Hyperlipidemia E78.5 Active 79457 004 Problem Type 2 diabetes mellitus E11.9 Activ e 89743858 Problem Irritable bowel syndrome with diarrhea K58.0 Active 842242570 Problem Other chronic pain G89.29 Active 8 2725958 Problem PVD (peripheral vascular disease) I73.9 Active 569812857 ALLERGIES No Information ENCOUNTERS Encounter Location Date Diagnosis [facility] [address] [facility] [id number] [address] [place] [address] Jan, [place] [address] [address] Jan, Essential hypertension I10 a nd Type 2 diabetes mellitus E11.9 [place] [address] [address] [place] [id number] [address] [place] [address] Oct, Essential hypertension I10 [place] [address] [address] Sep, Cramps, extremity R25.2 ; PV D (peripheral vascular disease) I73.9 ; Rotator cuff arthropathy of left shoulder M12.812 and Financial difficulties Z59.8 [place] [address] [place] [id number] [place] [address] Aug, Rotator cuff arthropathy of left shoulder M12.812 [place] [address] [address] Aug, Arterial stenosis I77.1 [place] [address] [place] [address] Aug, [place] [address] [place] [id number] [place] [address] Aug, Type 2 diabetes mellitus E11 .9 ; Left leg pain M79.605 ; Pain in left shoulder M25.512 ; Other chronic pain G89.29 ; Cramps, extremity R25.2 and Irritable bowel syndrome with diarrhea K58.0 [facility] [address] [facility] [id number] [address] [place] [address] Jul, Dysuria R30.0 and Acute uppe r respiratory infection J06.9 [facility] [address] [place] [id number] [address] [place] [address] Jul, Type 2 diabetes mellitus E11 .9 and Essential hypertension I10 [facility] [address] [place] [id number] [address] [place] [address] Jun, [facility] [address] [place] [address] Jun, Cough R05 and Acute pneumoni a J18.9 [place] [address] [place] [id number] [address] [place] [address] Apr, Type 2 diabetes mellitus E11 .9 ; COPD (chronic obstructive pulmonary disease) J44.9 ; Essential hypertension I10 and Left leg pain M79.605 [place] [address] [address] [place] [id number] [address] [place] [address] Mar, Kaity vaginitis B37.3 [place] [address] [address] Jan, Chigger bites B88.0 [place] [address] [address] Dec, Type 2 diabetes mellitus wit hout complication E11.9 and Unilateral recurrent inguinal hernia without obstruction or gangrene K40.91 [place] [address] [address] November, Essential hypertension I10 a nd Diabetes E11.9 [place] [address] [address] [place] [id number] [address] [place] [address] Oct, [place] [address] [address] Sep, Diabetes E11.9 and Essential hypertension I10 [place] [address] [address] Aug, Diabetes E11.9 ; Viral upper respiratory tract infection J06.9 ; COPD (chronic obstructive pulmonary disease) J44.9 ; Essential hypertension I10 ; Unilateral recurrent inguinal hernia without obstruction or gangrene K40.91 ; Dysuria R30.0 ; Yeast infection of the vagina B37.3 and Vaginal itching L29.8 [facility] [address] [place] [id number] [address] [place] [address] Jul, Essential hypertension I10 a nd COPD (chronic obstructive pulmonary disease) J44.9 [place] [place] [id number] [address] [place] [address] Mar, Left lower quadrant pain R10 .32 ; Type 2 diabetes mellitus without complication E11.9 and Cardiac arrhythmia, unspecified cardiac arrhythmia type I49.9 [place] [address] [place] [id number] [address] [place] [address] Oct, COPD (chronic obstructive pu lmonary disease) J44.9 ; Diabetes E11.9 and Mouth pain K13.79 [place] [address] [place] [id number] [address] [place] [address] Sep, [place] [address] [place] [id number] [address] [place] [address] Sep, COPD (chronic obstructive pu lmonary disease) J44.9 ; Diabetes E11.9 and Mouth pain K13.79 [place] [address] [place] [id number] [address] [place] [address] Aug, Type 2 diabetes mellitus wit hout complication E11.9 [place] [address] [place] [id number] [address] [place] [address] Aug, [place] [address] [place] [id number] [address] [place] [address] Aug, Type 2 diabetes mellitus wit hout complication E11.9 [place] [address] [place] [id number] [address] [place] [address] Aug, Establishing care with reji harmon, encounter for Z71.89 ; Type 2 diabetes mellitus without complication E11.9 ; Essential hypertension I10 ; Cough R05 ; Hammertoe M20.40 and Sleep apnea G47.30 [place] [address] [facility] [id number] [address] [place] [address] Jul, [place] [address] [place] [id number] [address] [place] [address] Jun, Vaginal lesion N89.8 [facility] [address] [place] [address] Jun, [place] [address] [place] [id number] [address] [place] [address] Jun, Well woman exam Z01.419 ; Pa [...] in female N39.3 and Breast lesion N64.9 [place] [address] [place] [id number] [address] [place] [address] May, Bronchitis J40 [place] [address] [address] May, Routine adult health mainten ance Z00.00 ; Essential hypertension I10 ; Hyperlipidemia E78.5 ; COPD (chronic obstructive pulmonary disease) J44.9 ; Unilateral recurrent inguinal hernia without obstruction or gangrene K40.91 and Type 2 diabetes mellitus without complication E11.9 [place] [address] [place] [id number] [address] [place] [address] Oct, [place] [address] [place] [id number] [address] [place] [address] Oct, [place] [address] [place] [id number] [address] [place] [address] Sep, [place] [address] [place] [id number] [address] [place] [address] Sep, [place] [address] [place] [id number] [address] [place] [address] Sep, [place] [address] [place] [id number] [address] [place] [address], [place] [address] Sep, [facility] [address] [id number] [address] [place] [address], [place] [address] Aug, [facility] [address] [id number] [address] [place] [address], [place] [address] Aug, [facility] [address] [id number] [address] [place] [address], [place] [address] Jul, [facility] [address] [id number] [address] [place] [address], [place] [address] Jul, [facility] [address] [id number] [address] [place] [address], [place] [address] Jun, [facility] [address] [id number] [address] [place] [address], [place] [address] Jun, [facility] [address] [id number] [address] [place] [address], [place] [address] Jun, [facility] [address] [id number] [address] [place] [address], [place] [address] Jun, [facility] [address] [id number] [address] [place] [address], [place] [address] Jun, [facility] [address] [id number] [address] [place] [address], [place] [address] Mar, [facility] [address] [id number] [address] [place] [address], [place] [address] Mar, [facility] [address] [id number] [address] [place] [address], [place] [address] Feb, [facility] [address] [id number] [address] [place] [address], [place] [address] Feb, [facility] [address] [id number] [address] [place] [address], [place] [address] Feb, [facility] [address] [id number] [address] [place] [address], [place] [address] Feb, [facility] [address] [id number] [address] [place] [address], [place] [address] Dec, [facility] [address] [id number] [address] [place] [address], [place] [address] Dec, [facility] [address] [id number] [address] [place] [address], [place] [address] November, [facility] [address] [id number] [address] [place] [address], [place] [address] November, [facility] [address] [id number] [address] [place] [address], [place] [address] November, [facility] [address] [id number] [address] [place] [address], [place] [address] November, [facility] [address] [id number] [address] [place] [address], [place] [address] Sep, [facility] [address] [id number] [address] [place] [address], [place] [address] Sep, [facility] [address] [id number] [address] [place] [address], [place] [address] Sep, [facility] [address] [id number] [address] [place] [address], [place] [address] Sep, [facility] [address] [id number] [address] [place] [address], [place] [address] Jul, [facility] [address] [id number] [address] [place] [address], [place] [address] Jul, [facility] [address] [id number] [address] [place] [address], [place] [address] Jun, [facility] [address] [id number] [address] [place] [address], [place] [address] Jun, [facility] [address] [id number] [address] [place] [address], [place] [address] Jun, [facility] [address] [id number] [address] [place] [address] Jun, [facility] [address] [id number] [address] [place] [address], [place] [address] May, [facility] [address] [id number] [address] [place] [address] May, [facility] [address] [id number] [address] [place] [address], [place] [address] Apr, [facility] [address] [id number] [address] [place] [address], [place] [address] Apr, [facility] [address] [id number] [address] [place] [address], [place] [address] Apr, [facility] [address] [id number] [address] [place] [address], [place] [address] Mar, [facility] [address] [id number] [address] [place] [address], [place] [address] Mar, [facility] [address] [id number] [address] [place] [address], [place] [address] Mar, [facility] [address] [id number] [address] [place] [address], [place] [address] Feb, [facility] [address] [id number] [address] [place] [address], [place] [address] Feb, [facility] [address] [id number] [address] [place] [address], [place] [address] Jan, [facility] [address] [id number] [address] [place] [address], [place] [address] November, [facility] [address] [id number] [address] [place] [address], [place] [address] Oct, [facility] [address] [id number] [address] [place] [address], [place] [address] Oct, [facility] [address] [id number] [address] [place] [address], [place] [address] Jul, [facility] [address] [id number] [address] [place] [address], [place] [address] 29 Jul, 2012 [facility] [address] [id number] [address] [place] [address], [place] [address] Jul, [facility] [address] [id number] [address] [place] [address], [place] [address] Jul, [facility] [address] [id number] [address] [place] [address], [place] [address] 15 Jul, 2012 [facility] [address] [id number] [address] [place] [address], [place] [address] 14 Jul, 2012 [facility] [address] [id number] [address] [place] [address], [place] [address] Jul, [facility] [address] [id number] [address] [place] [address], [place] [address] Jul, [facility] [address] [id number] [address] [place] [address], [place] [address] Jun, [facility] [address] [id number] [address] [place] [address], [place] [address] Jun, [facility] [address] [id number] [address] [place] [address], [place] [address] Apr, [facility] [address] [id number] [address] [place] [address], [place] [address] Apr, [facility] [address] [id number] [address] [place] [address], [place] [address] Apr, [facility] [address] [id number] [address] [place] [address], [place] [address] Apr, [facility] [address] [id number] [address] [place] [address], [place] [address] Apr, [facility] [address] [id number] [address] [place] [address], [place] [address] Apr, [facility] [address] [id number] [address] [place] [address], [place] [address] Apr, [facility] [address] [id number] [address] [place] [address], [place] [address] Apr, [facility] [address] [id number] [address] [place] [address], [place] [address] Apr, [facility] [address] [id number] [address] [place] [address], [place] [address] Apr, [facility] [address] [id number] [address] [place] [address], [place] [address] Mar, [facility] [address] [id number] [address] [place] [address], [place] [address] Mar, [facility] [address] [id number] [address] [place] [address], [place] [address] Feb, [facility] [address] [id number] [address] [place] [address], [place] [address] Feb, [facility] [address] [id number] [address] [place] [address], [place] [address] Feb, [facility] [address] [id number] [address] [place] [address], [place] [address] Feb, [facility] [address] [id number] [address] [place] [address], [place] [address] Feb, [facility] [address] [id number] [address] [place] [address], [place] [address] Feb, [facility] [address] [id number] [address] [place] [address], [place] [address] Feb, [facility] [address] [id number] [address] [place] [address], [place] [address] Feb, [facility] [address] [id number] [address] [place] [address], [place] [address] Feb, [facility] [address] [id number] [address] [place] [address], [place] [address] Feb, [facility] [address] [id number] [address] [place] [address] 30 Jan, 2012 [facility] [address] [id number] [address] [place] [address] Jan, [facility] [address] [id number] [address] [place] [address] Jan, [facility] [address] [id number] [address] [place] [address] Jan, [facility] [address] [id number] [address] [place] [address] November, [facility] [address] [id number] [address] [place] [address] Oct, [facility] [address] [facility] [id number] [address] [place] [address] Sep, [facility] [address] [facility] [id number] [address] [place] [address] Sep, [facility] [address] [id number] [address] [place] [address] Sep, [facility] [address] [facility] [id number] [address] [place] [address] Sep, IMMUNIZATIONS No Known Immunizations SOCIAL HISTORY [...] Surgical History left spigelian hernia repair 05/2018 Hospitalization History Surgery and OB deliveries only Hospitalization History Overnight Monitoring for sarahi n management of abdominal hernia 2014
--- OUTSIDE RECORDS SUMMARY | 2019-09-18 04:46 | XMS REPORT ---
Author Author Dona JOSUE Organization [facility] Address [address] [place] [address] Care Team Providers Care Test Desk Trouble Locator Name Role Phone MERARY JOSUE Unavailable PROBLEMS Type Condition ICD9-CM Code [id number] Code Onset Dates Condition S tatus SNOMED Code Problem Normal cardiac stress test Z13.6 Act alvarado 842843369 Problem Abnormal colonoscopy R93.3 Active 951040440 Problem Sleep apnea G47.30 Active 53417304 Problem Unilateral recurrent inguinal hernia without obs truction or gangrene K40.91 Active 39694527 Problem Cough R05 Active 84603126 Problem Establishing care with new doctor, encounter for Z 71.89 Active 472326012 Problem COPD (chronic obstructive pulmonary disease) J44.9 Active 84181968 Problem Gastroparesis K31.84 Active 603379 006 Problem Unilateral inguinal hernia w ithout obstruction or gangrene, recurrence not specified K40.90 Active 09695057 Problem GERD (gastroesophageal reflux disease) K21.9 Active 785669801 Problem Breast lesion N64.9 Active 895979 004 Problem Vaginal lesion N89.8 Active 61712 7005 Problem Hyperlipidemia, unspecified hyperlipidemia type E7 8.5 Active 29613314 Problem Stress incontinence in female N39.3 Active 22451577 Problem Hammertoe M20.40 Active 237767179 Problem Diabetes E11.9 Active 977995684 Problem Type 2 diabetes mellitus without complication E11. 9 Active 754948075 Problem Rotator cuff arthropathy of left shoulder M12.812 Active 53818745842890216 Problem Essential hypertension I10 Active 93533001 Problem Arterial stenosis I77.1 Active 68 105193 Problem Tobacco dependence F17.200 Active 8 6178546 Problem Hyperlipidemia E78.5 Active 50316 004 Problem Type 2 diabetes mellitus E11.9 Activ e 91081818 Problem Irritable bowel syndrome with diarrhea K58.0 Active 043876722 Problem Other chronic pain G89.29 Active 8 9480910 Problem PVD (peripheral vascular disease) I73.9 Active 281675697 ALLERGIES Substance Reaction Event Type Date Status Sulfamethoxazole Unknown Drug Allergy Sep, Active Lipitor Stiff neck, aching muscles in neck Drug Allergy Sep Active ENCOUNTERS Encounter Location Date Diagnosis [facility] [address] [facility] [id number] [address] [place] [id number] Jan, [place] [address] [facility] [id number] [address] [place] [address] Oct, Essential hypertension I10 [place] [address] [facility] [id number] [address] [place] [address] Sep, Cramps, extremity R25.2 ; PV D (peripheral vascular disease) I73.9 ; Rotator cuff arthropathy of left shoulder M12.812 and Financial difficulties Z59.8 [place] [address] [facility] [id number] [address] [place] [id number] 28 Aug, 2018 Rotator cuff arthropathy of left shoulder M12.812 [place] [id number] [facility] [id number] [address] [place] [id number] 19 Aug, 2018 Arterial stenosis I77.1 [place] [address] [facility] [id number] [address] [place] [address] 13 Aug, 2018 [facility] [address] [facility] [id number] [address] [place] [id number] 04 Aug, 2018 Type 2 diabetes mellitus E11 .9 ; Left leg pain M79.605 ; Pain in left shoulder M25.512 ; Other chronic pain G89.29 ; Cramps, extremity R25.2 and Irritable bowel syndrome with diarrhea K58.0 [facility] [address] [facility] [id number] [address] [place] [id number] Jul, Dysuria R30.0 and Acute uppe r respiratory infection J06.9 [facility] [address] [facility] [id number] [address] [place] [address] Jul, Type 2 diabetes mellitus E11 .9 and Essential hypertension I10 [facility] [id number] [place] [id number] Jun, [facility] [place] [address] [address] Jun, Cough R05 and Acute pneumoni a J18.9 [place] [address] [address] Apr, Type 2 diabetes mellitus E11 .9 ; COPD (chronic obstructive pulmonary disease) J44.9 ; Essential hypertension I10 and Left leg pain M79.605 [place] [address] [address] Mar, Kaity vaginitis B37.3 [place] [address] [address] Jan, Chigger bites B88.0 [place] [address] [address] Dec, Type 2 diabetes mellitus wit hout complication E11.9 and Unilateral recurrent inguinal hernia without obstruction or gangrene K40.91 [place] [address] [address] November, Essential hypertension I10 a nd Diabetes E11.9 [place] [address] [address] Oct, [place] [address] [address] Sep, Diabetes E11.9 and Essential hypertension I10 [place] [address] [address] Aug, Diabetes E11.9 ; Viral upper respiratory tract infection J06.9 ; COPD (chronic obstructive pulmonary disease) J44.9 ; Essential hypertension I10 ; Unilateral recurrent inguinal hernia without obstruction or gangrene K40.91 ; Dysuria R30.0 ; Yeast infection of the vagina B37.3 and Vaginal itching L29.8 [facility] [address] [facility] [id number] [address] [place] [id number] Jul, Essential hypertension I10 a nd COPD (chronic obstructive pulmonary disease) J44.9 [facility] [address] [facility] [id number] [address] [place] [address] Mar, Left lower quadrant pain R10 .32 ; Type 2 diabetes mellitus without complication E11.9 and Cardiac arrhythmia, unspecified cardiac arrhythmia type I49.9 [facility] [address] [facility] [id number] [address] [place] [id number] Oct, COPD (chronic obstructive pu lmonary disease) J44.9 ; Diabetes E11.9 and Mouth pain K13.79 [place] [address] [facility] [id number] [address] [place] [address] Sep, [place] [address] [address] [place] [id number] [place] [address] Sep, COPD (chronic obstructive pu lmonary disease) J44.9 ; Diabetes E11.9 and Mouth pain K13.79 [facility] [address] [facility] [id number] [address] [place] [id number] Aug, Type 2 diabetes mellitus wit hout complication E11.9 [facility] [address] [place] [id number] [address] [place] [address] Aug, [facility] [address] [place] [id number] [place] [address] Aug, Type 2 diabetes mellitus wit hout complication E11.9 [place] [address] [address] [place] [id number] [address] [place] [address] Aug, Establishing care with reji harmon, encounter for Z71.89 ; Type 2 diabetes mellitus without complication E11.9 ; Essential hypertension I10 ; Cough R05 ; Hammertoe M20.40 and Sleep apnea G47.30 [facility] [address] [place] [id number] [address] [place] [id number] Jul, [place] [address] [place] [address] Jun, Vaginal lesion N89.8 [place] [address] [address] [place] [id number] [address] [place] [address] Jun, [place] [address] [address] [place] [id number] [address] [place] [address] Jun, Well woman exam Z01.419 ; Pa [...] in female N39.3 and Breast lesion N64.9 [place] [address] [address] May, Bronchitis J40 [place] [address] [address] May, Routine adult health mainten ance Z00.00 ; Essential hypertension I10 ; Hyperlipidemia E78.5 ; COPD (chronic obstructive pulmonary disease) J44.9 ; Unilateral recurrent inguinal hernia without obstruction or gangrene K40.91 and Type 2 diabetes mellitus without complication E11.9 [place] [address] [address] [place] [id number] [address] [place] [address] Oct, [place] [address] [place] [id number] [address] [place] [id number] Oct, [place] [address] [address] Sep, [place] [address] [address] [place] [id number] [address] [place] [id number] Sep, [place] [address] [address] [place] [id number] [address] [place] [address] Sep, [facility] [address] [id number] [address] [place] [address], [place] [address] Sep, [facility] [address] [id number] [address] [place] [address], [place] [address] Aug, [facility] [address] [id number] [address] [place] [address], [place] [address] Aug, [facility] [address] [id number] [address] [place] [address], [place] [address] Jul, [facility] [address] [id number] [address] [place] [address], [place] [address] Jul, [facility] [address] [id number] [address] [place] [address], [place] [address] Jun, [facility] [address] [id number] [address] [place] [address], [place] [address] Jun, [facility] [address] [id number] [address] [place] [address], [place] [address] Jun, [facility] [address] [id number] [address] [place] [address], [place] [address] Jun, [facility] [address] [id number] [address] [place] [address], [place] [address] Jun, [facility] [address] [id number] [address] [place] [address], [place] [address] Mar, [facility] [address] [id number] [address] [place] [address], [place] [address] Mar, [facility] [address] [id number] [address] [place] [address], [place] [address] Feb, [facility] [address] [id number] [address] [place] [address], [place] [address] Feb, [facility] [address] [id number] [address] [place] [address], [place] [address] Feb, [facility] [address] [id number] [address] [place] [address], [place] [address] Feb, [facility] [address] [id number] [address] [place] [address], [place] [address] Dec, [facility] [address] [id number] [address] [place] [address], [place] [address] Dec, [facility] [address] [id number] [address] [place] [address], [place] [address] November, [facility] [address] [id number] [address] [place] [address], [place] [address] November, [facility] [address] [id number] [address] [place] [address], [place] [address] November, [facility] [address] [id number] [address] [place] [address], [place] [address] November, [facility] [address] [id number] [address] [place] [address], [place] [address] Sep, [facility] [address] [id number] [address] [place] [address], [place] [address] Sep, [facility] [address] [id number] [address] [place] [address], [place] [address] Sep, [facility] [address] [id number] [address] [place] [address], [place] [address] Sep, [facility] [address] [id number] [address] [place] [address], [place] [address] Jul, [facility] [address] [id number] [address] [place] [address], [place] [address] Jul, [facility] [address] [id number] [address] [place] [address], [place] [address] Jun, [facility] [address] [id number] [address] [place] [address], [place] [address] Jun, [facility] [address] [id number] [address] [place] [address], [place] [address] Jun, [facility] [address] [id number] [address] [place] [address], [place] [address] Jun, [facility] [address] [id number] [address] [place] [address], [place] [address] May, [facility] [address] [id number] [address] [place] [address], [place] [address] May, [facility] [address] [id number] [address] [place] [address], [place] [address] Apr, [facility] [address] [id number] [address] [place] [address], [place] [address] Apr, [facility] [address] [id number] [address] [place] [address], [place] [address] Apr, [facility] [address] [id number] [address] [place] [address], [place] [address] Mar, [facility] [address] [id number] [address] [place] [address], [place] [address] Mar, [facility] [address] [id number] [address] [place] [address], [place] [address] Mar, [facility] [address] [id number] [address] [place] [address], [place] [address] Feb, [facility] [address] [id number] [address] [place] [address], [place] [address] Feb, [facility] [address] [id number] [address] [place] [address], [place] [address] Jan, [facility] [address] [id number] [address] [place] [address], [place] [address] November, [facility] [address] [id number] [address] [place] [address], [place] [address] Oct, [facility] [address] [id number] [address] [place] [address], [place] [address] Oct, [facility] [address] [id number] [address] [address] Jul, [facility] [address] [id number] [address] [place] [address], [place] [address] 29 Jul, 2012 [facility] [address] [id number] [address] [place] [address], [place] [address] Jul, [facility] [address] [id number] [address] [place] [address], [place] [address] Jul, [facility] [address] [id number] [address] [place] [address] Jul, [facility] [address] [id number] [address] [place] [address], [place] [address] Jul, [facility] [address] [id number] [address] [place] [address] Jul, [facility] [address] [id number] [address] [place] [address], [place] [address] Jul, [facility] [address] [id number] [address] [place] [address], [place] [address] Jun, [facility] [address] [id number] [address] [place] [address], [place] [address] Jun, [facility] [address] [id number] [address] [place] [address], [place] [address] Apr, [facility] [address] [id number] [address] [place] [address] Apr, [facility] [address] [id number] [address] [place] [address] Apr, [facility] [address] [id number] [address] [place] [address], [place] [address] Apr, [facility] [address] [id number] [address] [place] [address], [place] [address] Apr, [facility] [address] [id number] [address] [place] [address] Apr, [facility] [address] [id number] [address] [place] [address], [place] [address] Apr, [facility] [address] [id number] [address] [place] [address], [place] [address] Apr, [facility] [address] [id number] [address] [place] [address], [place] [address] Apr, [facility] [address] [id number] [address] [place] [address], [place] [address] Apr, [facility] [address] [id number] [address] [place] [address], [place] [address] Mar, [facility] [address] [id number] [address] [place] [address], [place] [address] Mar, [facility] [address] [id number] [address] [place] [address], [place] [address] Feb, [facility] [address] [id number] [address] [place] [address], [place] [address] Feb, [facility] [address] [id number] [address] [place] [address], [place] [address] Feb, [facility] [address] [id number] [address] [place] [address], [place] [address] Feb, [facility] [address] [id number] [address] [place] [address], [place] [address] Feb, [facility] [address] [id number] [address] [place] [address], [place] [address] Feb, [facility] [address] [id number] [address] [place] [address], [place] [address] Feb, [facility] [address] [id number] [address] [place] [address], [place] [address] 14 Feb, 2012 [facility] [address] [id number] [address] [place] [address], [place] [address] Feb, [facility] [address] [id number] [address] [place] [address], [place] [address] Feb, [facility] [address] [id number] [address] [place] [address] Jan, [facility] [address] [id number] [address] [place] [address] Jan, [facility] [address] [id number] [address] [place] [address] Jan, [facility] [address] [id number] [address] [place] [address] Jan, [facility] [address] [id number] [address] [place] [address] November, [facility] [address] [id number] [address] [place] [address] Oct, [facility] [address] [id number] [address] [place] [address] Sep, [facility] [address] [id number] [address] [place] [address] Sep, [facility] [address] [id number] [address] [place] [address] Sep, [facility] [address] [id number] [address] [place] [address] Sep, IMMUNIZATIONS No Known Immunizations SOCIAL HISTORY Never Assessed REASON FOR VISIT follow up on tests pt in for follow up on tests BOO Tran PLAN OF CARE Activity Details Follow Up 3 Months Reason:DM VITAL SIGNS Height 64 in 2018-09-11 Weight 166.1 lbs 2018-09-11 Temperature 98.2 degrees Fahrenheit 2018-09-11 Heart Rate 76 bpm 2018-09-11 Respiratory Rate 20 2018-09-11 Oximetry 98 % 2018-09-11 BMI 28.51 kg/m2 2018-09-11 Blood pressure systolic 136 mmHg 2018-09-11 Blood pressure diastolic 98 mmHg 2018-09-11 MEDICATIONS Medication Instructions Dosage Frequency Start Date End Date Duration S joyaus MetFORMIN HCl ER 500 mg Or[place] twice a day 2 tablets with meals 12h 07 Sep, 2017 30 days Active Dicyclomine HCl 20 MG Orally 3 times a day 1 tablet 8h Aug, 30 day(s) Active ProAir HFA 108 (90 Base) MCG/ACT Inhalation every 6 hrs 2 puffs as needed 6h Sep, 30 days Active Flonase 50 mcg/actuation 1 sprays by Vincenzo al route 2 times per day in each nostril Oct, Active Magnesium 500 MG Orally Once a day 1 tablet with a meal 24h Aug, Active Cyclobenzaprine HCl 10 mg Orally at hs daily 1 tablet Sep, Active Symbicort 160-4.5 mcg/actuation inhale 2 puffs by inhalation route 2 times per day in the morning and evening Oct, Active Lisinopril 10 MG Orally Once a day 1 tablet 24h 90 d ays Active Amlodipine Besylate 10 MG Orally Once [...]
--- OUTSIDE RECORDS SUMMARY | 2019-09-18 04:46 | XMS REPORT ---
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 Name Role Phone Migration, Doctor Unavailable Unavailable PROBLEMS Type Condition ICD9-CM Code [id number] Code Onset Dates Condition S tatus SNOMED Code Problem Normal cardiac stress test Z13.6 Act alvarado 596274353 Problem Abnormal colonoscopy R93.3 Active 805995467 Problem Sleep apnea G47.30 Active 36335278 Problem Unilateral recurrent inguinal hernia without obs truction or gangrene K40.91 Active 42326281 Problem Cough R05 Active 38252078 Problem Establishing care with new doctor, encounter for Z 71.89 Active 679816833 Problem COPD (chronic obstructive pulmonary disease) J44.9 Active 72935366 Problem Gastroparesis K31.84 Active 911910 006 Problem Unilateral inguinal hernia w ithout obstruction or gangrene, recurrence not specified K40.90 Active 35478528 Problem GERD (gastroesophageal reflux disease) K21.9 Active 838900832 Problem Breast lesion N64.9 Active 669329 004 Problem Vaginal lesion N89.8 Active 08088 7005 Problem Hyperlipidemia, unspecified hyperlipidemia type E7 8.5 Active 42605265 Problem Stress incontinence in female N39.3 Active 80183139 Problem Hammertoe M20.40 Active 766144937 Problem Diabetes E11.9 Active 135764497 Problem Type 2 diabetes mellitus without complication E11. 9 Active 036109634 Problem Rotator cuff arthropathy of left shoulder M12.812 Active 53060471701954455 Problem Essential hypertension I10 Active 02645994 Problem Arterial stenosis I77.1 Active 68 144271 Problem Tobacco dependence F17.200 Active 8 5973038 Problem Hyperlipidemia E78.5 Active 73388 004 Problem Type 2 diabetes mellitus E11.9 Activ e 34729195 Problem Irritable bowel syndrome with diarrhea K58.0 Active 588203882 Problem Other chronic pain G89.29 Active 8 3657413 Problem PVD (peripheral vascular disease) I73.9 Active 918858287 ALLERGIES No Information ENCOUNTERS Encounter Location Date Diagnosis [facility] [address] [facility] [id number] [address] [place] [address] Jan, [place] [address] [address] Jan, Essential hypertension I10 a nd Type 2 diabetes mellitus E11.9 [place] [address] [address] [place] [id number] [address] [place] [address] Oct, Essential hypertension I10 [place] [address] [address] Sep, Cramps, extremity R25.2 ; PV D (peripheral vascular disease) I73.9 ; Rotator cuff arthropathy of left shoulder M12.812 and Financial difficulties Z59.8 [place] [address] [address] [place] [id number] [place] [address] Aug, Rotator cuff arthropathy of left shoulder M12.812 [place] [address] [address] Aug, Arterial stenosis I77.1 [place] [address] [place] [address] Aug, [place] [address] [place] [id number] [place] [address] Aug, Type 2 diabetes mellitus E11 .9 ; Left leg pain M79.605 ; Pain in left shoulder M25.512 ; Other chronic pain G89.29 ; Cramps, extremity R25.2 and Irritable bowel syndrome with diarrhea K58.0 [facility] [address] [facility] [id number] [address] [place] [address] Jul, Dysuria R30.0 and Acute uppe r respiratory infection J06.9 [facility] [address] [place] [id number] [address] [place] [address] Jul, Type 2 diabetes mellitus E11 .9 and Essential hypertension I10 [facility] [address] [place] [id number] [address] [place] [address] Jun, [facility] [address] [place] [address] Jun, Cough R05 and Acute pneumoni a J18.9 [place] [address] [address] [place] [id number] [address] [place] [address] Apr, Type 2 diabetes mellitus E11 .9 ; COPD (chronic obstructive pulmonary disease) J44.9 ; Essential hypertension I10 and Left leg pain M79.605 [place] [address] [address] [place] [id number] [address] [place] [address] Mar, Kaity vaginitis B37.3 [place] [address] [address] Jan, Chigger bites B88.0 [place] [address] [address] Dec, Type 2 diabetes mellitus wit hout complication E11.9 and Unilateral recurrent inguinal hernia without obstruction or gangrene K40.91 [place] [address] [address] November, Essential hypertension I10 a nd Diabetes E11.9 [place] [address] [address] [place] [id number] [address] [place] [address] Oct, [place] [address] [address] Sep, Diabetes E11.9 and Essential hypertension I10 [place] [address] [address] Aug, Diabetes E11.9 ; Viral upper respiratory tract infection J06.9 ; COPD (chronic obstructive pulmonary disease) J44.9 ; Essential hypertension I10 ; Unilateral recurrent inguinal hernia without obstruction or gangrene K40.91 ; Dysuria R30.0 ; Yeast infection of the vagina B37.3 and Vaginal itching L29.8 [facility] [address] [place] [id number] [address] [place] [address] Jul, Essential hypertension I10 a nd COPD (chronic obstructive pulmonary disease) J44.9 [place] [address] [place] [id number] [address] [place] [address] Mar, Left lower quadrant pain R10 .32 ; Type 2 diabetes mellitus without complication E11.9 and Cardiac arrhythmia, unspecified cardiac arrhythmia type I49.9 [place] [address] [place] [id number] [address] [place] [address] Oct, COPD (chronic obstructive pu lmonary disease) J44.9 ; Diabetes E11.9 and Mouth pain K13.79 [place] [address] [place] [id number] [address] [place] [address] Sep, [place] [address] [place] [id number] [address] [place] [address] Sep, COPD (chronic obstructive pu lmonary disease) J44.9 ; Diabetes E11.9 and Mouth pain K13.79 [place] [address] [place] [id number] [address] [place] [address] Aug, Type 2 diabetes mellitus wit hout complication E11.9 [place] [address] [place] [id number] [address] [place] [address] Aug, [place] [address] [place] [id number] [address] [place] [address] Aug, Type 2 diabetes mellitus wit hout complication E11.9 [place] [address] [place] [id number] [address] [place] [address] Aug, Establishing care with reji harmon, encounter for Z71.89 ; Type 2 diabetes mellitus without complication E11.9 ; Essential hypertension I10 ; Cough R05 ; Hammertoe M20.40 and Sleep apnea G47.30 [place] [address] [facility] [id number] [address] [place] [address] Jul, [place] [address] [place] [id number] [address] [place] [address] Jun, Vaginal lesion N89.8 [facility] [address] [place] [address] Jun, [place] [address] [place] [id number] [address] [place] [address] Jun, Well woman exam Z01.419 ; Pa [...] in female N39.3 and Breast lesion N64.9 [place] [address] [place] [id number] [address] [place] [address] May, Bronchitis J40 [place] [address] [address] May, Routine adult health mainten ance Z00.00 ; Essential hypertension I10 ; Hyperlipidemia E78.5 ; COPD (chronic obstructive pulmonary disease) J44.9 ; Unilateral recurrent inguinal hernia without obstruction or gangrene K40.91 and Type 2 diabetes mellitus without complication E11.9 [place] [address] [place] [id number] [address] [place] [address] Oct, [place] [address] [place] [id number] [address] [place] [address] Oct, [place] [address] [place] [id number] [address] [place] [address] Sep, [place] [address] [place] [id number] [address] [place] [address] Sep, [place] [address] [place] [id number] [address] [place] [address] Sep, [place] [address] [place] [id number] [address] [place] [address], [place] [address] Sep, [facility] [address] [id number] [address] [place] [address], [place] [address] Aug, [facility] [address] [id number] [address] [place] [address], [place] [address] Aug, [facility] [address] [id number] [address] [place] [address], [place] [address] Jul, [facility] [address] [id number] [address] [place] [address], [place] [address] Jul, [facility] [address] [id number] [address] [place] [address], [place] [address] Jun, [facility] [address] [id number] [address] [place] [address], [place] [address] Jun, [facility] [address] [id number] [address] [place] [address], [place] [address] Jun, [facility] [address] [id number] [address] [place] [address], [place] [address] Jun, [facility] [address] [id number] [address] [place] [address], [place] [address] Jun, [facility] [address] [id number] [address] [place] [address], [place] [address] Mar, [facility] [address] [id number] [address] [place] [address], [place] [address] Mar, [facility] [address] [id number] [address] [place] [address], [place] [address] Feb, [facility] [address] [id number] [address] [place] [address], [place] [address] Feb, [facility] [address] [id number] [address] [place] [address], [place] [address] Feb, [facility] [address] [id number] [address] [place] [address], [place] [address] Feb, [facility] [address] [id number] [address] [place] [address], [place] [address] Dec, [facility] [address] [id number] [address] [place] [address], [place] [address] Dec, [facility] [address] [id number] [address] [place] [address], [place] [address] November, [facility] [address] [id number] [address] [place] [address], [place] [address] November, [facility] [address] [id number] [address] [place] [address], [place] [address] November, [facility] [address] [id number] [address] [place] [address], [place] [address] November, [facility] [address] [id number] [address] [place] [address], [place] [address] Sep, [facility] [address] [id number] [address] [place] [address], [place] [address] Sep, [facility] [address] [id number] [address] [place] [address], [place] [address] Sep, [facility] [address] [id number] [address] [place] [address], [place] [address] Sep, [facility] [address] [id number] [address] [place] [address], [place] [address] Jul, [facility] [address] [id number] [address] [place] [address], [place] [address] Jul, [facility] [address] [id number] [address] [place] [address], [place] [address] Jun, [facility] [address] [id number] [address] [place] [address], [place] [address] Jun, [facility] [address] [id number] [address] [place] [address], [place] [address] Jun, [facility] [address] [id number] [address] [place] [address] Jun, [facility] [address] [id number] [address] [place] [address], [place] [address] May, [facility] [address] [id number] [address] [place] [address] May, [facility] [address] [id number] [address] [place] [address], [place] [address] Apr, [facility] [address] [id number] [address] [place] [address], [place] [address] Apr, [facility] [address] [id number] [address] [place] [address], [place] [address] Apr, [facility] [address] [id number] [address] [place] [address], [place] [address] Mar, [facility] [address] [id number] [address] [place] [address], [place] [address] Mar, [facility] [address] [id number] [address] [place] [address], [place] [address] Mar, [facility] [address] [id number] [address] [place] [address], [place] [address] Feb, [facility] [address] [id number] [address] [place] [address], [place] [address] Feb, [facility] [address] [id number] [address] [place] [address], [place] [address] Jan, [facility] [address] [id number] [address] [place] [address], [place] [address] November, [facility] [address] [id number] [address] [place] [address], [place] [address] Oct, [facility] [address] [id number] [address] [place] [address], [place] [address] Oct, [facility] [address] [id number] [address] [place] [address], [place] [address] Jul, [facility] [address] [id number] [address] [place] [address], [place] [address] 29 Jul, 2012 [facility] [address] [id number] [address] [place] [address], [place] [address] Jul, [facility] [address] [id number] [address] [place] [address], [place] [address] Jul, [facility] [address] [id number] [address] [place] [address], [place] [address] 15 Jul, 2012 [facility] [address] [id number] [address] [place] [address], [place] [address] 14 Jul, 2012 [facility] [address] [id number] [address] [place] [address], [place] [address] Jul, [facility] [address] [id number] [address] [place] [address], [place] [address] Jul, [facility] [address] [id number] [address] [place] [address], [place] [address] Jun, [facility] [address] [id number] [address] [place] [address], [place] [address] Jun, [facility] [address] [id number] [address] [place] [address], [place] [address] Apr, [facility] [address] [id number] [address] [place] [address], [place] [address] Apr, [facility] [address] [id number] [address] [place] [address], [place] [address] Apr, [facility] [address] [id number] [address] [place] [address], [place] [address] Apr, [facility] [address] [id number] [address] [place] [address], [place] [address] Apr, [facility] [address] [id number] [address] [place] [address], [place] [address] Apr, [facility] [address] [id number] [address] [place] [address], [place] [address] Apr, [facility] [address] [id number] [address] [place] [address], [place] [address] Apr, [facility] [address] [id number] [address] [place] [address], [place] [address] Apr, [facility] [address] [id number] [address] [place] [address], [place] [address] Apr, [facility] [address] [id number] [address] [place] [address], [place] [address] Mar, [facility] [address] [id number] [address] [place] [address], [place] [address] Mar, [facility] [address] [id number] [address] [place] [address], [place] [address] Feb, [facility] [address] [id number] [address] [place] [address], [place] [address] Feb, [facility] [address] [id number] [address] [place] [address], [place] [address] Feb, [facility] [address] [id number] [address] [place] [address], [place] [address] Feb, [facility] [address] [id number] [address] [place] [address], [place] [address] Feb, [facility] [address] [id number] [address] [place] [address], [place] [address] Feb, [facility] [address] [id number] [address] [place] [address], [place] [address] Feb, [facility] [address] [id number] [address] [place] [address], [place] [address] Feb, [facility] [address] [id number] [address] [place] [address], [place] [address] Feb, [facility] [address] [id number] [address] [place] [address], [place] [address] Feb, [facility] [address] [id number] [address] [place] [address] 30 Jan, 2012 [facility] [address] [id number] [address] [place] [address] Jan, [facility] [address] [id number] [address] [place] [address] Jan, [facility] [address] [id number] [address] [place] [address] Jan, [facility] [address] [id number] [address] [place] [address] November, [facility] [address] [id number] [address] [place] [address] Oct, [facility] [address] [facility] [id number] [address] [place] [address] Sep, [facility] [address] [facility] [id number] [address] [place] [address] Sep, [facility] [address] [id number] [address] [place] [address] Sep, [facility] [address] [facility] [id number] [address] [place] [address] Sep, IMMUNIZATIONS No Known Immunizations SOCIAL HISTORY [...]
--- OUTSIDE RECORDS SUMMARY | 2019-09-18 04:46 | XMS REPORT ---
Author Author Ana, Dona Doctor Organization [facility] Address Unknown Phone Unavailable Care Team Providers Care Electrical Accessories Ii Assembler Name Role Phone Migration, Doctor Unavailable Unavailable PROBLEMS Type Condition ICD9-CM Code [id number] Code Onset Dates Condition S tatus SNOMED Code Problem Normal cardiac stress test Z13.6 Act alvarado 152974686 Problem Abnormal colonoscopy R93.3 Active 893573376 Problem Sleep apnea G47.30 Active 10359308 Problem Unilateral recurrent inguinal hernia without obs truction or gangrene K40.91 Active 39121949 Problem Cough R05 Active 15192082 Problem Establishing care with new doctor, encounter for Z 71.89 Active 254784481 Problem COPD (chronic obstructive pulmonary disease) J44.9 Active 91692384 Problem Gastroparesis K31.84 Active 024655 006 Problem Unilateral inguinal hernia w ithout obstruction or gangrene, recurrence not specified K40.90 Active 23694846 Problem GERD (gastroesophageal reflux disease) K21.9 Active 525922929 Problem Breast lesion N64.9 Active 445566 004 Problem Vaginal lesion N89.8 Active 32646 7005 Problem Hyperlipidemia, unspecified hyperlipidemia type E7 8.5 Active 59915903 Problem Stress incontinence in female N39.3 Active 52535083 Problem Hammertoe M20.40 Active 164413926 Problem Diabetes E11.9 Active 628239213 Problem Type 2 diabetes mellitus without complication E11. 9 Active 055945900 Problem Rotator cuff arthropathy of left shoulder M12.812 Active 52045575529243661 Problem Essential hypertension I10 Active 48507336 Problem Arterial stenosis I77.1 Active 68 382223 Problem Tobacco dependence F17.200 Active 8 1415026 Problem Hyperlipidemia E78.5 Active 31809 004 Problem Type 2 diabetes mellitus E11.9 Activ e 98367443 Problem Irritable bowel syndrome with diarrhea K58.0 Active 841242545 Problem Other chronic pain G89.29 Active 8 6664707 Problem PVD (peripheral vascular disease) I73.9 Active 165484998 ALLERGIES No Information ENCOUNTERS Encounter Location Date Diagnosis [facility] [address] [facility] [id number] [address] [place] [address] Jan, [facility] [address] [place] [id number] [place] [address] Oct, Essential hypertension I10 [place] [address] [place] [id number] [place] [address] Sep, Cramps, extremity R25.2 ; PV D (peripheral vascular disease) I73.9 ; Rotator cuff arthropathy of left shoulder M12.812 and Financial difficulties Z59.8 [place] [address] [address] Aug, Rotator cuff arthropathy of left shoulder M12.812 [place] [address] [place] [id number] [place] [address] Aug, Arterial stenosis I77.1 [place] [address] [address] Aug, [facility] [address] [address] 04 Aug, 2018 Type 2 diabetes mellitus E11 .9 ; Left leg pain M79.605 ; Pain in left shoulder M25.512 ; Other chronic pain G89.29 ; Cramps, extremity R25.2 and Irritable bowel syndrome with diarrhea K58.0 [facility] [address] [place] [id number] [place] [address] Jul, Dysuria R30.0 and Acute uppe r respiratory infection J06.9 [place] [address] [place] [id number] [place] [address] Jul, Type 2 diabetes mellitus E11 .9 and Essential hypertension I10 [facility] WALK IN [facility] [address] [facility] [id number] [address] [place] [address] Jun, [facility] WALK IN [facility] [address] [place] [id number] [place] [address] Jun, Cough R05 and Acute pneumoni a J18.9 [facility] [address] [place] [id number] [place] [address] Apr, Type 2 diabetes mellitus E11 .9 ; COPD (chronic obstructive pulmonary disease) J44.9 ; Essential hypertension I10 and Left leg pain M79.605 [place] [address] [address] Mar, Kaity vaginitis B37.3 [place] [address] [place] [id number] [place] [address] Jan, Chigger bites B88.0 [place] [address] [address] Dec, Type 2 diabetes mellitus wit hout complication E11.9 and Unilateral recurrent inguinal hernia without obstruction or gangrene K40.91 [place] [address] [address] November, Essential hypertension I10 a nd Diabetes E11.9 [place] [address] [address] Oct, [place] [address] [address] Sep, Diabetes E11.9 and Essential hypertension I10 [place] [address] [address] Aug, Diabetes E11.9 ; Viral upper respiratory tract infection J06.9 ; COPD (chronic obstructive pulmonary disease) J44.9 ; Essential hypertension I10 ; Unilateral recurrent inguinal hernia without obstruction or gangrene K40.91 ; Dysuria R30.0 ; Yeast infection of the vagina B37.3 and Vaginal itching L29.8 [facility] [address] [place] [id number] [place] [address] Jul, Essential hypertension I10 a nd COPD (chronic obstructive pulmonary disease) J44.9 [place] [address] [address] Mar, Left lower quadrant pain R10 .32 ; Type 2 diabetes mellitus without complication E11.9 and Cardiac arrhythmia, unspecified cardiac arrhythmia type I49.9 [place] [address] [address] Oct, COPD (chronic obstructive pu lmonary disease) J44.9 ; Diabetes E11.9 and Mouth pain K13.79 [place] [address] [address] Sep, [place] [address] [address] Sep, COPD (chronic obstructive pu lmonary disease) J44.9 ; Diabetes E11.9 and Mouth pain K13.79 [place] [address] [address] Aug, Type 2 diabetes mellitus wit hout complication E11.9 [place] [address] [address] Aug, [place] [address] [address] Aug, Type 2 diabetes mellitus wit hout complication E11.9 [place] [address] [address] Aug, Establishing care with reji harmon encounter for Z71.89 ; Type 2 diabetes mellitus without complication E11.9 ; Essential hypertension I10 ; Cough R05 ; Hammertoe M20.40 and Sleep apnea G47.30 [place] [address] [address] Jul, [place] [address] [address] Jun, Vaginal lesion N89.8 [place] [address] [address] Jun, [facility] [address] [place] [id number] [place] [address] 09 Jun, 2015 Well woman exam Z01.419 [...] in female N39.3 and Breast lesion N64.9 [place] [address] [address] May, Bronchitis J40 [place] [address] [address] May, Routine adult health [facility] ance Z00.00 ; Essential hypertension I10 ; Hyperlipidemia E78.5 ; COPD (chronic obstructive pulmonary disease) J44.9 ; Unilateral recurrent inguinal hernia without obstruction or gangrene K40.91 and Type 2 diabetes mellitus without complication E11.9 [place] [address] [place] [id number] [place] [address] Oct, [place] [address] [address] Oct, [place] [address] [place] [id number] [place] [address] Sep, [facility] [address] [place] [id number] [place] [address] Sep, [place] [address] [address] Sep, [facility] [address] [place] [id number] [place] [address] Sep, [place] [address] [place] [id number] [place] [address] Aug, [facility] [address] [id number] [address] [place] [address], [place] [address] Aug, [facility] [address] [id number] [address] [place] [address], [place] [address] Jul, [facility] [address] [id number] [address] [place] [address], [place] [address] Jul, [facility] [address] [id number] [address] [place] [address], [place] [address] Jun, [facility] [address] [id number] [address] [place] [address], [place] [address] Jun, [facility] [address] [id number] [address] [place] [address], [place] [address] Jun, [facility] [address] [id number] [address] [place] [address], [place] [address] Jun, [facility] [address] [id number] [address] [place] [address], [place] [address] Jun, [facility] [address] [id number] [address] [place] [address], [place] [address] Mar, [facility] [address] [id number] [address] [place] [address], [place] [address] Mar, [facility] [address] [id number] [address] [place] [address], [place] [address] Feb, [facility] [address] [id number] [address] [place] [address], [place] [address] Feb, [facility] [address] [id number] [address] [place] [address], [place] [address] Feb, [facility] [address] [id number] [address] [place] [address], [place] [address] Feb, [facility] [address] [id number] [address] [place] [address], [place] [address] Dec, [facility] [address] [id number] [address] [place] [address], [place] [address] Dec, [facility] [address] [id number] [address] [place] [address], [place] [address] November, [facility] [address] [id number] [address] [place] [address], [place] [address] November, [facility] [address] [id number] [address] [place] [address], [place] [address] November, [facility] [address] [id number] [address] [place] [address], [place] [address] November, [facility] [address] [id number] [address] [place] [address], [place] [address] Sep, [facility] [address] [id number] [address] [place] [address], [place] [address] Sep, [facility] [address] [id number] [address] [place] [address], [place] [address] Sep, [facility] [address] [id number] [address] [place] [address], [place] [address] Sep, [facility] [address] [id number] [address] [place] [address], [place] [address] Jul, [facility] [address] [id number] [address] [place] [address], [place] [address] Jul, [facility] [address] [id number] [address] [place] [address], [place] [address] Jun, [facility] [address] [id number] [address] [place] [address], [place] [address] Jun, [facility] [address] [id number] [address] [place] [address], [place] [address] Jun, [facility] [address] [id number] [address] [place] [address], [place] [address] Jun, [facility] [address] [id number] [address] [place] [address], [place] [address] May, [facility] [address] [id number] [address] [place] [address], [place] [address] May, [facility] [address] [id number] [address] [place] [address], [place] [address] Apr, [facility] [address] [id number] [address] [place] [address], [place] [address] Apr, [facility] [address] [id number] [address] [place] [address], [place] [address] Apr, [facility] [address] [id number] [address] [place] [address], [place] [address] Mar, [facility] [address] [id number] [address] [place] [address], [place] [address] Mar, [facility] [address] [id number] [address] [place] [address], [place] [address] Mar, [facility] [address] [id number] [address] [place] [address], [place] [address] Feb, [facility] [address] [id number] [address] [place] [address], [place] [address] Feb, [facility] [address] [id number] [address] [place] [address], [place] [address] Jan, [facility] [address] [id number] [address] [place] [address], [place] [address] November, [facility] [address] [id number] [address] [place] [address], [place] [address] Oct, [facility] [address] [id number] [address] [place] [address], [place] [address] Oct, [facility] [address] [id number] [address] [place] [address], [place] [address] Jul, [facility] [address] [id number] [address] [place] [address], [place] [address] Jul, [facility] [address] [id number] [address] [place] [address] Jul, [facility] [address] [id number] [address] [place] [address], [place] [address] Jul, [facility] [address] [id number] [address] [place] [address] Jul, [facility] [address] [id number] [address] [place] [address] Jul, [facility] [address] [id number] [address] [place] [address] Jul, [facility] [address] [id number] [address] [place] [address], [place] [address] Jul, [facility] [address] [id number] [address] [place] [address] Jun, [facility] [address] [id number] [address] [place] [address] Jun, [facility] [address] [id number] [address] [place] [address], [place] [address] Apr, [facility] [address] [id number] [address] [place] [address] Apr, [facility] [address] [id number] [address] [place] [address] Apr, [facility] [address] [id number] [address] [place] [address] Apr, [facility] [address] [id number] [address] [place] [address] Apr, [facility] [address] [id number] [address] [place] [address], [place] [address] Apr, [facility] [address] [id number] [address] [place] [address] Apr, [facility] [address] [id number] [address] [place] [address], [place] [address] Apr, [facility] [address] [id number] [address] [place] [address], [place] [address] Apr, [facility] [address] [id number] [address] [place] [address], [place] [address] Apr, [facility] [address] [id number] [address] [place] [address], [place] [address] Mar, [facility] [address] [id number] [address] [place] [address], [place] [address] Mar, [facility] [address] [id number] [address] [place] [address], [place] [address] Feb, [facility] [address] [id number] [address] [place] [address], [place] [address] Feb, [facility] [address] [id number] [address] [place] [address], [place] [address] Feb, [facility] [address] [id number] [address] [place] [address], [place] [address] Feb, [facility] [address] [id number] [address] [place] [address], [place] [address] Feb, [facility] [address] [id number] [address] [place] [address], [place] [address] Feb, [facility] [address] [id number] [address] [place] [address], [place] [address] Feb, [facility] [address] [id number] [address] [place] [address], [place] [address] Feb, [facility] [address] [id number] [address] [place] [address], [place] [address] Feb, [facility] [address] [id number] [address] [place] [address], [place] [address] Feb, [facility] [address] [id number] [address] [place] [address], [place] [address] Jan, [facility] [address] [id number] [address] [place] [address], [place] [address] Jan, [facility] [address] [id number] [address] [place] [address] Jan, [facility] [address] [id number] [address] [place] [address] Jan, [facility] [address] [id number] [address] [place] [address] November, [facility] [address] [facility] [id number] [address] [place] [address] Oct, [facility] [address] [facility] [id number] [address] [place] [address] Sep, [facility] [address] [facility] [id number] [address] [place] [address] Sep, [facility] [address] [facility] [id number] [address] [place] [address] Sep, [facility] [address] [facility] [id number] [address] [place] [address] Sep, IMMUNIZATIONS No Known Immunizations SOCIAL HISTORY [...]
--- OUTSIDE RECORDS SUMMARY | 2019-09-18 04:46 | XMS REPORT ---
Author Author Ana, Dona Doctor Organization [facility] Address Unknown Phone Unavailable Care Team Providers Care Sparmaker Name Role Phone Migration, Doctor Unavailable Unavailable PROBLEMS Type Condition ICD9-CM Code XZS84-BO Code Onset Dates Condition S tatus SNOMED Code Problem Normal cardiac stress test Z13.6 Act alvarado 845383843 Problem Abnormal colonoscopy R93.3 Active 118736565 Problem Sleep apnea G47.30 Active 83079347 Problem Unilateral recurrent inguinal hernia without obs truction or gangrene K40.91 Active 57810378 Problem Cough R05 Active 63462097 Problem Establishing care with new doctor, encounter for Z 71.89 Active 319309207 Problem COPD (chronic obstructive pulmonary disease) J44.9 Active 45853835 Problem Gastroparesis K31.84 Active 204111 006 Problem Unilateral inguinal hernia w ithout obstruction or gangrene, recurrence not specified K40.90 Active 84367306 Problem GERD (gastroesophageal reflux disease) K21.9 Active 675256561 Problem Breast lesion N64.9 Active 506538 004 Problem Vaginal lesion N89.8 Active 60774 7005 Problem Hyperlipidemia, unspecified hyperlipidemia type E7 8.5 Active 05850698 Problem Stress incontinence in female N39.3 Active 02308232 Problem Hammertoe M20.40 Active 149616558 Problem Diabetes E11.9 Active 979333550 Problem Type 2 diabetes mellitus without complication E11. 9 Active 385998913 Problem Rotator cuff arthropathy of left shoulder M12.812 Active 27995020270174654 Problem Essential hypertension I10 Active 93543179 Problem Arterial stenosis I77.1 Active 68 637268 Problem Tobacco dependence F17.200 Active 8 7181247 Problem Hyperlipidemia E78.5 Active 94278 004 Problem Type 2 diabetes mellitus E11.9 Activ e 82546895 Problem Irritable bowel syndrome with diarrhea K58.0 Active 361665000 Problem Other chronic pain G89.29 Active 8 2907955 Problem PVD (peripheral vascular disease) I73.9 Active 620778110 ALLERGIES No Information ENCOUNTERS Encounter Location Date Diagnosis [facility] [address] [facility] [id number] [address] [place] [address] Jan, [place] [address] [address] Jan, Essential hypertension I10 a nd Type 2 diabetes mellitus E11.9 [place] [address] [place] [id number] [address] [place] [address] Oct, Essential hypertension I10 [place] [address] [address] Sep, Cramps, extremity R25.2 ; PV D (peripheral vascular disease) I73.9 ; Rotator cuff arthropathy of left shoulder M12.812 and Financial difficulties Z59.8 [place] [address] [place] [id number] [place] [address] Aug, Rotator cuff arthropathy of left shoulder M12.812 [place] [address] [address] Aug, Arterial stenosis I77.1 [place] [address] [place] [address] Aug, [place] [address] [place] [id number] [place] [address] Aug, Type 2 diabetes mellitus E11 .9 ; Left leg pain M79.605 ; Pain in left shoulder M25.512 ; Other chronic pain G89.29 ; Cramps, extremity R25.2 and Irritable bowel syndrome with diarrhea K58.0 [facility] [address] [facility] [id number] [address] [place] [address] Jul, Dysuria R30.0 and Acute uppe r respiratory infection J06.9 [facility] [address] [place] [id number] [address] [place] [address] Jul, Type 2 diabetes mellitus E11 .9 and Essential hypertension I10 [facility] [address] [place] [id number] [address] [place] [address] Jun, [facility] [address] [place] [address] Jun, Cough R05 and Acute pneumoni a J18.9 [place] [address] [place] [id number] [address] [place] [address] Apr, Type 2 diabetes mellitus E11 .9 ; COPD (chronic obstructive pulmonary disease) J44.9 ; Essential hypertension I10 and Left leg pain M79.605 [place] [address] [place] [id number] [address] [place] [address] Mar, Kaity vaginitis B37.3 [place] [address] [address] Jan, Chigger bites B88.0 [place] [address] [address] Dec, Type 2 diabetes mellitus wit hout complication E11.9 and Unilateral recurrent inguinal hernia without obstruction or gangrene K40.91 [place] [address] [address] November, Essential hypertension I10 a nd Diabetes E11.9 [place] [address] [place] [id number] [address] [place] [address] Oct, [place] [address] [address] Sep, Diabetes E11.9 and Essential hypertension I10 [place] [address] [address] Aug, Diabetes E11.9 ; Viral upper respiratory tract infection J06.9 ; COPD (chronic obstructive pulmonary disease) J44.9 ; Essential hypertension I10 ; Unilateral recurrent inguinal hernia without obstruction or gangrene K40.91 ; Dysuria R30.0 ; Yeast infection of the vagina B37.3 and Vaginal itching L29.8 [facility] [address] [place] [id number] [address] [place] [address] Jul, Essential hypertension I10 a nd COPD (chronic obstructive pulmonary disease) J44.9 [place] [address] [place] [id number] [address] [place] [address] Mar, Left lower quadrant pain R10 .32 ; Type 2 diabetes mellitus without complication E11.9 and Cardiac arrhythmia, unspecified cardiac arrhythmia type I49.9 [place] [address] [place] [id number] [address] [place] [address] Oct, COPD (chronic obstructive pu lmonary disease) J44.9 ; Diabetes E11.9 and Mouth pain K13.79 [place] [address] [place] [id number] [address] [place] [address] Sep, [place] [address] [place] [id number] [address] [place] [address] Sep, COPD (chronic obstructive pu lmonary disease) J44.9 ; Diabetes E11.9 and Mouth pain K13.79 [place] [address] [place] [id number] [address] [place] [address] Aug, Type 2 diabetes mellitus wit hout complication E11.9 [place] [address] [place] [id number] [address] [place] [address] Aug, [place] [address] [place] [id number] [address] [place] [address] Aug, Type 2 diabetes mellitus wit hout complication E11.9 [place] [address] [place] [id number] [address] [place] [address] Aug, Establishing care with reji harmon, encounter for Z71.89 ; Type 2 diabetes mellitus without complication E11.9 ; Essential hypertension I10 ; Cough R05 ; Hammertoe M20.40 and Sleep apnea G47.30 [place] [address] [facility] [id number] [address] [place] [address] Jul, [place] [address] [place] [id number] [address] [place] [address] Jun, Vaginal lesion N89.8 [facility] [address] [place] [address] Jun, [place] [address] [place] [id number] [address] [place] [address] Jun, Well woman exam Z01.419 ; Pa [...] in female N39.3 and Breast lesion N64.9 [place] [address] [place] [id number] [address] [place] [address] May, Bronchitis J40 [place] [address] [address] May, Routine adult health mainten ance Z00.00 ; Essential hypertension I10 ; Hyperlipidemia E78.5 ; COPD (chronic obstructive pulmonary disease) J44.9 ; Unilateral recurrent inguinal hernia without obstruction or gangrene K40.91 and Type 2 diabetes mellitus without complication E11.9 [place] [address] [place] [id number] [address] [place] [address] Oct, [place] [address] [place] [id number] [address] [place] [address] Oct, [place] [address] [place] [id number] [address] [place] [address] Sep, [place] [address] [place] [id number] [address] [place] [address] Sep, [place] [address] [place] [id number] [address] [place] [address] Sep, [place] [address] [place] [id number] [address] [place] [address], [place] [address] Sep, [facility] [address] [id number] [address] [place] [address], [place] [address] Aug, [facility] [address] [id number] [address] [place] [address], [place] [address] Aug, [facility] [address] [id number] [address] [place] [address], [place] [address] Jul, [facility] [address] [id number] [address] [place] [address], [place] [address] Jul, [facility] [address] [id number] [address] [place] [address], [place] [address] Jun, [facility] [address] [id number] [address] [place] [address], [place] [address] Jun, [facility] [address] [id number] [address] [place] [address], [place] [address] Jun, [facility] [address] [id number] [address] [place] [address], [place] [address] Jun, [facility] [address] [id number] [address] [place] [address], [place] [address] Jun, [facility] [address] [id number] [address] [place] [address], [place] [address] Mar, [facility] [address] [id number] [address] [place] [address], [place] [address] Mar, [facility] [address] [id number] [address] [place] [address], [place] [address] Feb, [facility] [address] [id number] [address] [place] [address], [place] [address] Feb, [facility] [address] [id number] [address] [place] [address], [place] [address] Feb, [facility] [address] [id number] [address] [place] [address], [place] [address] Feb, [facility] [address] [id number] [address] [place] [address], [place] [address] Dec, [facility] [address] [id number] [address] [place] [address], [place] [address] Dec, [facility] [address] [id number] [address] [place] [address], [place] [address] November, [facility] [address] [id number] [address] [place] [address], [place] [address] November, [facility] [address] [id number] [address] [place] [address], [place] [address] November, [facility] [address] [id number] [address] [place] [address], [place] [address] November, [facility] [address] [id number] [address] [place] [address], [place] [address] Sep, [facility] [address] [id number] [address] [place] [address], [place] [address] Sep, [facility] [address] [id number] [address] [place] [address], [place] [address] Sep, [facility] [address] [id number] [address] [place] [address], [place] [address] Sep, [facility] [address] [id number] [address] [place] [address], [place] [address] Jul, [facility] [address] [id number] [address] [place] [address], [place] [address] Jul, [facility] [address] [id number] [address] [place] [address], [place] [address] Jun, [facility] [address] [id number] [address] [place] [address], [place] [address] Jun, [facility] [address] [id number] [address] [place] [address], [place] [address] Jun, [facility] [address] [id number] [address] [place] [address] Jun, [facility] [address] [id number] [address] [place] [address], [place] [address] May, [facility] [address] [id number] [address] [place] [address] May, [facility] [address] [id number] [address] [place] [address], [place] [address] Apr, [facility] [address] [id number] [address] [place] [address], [place] [address] Apr, [facility] [address] [id number] [address] [place] [address], [place] [address] Apr, [facility] [address] [id number] [address] [place] [address], [place] [address] Mar, [facility] [address] [id number] [address] [place] [address], [place] [address] Mar, [facility] [address] [id number] [address] [place] [address], [place] [address] Mar, [facility] [address] [id number] [address] [place] [address], [place] [address] Feb, [facility] [address] [id number] [address] [place] [address], [place] [address] Feb, [facility] [address] [id number] [address] [place] [address], [place] [address] Jan, [facility] [address] [id number] [address] [place] [address], [place] [address] November, [facility] [address] [id number] [address] [place] [address], [place] [address] Oct, [facility] [address] [id number] [address] [place] [address], [place] [address] Oct, [facility] [address] [id number] [address] [place] [address], [place] [address] Jul, [facility] [address] [id number] [address] [place] [address], [place] [address] 29 Jul, 2012 [facility] [address] [id number] [address] [place] [address], [place] [address] Jul, [facility] [address] [id number] [address] [place] [address], [place] [address] Jul, [facility] [address] [id number] [address] [place] [address], [place] [address] 15 Jul, 2012 [facility] [address] [id number] [address] [place] [address], [place] [address] 14 Jul, 2012 [facility] [address] [id number] [address] [place] [address], [place] [address] Jul, [facility] [address] [id number] [address] [place] [address], [place] [address] Jul, [facility] [address] [id number] [address] [place] [address], [place] [address] Jun, [facility] [address] [id number] [address] [place] [address], [place] [address] Jun, [facility] [address] [id number] [address] [place] [address], [place] [address] Apr, [facility] [address] [id number] [address] [place] [address], [place] [address] Apr, [facility] [address] [id number] [address] [place] [address], [place] [address] Apr, [facility] [address] [id number] [address] [place] [address], [place] [address] Apr, [facility] [address] [id number] [address] [place] [address], [place] [address] Apr, [facility] [address] [id number] [address] [place] [address], [place] [address] Apr, [facility] [address] [id number] [address] [place] [address], [place] [address] Apr, [facility] [address] [id number] [address] [place] [address], [place] [address] Apr, [facility] [address] [id number] [address] [place] [address], [place] [address] Apr, [facility] [address] [id number] [address] [place] [address], [place] [address] Apr, [facility] [address] [id number] [address] [place] [address], [place] [address] Mar, [facility] [address] [id number] [address] [place] [address], [place] [address] Mar, [facility] [address] [id number] [address] [place] [address], [place] [address] Feb, [facility] [address] [id number] [address] [place] [address], [place] [address] Feb, [facility] [address] [id number] [address] [place] [address], [place] [address] Feb, [facility] [address] [id number] [address] [place] [address], [place] [address] Feb, [facility] [address] [id number] [address] [place] [address], [place] [address] Feb, [facility] [address] [id number] [address] [place] [address], [place] [address] Feb, [facility] [address] [id number] [address] [place] [address], [place] [address] Feb, [facility] [address] [id number] [address] [place] [address], [place] [address] Feb, [facility] [address] [id number] [address] [place] [address], [place] [address] Feb, [facility] [address] [id number] [address] [place] [address], [place] [address] Feb, [facility] [address] [id number] [address] [place] [address] 30 Jan, 2012 [facility] [address] [id number] [address] [place] [address] Jan, [facility] [address] [id number] [address] [place] [address] Jan, [facility] [address] [id number] [address] [place] [address] Jan, [facility] [address] [id number] [address] [place] [address] November, [facility] [address] [id number] [address] [place] [address] Oct, [facility] [address] [facility] [id number] [address] [place] [address] Sep, [facility] [address] [facility] [id number] [address] [place] [address] Sep, [facility] [address] [id number] [address] [place] [address] Sep, [facility] [address] [facility] [id number] [address] [place] [address] Sep, IMMUNIZATIONS No Known Immunizations SOCIAL HISTORY [...]
--- OUTSIDE RECORDS SUMMARY | 2019-09-18 04:46 | XMS REPORT ---
Author Author Ana, Dona Doctor Organization [facility] Address Unknown Phone Unavailable Care Team Providers Care Rn Plastics Name Role Phone Migration, Doctor Unavailable Unavailable PROBLEMS Type Condition ICD9-CM Code ZHG17-OZ Code Onset Dates Condition S tatus SNOMED Code Problem Normal cardiac stress test Z13.6 Act alvarado [id number] Problem Abnormal colonoscopy R93.3 Active 042864573 Problem Sleep apnea G47.30 Active 55739230 Problem Unilateral recurrent inguinal hernia without obs truction or gangrene K40.91 Active 21097434 Problem Cough R05 Active 97773326 Problem Establishing care with new doctor, encounter for Z 71.89 Active 052730368 Problem COPD (chronic obstructive pulmonary disease) J44.9 Active 46665599 Problem Gastroparesis K31.84 Active 008807 006 Problem Unilateral inguinal hernia w ithout obstruction or gangrene, recurrence not specified K40.90 Active 28825359 Problem GERD (gastroesophageal reflux disease) K21.9 Active 807913360 Problem Breast lesion N64.9 Active 758975 004 Problem Vaginal lesion N89.8 Active 10386 7005 Problem Hyperlipidemia, unspecified hyperlipidemia type E7 8.5 Active 53706389 Problem Stress incontinence in female N39.3 Active 25203925 Problem Hammertoe M20.40 Active 741705934 Problem Diabetes E11.9 Active 526375713 Problem Type 2 diabetes mellitus without complication E11. 9 Active 021635472 Problem Rotator cuff arthropathy of left shoulder M12.812 Active 31352777585474915 Problem Essential hypertension I10 Active 21494424 Problem Arterial stenosis I77.1 Active 68 854438 Problem Tobacco dependence F17.200 Active 8 1092941 Problem Hyperlipidemia E78.5 Active 52979 004 Problem Type 2 diabetes mellitus E11.9 Activ e 11793456 Problem Irritable bowel syndrome with diarrhea K58.0 Active 656402273 Problem Other chronic pain G89.29 Active 8 2487097 Problem PVD (peripheral vascular disease) I73.9 Active 572520823 ALLERGIES No Information ENCOUNTERS Encounter Location Date Diagnosis [facility] [address] [facility] [id number] [address] [place] [address] Jan, [place] [address] [address] Jan, Essential hypertension I10 a nd Type 2 diabetes mellitus E11.9 [place] [address] [place] [id number] [address] [place] [address] Oct, Essential hypertension I10 [place] [address] [address] Sep, Cramps, extremity R25.2 ; PV D (peripheral vascular disease) I73.9 ; Rotator cuff arthropathy of left shoulder M12.812 and Financial difficulties Z59.8 [place] [address] [place] [id number] [place] [address] Aug, Rotator cuff arthropathy of left shoulder M12.812 [place] [address] [address] Aug, Arterial stenosis I77.1 [place] [address] [place] [address] Aug, [place] [address] [place] [id number] [place] [address] Aug, Type 2 diabetes mellitus E11 .9 ; Left leg pain M79.605 ; Pain in left shoulder M25.512 ; Other chronic pain G89.29 ; Cramps, extremity R25.2 and Irritable bowel syndrome with diarrhea K58.0 [facility] [address] [facility] [id number] [address] [place] [address] Jul, Dysuria R30.0 and Acute uppe r respiratory infection J06.9 [facility] [address] [place] [id number] [address] [place] [address] Jul, Type 2 diabetes mellitus E11 .9 and Essential hypertension I10 [facility] [address] [place] [id number] [address] [place] [address] Jun, [facility] [address] [place] [address] Jun, Cough R05 and Acute pneumoni a J18.9 [place] [address] [place] [id number] [address] [place] [address] Apr, Type 2 diabetes mellitus E11 .9 ; COPD (chronic obstructive pulmonary disease) J44.9 ; Essential hypertension I10 and Left leg pain M79.605 [place] [address] [place] [id number] [address] [place] [address] Mar, Kaity vaginitis B37.3 [place] [address] [address] Jan, Chigger bites B88.0 [place] [address] [address] Dec, Type 2 diabetes mellitus wit hout complication E11.9 and Unilateral recurrent inguinal hernia without obstruction or gangrene K40.91 [place] [address] [address] November, Essential hypertension I10 a nd Diabetes E11.9 [place] [address] [place] [id number] [address] [place] [address] Oct, [place] [address] [address] Sep, Diabetes E11.9 and Essential hypertension I10 [place] [address] [address] Aug, Diabetes E11.9 ; Viral upper respiratory tract infection J06.9 ; COPD (chronic obstructive pulmonary disease) J44.9 ; Essential hypertension I10 ; Unilateral recurrent inguinal hernia without obstruction or gangrene K40.91 ; Dysuria R30.0 ; Yeast infection of the vagina B37.3 and Vaginal itching L29.8 [facility] [address] [place] [id number] [address] [place] [address] Jul, Essential hypertension I10 a nd COPD (chronic obstructive pulmonary disease) J44.9 [place] [id number] [place] [id number] [address] [place] [address] Mar, Left lower quadrant pain R10 .32 ; Type 2 diabetes mellitus without complication E11.9 and Cardiac arrhythmia, unspecified cardiac arrhythmia type I49.9 [place] [address] [place] [id number] [address] [place] [address] Oct, COPD (chronic obstructive pu lmonary disease) J44.9 ; Diabetes E11.9 and Mouth pain K13.79 [place] [address] [place] [id number] [address] [place] [address] Sep, [place] [address] [place] [id number] [address] [place] [address] Sep, COPD (chronic obstructive pu lmonary disease) J44.9 ; Diabetes E11.9 and Mouth pain K13.79 [place] [address] [place] [id number] [address] [place] [address] Aug, Type 2 diabetes mellitus wit hout complication E11.9 [place] [address] [place] [id number] [address] [place] [address] Aug, [place] [address] [place] [id number] [address] [place] [address] Aug, Type 2 diabetes mellitus wit hout complication E11.9 [place] [address] [place] [id number] [address] [place] [address] Aug, Establishing care with reji harmon, encounter for Z71.89 ; Type 2 diabetes mellitus without complication E11.9 ; Essential hypertension I10 ; Cough R05 ; Hammertoe M20.40 and Sleep apnea G47.30 [place] [address] [facility] [id number] [address] [place] [address] Jul, [place] [address] [place] [id number] [address] [place] [address] Jun, Vaginal lesion N89.8 [facility] [address] [place] [address] Jun, [place] [address] [place] [id number] [address] [place] [address] Jun, Well woman exam Z01.419 ; Pa [...] N39.3 and Breast lesion N64.9 [place] [address] [place] [id number] [address] [place] [address] May, Bronchitis J40 [place] [address] [address] May, Routine adult health mainten ance Z00.00 ; Essential hypertension I10 ; Hyperlipidemia E78.5 ; COPD (chronic obstructive pulmonary disease) J44.9 ; Unilateral recurrent inguinal hernia without obstruction or gangrene K40.91 and Type 2 diabetes mellitus without complication E11.9 [place] [address] [place] [id number] [address] [place] [address] Oct, [place] [address] [place] [id number] [address] [place] [address] Oct, [place] [address] [place] [id number] [address] [place] [address] Sep, [place] [address] [place] [id number] [address] [place] [address] Sep, [place] [address] [place] [id number] [address] [place] [address] Sep, [place] [address] [place] [id number] [address] [place] [address], [place] [address] Sep, [facility] [address] [id number] [address] [place] [address], [place] [address] Aug, [facility] [address] [id number] [address] [place] [address], [place] [address] Aug, [facility] [address] [id number] [address] [place] [address], [place] [address] Jul, [facility] [address] [id number] [address] [place] [address], [place] [address] Jul, [facility] [address] [id number] [address] [place] [address], [place] [address] Jun, [facility] [address] [id number] [address] [place] [address], [place] [address] Jun, [facility] [address] [id number] [address] [place] [address], [place] [address] Jun, [facility] [address] [id number] [address] [place] [address], [place] [address] Jun, [facility] [address] [id number] [address] [place] [address], [place] [address] Jun, [facility] [address] [id number] [address] [place] [address], [place] [address] Mar, [facility] [address] [id number] [address] [place] [address], [place] [address] Mar, [facility] [address] [id number] [address] [place] [address], [place] [address] Feb, [facility] [address] [id number] [address] [place] [address], [place] [address] Feb, [facility] [address] [id number] [address] [place] [address], [place] [address] Feb, [facility] [address] [id number] [address] [place] [address], [place] [address] Feb, [facility] [address] [id number] [address] [place] [address], [place] [address] Dec, [facility] [address] [id number] [address] [place] [address], [place] [address] Dec, [facility] [address] [id number] [address] [place] [address], [place] [address] November, [facility] [address] [id number] [address] [place] [address], [place] [address] November, [facility] [address] [id number] [address] [place] [address], [place] [address] November, [facility] [address] [id number] [address] [place] [address], [place] [address] November, [facility] [address] [id number] [address] [place] [address], [place] [address] Sep, [facility] [address] [id number] [address] [place] [address], [place] [address] Sep, [facility] [address] [id number] [address] [place] [address], [place] [address] Sep, [facility] [address] [id number] [address] [place] [address], [place] [address] Sep, [facility] [address] [id number] [address] [place] [address], [place] [address] Jul, [facility] [address] [id number] [address] [place] [address], [place] [address] Jul, [facility] [address] [id number] [address] [place] [address], [place] [address] Jun, [facility] [address] [id number] [address] [place] [address], [place] [address] Jun, [facility] [address] [id number] [address] [place] [address], [place] [address] Jun, [facility] [address] [id number] [address] [place] [address] Jun, [facility] [address] [id number] [address] [place] [address], [place] [address] May, [facility] [address] [id number] [address] [place] [address] May, [facility] [address] [id number] [address] [place] [address], [place] [address] Apr, [facility] [address] [id number] [address] [place] [address], [place] [address] Apr, [facility] [address] [id number] [address] [place] [address], [place] [address] Apr, [facility] [address] [id number] [address] [place] [address], [place] [address] Mar, [facility] [address] [id number] [address] [place] [address], [place] [address] Mar, [facility] [address] [id number] [address] [place] [address], [place] [address] Mar, [facility] [address] [id number] [address] [place] [address], [place] [address] Feb, [facility] [address] [id number] [address] [place] [address], [place] [address] Feb, [facility] [address] [id number] [address] [place] [address], [place] [address] Jan, [facility] [address] [id number] [address] [place] [address], [place] [address] November, [facility] [address] [id number] [address] [place] [address], [place] [address] Oct, [facility] [address] [id number] [address] [place] [address], [place] [address] Oct, [facility] [address] [id number] [address] [place] [address], [place] [address] Jul, [facility] [address] [id number] [address] [place] [address], [place] [address] 29 Jul, 2012 [facility] [address] [id number] [address] [place] [address], [place] [address] Jul, [facility] [address] [id number] [address] [place] [address], [place] [address] Jul, [facility] [address] [id number] [address] [place] [address], [place] [address] 15 Jul, 2012 [facility] [address] [id number] [address] [place] [address], [place] [address] 14 Jul, 2012 [facility] [address] [id number] [address] [place] [address], [place] [address] Jul, [facility] [address] [id number] [address] [place] [address], [place] [address] Jul, [facility] [address] [id number] [address] [place] [address], [place] [address] Jun, [facility] [address] [id number] [address] [place] [address], [place] [address] Jun, [facility] [address] [id number] [address] [place] [address], [place] [address] Apr, [facility] [address] [id number] [address] [place] [address], [place] [address] Apr, [facility] [address] [id number] [address] [place] [address], [place] [address] Apr, [facility] [address] [id number] [address] [place] [address], [place] [address] Apr, [facility] [address] [id number] [address] [place] [address], [place] [address] Apr, [facility] [address] [id number] [address] [place] [address], [place] [address] Apr, [facility] [address] [id number] [address] [place] [address], [place] [address] Apr, [facility] [address] [id number] [address] [place] [address], [place] [address] Apr, [facility] [address] [id number] [address] [place] [address], [place] [address] Apr, [facility] [address] [id number] [address] [place] [address], [place] [address] Apr, [facility] [address] [id number] [address] [place] [address], [place] [address] Mar, [facility] [address] [id number] [address] [place] [address], [place] [address] Mar, [facility] [address] [id number] [address] [place] [address], [place] [address] Feb, [facility] [address] [id number] [address] [place] [address], [place] [address] Feb, [facility] [address] [id number] [address] [place] [address], [place] [address] Feb, [facility] [address] [id number] [address] [place] [address], [place] [address] Feb, [facility] [address] [id number] [address] [place] [address], [place] [address] Feb, [facility] [address] [id number] [address] [place] [address], [place] [address] Feb, [facility] [address] [id number] [address] [place] [address], [place] [address] Feb, [facility] [address] [id number] [address] [place] [address], [place] [address] Feb, [facility] [address] [id number] [address] [place] [address], [place] [address] Feb, [facility] [address] [id number] [address] [place] [address], [place] [address] Feb, [facility] [address] [id number] [address] [place] [address] 30 Jan, 2012 [facility] [address] [id number] [address] [place] [address] Jan, [facility] [address] [id number] [address] [place] [address] Jan, [facility] [address] [id number] [address] [place] [address] Jan, [facility] [address] [id number] [address] [place] [address] November, [facility] [address] [id number] [address] [place] [address] Oct, [facility] [address] [facility] [id number] [address] [place] [address] Sep, [facility] [address] [facility] [id number] [address] [place] [address] Sep, [facility] [address] [id number] [address] [place] [address] Sep, [facility] [address] [facility] [id number] [address] [place] [address] Sep, IMMUNIZATIONS No Known Immunizations SOCIAL HISTORY [...]
--- OUTSIDE RECORDS SUMMARY | 2019-09-18 04:47 | XMS REPORT ---
Author Author Migration, Dona Doctor Organization [facility] Address Unknown Phone Unavailable Care Team Providers Care Med Surg Rn Name Role Phone Migration, Doctor Unavailable Unavailable PROBLEMS Type Condition ICD9-CM Code XQA30-TY Code Onset Dates Condition S tatus SNOMED Code Problem Normal cardiac stress test Z13.6 Act alvarado 888045233 Problem Abnormal colonoscopy R93.3 Active 383688744 Problem Sleep apnea G47.30 Active 77311465 Problem Unilateral recurrent inguinal hernia without obs truction or gangrene K40.91 Active 80811704 Problem Cough R05 Active 36333709 Problem Establishing care with new doctor, encounter for Z 71.89 Active 887503252 Problem COPD (chronic obstructive pulmonary disease) J44.9 Active 88018330 Problem Gastroparesis K31.84 Active 071479 006 Problem Unilateral inguinal hernia w ithout obstruction or gangrene, recurrence not specified K40.90 Active 00672359 Problem GERD (gastroesophageal reflux disease) K21.9 Active 003197743 Problem Breast lesion N64.9 Active 564157 004 Problem Vaginal lesion N89.8 Active 45057 7005 Problem Hyperlipidemia, unspecified hyperlipidemia type E7 8.5 Active 38579859 Problem Stress incontinence in female N39.3 Active 19557570 Problem Hammertoe M20.40 Active 462602338 Problem Diabetes E11.9 Active 957966428 Problem Type 2 diabetes mellitus without complication E11. 9 Active 194707019 Problem Rotator cuff arthropathy of left shoulder M12.812 Active 65047253868864563 Problem Essential hypertension I10 Active 91001654 Problem Arterial stenosis I77.1 Active 68 058202 Problem Tobacco dependence F17.200 Active 8 8051025 Problem Hyperlipidemia E78.5 Active 96677 004 Problem Type 2 diabetes mellitus E11.9 Activ e 57051598 Problem Irritable bowel syndrome with diarrhea K58.0 Active 019734797 Problem Other chronic pain G89.29 Active 8 8860444 Problem PVD (peripheral vascular disease) I73.9 Active 834816231 ALLERGIES Substance Reaction Event Type Date Status Sulfa(sulfonamide Antibiotics) Unknown Non Drug Allergy Oct Active Lipitor 10 Mg Tablet Stiff neck, aching muscles in neck Non Drug Allergy Oct, Active ENCOUNTERS Encounter Location Date Diagnosis [facility], [place] [address] [address] Oct, Essential hypertension I10 [facility] [place] [address] [address] Sep, Cramps, extremity R25.2 ; PV D (peripheral vascular disease) I73.9 ; Rotator cuff arthropathy of left shoulder M12.812 and Financial difficulties Z59.8 [place] [address] [address] Aug, Rotator cuff arthropathy of left shoulder M12.812 [place] [address] [address] Aug, Arterial stenosis I77.1 [place] [address] [address] 13 Aug, 2018 [facility] [place] [address] [address] 04 Aug, 2018 Type 2 diabetes mellitus E11 .9 ; Left leg pain M79.605 ; Pain in left shoulder M25.512 ; Other chronic pain G89.29 ; Cramps, extremity R25.2 and Irritable bowel syndrome with diarrhea K58.0 [facility] [address] [address] Jul, Dysuria R30.0 and Acute uppe r respiratory infection J06.9 [facility] [place] [address] [address] Jul, Type 2 diabetes mellitus E11 .9 and Essential hypertension I10 [facility] [address] [place] [id number] [place] [address] Jun, [facility] [address] [address] Jun, Cough R05 and Acute pneumoni a J18.9 [place] [address] [address] Apr, Type 2 diabetes mellitus E11 .9 ; COPD (chronic obstructive pulmonary disease) J44.9 ; Essential hypertension I10 and Left leg pain M79.605 [place] [address] [address] Mar, Kaity vaginitis B37.3 [place] [address] [address] Jan, Chigger bites B88.0 [place] [address] [address] Dec, Type 2 diabetes mellitus wit hout complication E11.9 and Unilateral recurrent inguinal hernia without obstruction or gangrene K40.91 [place] [address] [address] November, Essential hypertension I10 a nd Diabetes E11.9 [place] [address] [address] Oct, [place] [address] [address] Sep, Diabetes E11.9 and Essential hypertension I10 [place] [address] [address] 05 Aug, 2017 Diabetes E11.9 ; Viral upper respiratory tract infection J06.9 ; COPD (chronic obstructive pulmonary disease) J44.9 ; Essential hypertension I10 ; Unilateral recurrent inguinal hernia without obstruction or gangrene K40.91 ; Dysuria R30.0 ; Yeast infection of the vagina B37.3 and Vaginal itching L29.8 [facility] [address] [place] [id number] [place] [address] Jul, Essential hypertension I10 a nd COPD (chronic obstructive pulmonary disease) J44.9 [place] [address] [place] [id number] [place] [address] Mar, Left lower quadrant pain R10 .32 ; Type 2 diabetes mellitus without complication E11.9 and Cardiac arrhythmia, unspecified cardiac arrhythmia type I49.9 [place] [address] [address] Oct, COPD (chronic obstructive pu lmonary disease) J44.9 ; Diabetes E11.9 and Mouth pain K13.79 [place] [address] [place] [id number] [place] [address] Sep, [place] [address] [address] Sep, COPD (chronic obstructive pu lmonary disease) J44.9 ; Diabetes E11.9 and Mouth pain K13.79 [place] [address] [address] Aug, Type 2 diabetes mellitus wit hout complication E11.9 [place] [address] [address] Aug, [place] [address] [address] Aug, Type 2 diabetes mellitus wit hout complication E11.9 [place] [address] [address] Aug, Establishing care with reji harmon, encounter for Z71.89 ; Type 2 diabetes mellitus without complication E11.9 ; Essential hypertension I10 ; Cough R05 ; Hammertoe M20.40 and Sleep apnea G47.30 [place] [address] [address] Jul, [place] [address] [address] Jun, Vaginal lesion N89.8 [place] [address] [address] Jun, [facility] [place] [address] [place] [id number] [place] [address] Jun, Well woman exam Z01.419 ; Pa [...] in female N39.3 and Breast lesion N64.9 [place] [address] [place] [id number] [place] [address] May, Bronchitis J40 [place] [address] [address] May, Routine adult health [facility] ance Z00.00 ; Essential hypertension I10 ; Hyperlipidemia E78.5 ; COPD (chronic obstructive pulmonary disease) J44.9 ; Unilateral recurrent inguinal hernia without obstruction or gangrene K40.91 and Type 2 diabetes mellitus without complication E11.9 [facility] [place] [address] [place] [id number] [place] [address] Oct, [facility] [place] [address] [place] [id number] [place] [address] Oct, [facility] [place] [address] [place] [id number] [place] [address] Sep, [facility] [place] [address] [place] [id number] [address] [place] [address] Sep, [facility] [place] [address] [place] [id number] [place] [address] Sep, [facility] [place] [address] [place] [id number] [place] [address] Sep, [facility] [place] [address] [place] [id number] [place] [address] Aug, [facility] [address] [id number] [address] [place] [address], [place] [address] Aug, [facility] [address] [id number] [address] [place] [address], [place] [address] Jul, [facility] [address] [id number] [address] [place] [address], [place] [address] Jul, [facility] [address] [id number] [address] [place] [address], [place] [address] Jun, [facility] [address] [id number] [address] [place] [address], [place] [address] Jun, [facility] [address] [id number] [address] [place] [address], [place] [address] Jun, [facility] [address] [id number] [address] [place] [address], [place] [address] Jun, [facility] [address] [id number] [address] [place] [address], [place] [address] Jun, [facility] [address] [id number] [address] [place] [address], [place] [address] Mar, [facility] [address] [id number] [address] [place] [address], [place] [address] Mar, [facility] [address] [id number] [address] [place] [address], [place] [address] Feb, [facility] [address] [id number] [address] [place] [address], [place] [address] Feb, [facility] [address] [id number] [address] [place] [address], [place] [address] Feb, [facility] [address] [id number] [address] [place] [address], [place] [address] Feb, [facility] [address] [id number] [address] [place] [address], [place] [address] Dec, [facility] [address] [id number] [address] [place] [address], [place] [address] Dec, [facility] [address] [id number] [address] [place] [address], [place] [address] November, [facility] [address] [id number] [address] [place] [address], [place] [address] November, [facility] [address] [id number] [address] [place] [address], [place] [address] November, [facility] [address] [id number] [address] [place] [address], [place] [address] November, [facility] [address] [id number] [address] [place] [address], [place] [address] Sep, [facility] [address] [id number] [address] [place] [address], [place] [address] Sep, [facility] [address] [id number] [address] [place] [address], [place] [address] Sep, [facility] [address] [id number] [address] [place] [address], [place] [address] Sep, [facility] [address] [id number] [address] [place] [address], [place] [address] Jul, [facility] [address] [id number] [address] [place] [address], [place] [address] Jul, [facility] [address] [id number] [address] [place] [address], [place] [address] Jun, [facility] [address] [id number] [address] [place] [address], [place] [address] Jun, [facility] [address] [id number] [address] [place] [address], [place] [address] Jun, [facility] [address] [id number] [address] [place] [address], [place] [address] Jun, [facility] [address] [id number] [address] [place] [address], [place] [address] May, [facility] [address] [id number] [address] [place] [address], [place] [address] May, [facility] [address] [id number] [address] [place] [address], [place] [address] Apr, [facility] [address] [id number] [address] [place] [address], [place] [address] Apr, [facility] [address] [id number] [address] [place] [address], [place] [address] Apr, [facility] [address] [id number] [address] [place] [address], [place] [address] Mar, [facility] [address] [id number] [address] [place] [address], [place] [address] Mar, [facility] [address] [id number] [address] [place] [address], [place] [address] Mar, [facility] [address] [id number] [address] [place] [address], [place] [address] Feb, [facility] [address] [id number] [address] [place] [address], [place] [address] Feb, [facility] [address] [id number] [address] [place] [address], [place] [address] Jan, [facility] [address] [id number] [address] [place] [address], [place] [address] November, [facility] [address] [id number] [address] [place] [address], [place] [address] Oct, [facility] [address] [id number] [address] [place] [address], [place] [address] Oct, [facility] [address] [id number] [address] [place] [address], [place] [address] Jul, [facility] [address] [id number] [address] [place] [address], [place] [address] Jul, [facility] [address] [id number] [address] [place] [address], [place] [address] 24 Jul, 2012 [facility] [address] [id number] [address] [place] [address], [place] [address] Jul, [facility] [address] [id number] [address] [place] [address], [place] [address] 15 Jul, 2012 [facility] [address] [id number] [address] [place] [address], [place] [address] 14 Jul, 2012 [facility] [address] [id number] [address] [place] [address], [place] [address] Jul, [facility] [address] [id number] [address] [place] [address], [place] [address] Jul, [facility] [address] [id number] [address] [place] [address], [place] [address] Jun, [facility] [address] [id number] [address] [place] [address], [place] [address] Jun, [facility] [address] [id number] [address] [place] [address], [place] [address] Apr, [facility] [address] [id number] [address] [place] [address], [place] [address] Apr, [facility] [address] [id number] [address] [place] [address], [place] [address] Apr, [facility] [address] [id number] [address] [place] [address], [place] [address] 29 Apr, 2012 [facility] [address] [id number] [address] [place] [address], [place] [address] Apr, [facility] [address] [id number] [address] [place] [address], [place] [address] 29 Apr, 2012 [facility] [address] [id number] [address] [place] [address], [place] [address] Apr, [facility] [address] [id number] [address] [place] [address], [place] [address] Apr, [facility] [address] [id number] [address] [place] [address], [place] [address] Apr, [facility] [address] [id number] [address] [place] [address], [place] [address] Apr, [facility] [address] [id number] [address] [place] [address], [place] [address] Mar, [facility] [address] [id number] [address] [place] [address], [place] [address] Mar, [facility] [address] [id number] [address] [place] [address], [place] [address] Feb, [facility] [address] [id number] [address] [place] [address], [place] [address] Feb, [facility] [address] [id number] [address] [place] [address], [place] [address] Feb, [facility] [address] [id number] [address] [place] [address], [place] [address] Feb, [facility] [address] [id number] [address] [place] [address], [place] [address] Feb, [facility] [address] [id number] [address] [place] [address], [place] [address] Feb, [facility] [address] [id number] [address] [place] [address], [place] [address] Feb, [facility] [address] [id number] [address] [place] [address], [place] [address] Feb, [facility] [address] [id number] [address] [place] [address], [place] [address] Feb, [facility] [address] [id number] [address] [place] [address], [place] [address] Feb, [facility] [address] [id number] [address] [place] [address], [place] [address] Jan, [facility] [address] [id number] [address] [place] [address] Jan, [facility] [place] [address] [id number] [address] [place] [address] Jan, [facility] [place] [address] [id number] [address] [place] [address] Jan, [facility] [place] [address] [id number] [address] [place] [address] November, [facility] [place] [address] [id number] [address] [place] [address] Oct, [facility] [place] [address] [id number] [address] [place] [address] Sep, [facility] [place] [address] [id number] [address] [place] [address] Sep, [facility] [place] [address] [id number] [address] [place] [address] Sep, [facility] [place] [address] [id number] [address] [place] [address] Sep, IMMUNIZATIONS No Known Immunizations SOCIAL HISTORY Never Assessed REASON FOR VISIT [facility] PLAN OF CARE VITAL SIGNS MEDICATIONS Medication Instructions Dosage Frequency Start Date End Date Duration S tatus metformin 500 mg 2 tablet by Oral route 2 times per day Mar, Active Albuterol Sulfate 2.5 mg /3 mL (0.083 %) 1 Each by Inhalation route every 4 hours for cough and wheeze PRN for wheezing or cough Sep, Active MiraLax 17 gram/dose take 8.5 g mixed wi th 8 oz. water or juice by Oral route 1 time per day Jun, Active MethylPREDNISolone 4 mg by Oral route for 6 days as directed per dose pack May, Active Lisinopril 10 mg take 1 tablet by Oral route 1 time pe r day Take in am Sep, Active Albuterol Sulfate 90 mcg/actuation 2 puf fs by Inhalation route every 4-6 hours as needed PRN cough or wheezing Oct, Active Augmentin 875-125 mg 1 tablet by Oral route 2 times pe r day for 10 day(s) Jul, Active Zithromax Tri-Jonathan 500 mg take 1 tablet ( 500 mg) by oral route once daily for 3 days Dec, Active Flonase 50 mcg/actuation 1 sprays by Vincenzo al route 2 times per day in each nostril Oct, Active Levaquin 750 mg 1 tablet by Oral route every 24 hours for 7 days Sep, Active Amoxicillin 500 mg 2 capsule by Oral route 2 times per day for 10 day(s) May, Active Promethazine-Codeine 6.25-10 mg/5 mL 5 m L by Oral route every 4 hours for 5 day(s) Dec, Active Diflucan 100 mg 1 tablet by Oral rou te 1 time per day save last pill for end of steroids Jun, Active Debrox 6.5 % 3 drop by Otic route 2 times per day for 4 da y(s) Oct, Active PredniSONE 10 mg 1 Tablet 2 times per day for 5 days Take at 8 am and noon. Do not take after 3 pm Dec, Active Symbicort 160-4.5 mcg/actuation inhale 2 puffs by inhalation route 2 times per day in the morning and evening Oct, Active Levaquin 500 mg 1 tablet by Oral route every 24 hours for 10 days Jun, Active ProAir HFA 90 mcg/actuation 2 puffs by I nhalation route 4 times per day for 30 day(s) Sep, Active Fenofibrate Micronized 134 mg take 1 cap kita (134 mg) by oral route once daily with food Jul, Active RESULTS No Results PROCEDURES No Known [...]
--- OUTSIDE RECORDS SUMMARY | 2019-09-18 04:47 | XMS REPORT ---
Author Author Ana, Dona Doctor Organization [facility] Address Unknown Phone Unavailable Care Team Providers Care Blast Furnace Helper Name Role Phone Migration, Doctor Unavailable Unavailable PROBLEMS Type Condition ICD9-CM Code TGE27-RH Code Onset Dates Condition S tatus SNOMED Code Problem Normal cardiac stress test Z13.6 Act alvarado 576023197 Problem Abnormal colonoscopy R93.3 Active 566284008 Problem Sleep apnea G47.30 Active 59983960 Problem Unilateral recurrent inguinal hernia without obs truction or gangrene K40.91 Active 36619411 Problem Cough R05 Active 13933512 Problem Establishing care with new doctor, encounter for Z 71.89 Active 205878180 Problem COPD (chronic obstructive pulmonary disease) J44.9 Active 40098551 Problem Gastroparesis K31.84 Active 067404 006 Problem Unilateral inguinal hernia w ithout obstruction or gangrene, recurrence not specified K40.90 Active 84938824 Problem GERD (gastroesophageal reflux disease) K21.9 Active 219935767 Problem Breast lesion N64.9 Active 314385 004 Problem Vaginal lesion N89.8 Active 39989 7005 Problem Hyperlipidemia, unspecified hyperlipidemia type E7 8.5 Active 75300087 Problem Stress incontinence in female N39.3 Active 61343876 Problem Hammertoe M20.40 Active 041280508 Problem Diabetes E11.9 Active 614672146 Problem Type 2 diabetes mellitus without complication E11. 9 Active 891838636 Problem Rotator cuff arthropathy of left shoulder M12.812 Active [id number] Problem Essential hypertension I10 Active 59232131 Problem Arterial stenosis I77.1 Active 68 817484 Problem Tobacco dependence F17.200 Active 8 4741759 Problem Hyperlipidemia E78.5 Active 45898 004 Problem Type 2 diabetes mellitus E11.9 Activ e 77605177 Problem Irritable bowel syndrome with diarrhea K58.0 Active 980801123 Problem Other chronic pain G89.29 Active 8 2744807 Problem PVD (peripheral vascular disease) I73.9 Active 747126323 ALLERGIES No Information ENCOUNTERS Encounter Location Date Diagnosis [place] [address] [address] Oct, Essential hypertension I10 [place] [address] [address] Sep, Cramps, extremity R25.2 ; PV D (peripheral vascular disease) I73.9 ; Rotator cuff arthropathy of left shoulder M12.812 and Financial difficulties Z59.8 [place] [address] [address] Aug, Rotator cuff arthropathy of left shoulder M12.812 [place] [address] [address] Aug, Arterial stenosis I77.1 [place] [address] [address] Aug, [place] [address] [address] Aug, Type 2 diabetes mellitus E11 .9 ; Left leg pain M79.605 ; Pain in left shoulder M25.512 ; Other chronic pain G89.29 ; Cramps, extremity R25.2 and Irritable bowel syndrome with diarrhea K58.0 [facility] [address] [address] Jul, Dysuria R30.0 and Acute uppe r respiratory infection J06.9 [place] [address] [address] Jul, Type 2 diabetes mellitus E11 .9 and Essential hypertension I10 [facility] N [address] [address] Jun, [facility] [place] [address] [address] Jun, Cough R05 and Acute pneumoni a J18.9 [place] [address] [address] Apr, Type 2 diabetes mellitus E11 .9 ; COPD (chronic obstructive pulmonary disease) J44.9 ; Essential hypertension I10 and Left leg pain M79.605 [place] [id number] [place] [address] Mar, Kaity vaginitis B37.3 [place] [address] [address] Jan, Chigger bites B88.0 [place] [address] [place] [id number] [place] [address] Dec, Type 2 diabetes mellitus wit hout complication E11.9 and Unilateral recurrent inguinal hernia without obstruction or gangrene K40.91 [place] [address] [address] November, Essential hypertension I10 a nd Diabetes E11.9 [place] [address] [address] Oct, [place] [address] [address] Sep, Diabetes E11.9 and Essential hypertension I10 [place] [address] [place] [id number] [place] [address] Aug, Diabetes E11.9 ; Viral upper respiratory tract infection J06.9 ; COPD (chronic obstructive pulmonary disease) J44.9 ; Essential hypertension I10 ; Unilateral recurrent inguinal hernia without obstruction or gangrene K40.91 ; Dysuria R30.0 ; Yeast infection of the vagina B37.3 and Vaginal itching L29.8 [facility] [address] [place] [id number] [place] [address] Jul, Essential hypertension I10 a nd COPD (chronic obstructive pulmonary disease) J44.9 [place] [address] [place] [id number] [place] [address] Mar, Left lower quadrant pain R10 .32 ; Type 2 diabetes mellitus without complication E11.9 and Cardiac arrhythmia, unspecified cardiac arrhythmia type I49.9 [place] [address] [facility] [id number] [address] [place] [address] Oct, COPD (chronic obstructive pu lmonary disease) J44.9 ; Diabetes E11.9 and Mouth pain K13.79 [place] [address] [facility] [id number] [address] [place] [address] Sep, [place] [address] [facility] [id number] [address] [place] [address] Sep, COPD (chronic obstructive pu lmonary disease) J44.9 ; Diabetes E11.9 and Mouth pain K13.79 [place] [address] [facility] [id number] [address] [place] [address] Aug, Type 2 diabetes mellitus wit hout complication E11.9 [place] [address] [place] [id number] [place] [address] Aug, [place] [address] [address] Aug, Type 2 diabetes mellitus wit hout complication E11.9 [place] [address] [place] [id number] [place] [address] Aug, Establishing care with reji harmon, encounter for Z71.89 ; Type 2 diabetes mellitus without complication E11.9 ; Essential hypertension I10 ; Cough R05 ; Hammertoe M20.40 and Sleep apnea G47.30 [place] [address] [place] [id number] [address] [place] [address] Jul, [place] [address] [address] Jun, Vaginal lesion N89.8 [place] [address] [place] [id number] [address] [place] [address] Jun, [place] [address] [place] [id number] [place] [address] Jun, Well woman exam Z01.419 ; Pa [...] in female N39.3 and Breast lesion N64.9 [facility] [address] [place] [id number] [address] [place] [address] May, Bronchitis J40 [facility] [address] [address] May, Routine adult health [facility] ance Z00.00 ; Essential hypertension I10 ; Hyperlipidemia E78.5 ; COPD (chronic obstructive pulmonary disease) J44.9 ; Unilateral recurrent inguinal hernia without obstruction or gangrene K40.91 and Type 2 diabetes mellitus without complication E11.9 [facility] [address] [place] [id number] [address] [place] [address] Oct, [facility] [address] [place] [id number] [address] [place] [address] Oct, [facility] [address] [place] [id number] [place] [address] Sep, [facility] [address] [place] [id number] [address] [place] [address] Sep, [facility] [address] [place] [id number] [address] [place] [address] Sep, [facility] [address] [place] [id number] [address] [place] [address] Sep, [facility] [address] [place] [id number] [address] [place] [phone] Aug, [facility] [address] [place] [id number] [address] [place] [phone] Aug, [facility] [address] [id number] [address] [place] [address], [place] [address] Jul, [facility] [address] [id number] [address] [place] [address], [place] [address] Jul, [facility] [address] [id number] [address] [place] [address], [place] [address] Jun, [facility] [address] [id number] [address] [place] [address], [place] [address] Jun, [facility] [address] [id number] [address] [place] [address], [place] [address] Jun, [facility] [address] [id number] [address] [place] [address], [place] [address] Jun, [facility] [address] [id number] [address] [place] [address], [place] [address] Jun, [facility] [address] [id number] [address] [place] [address], [place] [address] Mar, [facility] [address] [id number] [address] [place] [address], [place] [address] Mar, [facility] [address] [id number] [address] [place] [address], [place] [address] Feb, [facility] [address] [id number] [address] [place] [address], [place] [address] Feb, [facility] [address] [id number] [address] [place] [address], [place] [address] Feb, [facility] [address] [id number] [address] [place] [address], [place] [address] Feb, [facility] [address] [id number] [address] [place] [address], [place] [address] Dec, [facility] [address] [id number] [address] [place] [address], [place] [address] Dec, [facility] [address] [id number] [address] [place] [address], [place] [address] November, [facility] [address] [id number] [address] [place] [address], [place] [address] November, [facility] [address] [id number] [address] [place] [address], [place] [address] November, [facility] [address] [id number] [address] [place] [address], [place] [address] November, [facility] [address] [id number] [address] [place] [address], [place] [address] Sep, [facility] [address] [id number] [address] [place] [address], [place] [address] Sep, [facility] [address] [id number] [address] [place] [address], [place] [address] Sep, [facility] [address] [id number] [address] [place] [address], [place] [address] Sep, [facility] [address] [id number] [address] [place] [address], [place] [address] Jul, [facility] [address] [id number] [address] [place] [address], [place] [address] Jul, [facility] [address] [id number] [address] [place] [address], [place] [address] Jun, [facility] [address] [id number] [address] [place] [address], [place] [address] Jun, [facility] [address] [id number] [address] [place] [address], [place] [address] Jun, [facility] [address] [id number] [address] [place] [address], [place] [address] Jun, [facility] [address] [id number] [address] [place] [address], [place] [address] May, [facility] [address] [id number] [address] [place] [address], [place] [address] May, [facility] [address] [id number] [address] [place] [address], [place] [address] Apr, [facility] [address] [id number] [address] [place] [address], [place] [address] Apr, [facility] [address] [id number] [address] [place] [address], [place] [address] Apr, [facility] [address] [id number] [address] [place] [address], [place] [address] Mar, [facility] [address] [id number] [address] [place] [address], [place] [address] Mar, [facility] [address] [id number] [address] [place] [address], [place] [address] Mar, [facility] [address] [id number] [address] [place] [address], [place] [address] Feb, [facility] [address] [id number] [address] [place] [address], [place] [address] Feb, [facility] [address] [id number] [address] [place] [address], [place] [address] Jan, [facility] [address] [id number] [address] [place] [address], [place] [address] November, [facility] [address] [id number] [address] [place] [address], [place] [address] Oct, [facility] [address] [id number] [address] [place] [address], [place] [address] Oct, [facility] [address] [id number] [address] [place] [address], [place] [address] Jul, [facility] [address] [id number] [address] [place] [address], [place] [address] Jul, [facility] [address] [id number] [address] [place] [address], [place] [address] Jul, [facility] [address] [id number] [address] [place] [address] Jul, [facility] [address] [id number] [address] [place] [address], [place] [address] Jul, [facility] [address] [id number] [address] [place] [id number] Jul, [facility] [address] [id number] [address] [place] [address] Jul, [facility] [address] [id number] [address] [place] [address] Jul, [facility] [address] [id number] [address] [place] [address], [place] [address] Jun, [facility] [address] [id number] [address] [place] [address] Jun, [facility] [address] [id number] [address] [place] [address] Apr, [facility] [address] [id number] [address] [place] [address] Apr, [facility] [address] [id number] [address] [place] [address] Apr, [facility] [address] [id number] [address] [place] [address] Apr, [facility] [address] [id number] [address] [place] [address] Apr, [facility] [address] [id number] [address] [place] [id number] 29 Apr, 2012 [facility] [address] [id number] [address] [place] [address], [place] [address] Apr, [facility] [address] [id number] [address] [place] [phone] Apr, [facility] [address] [id number] [address] [place] [address], [place] [address] Apr, [facility] [address] [id number] [address] [place] [address], [place] [address] Apr, [facility] [address] [id number] [address] [place] [address], [place] [address] Mar, [facility] [address] [id number] [address] [place] [address], [place] [address] Mar, [facility] [address] [id number] [address] [place] [address], [place] [address] Feb, [facility] [address] [id number] [address] [place] [address], [place] [address] Feb, [facility] [address] [id number] [address] [place] [address], [place] [address] Feb, [facility] [address] [id number] [address] [place] [address], [place] [address] Feb, [facility] [address] [id number] [address] [place] [address], [place] [address] Feb, [facility] [address] [id number] [address] [place] [address], [place] [address] Feb, [facility] [address] [id number] [address] [place] [address], [place] [address] Feb, [facility] [address] [id number] [address] [place] [address], [place] [address] Feb, [facility] [address] [id number] [address] [place] [address], [place] [address] Feb, [facility] [address] [id number] [address] [place] [address], [place] [address] Feb, [facility] [address] [id number] [address] [place] [address], [place] [address] Jan, [facility] [address] [id number] [address] [place] [address], [place] [address] Jan, [facility] [address] [id number] [address] [place] [address], [place] [address] Jan, [facility] [address] [facility] [id number] [address] [place] [phone] Jan, [facility] [address] [facility] [id number] [address] [place] [address] November, [facility] [address] [facility] [id number] [address] [place] [address] Oct, [facility] [address] [facility] [id number] [address] [place] [address] Sep, [facility] [address] [facility] [id number] [address] [place] [id number] Sep, [facility] [address] [facility] [id number] [address] [place] [phone] Sep, [facility] [address] [facility] [id number] [address] [place] [id number] Sep, IMMUNIZATIONS No Known Immunizations SOCIAL HISTORY Never Assessed REASON FOR VISIT [facility] [place] VITAL SIGNS MEDICATIONS Unknown [...]
--- OUTSIDE RECORDS SUMMARY | 2019-09-18 04:47 | XMS REPORT ---
Author Author Ana, Dona Doctor Organization [facility] Address Unknown Phone Unavailable Care Team Providers Care Lumber Inspector Name Role Phone Migration, Doctor Unavailable Unavailable PROBLEMS Type Condition ICD9-CM Code NLG01-WX Code Onset Dates Condition S tatus SNOMED Code Problem Normal cardiac stress test Z13.6 Act alvarado 694564690 Problem Abnormal colonoscopy R93.3 Active 303845331 Problem Sleep apnea G47.30 Active 54518987 Problem Unilateral recurrent inguinal hernia without obs truction or gangrene K40.91 Active 72784804 Problem Cough R05 Active 73119389 Problem Establishing care with new doctor, encounter for Z 71.89 Active 359345844 Problem COPD (chronic obstructive pulmonary disease) J44.9 Active 43653076 Problem Gastroparesis K31.84 Active 347485 006 Problem Unilateral inguinal hernia w ithout obstruction or gangrene, recurrence not specified K40.90 Active 42540984 Problem GERD (gastroesophageal reflux disease) K21.9 Active 111196390 Problem Breast lesion N64.9 Active 535198 004 Problem Vaginal lesion N89.8 Active 04876 7005 Problem Hyperlipidemia, unspecified hyperlipidemia type E7 8.5 Active 86318765 Problem Stress incontinence in female N39.3 Active 75841639 Problem Hammertoe M20.40 Active 989184034 Problem Diabetes E11.9 Active 955899029 Problem Type 2 diabetes mellitus without complication E11. 9 Active 498514512 Problem Rotator cuff arthropathy of left shoulder M12.812 Active [id number] Problem Essential hypertension I10 Active 70217096 Problem Arterial stenosis I77.1 Active 68 059960 Problem Tobacco dependence F17.200 Active 8 1855631 Problem Hyperlipidemia E78.5 Active 81257 004 Problem Type 2 diabetes mellitus E11.9 Activ e 84087292 Problem Irritable bowel syndrome with diarrhea K58.0 Active 445928920 Problem Other chronic pain G89.29 Active 8 6572551 Problem PVD (peripheral vascular disease) I73.9 Active 102130625 ALLERGIES No Information ENCOUNTERS Encounter Location Date Diagnosis [place] [id number] [place] [id number] [place] [address] Sep, Cramps, extremity R25.2 ; PV D (peripheral vascular disease) I73.9 ; Rotator cuff arthropathy of left shoulder M12.812 and Financial difficulties Z59.8 [place] [address] [place] [id number] [place] [address] 28 Aug, 2018 Rotator cuff arthropathy of left shoulder M12.812 [place] [address] [address] Aug, Arterial stenosis I77.1 [place] [address] [address] 13 Aug, 2018 [place] [address] [place] [id number] [place] [address] 04 Aug, 2018 Type 2 diabetes mellitus E11 .9 ; Left leg pain M79.605 ; Pain in left shoulder M25.512 ; Other chronic pain G89.29 ; Cramps, extremity R25.2 and Irritable bowel syndrome with diarrhea K58.0 [facility] [address] [address] Jul, Dysuria R30.0 and Acute uppe r respiratory infection J06.9 [place] [address] [place] [id number] [place] [address] Jul, Type 2 diabetes mellitus E11 .9 and Essential hypertension I10 [facility] [address] [place] [address] Jun, [facility] [address] [address] Jun, Cough R05 and Acute pneumoni a J18.9 [place] [address] [place] [id number] [place] [address] Apr, Type 2 diabetes mellitus E11 .9 ; COPD (chronic obstructive pulmonary disease) J44.9 ; Essential hypertension I10 and Left leg pain M79.605 [facility] [address] [address] 14 Mar, 2018 Kaity vaginitis B37.3 [facility] [address] [place] [id number] [place] [address] Jan, Chigger bites B88.0 [facility] [address] [address] Dec, Type 2 diabetes mellitus wit hout complication E11.9 and Unilateral recurrent inguinal hernia without obstruction or gangrene K40.91 [place] [address] [address] November, Essential hypertension I10 a nd Diabetes E11.9 [place] [address] [address] Oct, [place] [address] [address] Sep, Diabetes E11.9 and Essential hypertension I10 [place] [address] [address] Aug, Diabetes E11.9 ; Viral upper respiratory tract infection J06.9 ; COPD (chronic obstructive pulmonary disease) J44.9 ; Essential hypertension I10 ; Unilateral recurrent inguinal hernia without obstruction or gangrene K40.91 ; Dysuria R30.0 ; Yeast infection of the vagina B37.3 and Vaginal itching L29.8 [facility] [address] [place] [id number] [place] [address] Jul, Essential hypertension I10 a nd COPD (chronic obstructive pulmonary disease) J44.9 [facility] [address] [address] Mar, Left lower quadrant pain R10 .32 ; Type 2 diabetes mellitus without complication E11.9 and Cardiac arrhythmia, unspecified cardiac arrhythmia type I49.9 [place] [address] [address] Oct, COPD (chronic obstructive pu lmonary disease) J44.9 ; Diabetes E11.9 and Mouth pain K13.79 [place] [address] [facility] [id number] [address] [place] [address] Sep, [place] [address] [facility] [id number] [address] [place] [address] Sep, COPD (chronic obstructive pu lmonary disease) J44.9 ; Diabetes E11.9 and Mouth pain K13.79 [place] [address] [facility] [id number] [address] [place] [address] Aug, Type 2 diabetes mellitus wit hout complication E11.9 [place] [address] [facility] [id number] [address] [place] [address] Aug, [place] [address] [address] Aug, Type 2 diabetes mellitus wit hout complication E11.9 [place] [address] [place] [address] Aug, Establishing care with reji harmon, patricio for Z71.89 ; Type 2 diabetes mellitus without complication E11.9 ; Essential hypertension I10 ; Cough R05 ; Hammertoe M20.40 and Sleep apnea G47.30 [place] [address] [place] [address] Jul, [place] [address] [place] [id number] [place] [address] Jun, Vaginal lesion N89.8 [place] [address] [place] [id number] [place] [address] Jun, [place] [address] [place] [id number] [place] [address] Jun, Well woman exam Z01.419 ; Pa [...] in female N39.3 and Breast lesion N64.9 [facility] [address] [place] [address] May, Bronchitis J40 [facility] [address] [place] [id number] [place] [address] May, Routine adult health mainten ance Z00.00 ; Essential hypertension I10 ; Hyperlipidemia E78.5 ; COPD (chronic obstructive pulmonary disease) J44.9 ; Unilateral recurrent inguinal hernia without obstruction or gangrene K40.91 and Type 2 diabetes mellitus without complication E11.9 [facility] [address] [place] [id number] [place] [address] Oct, [facility] [address] [facility] [id number] [address] [place] [address] Oct, [facility] [address] [place] [id number] [place] [address] Sep, [facility] [address] [facility] [id number] [address] [place] [address] Sep, [facility] [address] [facility] [id number] [address] [place] [address] Sep, [facility] [address] [facility] [id number] [address] [place] [address] Sep, [facility] [address] [place] [id number] [place] [id number] Aug, [facility] [address] [facility] [id number] [address] [place] [address] Aug, [facility] [address] [place] [id number] [place] [address] Jul, [facility] [address] [id number] [address] [place] [address], [place] [address] Jul, [facility] [address] [id number] [address] [place] [address], [place] [address] Jun, [facility] [address] [id number] [address] [place] [address], [place] [address] Jun, [facility] [address] [id number] [address] [place] [address], [place] [address] Jun, [facility] [address] [id number] [address] [place] [address], [place] [address] Jun, [facility] [address] [id number] [address] [place] [address], [place] [address] Jun, [facility] [address] [id number] [address] [place] [address], [place] [address] Mar, [facility] [address] [id number] [address] [place] [address], [place] [address] Mar, [facility] [address] [id number] [address] [place] [address], [place] [address] Feb, [facility] [address] [id number] [address] [place] [address], [place] [address] Feb, [facility] [address] [id number] [address] [place] [address], [place] [address] Feb, [facility] [address] [id number] [address] [place] [address], [place] [address] Feb, [facility] [address] [id number] [address] [place] [address], [place] [address] Dec, [facility] [address] [id number] [address] [place] [address], [place] [address] Dec, [facility] [address] [id number] [address] [place] [address], [place] [address] November, [facility] [address] [id number] [address] [place] [address], [place] [address] November, [facility] [address] [id number] [address] [place] [address], [place] [address] November, [facility] [address] [id number] [address] [place] [address], [place] [address] November, [facility] [address] [id number] [address] [place] [address], [place] [address] Sep, [facility] [address] [id number] [address] [place] [address], [place] [address] Sep, [facility] [address] [id number] [address] [place] [address], [place] [address] Sep, [facility] [address] [id number] [address] [place] [address], [place] [address] Sep, [facility] [address] [id number] [address] [place] [address], [place] [address] Jul, [facility] [address] [id number] [address] [place] [address], [place] [address] Jul, [facility] [address] [id number] [address] [place] [address], [place] [address] Jun, [facility] [address] [id number] [address] [place] [address], [place] [address] Jun, [facility] [address] [id number] [address] [place] [address], [place] [address] Jun, [facility] [address] [id number] [address] [place] [address], [place] [address] Jun, [facility] [address] [id number] [address] [place] [address], [place] [address] May, [facility] [address] [id number] [address] [place] [address], [place] [address] May, [facility] [address] [id number] [address] [place] [address], [place] [address] Apr, [facility] [address] [id number] [address] [place] [address], [place] [address] Apr, [facility] [address] [id number] [address] [place] [address], [place] [address] Apr, [facility] [address] [id number] [address] [place] [address], [place] [address] Mar, [facility] [address] [id number] [address] [place] [address], [place] [address] Mar, [facility] [address] [id number] [address] [place] [address], [place] [address] Mar, [facility] [address] [id number] [address] [place] [address], [place] [address] Feb, [facility] [address] [id number] [address] [place] [address], [place] [address] Feb, [facility] [address] [id number] [address] [place] [address], [place] [address] Jan, [facility] [address] [id number] [address] [place] [address], [place] [address] November, [facility] [address] [id number] [address] [place] [address], [place] [address] Oct, [facility] [address] [id number] [address] [place] [address], [place] [address] Oct, [facility] [address] [id number] [address] [place] [address], [place] [address] Jul, [facility] [address] [id number] [address] [place] [address], [place] [address] Jul, [facility] [address] [id number] [address] [place] [address], [place] [address] Jul, [facility] [address] [id number] [address] [place] [address], [place] [address] Jul, [facility] [address] [id number] [address] [place] [address], [place] [address] 15 Jul, 2012 [facility] [address] [id number] [address] [place] [address], [place] [address] Jul, [facility] [address] [id number] [address] [place] [address] Jul, [facility] [address] [id number] [address] [place] [address], [place] [address] Jul, [facility] [address] [id number] [address] [place] [address] Jun, [facility] [address] [id number] [address] [place] [address], [place] [address] Jun, [facility] [address] [id number] [address] [place] [address] Apr, [facility] [address] [id number] [address] [place] [address], [place] [address] Apr, [facility] [address] [id number] [address] [place] [address] Apr, [facility] [address] [id number] [address] [place] [address], [place] [address] Apr, [facility] [address] [id number] [address] [place] [address] Apr, [facility] [address] [id number] [address] [place] [address] 29 Apr, 2012 [facility] [address] [id number] [address] [place] [address] Apr, [facility] [address] [id number] [address] [place] [address], [place] [address] Apr, [facility] [address] [id number] [address] [place] [address] Apr, [facility] [address] [id number] [address] [place] [address] Apr, [facility] [address] [id number] [address] [place] [address], [place] [address] Mar, [facility] [address] [id number] [address] [place] [address], [place] [address] Mar, [facility] [address] [id number] [address] [place] [address], [place] [address] Feb, [facility] [address] [id number] [address] [place] [address], [place] [address] Feb, [facility] [address] [id number] [address] [place] [address], [place] [address] Feb, [facility] [address] [id number] [address] [place] [address], [place] [address] Feb, [facility] [address] [id number] [address] [place] [address], [place] [address] Feb, [facility] [address] [id number] [address] [place] [address], [place] [address] Feb, [facility] [address] [id number] [address] [place] [address], [place] [address] Feb, [facility] [address] [id number] [address] [place] [address], [place] [address] Feb, [facility] [address] [id number] [address] [place] [address], [place] [address] Feb, [facility] [address] [id number] [address] [place] [address], [place] [address] Feb, [facility] [address] [id number] [address] [place] [address], [place] [address] Jan, [facility] [address] [id number] [address] [place] [address], [place] [address] Jan, [facility] [address] [id number] [address] [place] [address], [place] [address] Jan, [facility] [address] [id number] [address] [place] [address], [place] [address] Jan, [facility] [address] [facility] [id number] [address] [place] [address] November, [facility] [address] [facility] [id number] [address] [place] [address] Oct, [facility] [address] [facility] [id number] [address] [place] [address] Sep, [facility] [address] [facility] [id number] [address] [place] [address] Sep, [facility] [address] [facility] [id number] [address] [place] [address] Sep, [facility] [address] [facility] [id number] [address] [place] [address] Sep, IMMUNIZATIONS No Known Immunizations SOCIAL HISTORY Never Assessed [place]AS[place] [place] VITAL SIGNS MEDICATIONS No Known Medications RESULTS No Results PROCEDURES No Known [...]
--- OUTSIDE RECORDS SUMMARY | 2019-09-18 04:47 | XMS REPORT ---
Author Author Ana, Dona Doctor Organization [facility] Address Unknown Phone Unavailable Care Team Providers Care General Lot Attendant Name Role Phone Migration, Doctor Unavailable Unavailable PROBLEMS Type Condition ICD9-CM Code AQW01-TK Code Onset Dates Condition S tatus SNOMED Code Problem Normal cardiac stress test Z13.6 Act alvarado [id number] Problem Abnormal colonoscopy R93.3 Active 856379290 Problem Sleep apnea G47.30 Active 38132158 Problem Unilateral recurrent inguinal hernia without obs truction or gangrene K40.91 Active 28047975 Problem Cough R05 Active 38171405 Problem Establishing care with new doctor, encounter for Z 71.89 Active 508782327 Problem COPD (chronic obstructive pulmonary disease) J44.9 Active 80902731 Problem Gastroparesis K31.84 Active 128363 006 Problem Unilateral inguinal hernia w ithout obstruction or gangrene, recurrence not specified K40.90 Active 16424475 Problem GERD (gastroesophageal reflux disease) K21.9 Active 590217127 Problem Breast lesion N64.9 Active 246473 004 Problem Vaginal lesion N89.8 Active 90504 7005 Problem Hyperlipidemia, unspecified hyperlipidemia type E7 8.5 Active 54194797 Problem Stress incontinence in female N39.3 Active 24180467 Problem Hammertoe M20.40 Active 970669540 Problem Diabetes E11.9 Active 563797761 Problem Type 2 diabetes mellitus without complication E11. 9 Active 864965263 Problem Rotator cuff arthropathy of left shoulder M12.812 Active [id number] Problem Essential hypertension I10 Active 12337593 Problem Arterial stenosis I77.1 Active 68 831183 Problem Tobacco dependence F17.200 Active 8 3198680 Problem Hyperlipidemia E78.5 Active 82857 004 Problem Type 2 diabetes mellitus E11.9 Activ e 39821996 Problem Irritable bowel syndrome with diarrhea K58.0 Active 769151779 Problem Other chronic pain G89.29 Active 8 2392394 Problem PVD (peripheral vascular disease) I73.9 Active 192900126 ALLERGIES No Information ENCOUNTERS Encounter Location Date Diagnosis [place] [address] [address] Oct, [place] [address] [address] Sep, Cramps, extremity R25.2 ; PV D (peripheral vascular disease) I73.9 ; Rotator cuff arthropathy of left shoulder M12.812 and Financial difficulties Z59.8 [place] [address] [address] Aug, Rotator cuff arthropathy of left shoulder M12.812 [place] [address] [address] Aug, Arterial stenosis I77.1 [place] [address] [address] Aug, [place] [address] [address] Aug, Type 2 diabetes mellitus E11 .9 ; Left leg pain M79.605 ; Pain in left shoulder M25.512 ; Other chronic pain G89.29 ; Cramps, extremity R25.2 and Irritable bowel syndrome with diarrhea K58.0 [facility] [address] [address] Jul, Dysuria R30.0 and Acute uppe r respiratory infection J06.9 [place] [address] [address] Jul, Type 2 diabetes mellitus E11 .9 and Essential hypertension I10 [facility] [address] [address] Jun, [facility] [place] [address] [address] Jun, Cough R05 and Acute pneumoni a J18.9 [place] [address] [address] Apr, Type 2 diabetes mellitus E11 .9 ; COPD (chronic obstructive pulmonary disease) J44.9 ; Essential hypertension I10 and Left leg pain M79.605 [place] [address] [address] Mar, Kaity vaginitis B37.3 [place] [address] [address] Jan, Chigger bites B88.0 [place] [address] [address] Dec, Type 2 diabetes mellitus wit hout complication E11.9 and Unilateral recurrent inguinal hernia without obstruction or gangrene K40.91 [place] [address] [address] November, Essential hypertension I10 a nd Diabetes E11.9 [place] [address] [address] Oct, [place] [address] [address] Sep, Diabetes E11.9 and Essential hypertension I10 [place] [address] [address] Aug, Diabetes E11.9 ; Viral upper respiratory tract infection J06.9 ; COPD (chronic obstructive pulmonary disease) J44.9 ; Essential hypertension I10 ; Unilateral recurrent inguinal hernia without obstruction or gangrene K40.91 ; Dysuria R30.0 ; Yeast infection of the vagina B37.3 and Vaginal itching L29.8 [facility] [address] [place] [id number] [place] [address] Jul, Essential hypertension I10 a nd COPD (chronic obstructive pulmonary disease) J44.9 [facility] [address] [place] [id number] [place] [address] Mar, Left lower quadrant pain R10 .32 ; Type 2 diabetes mellitus without complication E11.9 and Cardiac arrhythmia, unspecified cardiac arrhythmia type I49.9 [place] [address] N [facility] [place] [facility] [id number] [address] [place] [address] Oct, COPD (chronic obstructive pu lmonary disease) J44.9 ; Diabetes E11.9 and Mouth pain K13.79 [place] [address] [address] [facility] [place] [id number] [address] [place] [address] Sep, [place] [address] [place] [id number] [place] [address] Sep, COPD (chronic obstructive pu lmonary disease) J44.9 ; Diabetes E11.9 and Mouth pain K13.79 [place] [address] [place] [id number] [place] [address] Aug, Type 2 diabetes mellitus wit hout complication E11.9 [place] [address] [place] [id number] [place] [address] Aug, [place] [address] [address] Aug, Type 2 diabetes mellitus wit hout complication E11.9 [place] [address] [address] Aug, Establishing care with reji harmon, encounter for Z71.89 ; Type 2 diabetes mellitus without complication E11.9 ; Essential hypertension I10 ; Cough R05 ; Hammertoe M20.40 and Sleep apnea G47.30 [place] [address] [place] [id number] [place] [address] Jul, [place] [address] [place] [id number] [place] [address] Jun, Vaginal lesion N89.8 [place] [address] [place] [id number] [place] [address] Jun, [place] [address] [place] [id number] [place] [address] 09 Dec, 2015 Well woman exam Z01.419 ; Pa [...] in female N39.3 and Breast lesion N64.9 [facility] [address] [address] May, Bronchitis J40 [place] [address] [address] May, Routine [facility] ance Z00.00 ; Essential hypertension I10 ; Hyperlipidemia E78.5 ; COPD (chronic obstructive pulmonary disease) J44.9 ; Unilateral recurrent inguinal hernia without obstruction or gangrene K40.91 and Type 2 diabetes mellitus without complication E11.9 [place] [address] [address] Oct, [facility] [address] [place] [id number] [place] [address] Oct, [facility] [address] [place] [id number] [address] [place] [address] Sep, [facility] [address] [facility] [place] [id number] [address] [place] [address] Sep, [facility] [address] [facility] [place] [id number] [address] [place] [address] Sep, [facility] [address] [place] [id number] [address] [place] [address] Sep, [facility] [address] [place] [id number] [place] [phone] Aug, [facility] [address] [place] [id number] [place] [address] Aug, [facility] [address] [id number] [address] [place] [address], [place] [address] Jul, [facility] [address] [id number] [address] [place] [address], [place] [address] Jul, [facility] [address] [id number] [address] [place] [address], [place] [address] Jun, [facility] [address] [id number] [address] [place] [address], [place] [address] Jun, [facility] [address] [id number] [address] [place] [address], [place] [address] Jun, [facility] [address] [id number] [address] [place] [address], [place] [address] Jun, [facility] [address] [id number] [address] [place] [address], [place] [address] Jun, [facility] [address] [id number] [address] [place] [address], [place] [address] Mar, [facility] [address] [id number] [address] [place] [address], [place] [address] Mar, [facility] [address] [id number] [address] [place] [address], [place] [address] Feb, [facility] [address] [id number] [address] [place] [address], [place] [address] Feb, [facility] [address] [id number] [address] [place] [address], [place] [address] Feb, [facility] [address] [id number] [address] [place] [address], [place] [address] Feb, [facility] [address] [id number] [address] [place] [address], [place] [address] Dec, [facility] [address] [id number] [address] [place] [address], [place] [address] Dec, [facility] [address] [id number] [address] [place] [address] [place] [address] November, [facility] [address] [id number] [address] [place] [address], [place] [address] November, [facility] [address] [id number] [address] [place] [address], [place] [address] November, [facility] [address] [id number] [address] [place] [address], [place] [address] November, [facility] [address] [id number] [address] [place] [address], [place] [address] Sep, [facility] [address] [id number] [address] [place] [address], [place] [address] Sep, [facility] [address] [id number] [address] [place] [address], [place] [address] Sep, [facility] [address] [id number] [address] [place] [address], [place] [address] Sep, [facility] [address] [id number] [address] [place] [address], [place] [address] Jul, [facility] [address] [id number] [address] [place] [address], [place] [address] Jul, [facility] [address] [id number] [address] [place] [address], [place] [address] Jun, [facility] [address] [id number] [address] [place] [address], [place] [address] Jun, [facility] [address] [id number] [address] [place] [address], [place] [address] Jun, [facility] [address] [id number] [address] [place] [address], [place] [address] Jun, [facility] [address] [id number] [address] [place] [address], [place] [address] May, [facility] [address] [id number] [address] [place] [address], [place] [address] May, [facility] [address] [id number] [address] [place] [address], [place] [address] Apr, [facility] [address] [id number] [address] [place] [address], [place] [address] Apr, [facility] [address] [id number] [address] [place] [address], [place] [address] Apr, [facility] [address] [id number] [address] [place] [address], [place] [address] Mar, [facility] [address] [id number] [address] [place] [address], [place] [address] Mar, [facility] [address] [id number] [address] [place] [address], [place] [address] Mar, [facility] [address] [id number] [address] [place] [address], [place] [address] Feb, [facility] [address] [id number] [address] [place] [address], [place] [address] Feb, [facility] [address] [id number] [address] [place] [address], [place] [address] Jan, [facility] [address] [id number] [address] [place] [address], [place] [address] November, [facility] [address] [id number] [address] [place] [address], [place] [address] Oct, [facility] [address] [id number] [address] [place] [address], [place] [address] Oct, [facility] [address] [id number] [address] [place] [address], [place] [address] Jul, [facility] [address] [id number] [address] [place] [address], [place] [address] Jul, [facility] [address] [id number] [address] [place] [address], [place] [address] Jul, [facility] [address] [id number] [address] [place] [address], [place] [address] Jul, [facility] [address] [id number] [address] [place] [address], [place] [address] 15 Jul, 2012 [facility] [address] [id number] [address] [place] [address], [place] [address] Jul, [facility] [address] [id number] [address] [place] [address], [place] [address] Jul, [facility] [address] [id number] [address] [place] [address] Jul, [facility] [address] [id number] [address] [place] [address], [place] [address] Jun, [facility] [address] [id number] [address] [place] [address], [place] [address] Jun, [facility] [address] [id number] [address] [place] [address], [place] [address] Apr, [facility] [address] [id number] [address] [place] [address] Apr, [facility] [address] [id number] [address] [place] [address], [place] [address] Apr, [facility] [address] [id number] [address] [place] [address] Apr, [facility] [address] [id number] [address] [place] [address] Apr, [facility] [address] [id number] [address] [place] [address] 29 Apr, 2012 [facility] [address] [id number] [address] [place] [address], [place] [address] Apr, [facility] [address] [id number] [address] [place] [address] Apr, [facility] [address] [id number] [address] [place] [address] Apr, [facility] [address] [id number] [address] [place] [address], [place] [address] Apr, [facility] [address] [id number] [address] [place] [address], [place] [address] Mar, [facility] [address] [id number] [address] [place] [address], [place] [address] Mar, [facility] [address] [id number] [address] [place] [address], [place] [address] Feb, [facility] [address] [id number] [address] [place] [address], [place] [address] Feb, [facility] [address] [id number] [address] [place] [address], [place] [address] Feb, [facility] [address] [id number] [address] [place] [address], [place] [address] Feb, [facility] [address] [id number] [address] [place] [address], [place] [address] Feb, [facility] [address] [id number] [address] [place] [address], [place] [address] Feb, [facility] [address] [id number] [address] [place] [address], [place] [address] Feb, [facility] [address] [id number] [address] [place] [address], [place] [address] Feb, [facility] [address] [id number] [address] [place] [address], [place] [address] Feb, [facility] [address] [id number] [address] [place] [address], [place] [address] Feb, [facility] [address] [id number] [address] [place] [address], [place] [address] Jan, [facility] [address] [id number] [address] [place] [address], [place] [address] Jan, [facility] [address] [id number] [address] [place] [address], [place] [address] Jan, [facility] [address] [id number] [address] [place] [address] Jan, [facility] [address] [id number] [address] [place] [phone] November, [facility] [address] [id number] [address] [place] [address] Oct, [facility] [address] [facility] [place] [id number] [address] [place] [id number] Sep, [facility] [address] [facility] [place] [id number] [address] [place] [address] Sep, [facility] [address] [facility] [place] [id number] [address] [place] [phone] Sep, [facility] [address] [facility] [place] [id number] [address] [place] [address] Sep, IMMUNIZATIONS No Known Immunizations SOCIAL HISTORY Never Assessed REASON FOR VISIT [facility] PLAN OF CARE VITAL SIGNS MEDICATIONS Unknown [...]
--- OUTSIDE RECORDS SUMMARY | 2019-09-18 04:47 | XMS REPORT ---
Author Author Ana, Dona Doctor Organization [facility] Address Unknown Phone Unavailable Care Team Providers Care Real Time Analyst Name Role Phone Migration, Doctor Unavailable Unavailable PROBLEMS Type Condition ICD9-CM Code NPM19-YA Code Onset Dates Condition S tatus SNOMED Code Problem Normal cardiac stress test Z13.6 Act alvarado 030496996 Problem Abnormal colonoscopy R93.3 Active 294502896 Problem Sleep apnea G47.30 Active 29403460 Problem Unilateral recurrent inguinal hernia without obs truction or gangrene K40.91 Active 85810730 Problem Cough R05 Active 61115097 Problem Establishing care with new doctor, encounter for Z 71.89 Active 599435807 Problem COPD (chronic obstructive pulmonary disease) J44.9 Active 58053657 Problem Gastroparesis K31.84 Active 468551 006 Problem Unilateral inguinal hernia w ithout obstruction or gangrene, recurrence not specified K40.90 Active 41618513 Problem GERD (gastroesophageal reflux disease) K21.9 Active 448827476 Problem Breast lesion N64.9 Active 452103 004 Problem Vaginal lesion N89.8 Active 88681 7005 Problem Hyperlipidemia, unspecified hyperlipidemia type E7 8.5 Active 07437634 Problem Stress incontinence in female N39.3 Active 67897964 Problem Hammertoe M20.40 Active 979915515 Problem Diabetes E11.9 Active 684858587 Problem Type 2 diabetes mellitus without complication E11. 9 Active 811773301 Problem Rotator cuff arthropathy of left shoulder M12.812 Active [id number] Problem Essential hypertension I10 Active 43199761 Problem Arterial stenosis I77.1 Active 68 036617 Problem Tobacco dependence F17.200 Active 8 0562501 Problem Hyperlipidemia E78.5 Active 27145 004 Problem Type 2 diabetes mellitus E11.9 Activ e 15178136 Problem Irritable bowel syndrome with diarrhea K58.0 Active 974531977 Problem Other chronic pain G89.29 Active 8 8950699 Problem PVD (peripheral vascular disease) I73.9 Active 423807713 ALLERGIES No Information ENCOUNTERS Encounter Location Date Diagnosis [place] [address] [address] Oct, Essential hypertension I10 [place] [address] [address] Sep, Cramps, extremity R25.2 ; PV D (peripheral vascular disease) I73.9 ; Rotator cuff arthropathy of left shoulder M12.812 and Financial difficulties Z59.8 [place] [address] [address] Aug, Rotator cuff arthropathy of left shoulder M12.812 [place] [address] [address] Aug, Arterial stenosis I77.1 [place] [address] [address] Aug, [place] [address] [address] Aug, Type 2 diabetes mellitus E11 .9 ; Left leg pain M79.605 ; Pain in left shoulder M25.512 ; Other chronic pain G89.29 ; Cramps, extremity R25.2 and Irritable bowel syndrome with diarrhea K58.0 [facility] [address] [address] Jul, Dysuria R30.0 and Acute uppe r respiratory infection J06.9 [place] [address] [address] Jul, Type 2 diabetes mellitus E11 .9 and Essential hypertension I10 [facility] [address] [address] Jun, [facility] [place] [address] [address] Jun, Cough R05 and Acute pneumoni a J18.9 [place] [address] [address] Apr, Type 2 diabetes mellitus E11 .9 ; COPD (chronic obstructive pulmonary disease) J44.9 ; Essential hypertension I10 and Left leg pain M79.605 [place] [id number] [place] [address] Mar, Kaity vaginitis B37.3 [place] [address] [address] Jan, Chigger bites B88.0 [place] [address] [address] [place] [id number] [place] [address] Dec, Type 2 diabetes mellitus wit hout complication E11.9 and Unilateral recurrent inguinal hernia without obstruction or gangrene K40.91 [place] [address] [address] November, Essential hypertension I10 a nd Diabetes E11.9 [place] [address] [address] Oct, [place] [address] [address] Sep, Diabetes E11.9 and Essential hypertension I10 [place] [address] [address] [place] [id number] [place] [address] Aug, Diabetes E11.9 ; Viral upper respiratory tract infection J06.9 ; COPD (chronic obstructive pulmonary disease) J44.9 ; Essential hypertension I10 ; Unilateral recurrent inguinal hernia without obstruction or gangrene K40.91 ; Dysuria R30.0 ; Yeast infection of the vagina B37.3 and Vaginal itching L29.8 [facility] [address] [place] [id number] [place] [address] Jul, Essential hypertension I10 a nd COPD (chronic obstructive pulmonary disease) J44.9 [place] [address] [address] [place] [id number] [place] [address] Mar, Left lower quadrant pain R10 .32 ; Type 2 diabetes mellitus without complication E11.9 and Cardiac arrhythmia, unspecified cardiac arrhythmia type I49.9 [place] [address] [address] [facility] [id number] [address] [place] [address] Oct, COPD (chronic obstructive pu lmonary disease) J44.9 ; Diabetes E11.9 and Mouth pain K13.79 [place] [address] [address] [facility] [id number] [address] [place] [address] Sep, [place] [address] [address] [facility] [id number] [address] [place] [address] Sep, COPD (chronic obstructive pu lmonary disease) J44.9 ; Diabetes E11.9 and Mouth pain K13.79 [place] [address] [address] [facility] [id number] [address] [place] [address] Aug, Type 2 diabetes mellitus wit hout complication E11.9 [place] [address] [address] [place] [id number] [place] [address] Aug, [place] [address] [address] Aug, Type 2 diabetes mellitus wit hout complication E11.9 [place] [address] [address] [place] [id number] [place] [address] Aug, Establishing care with reji harmon, encounter for Z71.89 ; Type 2 diabetes mellitus without complication E11.9 ; Essential hypertension I10 ; Cough R05 ; Hammertoe M20.40 and Sleep apnea G47.30 [place] [address] [address] [place] [id number] [address] [place] [address] Jul, [place] [address] [address] Jun, Vaginal lesion N89.8 [place] [address] [address] [place] [id number] [address] [place] [address] Jun, [place] [address] [place] [id number] [place] [address] Jun, Well woman exam Z01.419 ; Pa [...] in female N39.3 and Breast lesion N64.9 [facility] [address] [place] [id number] [place] [address] May, Bronchitis J40 [facility] [address] [address] May, Routine [facility] ance Z00.00 ; Essential hypertension I10 ; Hyperlipidemia E78.5 ; COPD (chronic obstructive pulmonary disease) J44.9 ; Unilateral recurrent inguinal hernia without obstruction or gangrene K40.91 and Type 2 diabetes mellitus without complication E11.9 [facility] [address] [place] [id number] [place] [address] Oct, [facility] [address] [place] [id number] [place] [address] Oct, [facility] [address] [place] [id number] [place] [address] Sep, [facility] [address] [place] [id number] [address] [place] [address] Sep, [facility] [address] [place] [id number] [place] [address] Sep, [facility] [address] [place] [id number] [place] [address] Sep, [facility] [address] [place] [id number] [address] [place] [phone] Aug, [facility] [address] [place] [id number] [place] [address] Aug, [facility] [address] [id number] [address] [place] [address], [place] [address] Jul, [facility] [address] [id number] [address] [place] [address], [place] [address] Jul, [facility] [address] [id number] [address] [place] [address], [place] [address] Jun, [facility] [address] [id number] [address] [place] [address], [place] [address] Jun, [facility] [address] [id number] [address] [place] [address], [place] [address] Jun, [facility] [address] [id number] [address] [place] [address], [place] [address] Jun, [facility] [address] [id number] [address] [place] [address], [place] [address] Jun, [facility] [address] [id number] [address] [place] [address], [place] [address] Mar, [facility] [address] [id number] [address] [place] [address], [place] [address] Mar, [facility] [address] [id number] [address] [place] [address], [place] [address] Feb, [facility] [address] [id number] [address] [place] [address], [place] [address] Feb, [facility] [address] [id number] [address] [place] [address], [place] [address] Feb, [facility] [address] [id number] [address] [place] [address], [place] [address] Feb, [facility] [address] [id number] [address] [place] [address], [place] [address] Dec, [facility] [address] [id number] [address] [place] [address], [place] [address] Dec, [facility] [address] [id number] [address] [place] [address], [place] [address] November, [facility] [address] [id number] [address] [place] [address], [place] [address] November, [facility] [address] [id number] [address] [place] [address], [place] [address] November, [facility] [address] [id number] [address] [place] [address], [place] [address] November, [facility] [address] [id number] [address] [place] [address], [place] [address] Sep, [facility] [address] [id number] [address] [place] [address], [place] [address] Sep, [facility] [address] [id number] [address] [place] [address], [place] [address] Sep, [facility] [address] [id number] [address] [place] [address], [place] [address] Sep, [facility] [address] [id number] [address] [place] [address], [place] [address] Jul, [facility] [address] [id number] [address] [place] [address], [place] [address] Jul, [facility] [address] [id number] [address] [place] [address], [place] [address] Jun, [facility] [address] [id number] [address] [place] [address], [place] [address] Jun, [facility] [address] [id number] [address] [place] [address], [place] [address] Jun, [facility] [address] [id number] [address] [place] [address], [place] [address] Jun, [facility] [address] [id number] [address] [place] [address], [place] [address] May, [facility] [address] [id number] [address] [place] [address], [place] [address] May, [facility] [address] [id number] [address] [place] [address], [place] [address] Apr, [facility] [address] [id number] [address] [place] [address], [place] [address] Apr, [facility] [address] [id number] [address] [place] [address], [place] [address] Apr, [facility] [address] [id number] [address] [place] [address], [place] [address] Mar, [facility] [address] [id number] [address] [place] [address], [place] [address] Mar, [facility] [address] [id number] [address] [place] [address], [place] [address] Mar, [facility] [address] [id number] [address] [place] [address], [place] [address] Feb, [facility] [address] [id number] [address] [place] [address], [place] [address] Feb, [facility] [address] [id number] [address] [place] [address], [place] [address] Jan, [facility] [address] [id number] [address] [place] [address], [place] [address] November, [facility] [address] [id number] [address] [place] [address], [place] [address] Oct, [facility] [address] [id number] [address] [place] [address], [place] [address] Oct, [facility] [address] [id number] [address] [place] [address], [place] [address] Jul, [facility] [address] [id number] [address] [place] [address], [place] [address] Jul, [facility] [address] [id number] [address] [place] [address], [place] [address] Jul, [facility] [address] [id number] [address] [place] [address] Jul, [facility] [address] [id number] [address] [place] [address], [place] [address] Jul, [facility] [address] [id number] [address] [place] [address] Jul, [facility] [address] [id number] [address] [place] [address] Jul, [facility] [address] [id number] [address] [place] [address] Jul, [facility] [address] [id number] [address] [place] [address], [place] [address] Jun, [facility] [address] [id number] [address] [place] [address] Jun, [facility] [address] [id number] [address] [place] [address] Apr, [facility] [address] [id number] [address] [place] [address] Apr, [facility] [address] [id number] [address] [place] [address] Apr, [facility] [address] [id number] [address] [place] [address] Apr, [facility] [address] [id number] [address] [place] [address] Apr, [facility] [address] [id number] [address] [place] [id number] 29 Apr, 2012 [facility] [address] [id number] [address] [place] [address], [place] [address] Apr, [facility] [address] [id number] [address] [place] [address] Apr, [facility] [address] [id number] [address] [place] [address], [place] [address] Apr, [facility] [address] [id number] [address] [place] [address], [place] [address] Apr, [facility] [address] [id number] [address] [place] [address], [place] [address] Mar, [facility] [address] [id number] [address] [place] [address], [place] [address] Mar, [facility] [address] [id number] [address] [place] [address], [place] [address] Feb, [facility] [address] [id number] [address] [place] [address], [place] [address] Feb, [facility] [address] [id number] [address] [place] [address], [place] [address] Feb, [facility] [address] [id number] [address] [place] [address], [place] [address] Feb, [facility] [address] [id number] [address] [place] [address], [place] [address] Feb, [facility] [address] [id number] [address] [place] [address], [place] [address] Feb, [facility] [address] [id number] [address] [place] [address], [place] [address] Feb, [facility] [address] [id number] [address] [place] [address], [place] [address] Feb, [facility] [address] [id number] [address] [place] [address], [place] [address] Feb, [facility] [address] [id number] [address] [place] [address], [place] [address] Feb, [facility] [address] [id number] [address] [place] [address], [place] [address] Jan, [facility] [address] [id number] [address] [place] [address], [place] [address] Jan, [facility] [address] [id number] [address] [place] [address], [place] [address] Jan, [facility] [address] [facility] [id number] [address] [place] [address] Jan, [facility] [address] [facility] [id number] [address] [place] [address] November, [facility] [address] [facility] [id number] [address] [place] [address] Oct, [facility] [address] [facility] [id number] [address] [place] [address] Sep, [facility] [address] [facility] [id number] [address] [place] [address] Sep, [facility] [address] [facility] [id number] [address] [place] [address] Sep, [facility] [address] [facility] [id number] [address] [place] [address] Sep, IMMUNIZATIONS No Known Immunizations SOCIAL HISTORY Never Assessed REASON FOR VISIT [facility] PLAN OF CARE VITAL SIGNS MEDICATIONS Unknown [...]
--- OUTSIDE RECORDS SUMMARY | 2019-09-18 04:48 | XMS REPORT ---
Author Author Ana, Dona Doctor Organization [facility] Address Unknown Phone Unavailable Care Team Providers Care Security Flex Utility Officer Name Role Phone Migration, Doctor Unavailable Unavailable PROBLEMS Type Condition ICD9-CM Code QON98-CW Code Onset Dates Condition S tatus SNOMED Code Problem Normal cardiac stress test Z13.6 Act alvarado 477285014 Problem Abnormal colonoscopy R93.3 Active 101865595 Problem Sleep apnea G47.30 Active 14343254 Problem Unilateral recurrent inguinal hernia without obs truction or gangrene K40.91 Active 09719319 Problem Cough R05 Active 04352706 Problem Establishing care with new doctor, encounter for Z 71.89 Active 678173538 Problem COPD (chronic obstructive pulmonary disease) J44.9 Active 65866655 Problem Gastroparesis K31.84 Active 907607 006 Problem Unilateral inguinal hernia w ithout obstruction or gangrene, recurrence not specified K40.90 Active 31275462 Problem GERD (gastroesophageal reflux disease) K21.9 Active 588773703 Problem Breast lesion N64.9 Active 762362 004 Problem Vaginal lesion N89.8 Active 78638 7005 Problem Hyperlipidemia, unspecified hyperlipidemia type E7 8.5 Active 66943687 Problem Stress incontinence in female N39.3 Active 98185831 Problem Hammertoe M20.40 Active 694273973 Problem Diabetes E11.9 Active 312702262 Problem Type 2 diabetes mellitus without complication E11. 9 Active 267598954 Problem Rotator cuff arthropathy of left shoulder M12.812 Active [id number] Problem Essential hypertension I10 Active 96177933 Problem Arterial stenosis I77.1 Active 68 301152 Problem Tobacco dependence F17.200 Active 8 9873967 Problem Hyperlipidemia E78.5 Active 26211 004 Problem Type 2 diabetes mellitus E11.9 Activ e 18952145 Problem Irritable bowel syndrome with diarrhea K58.0 Active 157970206 Problem Other chronic pain G89.29 Active 8 7897685 Problem PVD (peripheral vascular disease) I73.9 Active 126056374 ALLERGIES No Information ENCOUNTERS Encounter Location Date Diagnosis [place] [id number] [address] Oct, [place] [address] [address] Sep, Cramps, extremity R25.2 ; PV D (peripheral vascular disease) I73.9 ; Rotator cuff arthropathy of left shoulder M12.812 and Financial difficulties Z59.8 [place] [address] [address] Aug, Rotator cuff arthropathy of left shoulder M12.812 [place] [address] [address] Aug, Arterial stenosis I77.1 [place] [address] [address] Aug, [place] [address] [address] Aug, Type 2 diabetes mellitus E11 .9 ; Left leg pain M79.605 ; Pain in left shoulder M25.512 ; Other chronic pain G89.29 ; Cramps, extremity R25.2 and Irritable bowel syndrome with diarrhea K58.0 [facility] [address] [address] Jul, Dysuria R30.0 and Acute uppe r respiratory infection J06.9 [place] [address] [address] Jul, Type 2 diabetes mellitus E11 .9 and Essential hypertension I10 [facility] [address] [address] Jun, [facility] [place] [address] [address] Jun, Cough R05 and Acute pneumoni a J18.9 [place] [address] [address] Apr, Type 2 diabetes mellitus E11 .9 ; COPD (chronic obstructive pulmonary disease) J44.9 ; Essential hypertension I10 and Left leg pain M79.605 [place] [address] [address] Mar, Kaity vaginitis B37.3 [place] [address] [address] Jan, Chigger bites B88.0 [place] [address] [address] Dec, Type 2 diabetes mellitus wit hout complication E11.9 and Unilateral recurrent inguinal hernia without obstruction or gangrene K40.91 [place] [address] [address] November, Essential hypertension I10 a nd Diabetes E11.9 [place] [address] [address] Oct, [place] [address] [address] Sep, Diabetes E11.9 and Essential hypertension I10 [place] [address] [address] Aug, Diabetes E11.9 ; Viral upper respiratory tract infection J06.9 ; COPD (chronic obstructive pulmonary disease) J44.9 ; Essential hypertension I10 ; Unilateral recurrent inguinal hernia without obstruction or gangrene K40.91 ; Dysuria R30.0 ; Yeast infection of the vagina B37.3 and Vaginal itching L29.8 [facility] [address] [place] [id number] [place] [address] Jul, Essential hypertension I10 a nd COPD (chronic obstructive pulmonary disease) J44.9 [facility] [address] [place] [id number] [place] [address] Mar, Left lower quadrant pain R10 .32 ; Type 2 diabetes mellitus without complication E11.9 and Cardiac arrhythmia, unspecified cardiac arrhythmia type I49.9 [place] [address] [facility] [id number] [address] [place] [address] Oct, COPD (chronic obstructive pu lmonary disease) J44.9 ; Diabetes E11.9 and Mouth pain K13.79 [place] [address] [address] [facility] [id number] [address] [place] [address] Sep, [place] [address] [address] [place] [id number] [address] [place] [address] Sep, COPD (chronic obstructive pu lmonary disease) J44.9 ; Diabetes E11.9 and Mouth pain K13.79 [place] [address] [address] [place] [id number] [address] [place] [address] Aug, Type 2 diabetes mellitus wit hout complication E11.9 [place] [address] [address] [place] [id number] [place] [address] Aug, [place] [address] [address] Aug, Type 2 diabetes mellitus wit hout complication E11.9 [place] [address] [address] Aug, Establishing care with reji harmon, encounter for Z71.89 ; Type 2 diabetes mellitus without complication E11.9 ; Essential hypertension I10 ; Cough R05 ; Hammertoe M20.40 and Sleep apnea G47.30 [place] [address] [address] [place] [id number] [address] [place] [address] Jul, [place] [address] [place] [id number] [address] [place] [address] Jun, Vaginal lesion N89.8 [place] [address] [place] [id number] [address] [place] [address] Jun, [place] [address] [place] [id number] [address] [place] [address] 09 Dec, 2015 Well woman exam Z01.419 [...] in female N39.3 and Breast lesion N64.9 [facility] [address] [address] May, Bronchitis J40 [place] [address] [address] May, Routine adult health [facility] ance Z00.00 ; Essential hypertension I10 ; Hyperlipidemia E78.5 ; COPD (chronic obstructive pulmonary disease) J44.9 ; Unilateral recurrent inguinal hernia without obstruction or gangrene K40.91 and Type 2 diabetes mellitus without complication E11.9 [place] [address] [address] Oct, [facility] [address] [place] [id number] [place] [address] Oct, [facility] [address] [place] [id number] [address] [place] [address] Sep, [facility] [address] [facility] [id number] [address] [place] [address] Sep, [facility] [address] [facility] [id number] [address] [place] [address] Sep, [facility] [address] [place] [id number] [address] [place] [address] Sep, [facility] [address] [place] [id number] [address] [place] [address] Aug, [facility] [address] [place] [id number] [address] [place] [address] Aug, [facility] [address] [id number] [address] [place] [address], [place] [address] Jul, [facility] [address] [id number] [address] [place] [address], [place] [address] Jul, [facility] [address] [id number] [address] [place] [address], [place] [address] Jun, [facility] [address] [id number] [address] [place] [address], [place] [address] Jun, [facility] [address] [id number] [address] [place] [address], [place] [address] Jun, [facility] [address] [id number] [address] [place] [address], [place] [address] Jun, [facility] [address] [id number] [address] [place] [address], [place] [address] Jun, [facility] [address] [id number] [address] [place] [address], [place] [address] Mar, [facility] [address] [id number] [address] [place] [address], [place] [address] Mar, [facility] [address] [id number] [address] [place] [address], [place] [address] Feb, [facility] [address] [id number] [address] [place] [address], [place] [address] Feb, [facility] [address] [id number] [address] [place] [address], [place] [address] Feb, [facility] [address] [id number] [address] [place] [address], [place] [address] Feb, [facility] [address] [id number] [address] [place] [address], [place] [address] Dec, [facility] [address] [id number] [address] [place] [address], [place] [address] Dec, [facility] [address] [id number] [address] [place] [address] [place] [address] November, [facility] [address] [id number] [address] [place] [address], [place] [address] November, [facility] [address] [id number] [address] [place] [address], [place] [address] November, [facility] [address] [id number] [address] [place] [address], [place] [address] November, [facility] [address] [id number] [address] [place] [address], [place] [address] Sep, [facility] [address] [id number] [address] [place] [address], [place] [address] Sep, [facility] [address] [id number] [address] [place] [address], [place] [address] Sep, [facility] [address] [id number] [address] [place] [address], [place] [address] Sep, [facility] [address] [id number] [address] [place] [address], [place] [address] Jul, [facility] [address] [id number] [address] [place] [address], [place] [address] Jul, [facility] [address] [id number] [address] [place] [address], [place] [address] Jun, [facility] [address] [id number] [address] [place] [address], [place] [address] Jun, [facility] [address] [id number] [address] [place] [address], [place] [address] Jun, [facility] [address] [id number] [address] [place] [address], [place] [address] Jun, [facility] [address] [id number] [address] [place] [address], [place] [address] May, [facility] [address] [id number] [address] [place] [address], [place] [address] May, [facility] [address] [id number] [address] [place] [address], [place] [address] Apr, [facility] [address] [id number] [address] [place] [address], [place] [address] Apr, [facility] [address] [id number] [address] [place] [address], [place] [address] Apr, [facility] [address] [id number] [address] [place] [address], [place] [address] Mar, [facility] [address] [id number] [address] [place] [address], [place] [address] Mar, [facility] [address] [id number] [address] [place] [address], [place] [address] Mar, [facility] [address] [id number] [address] [place] [address], [place] [address] Feb, [facility] [address] [id number] [address] [place] [address], [place] [address] Feb, [facility] [address] [id number] [address] [place] [address], [place] [address] Jan, [facility] [address] [id number] [address] [place] [address], [place] [address] November, [facility] [address] [id number] [address] [place] [address], [place] [address] Oct, [facility] [address] [id number] [address] [place] [address], [place] [address] Oct, [facility] [address] [id number] [address] [place] [address], [place] [address] Jul, [facility] [address] [id number] [address] [place] [address], [place] [address] Jul, [facility] [address] [id number] [address] [place] [address], [place] [address] Jul, [facility] [address] [id number] [address] [place] [address], [place] [address] Jul, [facility] [address] [id number] [address] [place] [address], [place] [address] 15 Jul, 2012 [facility] [address] [id number] [address] [place] [address], [place] [address] Jul, [facility] [address] [id number] [address] [place] [address], [place] [address] Jul, [facility] [address] [id number] [address] [place] [address] Jul, [facility] [address] [id number] [address] [place] [address], [place] [address] Jun, [facility] [address] [id number] [address] [place] [address], [place] [address] Jun, [facility] [address] [id number] [address] [place] [address], [place] [address] Apr, [facility] [address] [id number] [address] [place] [address] Apr, [facility] [address] [id number] [address] [place] [address], [place] [address] Apr, [facility] [address] [id number] [address] [place] [address] Apr, [facility] [address] [id number] [address] [place] [address] Apr, [facility] [address] [id number] [address] [place] [address] 29 Apr, 2012 [facility] [address] [id number] [address] [place] [address], [place] [address] Apr, [facility] [address] [id number] [address] [place] [address] Apr, [facility] [address] [id number] [address] [place] [address] Apr, [facility] [address] [id number] [address] [place] [address], [place] [address] Apr, [facility] [address] [id number] [address] [place] [address], [place] [address] Mar, [facility] [address] [id number] [address] [place] [address], [place] [address] Mar, [facility] [address] [id number] [address] [place] [address], [place] [address] Feb, [facility] [address] [id number] [address] [place] [address], [place] [address] Feb, [facility] [address] [id number] [address] [place] [address], [place] [address] Feb, [facility] [address] [id number] [address] [place] [address], [place] [address] Feb, [facility] [address] [id number] [address] [place] [address], [place] [address] Feb, [facility] [address] [id number] [address] [place] [address], [place] [address] Feb, [facility] [address] [id number] [address] [place] [address], [place] [address] Feb, [facility] [address] [id number] [address] [place] [address], [place] [address] Feb, [facility] [address] [id number] [address] [place] [address], [place] [address] Feb, [facility] [address] [id number] [address] [place] [address], [place] [address] Feb, [facility] [address] [id number] [address] [place] [address], [place] [address] Jan, [facility] [address] [id number] [address] [place] [address], [place] [address] Jan, [facility] [address] [id number] [address] [place] [address], [place] [address] Jan, [facility] [address] [id number] [address] [place] [address] Jan, [facility] [address] [id number] [address] [place] [address] November, [facility] [address] [id number] [address] [place] [address] Oct, [facility] [address] [facility] [id number] [address] [place] [address] Sep, [facility] [address] [facility] [id number] [address] [place] [address] Sep, [facility] [address] [facility] [id number] [address] [place] [address] Sep, [facility] [address] [facility] [id number] [address] [place] [address] Sep, IMMUNIZATIONS No Known Immunizations SOCIAL HISTORY Never Assessed REASON FOR VISIT [facility] PLAN OF CARE VITAL SIGNS MEDICATIONS Unknown [...]
--- OUTSIDE RECORDS SUMMARY | 2019-09-18 04:48 | XMS REPORT ---
Author Author Dona WILSON [facility] Address [address] [place] [address] Care Team Providers Care Java Mobile Developer Name Role Phone LUCRETIA WILSON Unavailable PROBLEMS Type Condition ICD9-CM Code SCY95-MV Code Onset Dates Condition S tatus SNOMED Code Problem Vaginal lesion N89.8 Active 23006 7005 Problem Stress incontinence in female N39.3 Active 49025964 Problem Breast lesion N64.9 Active 393183 004 Problem Type 2 diabetes mellitus E11.9 Activ e 32992240 Problem Normal cardiac stress test Z13.6 Act alvarado 281702512 Problem Type 2 diabetes mellitus without complication E11. 9 Active 631106472 Problem Abnormal colonoscopy R93.3 Active 642421355 Problem Hammertoe M20.40 Active 219657844 Problem Establishing care with new doctor, encounter for Z 71.89 Active 409242623 Problem Diabetes E11.9 Active 500737669 Problem Cough R05 Active 74851795 Problem Essential hypertension I10 Active 03824854 Problem Hyperlipidemia E78.5 Active 07529 004 Problem Sleep apnea G47.30 Active 20796059 Problem Tobacco dependence F17.200 Active 8 4484699 Problem Gastroparesis K31.84 Active 346946 006 Problem Unilateral recurrent inguinal hernia without obs truction or gangrene K40.91 Active 79003749 Problem COPD (chronic obstructive pulmonary disease) J44.9 Active 76768786 Problem Hyperlipidemia, unspecified hyperlipidemia type E7 8.5 Active 06194178 Problem GERD (gastroesophageal reflux disease) K21.9 Active 049596008 Problem Unilateral inguinal hernia w ithout obstruction or gangrene, recurrence not specified K40.90 Active 90351141 ALLERGIES Substance Reaction Event Type Date Status Sulfamethoxazole Unknown Drug Allergy Jun, Active Lipitor Stiff neck, aching muscles in neck Drug Allergy Jun Active ENCOUNTERS Encounter Location Date Diagnosis [facility] [address] [address] Jun, [facility] [address] [address] Jun, Cough R05 and Acute pneumoni a J18.9 [place] [address] [address] Apr, Type 2 diabetes mellitus E11 .9 ; COPD (chronic obstructive pulmonary disease) J44.9 ; Essential hypertension I10 and Left leg pain M79.605 [place] [address] [address] Mar, Kaity vaginitis B37.3 [place] [address] [address] Jan, Chigger bites B88.0 [place] [address] [address] Dec, Type 2 diabetes mellitus wit hout complication E11.9 and Unilateral recurrent inguinal hernia without obstruction or gangrene K40.91 [place] [address] [address] November, Essential hypertension I10 a nd Diabetes E11.9 [place] [address] [address] Oct, [place] [address] [address] Sep, Diabetes E11.9 and Essential hypertension I10 [place] [address] [address] Aug, Diabetes E11.9 ; Viral upper respiratory tract infection J06.9 ; COPD (chronic obstructive pulmonary disease) J44.9 ; Essential hypertension I10 ; Unilateral recurrent inguinal hernia without obstruction or gangrene K40.91 ; Dysuria R30.0 ; Yeast infection of the vagina B37.3 and Vaginal itching L29.8 [facility] [address] [place] [address] Jul, Essential hypertension I10 a nd COPD (chronic obstructive pulmonary disease) J44.9 [place] [address] [place] [id number] [address] [place] [address] Mar, Left lower quadrant pain R10 .32 ; Type 2 diabetes mellitus without complication E11.9 and Cardiac arrhythmia, unspecified cardiac arrhythmia type I49.9 [place] [address] [place] [id number] [address] [place] [address] Oct, COPD (chronic obstructive pu lmonary disease) J44.9 ; Diabetes E11.9 and Mouth pain K13.79 [place] [address] [address] [place] [id number] [address] [place] [address] Sep, [place] [address] [place] [id number] [place] [address] Sep, COPD (chronic obstructive pu lmonary disease) J44.9 ; Diabetes E11.9 and Mouth pain K13.79 [place] [address] [place] [id number] [address] [place] [address] Aug, Type 2 diabetes mellitus wit hout complication E11.9 [place] [address] [address] [place] [id number] [address] [place] [address] Aug, [place] [address] [place] [id number] [address] [place] [address] Aug, Type 2 diabetes mellitus wit hout complication E11.9 [place] [address] [place] [id number] [address] [place] [address] Aug, Establishing care with reji harmon, encounter for Z71.89 ; Type 2 diabetes mellitus without complication E11.9 ; Essential hypertension I10 ; Cough R05 ; Hammertoe M20.40 and Sleep apnea G47.30 [place] [address] [place] [id number] [address] [place] [address] Jul, [place] [address] [address] Jun, Vaginal lesion N89.8 [facility] [address] [place] [id number] [address] [place] [address] Jun, [place] [address] [place] [id number] [place] [address] Jun, Well woman exam Z01.419 ; Pa [...] in female N39.3 and Breast lesion N64.9 [place] [address] [address] [place] [id number] [address] [place] [address] May, Bronchitis J40 [place] [address] [address] [place] [id number] [address] [place] [address] May, Routine adult health mainten ance Z00.00 ; Essential hypertension I10 ; Hyperlipidemia E78.5 ; COPD (chronic obstructive pulmonary disease) J44.9 ; Unilateral recurrent inguinal hernia without obstruction or gangrene K40.91 and Type 2 diabetes mellitus without complication E11.9 [place] [address] [place] [id number] [address] [place] [address] Oct, [facility] [address] [place] [id number] [address] [place] [address] Oct, [facility] [address] [place] [id number] [address] [place] [address] Sep, [place] [address] [place] [id number] [address] [place] [address] Sep, [facility] [address] [place] [id number] [address] [place] [address] Sep, [facility] [address] [id number] [address] [place] [address], [place] [address] Sep, [facility] [address] [id number] [address] [place] [address], [place] [address] Aug, [facility] [address] [id number] [address] [place] [address], [place] [address] Aug, [facility] [address] [id number] [address] [place] [address], [place] [address] Jul, [facility] [address] [id number] [address] [place] [address], [place] [address] Jul, [facility] [address] [id number] [address] [place] [address], [place] [address] Jun, [facility] [address] [id number] [address] [place] [address], [place] [address] Jun, [facility] [address] [id number] [address] [place] [address], [place] [address] Jun, [facility] [address] [id number] [address] [place] [address], [place] [address] Jun, [facility] [address] [id number] [address] [place] [address], [place] [address] Jun, [facility] [address] [id number] [address] [place] [address], [place] [address] Mar, [facility] [address] [id number] [address] [place] [address], [place] [address] Mar, [facility] [address] [id number] [address] [place] [address], [place] [address] Feb, [facility] [address] [id number] [address] [place] [address], [place] [address] Feb, [facility] [address] [id number] [address] [place] [address], [place] [address] Feb, [facility] [address] [id number] [address] [place] [address], [place] [address] Feb, [facility] [address] [id number] [address] [place] [address], [place] [address] Dec, [facility] [address] [id number] [address] [place] [address], [place] [address] Dec, [facility] [address] [id number] [address] [place] [address], [place] [address] November, [facility] [address] [id number] [address] [place] [address], [place] [address] November, [facility] [address] [id number] [address] [place] [address], [place] [address] November, [facility] [address] [id number] [address] [place] [address], [place] [address] November, [facility] [address] [id number] [address] [place] [address], [place] [address] Sep, [facility] [address] [id number] [address] [place] [address], [place] [address] Sep, [facility] [address] [id number] [address] [place] [address], [place] [address] Sep, [facility] [address] [id number] [address] [place] [address], [place] [address] Sep, [facility] [address] [id number] [address] [place] [address], [place] [address] Jul, [facility] [address] [id number] [address] [place] [address], [place] [address] Jul, [facility] [address] [id number] [address] [place] [address], [place] [address] Jun, [facility] [address] [id number] [address] [place] [address], [place] [address] Jun, [facility] [address] [id number] [address] [place] [address], [place] [address] Jun, [facility] [address] [id number] [address] [place] [address], [place] [address] Jun, [facility] [address] [id number] [address] [place] [address], [place] [address] May, [facility] [address] [id number] [address] [place] [address], [place] [address] May, [facility] [address] [id number] [address] [place] [address], [place] [address] Apr, [facility] [address] [id number] [address] [place] [address], [place] [address] Apr, [facility] [address] [id number] [address] [place] [address], [place] [address] Apr, [facility] [address] [id number] [address] [place] [address], [place] [address] Mar, [facility] [address] [id number] [address] [place] [address], [place] [address] Mar, [facility] [address] [id number] [address] [place] [address], [place] [address] Mar, [facility] [address] [id number] [address] [place] [address], [place] [address] Feb, [facility] [address] [id number] [address] [place] [address], [place] [address] Feb, [facility] [address] [id number] [address] [place] [address], [place] [address] Jan, [facility] [address] [id number] [address] [place] [address], [place] [address] November, [facility] [address] [id number] [address] [place] [address], [place] [address] Oct, [facility] [address] [id number] [address] [place] [address], [place] [address] Oct, [facility] [address] [id number] [address] [place] [address], [place] [address] Jul, [facility] [address] [id number] [address] [place] [address], [place] [address] 29 Jul, 2012 [facility] [address] [id number] [address] [place] [address], [place] [address] Jul, [facility] [address] [id number] [address] [place] [address], [place] [address] Jul, [facility] [address] [id number] [address] [place] [address], [place] [address] 15 Jul, 2012 [facility] [address] [id number] [address] [place] [address], [place] [address] 14 Jul, 2012 [facility] [address] [id number] [address] [place] [address], [place] [address] Jul, [facility] [address] [id number] [address] [place] [address], [place] [address] Jul, [facility] [address] [id number] [address] [place] [address], [place] [address] Jun, [facility] [address] [id number] [address] [place] [address], [place] [address] Jun, [facility] [address] [id number] [address] [place] [address], [place] [address] Apr, [facility] [address] [id number] [address] [place] [address], [place] [address] Apr, [facility] [address] [id number] [address] [place] [address], [place] [address] Apr, [facility] [address] [id number] [address] [place] [address], [place] [address] Apr, [facility] [address] [id number] [address] [place] [address], [place] [address] Apr, [facility] [address] [id number] [address] [place] [address], [place] [address] 29 Apr, 2012 [facility] [address] [id number] [address] [place] [address], [place] [address] Apr, [facility] [address] [id number] [address] [place] [address], [place] [address] Apr, [facility] [address] [id number] [address] [place] [address], [place] [address] Apr, [facility] [address] [id number] [address] [place] [address], [place] [address] Apr, [facility] [address] [id number] [address] [place] [address], [place] [address] Mar, [facility] [address] [id number] [address] [place] [address], [place] [address] Mar, [facility] [address] [id number] [address] [place] [address], [place] [address] Feb, [facility] [address] [id number] [address] [place] [address], [place] [address] Feb, [facility] [address] [id number] [address] [place] [address], [place] [address] Feb, [facility] [address] [id number] [address] [place] [address], [place] [address] Feb, [facility] [address] [id number] [address] [place] [address], [place] [address] Feb, [facility] [address] [id number] [address] [place] [address], [place] [address] Feb, [facility] [address] [id number] [address] [place] [address], [place] [address] Feb, [facility] [address] [id number] [address] [place] [address], [place] [address] Feb, [facility] [address] [id number] [address] [place] [address], [place] [address] Feb, [facility] [address] [id number] [address] [place] [address], [place] [address] Feb, [facility] [address] [id number] [address] [place] [address] Jan, [facility] [address] [id number] [address] [place] [address] Jan, [facility] [address] [id number] [address] [place] [address] Jan, [facility] [address] [id number] [address] [place] [address] Jan, [facility] [address] [id number] [address] [place] [address] November, [facility] [address] [id number] [address] [place] [address] Oct, [facility] [address] [id number] [address] [place] [address] Sep, [facility] [address] [id number] [address] [place] [address] Sep, [facility] [address] [id number] [address] [place] [address] Sep, [facility] [address] [id number] [address] [place] [address] Sep, IMMUNIZATIONS No Known Immunizations SOCIAL HISTORY Never Assessed REASON FOR VISIT Congestion/Dizzy-The patient started about a week ago with head congestion, runn y nose, cough, scratchy throat and her ears are ringing. The congestion is movi ng to her chest she believes.--BOO Acosta PLAN OF CARE Activity Details Follow Up as needed or reg fu with kong lucio Reason: VITAL SIGNS Height 64 in 2018-06-21 Weight 168 lbs 2018-06-21 Temperature 97.5 degrees Fahrenheit 2018-06-21 Heart Rate 80 bpm 2018-06-21 Respiratory Rate 22 2018-06-21 Oximetry 95 % 2018-06-21 BMI 28.83 kg/m2 2018-06-21 Blood pressure systolic 116 mmHg 2018-06-21 Blood pressure diastolic 68 mmHg 2018-06-21 MEDICATIONS Medication Instructions Dosage Frequency Start Date End Date Duration S lidia Lisinopril 10 MG Orally Once a day 1 tablet 24h 30 d ays Active Flonase 50 mcg/actuation 1 sprays by Vincenzo al route 2 times per day in each nostril Oct, Active MetFORMIN HCl ER 500 mg Orally twice a day 2 tablets with meals 12h Sep, 30 days Active Robitussin Cough/Chest DM Max Active Amlodipine Besylate 10 MG Orally Once a day 1 tablet 24h 30 days Active ProAir HFA 108 (90 Base) MCG/ACT Inhalation every 6 hrs 2 puffs as needed 6h Sep, 30 days Active Karen-[place] Pls Night Cld/Flu 5-6.25-10-325 MG Orally Four times a day 2 capsules as needed 6h Active Symbicort 160-4.5 mcg/actuation inhale 2 puffs by inhalation route 2 times per day in the morning and evening Oct, Active Tessalon Perles 100 mg Orally Three times a day 1 capsule as needed 8h Jun, 10 days Active Levaquin 750 MG Orally Once a day 1 tablet 24h Jun, 7 days Active RESULTS Name Result Date Reference Range Xray : Chest 2 View (IN HOUSE) 2018-06-21 PROCEDURES Procedure Date Ordered Result Body Site X-RAY EXAM CHEST 2 VIEWS Jun 21, 2018 INSTRUCTIONS MEDICATIONS ADMINISTERED No Known Medications [...]
--- OUTSIDE RECORDS SUMMARY | 2019-09-18 04:48 | XMS REPORT ---
Author Author Ana, Dona Doctor Organization [facility] Address Unknown Phone Unavailable Care Team Providers Care Air Press Operator Name Role Phone Migration, Doctor Unavailable Unavailable PROBLEMS Type Condition ICD9-CM Code HMP39-FU Code Onset Dates Condition S tatus SNOMED Code Problem Normal cardiac stress test Z13.6 Act alvarado 470655752 Problem Abnormal colonoscopy R93.3 Active 019523909 Problem Sleep apnea G47.30 Active 20489251 Problem Unilateral recurrent inguinal hernia without obs truction or gangrene K40.91 Active 06693082 Problem Cough R05 Active 92031496 Problem Establishing care with new doctor, encounter for Z 71.89 Active 856152070 Problem COPD (chronic obstructive pulmonary disease) J44.9 Active 17340075 Problem Gastroparesis K31.84 Active 975415 006 Problem Unilateral inguinal hernia w ithout obstruction or gangrene, recurrence not specified K40.90 Active 08230471 Problem GERD (gastroesophageal reflux disease) K21.9 Active 497796090 Problem Breast lesion N64.9 Active 204055 004 Problem Vaginal lesion N89.8 Active 90740 7005 Problem Hyperlipidemia, unspecified hyperlipidemia type E7 8.5 Active 31646990 Problem Stress incontinence in female N39.3 Active 97141270 Problem Hammertoe M20.40 Active 598611031 Problem Diabetes E11.9 Active 793687775 Problem Type 2 diabetes mellitus without complication E11. 9 Active 481654909 Problem Rotator cuff arthropathy of left shoulder M12.812 Active 93137722297501339 Problem Essential hypertension I10 Active 14823422 Problem Arterial stenosis I77.1 Active 68 906856 Problem Tobacco dependence F17.200 Active 8 8498874 Problem Hyperlipidemia E78.5 Active 16750 004 Problem Type 2 diabetes mellitus E11.9 Activ e 47850961 Problem Irritable bowel syndrome with diarrhea K58.0 Active 472309894 Problem Other chronic pain G89.29 Active 8 4075530 Problem PVD (peripheral vascular disease) I73.9 Active 765234257 ALLERGIES No Information ENCOUNTERS Encounter Location Date Diagnosis [place] [id number] [address] Oct, [place] [address] [address] Sep, Cramps, extremity R25.2 ; PV D (peripheral vascular disease) I73.9 ; Rotator cuff arthropathy of left shoulder M12.812 and Financial difficulties Z59.8 [place] [address] [address] Aug, Rotator cuff arthropathy of left shoulder M12.812 [place] [address] [address] Aug, Arterial stenosis I77.1 [place] [address] [address] Aug, [place] [address] [address] Aug, Type 2 diabetes mellitus E11 .9 ; Left leg pain M79.605 ; Pain in left shoulder M25.512 ; Other chronic pain G89.29 ; Cramps, extremity R25.2 and Irritable bowel syndrome with diarrhea K58.0 [facility] [address] [address] Jul, Dysuria R30.0 and Acute uppe r respiratory infection J06.9 [place] [address] [address] Jul, Type 2 diabetes mellitus E11 .9 and Essential hypertension I10 [facility] [address] [address] Jun, [facility] [place] [address] [address] Jun, Cough R05 and Acute pneumoni a J18.9 [place] [address] [address] Apr, Type 2 diabetes mellitus E11 .9 ; COPD (chronic obstructive pulmonary disease) J44.9 ; Essential hypertension I10 and Left leg pain M79.605 [place] [address] [address] Mar, Kaity vaginitis B37.3 [place] [address] [address] Jan, Chigger bites B88.0 [place] [address] [address] Dec, Type 2 diabetes mellitus wit hout complication E11.9 and Unilateral recurrent inguinal hernia without obstruction or gangrene K40.91 [place] [address] [address] November, Essential hypertension I10 a nd Diabetes E11.9 [place] [address] [address] Oct, [place] [address] [address] Sep, Diabetes E11.9 and Essential hypertension I10 [place] [address] [address] Aug, Diabetes E11.9 ; Viral upper respiratory tract infection J06.9 ; COPD (chronic obstructive pulmonary disease) J44.9 ; Essential hypertension I10 ; Unilateral recurrent inguinal hernia without obstruction or gangrene K40.91 ; Dysuria R30.0 ; Yeast infection of the vagina B37.3 and Vaginal itching L29.8 [facility] [address] [place] [id number] [place] [address] Jul, Essential hypertension I10 a nd COPD (chronic obstructive pulmonary disease) J44.9 [facility] [address] [place] [id number] [place] [address] Mar, Left lower quadrant pain R10 .32 ; Type 2 diabetes mellitus without complication E11.9 and Cardiac arrhythmia, unspecified cardiac arrhythmia type I49.9 [place] [address] [facility] [id number] [address] [place] [address] Oct, COPD (chronic obstructive pu lmonary disease) J44.9 ; Diabetes E11.9 and Mouth pain K13.79 [place] [address] [address] [facility] [id number] [address] [place] [address] Sep, [place] [address] [place] [id number] [address] [place] [address] Sep, COPD (chronic obstructive pu lmonary disease) J44.9 ; Diabetes E11.9 and Mouth pain K13.79 [place] [address] [place] [id number] [address] [place] [address] Aug, Type 2 diabetes mellitus wit hout complication E11.9 [place] [address] [place] [id number] [place] [address] Aug, [place] [address] [address] Aug, Type 2 diabetes mellitus wit hout complication E11.9 [place] [address] [address] Aug, Establishing care with reji harmon, encounter for Z71.89 ; Type 2 diabetes mellitus without complication E11.9 ; Essential hypertension I10 ; Cough R05 ; Hammertoe M20.40 and Sleep apnea G47.30 [place] [address] [place] [id number] [place] [address] Jul, [place] [address] [place] [id number] [place] [address] Jun, Vaginal lesion N89.8 [place] [address] [place] [id number] [address] [place] [address] Jun, [place] [address] [place] [id number] [place] [address] 09 Dec, 2015 Well woman exam Z01.419 [...] in female N39.3 and Breast lesion N64.9 [facility] [address] [address] May, Bronchitis J40 [place] [address] [address] May, [facility] an[facility] Z00.00 ; Essential hypertension I10 ; Hyperlipidemia E78.5 ; COPD (chronic obstructive pulmonary disease) J44.9 ; Unilateral recurrent inguinal hernia without obstruction or gangrene K40.91 and Type 2 diabetes mellitus without complication E11.9 [place] [address] [address] Oct, [facility] [address] [place] [id number] [place] [address] Oct, [facility] [address] [place] [id number] [address] [place] [address] Sep, [facility] [address] [facility] [id number] [address] [place] [address] Sep, [facility] [address] [facility] [id number] [address] [place] [address] Sep, [facility] [address] [place] [id number] [address] [place] [address] Sep, [facility] [address] [place] [id number] [address] [place] [address] Aug, [facility] [address] [place] [id number] [address] [place] [address] Aug, [facility] [address] [id number] [address] [place] [address], [place] [address] Jul, [facility] [address] [id number] [address] [place] [address], [place] [address] Jul, [facility] [address] [id number] [address] [place] [address], [place] [address] Jun, [facility] [address] [id number] [address] [place] [address], [place] [address] Jun, [facility] [address] [id number] [address] [place] [address], [place] [address] Jun, [facility] [address] [id number] [address] [place] [address], [place] [address] Jun, [facility] [address] [id number] [address] [place] [address], [place] [address] Jun, [facility] [address] [id number] [address] [place] [address], [place] [address] Mar, [facility] [address] [id number] [address] [place] [address], [place] [address] Mar, [facility] [address] [id number] [address] [place] [address], [place] [address] Feb, [facility] [address] [id number] [address] [place] [address], [place] [address] Feb, [facility] [address] [id number] [address] [place] [address], [place] [address] Feb, [facility] [address] [id number] [address] [place] [address], [place] [address] Feb, [facility] [address] [id number] [address] [place] [address], [place] [address] Dec, [facility] [address] [id number] [address] [place] [address], [place] [address] Dec, [facility] [address] [id number] [address] [place] [address] [place] [address] November, [facility] [address] [id number] [address] [place] [address], [place] [address] November, [facility] [address] [id number] [address] [place] [address], [place] [address] November, [facility] [address] [id number] [address] [place] [address], [place] [address] November, [facility] [address] [id number] [address] [place] [address], [place] [address] Sep, [facility] [address] [id number] [address] [place] [address], [place] [address] Sep, [facility] [address] [id number] [address] [place] [address], [place] [address] Sep, [facility] [address] [id number] [address] [place] [address], [place] [address] Sep, [facility] [address] [id number] [address] [place] [address], [place] [address] Jul, [facility] [address] [id number] [address] [place] [address], [place] [address] Jul, [facility] [address] [id number] [address] [place] [address], [place] [address] Jun, [facility] [address] [id number] [address] [place] [address], [place] [address] Jun, [facility] [address] [id number] [address] [place] [address], [place] [address] Jun, [facility] [address] [id number] [address] [place] [address], [place] [address] Jun, [facility] [address] [id number] [address] [place] [address], [place] [address] May, [facility] [address] [id number] [address] [place] [address], [place] [address] May, [facility] [address] [id number] [address] [place] [address], [place] [address] Apr, [facility] [address] [id number] [address] [place] [address], [place] [address] Apr, [facility] [address] [id number] [address] [place] [address], [place] [address] Apr, [facility] [address] [id number] [address] [place] [address], [place] [address] Mar, [facility] [address] [id number] [address] [place] [address], [place] [address] Mar, [facility] [address] [id number] [address] [place] [address], [place] [address] Mar, [facility] [address] [id number] [address] [place] [address], [place] [address] Feb, [facility] [address] [id number] [address] [place] [address], [place] [address] Feb, [facility] [address] [id number] [address] [place] [address], [place] [address] Jan, [facility] [address] [id number] [address] [place] [address], [place] [address] November, [facility] [address] [id number] [address] [place] [address], [place] [address] Oct, [facility] [address] [id number] [address] [place] [address], [place] [address] Oct, [facility] [address] [id number] [address] [place] [address], [place] [address] Jul, [facility] [address] [id number] [address] [place] [address], [place] [address] Jul, [facility] [address] [id number] [address] [place] [address], [place] [address] Jul, [facility] [address] [id number] [address] [place] [address], [place] [address] Jul, [facility] [address] [id number] [address] [place] [address], [place] [address] 15 Jul, 2012 [facility] [address] [id number] [address] [place] [address], [place] [address] Jul, [facility] [address] [id number] [address] [place] [address], [place] [address] Jul, [facility] [address] [id number] [address] [place] [address] Jul, [facility] [address] [id number] [address] [place] [address], [place] [address] Jun, [facility] [address] [id number] [address] [place] [address], [place] [address] Jun, [facility] [address] [id number] [address] [place] [address], [place] [address] Apr, [facility] [address] [id number] [address] [place] [address] Apr, [facility] [address] [id number] [address] [place] [address], [place] [address] Apr, [facility] [address] [id number] [address] [place] [address] Apr, [facility] [address] [id number] [address] [place] [address] Apr, [facility] [address] [id number] [address] [place] [address] 29 Apr, 2012 [facility] [address] [id number] [address] [place] [address], [place] [address] Apr, [facility] [address] [id number] [address] [place] [address] Apr, [facility] [address] [id number] [address] [place] [address] Apr, [facility] [address] [id number] [address] [place] [address], [place] [address] Apr, [facility] [address] [id number] [address] [place] [address], [place] [address] Mar, [facility] [address] [id number] [address] [place] [address], [place] [address] Mar, [facility] [address] [id number] [address] [place] [address], [place] [address] Feb, [facility] [address] [id number] [address] [place] [address], [place] [address] Feb, [facility] [address] [id number] [address] [place] [address], [place] [address] Feb, [facility] [address] [id number] [address] [place] [address], [place] [address] Feb, [facility] [address] [id number] [address] [place] [address], [place] [address] Feb, [facility] [address] [id number] [address] [place] [address], [place] [address] Feb, [facility] [address] [id number] [address] [place] [address], [place] [address] Feb, [facility] [address] [id number] [address] [place] [address], [place] [address] Feb, [facility] [address] [id number] [address] [place] [address], [place] [address] Feb, [facility] [address] [id number] [address] [place] [address], [place] [address] Feb, [facility] [address] [id number] [address] [place] [address], [place] [address] Jan, [facility] [address] [id number] [address] [place] [address], [place] [address] Jan, [facility] [address] [id number] [address] [place] [address], [place] [address] Jan, [facility] [address] [id number] [address] [place] [address] Jan, [facility] [address] [id number] [address] [place] [address] November, [facility] [address] [id number] [address] [place] [address] Oct, [facility] [address] [facility] [id number] [address] [place] [address] Sep, [facility] [address] [facility] [id number] [address] [place] [address] Sep, [facility] [address] [facility] [id number] [address] [place] [address] Sep, [facility] [address] [facility] [id number] [address] [place] [address] Sep, IMMUNIZATIONS No Known Immunizations SOCIAL HISTORY Never Assessed REASON FOR VISIT [facility] [place] OF CARE VITAL SIGNS MEDICATIONS Unknown [...]
--- OUTSIDE RECORDS SUMMARY | 2019-09-18 04:48 | XMS REPORT ---
Author Author Dona WILSON Organization [facility] Address [address] [place] [address] Care Team Providers Care Digital Traffic Coordinator Name Role Phone LUCRETIA WILSON Unavailable PROBLEMS Type Condition ICD9-CM Code UIG19-HF Code Onset Dates Condition S tatus SNOMED Code Problem Vaginal lesion N89.8 Active 90759 7005 Problem Stress incontinence in female N39.3 Active 85517815 Problem Breast lesion N64.9 Active 059399 004 Problem Type 2 diabetes mellitus E11.9 Activ e 17282518 Problem Normal cardiac stress test Z13.6 Act alvarado 893473755 Problem Type 2 diabetes mellitus without complication E11. 9 Active 435575898 Problem Abnormal colonoscopy R93.3 Active 181739095 Problem Hammertoe M20.40 Active 913157916 Problem Establishing care with new doctor, encounter for Z 71.89 Active 212852197 Problem Diabetes E11.9 Active 321916825 Problem Cough R05 Active 45710408 Problem Essential hypertension I10 Active 92917112 Problem Hyperlipidemia E78.5 Active 00200 004 Problem Sleep apnea G47.30 Active 59418055 Problem Tobacco dependence F17.200 Active 8 7720983 Problem Gastroparesis K31.84 Active 560778 006 Problem Unilateral recurrent inguinal hernia without obs truction or gangrene K40.91 Active 11781949 Problem COPD (chronic obstructive pulmonary disease) J44.9 Active 41662494 Problem Hyperlipidemia, unspecified hyperlipidemia type E7 8.5 Active 69276531 Problem GERD (gastroesophageal reflux disease) K21.9 Active 235059511 Problem Unilateral inguinal hernia w ithout obstruction or gangrene, recurrence not specified K40.90 Active 81444870 ALLERGIES No Information ENCOUNTERS Encounter Location Date Diagnosis [facility] [address] [facility] [id number] [address] [place] [address] Jun, [facility] [address] [address] Jun, Cough R05 and Acute pneumoni a J18.9 [place] [address] [address] Apr, Type 2 diabetes mellitus E11 .9 ; COPD (chronic obstructive pulmonary disease) J44.9 ; Essential hypertension I10 and Left leg pain M79.605 [place] [address] [address] Mar, Akity vaginitis B37.3 [place] [address] [address] Jan, Chigger bites B88.0 [place] [address] [address] Dec, Type 2 diabetes mellitus wit hout complication E11.9 and Unilateral recurrent inguinal hernia without obstruction or gangrene K40.91 [place] [address] [address] November, Essential hypertension I10 a nd Diabetes E11.9 [place] [address] [address] Oct, [place] [address] [address] Sep, Diabetes E11.9 and Essential hypertension I10 [place] [address] [address] Aug, Diabetes E11.9 ; Viral upper respiratory tract infection J06.9 ; COPD (chronic obstructive pulmonary disease) J44.9 ; Essential hypertension I10 ; Unilateral recurrent inguinal hernia without obstruction or gangrene K40.91 ; Dysuria R30.0 ; Yeast infection of the vagina B37.3 and Vaginal itching L29.8 [facility] [address] [place] [id number] [address] [place] [address] Jul, Essential hypertension I10 a nd COPD (chronic obstructive pulmonary disease) J44.9 [place] [address] [place] [id number] [address] [place] [address] Mar, Left lower quadrant pain R10 .32 ; Type 2 diabetes mellitus without complication E11.9 and Cardiac arrhythmia, unspecified cardiac arrhythmia type I49.9 [place] [address] [address] Oct, COPD (chronic obstructive pu lmonary disease) J44.9 ; Diabetes E11.9 and Mouth pain K13.79 [place] [address] [place] [id number] [address] [place] [address] Sep, [place] [address] [address] Sep, COPD (chronic obstructive pu lmonary disease) J44.9 ; Diabetes E11.9 and Mouth pain K13.79 [place] [address] [address] Aug, Type 2 diabetes mellitus wit hout complication E11.9 [place] [address] [place] [id number] [address] [place] [address] Aug, [place] [address] [address] Aug, Type 2 diabetes mellitus wit hout complication E11.9 [place] [address] [address] Aug, Establishing care with reji harmon, encounter for Z71.89 ; Type 2 diabetes mellitus without complication E11.9 ; Essential hypertension I10 ; Cough R05 ; Hammertoe M20.40 and Sleep apnea G47.30 [place] [address] [place] [id number] [place] [address] Jul, [place] [address] [address] Jun, Vaginal lesion N89.8 [place] [address] [place] [id number] [place] [address] [place] [address] Jun, [facility] [address] [place] [id number] [address] [place] [address] Jun, Well woman exam Z01.419 ; Pa [...] in female N39.3 and Breast lesion N64.9 [place] [address] [place] [id number] [address] [place] [address] May, Bronchitis J40 [place] [address] [address] May, Routine adult health [facility] ance Z00.00 ; Essential hypertension I10 ; Hyperlipidemia E78.5 ; COPD (chronic obstructive pulmonary disease) J44.9 ; Unilateral recurrent inguinal hernia without obstruction or gangrene K40.91 and Type 2 diabetes mellitus without complication E11.9 [facility] [id number] [place] [address] Oct, [facility] [id number] [place] [address] Oct, [facility] [address] [place] [id number] [address] [place] [address] Sep, [facility] [address] [place] [id number] [address] [place] [address] Sep, [facility] [address] [place] [id number] [address] [place] [address] Sep, [facility] [address] [place] [id number] [address] [place] [address] Sep, [facility] [address] [id number] [address] [place] [address], [place] [address] Aug, [facility] [address] [id number] [address] [place] [address], [place] [address] Aug, [facility] [address] [id number] [address] [place] [address], [place] [address] Jul, [facility] [address] [id number] [address] [place] [address], [place] [address] Jul, [facility] [address] [id number] [address] [place] [address], [place] [address] Jun, [facility] [address] [id number] [address] [place] [address], [place] [address] Jun, [facility] [address] [id number] [address] [place] [address], [place] [address] Jun, [facility] [address] [id number] [address] [place] [address], [place] [address] Jun, [facility] [address] [id number] [address] [place] [address], [place] [address] Jun, [facility] [address] [id number] [address] [place] [address], [place] [address] Mar, [facility] [address] [id number] [address] [place] [address], [place] [address] Mar, [facility] [address] [id number] [address] [place] [address], [place] [address] Feb, [facility] [address] [id number] [address] [place] [address], [place] [address] Feb, [facility] [address] [id number] [address] [place] [address], [place] [address] Feb, [facility] [address] [id number] [address] [place] [address], [place] [address] Feb, [facility] [address] [id number] [address] [place] [address], [place] [address] Dec, [facility] [address] [id number] [address] [place] [address], [place] [address] Dec, [facility] [address] [id number] [address] [place] [address], [place] [address] November, [facility] [address] [id number] [address] [place] [address], [place] [address] November, [facility] [address] [id number] [address] [place] [address], [place] [address] November, [facility] [address] [id number] [address] [place] [address], [place] [address] November, [facility] [address] [id number] [address] [place] [address], [place] [address] Sep, [facility] [address] [id number] [address] [place] [address], [place] [address] Sep, [facility] [address] [id number] [address] [place] [address], [place] [address] Sep, [facility] [address] [id number] [address] [place] [address], [place] [address] Sep, [facility] [address] [id number] [address] [place] [address], [place] [address] Jul, [facility] [address] [id number] [address] [place] [address], [place] [address] Jul, [facility] [address] [id number] [address] [place] [address], [place] [address] Jun, [facility] [address] [id number] [address] [place] [address], [place] [address] Jun, [facility] [address] [id number] [address] [place] [address], [place] [address] Jun, [facility] [address] [id number] [address] [place] [address], [place] [address] Jun, [facility] [address] [id number] [address] [place] [address], [place] [address] May, [facility] [address] [id number] [address] [place] [address], [place] [address] May, [facility] [address] [id number] [address] [place] [address], [place] [address] Apr, [facility] [address] [id number] [address] [place] [address], [place] [address] Apr, [facility] [address] [id number] [address] [place] [address], [place] [address] Apr, [facility] [address] [id number] [address] [place] [address], [place] [address] Mar, [facility] [address] [id number] [address] [place] [address], [place] [address] Mar, [facility] [address] [id number] [address] [place] [address], [place] [address] Mar, [facility] [address] [id number] [address] [place] [address], [place] [address] Feb, [facility] [address] [id number] [address] [place] [address], [place] [address] Feb, [facility] [address] [id number] [address] [place] [address], [place] [address] Jan, [facility] [address] [id number] [address] [place] [address], [place] [address] November, [facility] [address] [id number] [address] [place] [address], [place] [address] Oct, [facility] [address] [id number] [address] [place] [address], [place] [address] Oct, [facility] [address] [id number] [address] [place] [address], [place] [address] Jul, [facility] [address] [id number] [address] [place] [address], [place] [address] Jul, [facility] [address] [id number] [address] [place] [address], [place] [address] Jul, [facility] [address] [id number] [address] [place] [address], [place] [address] Jul, [facility] [address] [id number] [address] [place] [address], [place] [address] 15 Jul, 2012 [facility] [address] [id number] [address] [place] [address], [place] [address] 14 Jul, 2012 [facility] [address] [id number] [address] [place] [address], [place] [address] Jul, [facility] [address] [id number] [address] [place] [address], [place] [address] Jul, [facility] [address] [id number] [address] [place] [address], [place] [address] Jun, [facility] [address] [id number] [address] [place] [address], [place] [address] Jun, [facility] [address] [id number] [address] [place] [address], [place] [address] Apr, [facility] [address] [id number] [address] [place] [address], [place] [address] Apr, [facility] [address] [id number] [address] [place] [address], [place] [address] Apr, [facility] [address] [id number] [address] [place] [address], [place] [address] Apr, [facility] [address] [id number] [address] [place] [address], [place] [address] Apr, [facility] [address] [id number] [address] [place] [address], [place] [address] Apr, [facility] [address] [id number] [address] [place] [address], [place] [address] Apr, [facility] [address] [id number] [address] [place] [address], [place] [address] Apr, [facility] [address] [id number] [address] [place] [address], [place] [address] Apr, [facility] [address] [id number] [address] [place] [address], [place] [address] Apr, [facility] [address] [id number] [address] [place] [address], [place] [address] Mar, [facility] [address] [id number] [address] [place] [address], [place] [address] Mar, [facility] [address] [id number] [address] [place] [address], [place] [address] Feb, [facility] [address] [id number] [address] [place] [address], [place] [address] Feb, [facility] [address] [id number] [address] [place] [address], [place] [address] Feb, [facility] [address] [id number] [address] [place] [address], [place] [address] Feb, [facility] [address] [id number] [address] [place] [address], [place] [address] Feb, [facility] [address] [id number] [address] [place] [address], [place] [address] Feb, [facility] [address] [id number] [address] [place] [address], [place] [address] Feb, [facility] [address] [id number] [address] [place] [address], [place] [address] Feb, [facility] [address] [id number] [address] [place] [address], [place] [address] Feb, [facility] [address] [id number] [address] [place] [address], [place] [address] Feb, [facility] [address] [id number] [address] [place] [address], [place] [address] Jan, [facility] [address] [id number] [address] [place] [address] Jan, [facility] [address] [id number] [address] [place] [address] Jan, [facility] [address] [id number] [address] [place] [address] Jan, [facility] [address] [id number] [address] [place] [address] November, [facility] [address] [facility] [id number] [address] [place] [address] Oct, [facility] [address] [facility] [id number] [address] [place] [address] Sep, [facility] [address] [facility] [id number] [address] [place] [address] Sep, [facility] [address] [facility] [id number] [address] [place] [address] Sep, [facility] [address] [facility] [id number] [address] [place] [address] Sep, IMMUNIZATIONS No Known Immunizations SOCIAL HISTORY [...]
--- OUTSIDE RECORDS SUMMARY | 2019-09-18 04:48 | XMS REPORT ---
Author Author Ana, Dona Doctor Organization [facility] Address Unknown Phone Unavailable Care Team Providers Care Healthcare Receptionist Name Role Phone Migration, Doctor Unavailable Unavailable PROBLEMS Type Condition ICD9-CM Code [id number] Code Onset Dates Condition S tatus SNOMED Code Problem Normal cardiac stress test Z13.6 Act alvarado 453835516 Problem Abnormal colonoscopy R93.3 Active 606497792 Problem Sleep apnea G47.30 Active 06712117 Problem Unilateral recurrent inguinal hernia without obs truction or gangrene K40.91 Active 90048626 Problem Cough R05 Active 49438209 Problem Establishing care with new doctor, encounter for Z 71.89 Active 504865044 Problem COPD (chronic obstructive pulmonary disease) J44.9 Active 27766369 Problem Gastroparesis K31.84 Active 916831 006 Problem Unilateral inguinal hernia w ithout obstruction or gangrene, recurrence not specified K40.90 Active 65097359 Problem GERD (gastroesophageal reflux disease) K21.9 Active 225180293 Problem Breast lesion N64.9 Active 476036 004 Problem Vaginal lesion N89.8 Active 54995 7005 Problem Hyperlipidemia, unspecified hyperlipidemia type E7 8.5 Active 06249034 Problem Stress incontinence in female N39.3 Active 19478070 Problem Hammertoe M20.40 Active 260850724 Problem Diabetes E11.9 Active 634725070 Problem Type 2 diabetes mellitus without complication E11. 9 Active 425830572 Problem Rotator cuff arthropathy of left shoulder M12.812 Active [id number] Problem Essential hypertension I10 Active 53666147 Problem Arterial stenosis I77.1 Active 68 445608 Problem Tobacco dependence F17.200 Active 8 9884751 Problem Hyperlipidemia E78.5 Active 10504 004 Problem Type 2 diabetes mellitus E11.9 Activ e 31962785 Problem Irritable bowel syndrome with diarrhea K58.0 Active 049008723 Problem Other chronic pain G89.29 Active 8 3679844 Problem PVD (peripheral vascular disease) I73.9 Active 629611692 ALLERGIES No Information ENCOUNTERS Encounter Location Date Diagnosis [place] [id number] [address] Oct, [place] [address] [address] Sep, Cramps, extremity R25.2 ; PV D (peripheral vascular disease) I73.9 ; Rotator cuff arthropathy of left shoulder M12.812 and Financial difficulties Z59.8 [place] [address] [address] Aug, Rotator cuff arthropathy of left shoulder M12.812 [place] [address] [address] Aug, Arterial stenosis I77.1 [place] [address] [address] Aug, [place] [address] [address] Aug, Type 2 diabetes mellitus E11 .9 ; Left leg pain M79.605 ; Pain in left shoulder M25.512 ; Other chronic pain G89.29 ; Cramps, extremity R25.2 and Irritable bowel syndrome with diarrhea K58.0 [facility] [address] [address] Jul, Dysuria R30.0 and Acute uppe r respiratory infection J06.9 [place] [address] [address] Jul, Type 2 diabetes mellitus E11 .9 and Essential hypertension I10 [facility] [address] [address] Jun, [facility] [place] [address] [address] Jun, Cough R05 and Acute pneumoni a J18.9 [place] [address] [address] Apr, Type 2 diabetes mellitus E11 .9 ; COPD (chronic obstructive pulmonary disease) J44.9 ; Essential hypertension I10 and Left leg pain M79.605 [place] [address] [address] Mar, Kaity vaginitis B37.3 [place] [address] [address] Jan, Chigger bites B88.0 [place] [address] [address] Dec, Type 2 diabetes mellitus wit hout complication E11.9 and Unilateral recurrent inguinal hernia without obstruction or gangrene K40.91 [place] [address] [address] November, Essential hypertension I10 a nd Diabetes E11.9 [place] [address] [address] Oct, [place] [address] [address] Sep, Diabetes E11.9 and Essential hypertension I10 [place] [address] [address] Aug, Diabetes E11.9 ; Viral upper respiratory tract infection J06.9 ; COPD (chronic obstructive pulmonary disease) J44.9 ; Essential hypertension I10 ; Unilateral recurrent inguinal hernia without obstruction or gangrene K40.91 ; Dysuria R30.0 ; Yeast infection of the vagina B37.3 and Vaginal itching L29.8 [facility] [address] [place] [id number] [address] [place] [address] Jul, Essential hypertension I10 a nd COPD (chronic obstructive pulmonary disease) J44.9 [facility] [address] [place] [id number] [place] [address] Mar, Left lower quadrant pain R10 .32 ; Type 2 diabetes mellitus without complication E11.9 and Cardiac arrhythmia, unspecified cardiac arrhythmia type I49.9 [place] [address] [facility] [id number] [address] [place] [address] Oct, COPD (chronic obstructive pu lmonary disease) J44.9 ; Diabetes E11.9 and Mouth pain K13.79 [place] [address] [address] [facility] [id number] [address] [place] [address] Sep, [place] [address] [address] [place] [id number] [address] [place] [address] Sep, COPD (chronic obstructive pu lmonary disease) J44.9 ; Diabetes E11.9 and Mouth pain K13.79 [place] [address] [address] [place] [id number] [address] [place] [address] Aug, Type 2 diabetes mellitus wit hout complication E11.9 [place] [address] [address] [place] [id number] [place] [address] Aug, [place] [address] [address] Aug, Type 2 diabetes mellitus wit hout complication E11.9 [place] [address] [address] Aug, Establishing care with reji harmon, encounter for Z71.89 ; Type 2 diabetes mellitus without complication E11.9 ; Essential hypertension I10 ; Cough R05 ; Hammertoe M20.40 and Sleep apnea G47.30 [place] [address] [address] [place] [id number] [address] [place] [address] Jul, [place] [address] [address] [place] [id number] [address] [place] [address] Jun, Vaginal lesion N89.8 [place] [address] [address] [place] [id number] [address] [place] [address] Jun, [place] [address] [address] [place] [id number] [place] [address] 09 Dec, 2015 Well woman exam Z01.419 [...] in female N39.3 and Breast lesion N64.9 [facility] [address] [address] May, Bronchitis J40 [place] [address] [address] May, Routine adult health [facility] ance Z00.00 ; Essential hypertension I10 ; Hyperlipidemia E78.5 ; COPD (chronic obstructive pulmonary disease) J44.9 ; Unilateral recurrent inguinal hernia without obstruction or gangrene K40.91 and Type 2 diabetes mellitus without complication E11.9 [place] [address] [address] Oct, [facility] [address] [place] [id number] [place] [address] Oct, [facility] [address] [place] [id number] [address] [place] [address] Sep, [facility] [address] [facility] [id number] [address] [place] [address] Sep, [facility] [address] [facility] [id number] [address] [place] [address] Sep, [facility] [address] [place] [id number] [address] [place] [address] Sep, [facility] [address] [place] [id number] [address] [place] [address] Aug, [facility] [address] [place] [id number] [address] [place] [address] Aug, [facility] [address] [id number] [address] [place] [address], [place] [address] Jul, [facility] [address] [id number] [address] [place] [address], [place] [address] Jul, [facility] [address] [id number] [address] [place] [address], [place] [address] Jun, [facility] [address] [id number] [address] [place] [address], [place] [address] Jun, [facility] [address] [id number] [address] [place] [address], [place] [address] Jun, [facility] [address] [id number] [address] [place] [address], [place] [address] Jun, [facility] [address] [id number] [address] [place] [address], [place] [address] Jun, [facility] [address] [id number] [address] [place] [address], [place] [address] Mar, [facility] [address] [id number] [address] [place] [address], [place] [address] Mar, [facility] [address] [id number] [address] [place] [address], [place] [address] Feb, [facility] [address] [id number] [address] [place] [address], [place] [address] Feb, [facility] [address] [id number] [address] [place] [address], [place] [address] Feb, [facility] [address] [id number] [address] [place] [address], [place] [address] Feb, [facility] [address] [id number] [address] [place] [address], [place] [address] Dec, [facility] [address] [id number] [address] [place] [address], [place] [address] Dec, [facility] [address] [id number] [address] [place] [address] [place] [address] November, [facility] [address] [id number] [address] [place] [address], [place] [address] November, [facility] [address] [id number] [address] [place] [address], [place] [address] November, [facility] [address] [id number] [address] [place] [address], [place] [address] November, [facility] [address] [id number] [address] [place] [address], [place] [address] Sep, [facility] [address] [id number] [address] [place] [address], [place] [address] Sep, [facility] [address] [id number] [address] [place] [address], [place] [address] Sep, [facility] [address] [id number] [address] [place] [address], [place] [address] Sep, [facility] [address] [id number] [address] [place] [address], [place] [address] Jul, [facility] [address] [id number] [address] [place] [address], [place] [address] Jul, [facility] [address] [id number] [address] [place] [address], [place] [address] Jun, [facility] [address] [id number] [address] [place] [address], [place] [address] Jun, [facility] [address] [id number] [address] [place] [address], [place] [address] Jun, [facility] [address] [id number] [address] [place] [address], [place] [address] Jun, [facility] [address] [id number] [address] [place] [address], [place] [address] May, [facility] [address] [id number] [address] [place] [address], [place] [address] May, [facility] [address] [id number] [address] [place] [address], [place] [address] Apr, [facility] [address] [id number] [address] [place] [address], [place] [address] Apr, [facility] [address] [id number] [address] [place] [address], [place] [address] Apr, [facility] [address] [id number] [address] [place] [address], [place] [address] Mar, [facility] [address] [id number] [address] [place] [address], [place] [address] Mar, [facility] [address] [id number] [address] [place] [address], [place] [address] Mar, [facility] [address] [id number] [address] [place] [address], [place] [address] Feb, [facility] [address] [id number] [address] [place] [address], [place] [address] Feb, [facility] [address] [id number] [address] [place] [address], [place] [address] Jan, [facility] [address] [id number] [address] [place] [address], [place] [address] November, [facility] [address] [id number] [address] [place] [address], [place] [address] Oct, [facility] [address] [id number] [address] [place] [address], [place] [address] Oct, [facility] [address] [id number] [address] [place] [address], [place] [address] Jul, [facility] [address] [id number] [address] [place] [address], [place] [address] Jul, [facility] [address] [id number] [address] [place] [address], [place] [address] Jul, [facility] [address] [id number] [address] [place] [address], [place] [address] Jul, [facility] [address] [id number] [address] [place] [address], [place] [address] 15 Jul, 2012 [facility] [address] [id number] [address] [place] [address], [place] [address] Jul, [facility] [address] [id number] [address] [place] [address], [place] [address] Jul, [facility] [address] [id number] [address] [place] [address] Jul, [facility] [address] [id number] [address] [place] [address], [place] [address] Jun, [facility] [address] [id number] [address] [place] [address], [place] [address] Jun, [facility] [address] [id number] [address] [place] [address], [place] [address] Apr, [facility] [address] [id number] [address] [place] [address] Apr, [facility] [address] [id number] [address] [place] [address], [place] [address] Apr, [facility] [address] [id number] [address] [place] [address] Apr, [facility] [address] [id number] [address] [place] [address] Apr, [facility] [address] [id number] [address] [place] [address] 29 Apr, 2012 [facility] [address] [id number] [address] [place] [address], [place] [address] Apr, [facility] [address] [id number] [address] [place] [address] Apr, [facility] [address] [id number] [address] [place] [address] Apr, [facility] [address] [id number] [address] [place] [address], [place] [address] Apr, [facility] [address] [id number] [address] [place] [address], [place] [address] Mar, [facility] [address] [id number] [address] [place] [address], [place] [address] Mar, [facility] [address] [id number] [address] [place] [address], [place] [address] Feb, [facility] [address] [id number] [address] [place] [address], [place] [address] Feb, [facility] [address] [id number] [address] [place] [address], [place] [address] Feb, [facility] [address] [id number] [address] [place] [address], [place] [address] Feb, [facility] [address] [id number] [address] [place] [address], [place] [address] Feb, [facility] [address] [id number] [address] [place] [address], [place] [address] Feb, [facility] [address] [id number] [address] [place] [address], [place] [address] Feb, [facility] [address] [id number] [address] [place] [address], [place] [address] Feb, [facility] [address] [id number] [address] [place] [address], [place] [address] Feb, [facility] [address] [id number] [address] [place] [address], [place] [address] Feb, [facility] [address] [id number] [address] [place] [address], [place] [address] Jan, [facility] [address] [id number] [address] [place] [address], [place] [address] Jan, [facility] [address] [id number] [address] [place] [address], [place] [address] Jan, [facility] [address] [id number] [address] [place] [address] Jan, [facility] [address] [id number] [address] [place] [address] November, [facility] [address] [id number] [address] [place] [address] Oct, [facility] [address] [facility] [id number] [address] [place] [address] Sep, [facility] [address] [facility] [id number] [address] [place] [address] Sep, [facility] [address] [facility] [id number] [address] [place] [address] Sep, [facility] [address] [facility] [id number] [address] [place] [address] Sep, IMMUNIZATIONS No Known Immunizations SOCIAL HISTORY Never Assessed REASON FOR VISIT [facility] PLAN OF CARE VITAL SIGNS MEDICATIONS Unknown [...]
--- OUTSIDE RECORDS SUMMARY | 2019-09-18 04:49 | XMS REPORT ---
Author Author Dona JOSUE Organization [facility] Address [address] [place] [address] Care Team Providers Care Personnel Coordinator Name Role Phone MERARY JOSUE Unavailable PROBLEMS Type Condition ICD9-CM Code IAW64-CE Code Onset Dates Condition S tatus SNOMED Code Problem Vaginal lesion N89.8 Active 67693 7005 Problem Stress incontinence in female N39.3 Active 57104572 Problem Breast lesion N64.9 Active 096102 004 Problem Type 2 diabetes mellitus E11.9 Activ e 80665243 Problem Normal cardiac stress test Z13.6 Act alvarado 930946001 Problem Type 2 diabetes mellitus without complication E11. 9 Active 991371767 Problem Abnormal colonoscopy R93.3 Active 108441298 Problem Hammertoe M20.40 Active 370835093 Problem Establishing care with new doctor, encounter for Z 71.89 Active 218342420 Problem Diabetes E11.9 Active 536201349 Problem Cough R05 Active 51463267 Problem Essential hypertension I10 Active 64892053 Problem Hyperlipidemia E78.5 Active 41340 004 Problem Sleep apnea G47.30 Active 42512318 Problem Tobacco dependence F17.200 Active 8 9342434 Problem Gastroparesis K31.84 Active 819341 006 Problem Unilateral recurrent inguinal hernia without obs truction or gangrene K40.91 Active 69303070 Problem COPD (chronic obstructive pulmonary disease) J44.9 Active 67821601 Problem Hyperlipidemia, unspecified hyperlipidemia type E7 8.5 Active 96939469 Problem GERD (gastroesophageal reflux disease) K21.9 Active 034286161 Problem Unilateral inguinal hernia w ithout obstruction or gangrene, recurrence not specified K40.90 Active 14387884 ALLERGIES Substance Reaction Event Type Date Status Sulfamethoxazole Unknown Drug Allergy Apr, Active Lipitor Stiff neck, aching muscles in neck Drug Allergy Apr Active ENCOUNTERS Encounter Location Date Diagnosis [facility] [address] [facility] [id number] [address] [place] [id number] Apr, Type 2 diabetes mellitus E11 .9 ; COPD (chronic obstructive pulmonary disease) J44.9 ; Essential hypertension I10 and Left leg pain M79.605 [place] [address] [address] 14 Mar, 2018 Kaity vaginitis B37.3 [place] [address] [address] Jan, Chigger bites B88.0 [place] [address] [place] [id number] [place] [address] Dec, Type 2 diabetes mellitus wit hout complication E11.9 and Unilateral recurrent inguinal hernia without obstruction or gangrene K40.91 [place] [address] [address] November, Essential hypertension I10 a nd Diabetes E11.9 [place] [address] [address] Oct, [place] [address] [address] Sep, Diabetes E11.9 and Essential hypertension I10 [place] [address] [address] Aug, Diabetes E11.9 ; Viral upper respiratory tract infection J06.9 ; COPD (chronic obstructive pulmonary disease) J44.9 ; Essential hypertension I10 ; Unilateral recurrent inguinal hernia without obstruction or gangrene K40.91 ; Dysuria R30.0 ; Yeast infection of the vagina B37.3 and Vaginal itching L29.8 [facility] [address] [place] [id number] [place] [address] Jul, Essential hypertension I10 a nd COPD (chronic obstructive pulmonary disease) J44.9 [facility] [address] [place] [id number] [address] [place] [address] Mar, Left lower quadrant pain R10 .32 ; Type 2 diabetes mellitus without complication E11.9 and Cardiac arrhythmia, unspecified cardiac arrhythmia type I49.9 [place] [address] [address] Oct, COPD (chronic obstructive pu lmonary disease) J44.9 ; Diabetes E11.9 and Mouth pain K13.79 [place] [address] [address] Sep, [place] [address] [address] Sep, COPD (chronic obstructive pu lmonary disease) J44.9 ; Diabetes E11.9 and Mouth pain K13.79 [place] [address] [address] Aug, Type 2 diabetes mellitus wit hout complication E11.9 [place] [address] [address] Aug, [place] [address] [address] Aug, Type 2 diabetes mellitus wit hout complication E11.9 [place] [address] [address] Aug, Establishing care with reji harmon, encounter for Z71.89 ; Type 2 diabetes mellitus without complication E11.9 ; Essential hypertension I10 ; Cough R05 ; Hammertoe M20.40 and Sleep apnea G47.30 [place] [address] [address] Jul, [place] [address] [address] Jun, Vaginal lesion N89.8 [place] [address] [place] [id number] [place] [address] Jun, [place] [address] [address] Jun, Well woman exam Z01.419 ; Pa [...] in female N39.3 and Breast lesion N64.9 [facility] [address] [place] [id number] [address] [place] [address] May, Bronchitis J40 [facility] [address] [address] May, Routine [facility] ance Z00.00 ; Essential hypertension I10 ; Hyperlipidemia E78.5 ; COPD (chronic obstructive pulmonary disease) J44.9 ; Unilateral recurrent inguinal hernia without obstruction or gangrene K40.91 and Type 2 diabetes mellitus without complication E11.9 [facility] [address] [place] [id number] [address] [place] [address] Oct, [facility] [address] [place] [id number] [address] [place] [address] Oct, [facility] [address] [place] [id number] [address] [place] [address] Sep, [facility] [address] [facility] [id number] [address] [place] [address] Sep, [facility] [address] [place] [id number] [address] [place] [phone] Sep, [facility] [address] [place] [id number] [address] [place] [phone] Sep, [facility] [address] [facility] [id number] [address] [place] [address] Aug, [facility] [address] [place] [id number] [address] [place] [address] Aug, [facility] [address] [id number] [address] [place] [address], [place] [address] Jul, [facility] [address] [id number] [address] [place] [address], [place] [address] Jul, [facility] [address] [id number] [address] [place] [address], [place] [address] Jun, [facility] [address] [id number] [address] [place] [address], [place] [address] Jun, [facility] [address] [id number] [address] [place] [address], [place] [address] Jun, [facility] [address] [id number] [address] [place] [address], [place] [address] Jun, [facility] [address] [id number] [address] [place] [address], [place] [address] Jun, [facility] [address] [id number] [address] [place] [address], [place] [address] Mar, [facility] [address] [id number] [address] [place] [address], [place] [address] Mar, [facility] [address] [id number] [address] [place] [address], [place] [address] Feb, [facility] [address] [id number] [address] [place] [address], [place] [address] Feb, [facility] [address] [id number] [address] [place] [address], [place] [address] Feb, [facility] [address] [id number] [address] [place] [address], [place] [address] Feb, [facility] [address] [id number] [address] [place] [address], [place] [address] Dec, [facility] [address] [id number] [address] [place] [address], [place] [address] Dec, [facility] [address] [id number] [address] [place] [address], [place] [address] November, [facility] [address] [id number] [address] [place] [address], [place] [address] November, [facility] [address] [id number] [address] [place] [address], [place] [address] November, [facility] [address] [id number] [address] [place] [address], [place] [address] November, [facility] [address] [id number] [address] [place] [address], [place] [address] Sep, [facility] [address] [id number] [address] [place] [address], [place] [address] Sep, [facility] [address] [id number] [address] [place] [address], [place] [address] Sep, [facility] [address] [id number] [address] [place] [address], [place] [address] Sep, [facility] [address] [id number] [address] [place] [address], [place] [address] Jul, [facility] [address] [id number] [address] [place] [address], [place] [address] Jul, [facility] [address] [id number] [address] [place] [address], [place] [address] Jun, [facility] [address] [id number] [address] [place] [address], [place] [address] Jun, [facility] [address] [id number] [address] [place] [address], [place] [address] Jun, [facility] [address] [id number] [address] [place] [address], [place] [address] Jun, [facility] [address] [id number] [address] [place] [address], [place] [address] May, [facility] [address] [id number] [address] [place] [address], [place] [address] May, [facility] [address] [id number] [address] [place] [address], [place] [address] Apr, [facility] [address] [id number] [address] [place] [address], [place] [address] Apr, [facility] [address] [id number] [address] [place] [address], [place] [address] Apr, [facility] [address] [id number] [address] [place] [address], [place] [address] Mar, [facility] [address] [id number] [address] [place] [address], [place] [address] Mar, [facility] [address] [id number] [address] [place] [address], [place] [address] Mar, [facility] [address] [id number] [address] [place] [address], [place] [address] Feb, [facility] [address] [id number] [address] [place] [address], [place] [address] Feb, [facility] [address] [id number] [address] [place] [address], [place] [address] Jan, [facility] [address] [id number] [address] [place] [id number] November, [facility] [address] [id number] [address] [place] [address], [place] [address] Oct, [facility] [address] [id number] [address] [place] [phone] Oct, [facility] [address] [id number] [address] [place] [address], [place] [address] Jul, [facility] [address] [id number] [address] [place] [address], [place] [address] Jul, [facility] [address] [id number] [address] [place] [phone] Jul, [facility] [address] [id number] [address] [place] [id number] Jul, [facility] [address] [id number] [address] [place] [address], [place] [address] Jul, [facility] [address] [id number] [address] [place] [phone] 14 Jul, 2012 [facility] [address] [id number] [address] [place] [address], [place] [address] Jul, [facility] [address] [id number] [address] [place] [phone] Jul, [facility] [address] [id number] [address] [place] [address], [place] [address] Jun, [facility] [address] [id number] [address] [place] [address], [place] [address] Jun, [facility] [address] [id number] [address] [place] [address], [place] [address] Apr, [facility] [address] [id number] [address] [place] [address], [place] [address] Apr, [facility] [address] [id number] [address] [place] [address], [place] [address] Apr, [facility] [address] [id number] [address] [place] [address], [place] [address] Apr, [facility] [address] [id number] [address] [place] [phone] Apr, [facility] [address] [id number] [address] [place] [phone] 29 Apr, 2012 [facility] [address] [id number] [address] [place] [address], [place] [address] Apr, [facility] [address] [id number] [address] [place] [address], [place] [address] Apr, [facility] [address] [id number] [address] [place] [address], [place] [address] Apr, [facility] [address] [id number] [address] [place] [address], [place] [address] Apr, [facility] [address] [id number] [address] [place] [address], [place] [address] Mar, [facility] [address] [id number] [address] [place] [address], [place] [address] Mar, [facility] [address] [id number] [address] [place] [address], [place] [address] Feb, [facility] [address] [id number] [address] [place] [address], [place] [address] Feb, [facility] [address] [id number] [address] [place] [address], [place] [address] Feb, [facility] [address] [id number] [address] [place] [address], [place] [address] Feb, [facility] [address] [id number] [address] [place] [address], [place] [address] Feb, [facility] [address] [id number] [address] [place] [address], [place] [address] Feb, [facility] [address] [id number] [address] [place] [address], [place] [address] Feb, [facility] [address] [id number] [address] [place] [address], [place] [address] Feb, [facility] [address] [id number] [address] [place] [address], [place] [address] Feb, [facility] [address] [id number] [address] [place] [address], [place] [address] Feb, [facility] [address] [id number] [address] [place] [address], [place] [address] Jan, [facility] [address] [id number] [address] [place] [address], [place] [address] Jan, [facility] [address] [id number] [address] [place] [address], [place] [address] Jan, [facility] [address] [id number] [address] [place] [phone] Jan, [facility] [address] [id number] [address] [place] [address] November, [facility] [address] [id number] [address] [place] [phone] Oct, [facility] [address] [id number] [address] [place] [address] Sep, [facility] [address] [id number] [address] [place] [address] Sep, [facility] [address] [id number] [address] [place] [address] Sep, [facility] [address] [id number] [address] [place] [phone] Sep, IMMUNIZATIONS No Known Immunizations SOCIAL HISTORY Never Assessed REASON FOR VISIT Diabetes follow up Donovan HADDAD PLAN OF CARE Activity Details Follow Up 4 Months Reason:leg pain VITAL SIGNS Height 64 in 2018-04-24 Weight 170.3 lbs 2018-04-24 Temperature 97.9 degrees Fahrenheit 2018-04-24 Heart Rate 86 bpm 2018-04-24 Respiratory Rate 22 2018-04-24 Oximetry on room air:98 % 2018-04-24 BMI 29.23 kg/m2 2018-04-24 Blood pressure systolic 132 mmHg 2018-04-24 Blood pressure diastolic 82 mmHg 2018-04-24 MEDICATIONS Medication Instructions Dosage Frequency Start Date End Date Duration S tatus Lisinopril 10 MG Orally Once a day 1 tablet 24h 30 d ays Active Amlodipine Besylate 10 MG Orally Once a day 1 tablet 24h 30 days Active MetFORMIN HCl ER 500 mg Orally twice a day 2 tablets with meals 12h Sep, 30 days Active ProAir HFA 108 (90 Base) MCG/ACT Inhalation every 6 hrs 2 puffs as needed 6h Sep, 30 days Active Flonase 50 mcg/actuation 1 sprays by Vincenzo al route 2 times per day in each nostril Oct, Active Symbicort 160-4.5 mcg/actuation inhale 2 puffs by inhalation route 2 times per day in the morning and evening Oct, Active RESULTS Name Result Date Reference Range A1C (IN HOUSE) A1C IN HOUSE 7.2 4.3 - 5.6 % Previous A1c 6.9 Lot [id number] Exp date 09/2019 PROCEDURES Procedure Date Ordered Result Body Site GLYCATED HEMOGLOBIN TEST Apr 24, 2018 INSTRUCTIONS MEDICATIONS ADMINISTERED No Known Medications [...] cerv ix 2002 Surgical History Colonoscopy 09/2015 Hospitalization History Surgery and OB deliveries only Hospitalization History Overnight Monitoring for sarahi n management of abdominal hernia 2014
--- OUTSIDE RECORDS SUMMARY | 2019-09-18 04:50 | XMS REPORT | Continuity of Care Document ---
Author Organization Unknown Address Unknown Phone Unavailable Allergies Active Description Code Type Severity Reaction Onset Reported/Identified Relationship to Patient Clinical Status Yes Sulfa(Sulfonamide Antibiotics) Drug Allergy N/A N/A 09/23/2011 Yes Sulfa(Sulfonamide Antibiotics) Drug Allergy 09/23/2011 Yes Lipitor 10 mg tablet Drug Storm rgy N/A N/A 07/25/2012 Yes Lipitor 10 mg tablet Drug Storm rgy 07/25/2012 Yes Sulfa (Sulfonamide Antibiotics) [id number] Drug Allergy Mild N/A 5 Yes Yyvsmit-Ngp-Lbm Reductase Inhibitor [id number] Drug Allergy Unknown N/A 08/29/2015 Medications There is no data. Problems Date Dx Coded Attending Type Code Diagnosis Diagnosed By 09/23/2011 401.1 HYPE RTENSION, BENIGN ESSENTIAL 09/23/2011 466.0 Bron chitis, Acute 09/23/2011 V65.42 COU NSELING - SMOKING CESSATION 09/23/2011 V70.0 ROUT INE GENERAL MEDICAL EXAMINATION AT A HEALTH CARE [...] GENERAL MEDICAL EXAMINATION AT A HEALTH CARE ACILITY 09/23/2011 KIMMIE HATHAWAY DO 401.1 HYPERTENSION, BENIGN ESSENTIAL 09/23/2011 KIMMIE HATHAWAY DO 466.0 Bronchitis, Acute 09/23/2011 HATHAWAY DO, KIMMIE K V65.42 COUNSELING - SMOKING CESSATION 09/23/2011 HATHAWAY DO, KIMMIE K V70.0 ROUTINE GENERAL MEDICAL EXAMINATION AT A HEALTH CARE FACILITY 09/23/2011 401.1 HYPE RTENSION, BENIGN ESSENTIAL 09/23/2011 466.0 Bron chitis, Acute 09/23/2011 V65.42 COU NSELING - SMOKING CESSATION 09/23/2011 V70.0 ROUT INE GENERAL MEDICAL EXAMINATION AT A HEALTH CARE FACILITY 09/23/2011 401.1 HYPE RTENSION, BENIGN ESSENTIAL 09/23/2011 466.0 Bron chitis, Acute 09/23/2011 V65.42 COU NSELING - SMOKING CESSATION 09/23/2011 V70.0 ROUT INE GENERAL MEDICAL EXAMINATION AT A HEALTH CARE FACILITY 09/23/2011 401.1 HYPE RTENSION, BENIGN ESSENTIAL 09/23/2011 466.0 Bron chitis, Acute 09/23/2011 V65.42 COU NSELING - SMOKING CESSATION 09/23/2011 V70.0 ROUT INE GENERAL MEDICAL EXAMINATION AT A HEALTH CARE FACILITY 09/23/2011 HATHWAAY DO, KIMMIE K 401.1 HYPERTENSION, BENIGN ESSENTIAL [...] AT A HEALTH CARE FACILITY 09/23/2011 ROLAND MACHINE BRUSHER, TIN R 401.1 HYPERTENSION, BENIGN ESSENTIAL 09/23/2011 ROLAND MACHINE BRUSHER, TIN R 466.0 Bronchitis, Acute 09/23/2011 ROLAND MACHINE BRUSHER TIN R V65.42 COUNSELING - SMOKING CESSATION 09/23/2011 ROLAND MACHINE BRUSHER TIN R V70.0 ROUTINE GENERAL MEDICAL EXAMINATION AT A [facility] 09/23/2011 YUKI MACHINE BRUSHERREGYE R 401.1 HYPERTENSION, BENIGN ESSENTIAL 09/23/2011 YUKI MACHINE BRUSHER, YE R 466.0 Bronchitis, Acute 09/23/2011 YUKI MAYERNREGYE R V65.42 COUNSELING - SMOKING CESSATION 09/23/2011 YUKI MACHINE BRUSHER YE R V70.0 ROUTINE GENERAL MEDICAL EXAMINATION AT [facility] 09/23/2011 HATHAWAY DO, KIMMIE K 401.1 HYPERTENSION, [...] HEALTH CARE FACILITY 09/23/2011 ALLYSON VERA APRN 40 1.1 HYPERTENSION, BENIGN ESSENTIAL 09/23/2011 ALLYSON VERA APRN 46 6.0 Bronchitis, Acute 09/23/2011 ALLYSON VERA APRN V65.42 COUNSELING - SMOKING CESSATION 09/23/2011 ALLYSON VERA APRN V7 0.0 ROUTINE GENERAL MEDICAL EXAMINATION AT A HEALTH CARE FACILITY 09/29/2011 790.29 PRE DIABETES 09/29/2011 HATHAWAY DO, KIMMIE K 790.29 Prediabetes 09/29/2011 YE MIRZA APRN R 790.29 Prediabetes 09/29/2011 HATHAWAY DO, KIMMIE K 790.29 Prediabetes 09/29/2011 790.29 Pre diabetes 09/29/2011 790.29 Pre diabetes 09/29/2011 790.29 Pre diabetes 09/29/2011 HATHAWAY DO, KIMMIE K 790.29 Prediabetes [...] ALLYSON VERA APRN 790.29 Prediabetes 01/11/2012 228.00 HEM ANGIOMA OF UNSPECIFIED SITE 01/11/2012 786.05 JOE RTNESS OF BREATH 01/11/2012 V16.3 FAMI LY HISTORY OF MALIGNANT NEOPLASM OF BREAST 01/11/2012 HATHAWAY DO, KIMMIE K 228.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 UNSPECIFIED SITE 01/11/2012 HATHAWAY DO, KIMMIE K 786.05 Shortness Of Breath 01/11/2012 HATHAWAY DO, KIMMIE K V16.3 FAMILY HISTORY OF MALIGNANT NEOPLASM OF BREAST 01/11/2012 MIRZA MACHINE BRUSHER, YE R 228.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 UNSPECIFIED SITE 01/11/2012 MIRZA MACHINE BRUSHER, YE R 786.05 Shortness Of Breath 01/11/2012 MIRZA MACHINE BRUSHERBARONIA R V16.3 FAMILY HISTORY OF MALIGNANT NEOPLASM OF BREAST 01/11/2012 HATHAWAY DO, KIMMIE K 228.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 UNSPECIFIED SITE 01/11/2012 HATHAWAY DO, KIMMIE K 786.05 Shortness Of Breath 01/11/2012 HATHAWAY DO, KIMMIE K V16.3 FAMILY HISTORY OF MALIGNANT NEOPLASM OF BREAST 01/11/2012 228.00 HEM ANGIOMA OF UNSPECIFIED SITE 01/11/2012 786.05 Joe rtness Of Breath 01/11/2012 V16.3 FAMI LY HISTORY OF MALIGNANT NEOPLASM OF BREAST 01/11/2012 228.00 HEM ANGIOMA OF UNSPECIFIED SITE 01/11/2012 786.05 Joe rtness Of Breath 01/11/2012 V16.3 FAMI LY HISTORY OF MALIGNANT NEOPLASM OF BREAST 01/11/2012 228.00 HEM ANGIOMA OF UNSPECIFIED SITE 01/11/2012 786.05 Joe rtness Of Breath 01/11/2012 V16.3 FAMI LY HISTORY OF MALIGNANT NEOPLASM OF BREAST 01/11/2012 [...] OF MALIGNANT NEOPLASM OF BREAST 01/11/2012 ROLAND MACHINE BRUSHER, TIN R 228.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 UNSPECIFIED SITE 01/11/2012 ROLAND MACHINE BRUSHER, TIN R 786.05 Shortness Of Breath 01/11/2012 ROLAND MACHINE BRUSHER, TIN R V16.3 FAMILY HISTORY OF MALIGNANT NEOPLASM OF BREAST 01/11/2012 YUKI MAYERNBARONIA R 228.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 UNSPECIFIED SITE 01/11/2012 BARON MIRZA APRNIA R 786.05 Shortness Of Breath 01/11/2012 YUKI MACHINE BRUSHER, YE R V16.3 FAMILY HISTORY OF MALIGNANT [...] Shortness Of Breath 01/11/2012 ALLYSON VERA APRN V1 6.3 FAMILY HISTORY OF MALIGNANT NEOPLASM OF BREAST 02/15/2012 V76.10 ANTOLIN AST CANCER SCREENING 02/15/2012 V76.47 VAG INAL PAP SMEAR SCREENING 02/15/2012 HATHAWAY DO KIMMIE K V76.10 Breast Cancer Screening 02/15/2012 MAG SKINNER KIMMIE K V76.47 Vaginal Pap Smear Screening 02/15/2012 BARON MIRZA APRNIA R V76.10 Breast Cancer Screening 02/15/2012 BARON MIRZA APRNIA R V76.47 Vaginal Pap Smear Screening 02/15/2012 ENOCH HATHAWAY DOA K V76.10 Breast Cancer Screening 02/15/2012 HATHAWAY ENOCH SKINNERA K V76.47 Vaginal Pap Smear Screening 02/15/2012 V76.10 Antolin ast Cancer Screening 02/15/2012 V76.47 Vag inal Pap Smear Screening 02/15/2012 V76.10 Antolin ast Cancer Screening 02/15/2012 V76.47 Vag inal Pap Smear Screening 02/15/2012 V76.10 Antolin ast Cancer Screening 02/15/2012 V76.47 Vag inal Pap Smear Screening 02/15/2012 ENOCH HATHAWAY DOA K V76.10 Breast Cancer Screening 02/15/2012 HATHAWAY ENOCH SKINNERA K V76.47 Vaginal Pap Smear Screening 02/15/2012 ENOCH HATHAWAY DOA K V76.10 Breast Cancer Screening 02/15/2012 ENOCH HATHAWAY DOA K V76.47 Vaginal Pap Smear Screening 02/15/2012 ENOCH HATHAWAY DOA K V76.10 Breast Cancer Screening 02/15/2012 HATHAWAY ENOCH SKINNERA K V76.47 Vaginal Pap Smear Screening 02/15/2012 HATHAWAY ENOCH SKINNERA K V76.10 Breast Cancer Screening 02/15/2012 HATHAWAY ENOCH SKINNERA K V76.47 Vaginal Pap Smear Screening 02/15/2012 ROLAND COLLINS TIN R V76.10 Breast Cancer Screening 02/15/2012 ROLAND COLLINS TIN R V76.47 Vaginal Pap Smear Screening 02/15/2012 BARON MIRZA APRNIA R V76.10 Breast Cancer Screening 02/15/2012 BARON MIRZA APRNIA R V76.47 Vaginal Pap Smear Screening 02/15/2012 ENOCH HATHAWAY DOA K V76.10 Breast Cancer Screening 02/15/2012 HATHAWAY ENOCH SKINNERA K V76.47 Vaginal Pap Smear Screening 02/15/2012 HATHAWAY DO KIMMIE K V76.10 Breast Cancer Screening 02/15/2012 HATHAWAY DO KIMMIE K V76.47 Vaginal Pap Smear Screening 02/15/2012 HATHAWAY DO KIMMIE K V76.10 BREAST CANCER SCREENING 02/15/2012 HATHAWAY DO KIMMIE K V76.47 VAGINAL PAP SMEAR SCREENING 02/15/2012 HATHAWAY ENOCH SKINNERA K V76.10 Breast Cancer Screening 02/15/2012 HATHAWAY DO KIMMIE K V76.47 Vaginal Pap Smear Screening 02/15/2012 ALLYSON VERA APRN V76.10 Breast Cancer Screening 02/15/2012 ALLYSON VERA APRN V76.47 Vaginal Pap Smear Screening 02/28/2012 709.9 UNSP ECIFIED DISORDER OF SKIN AND SUBCUTANEOUS TISSUE 02/28/2012 HATHAWAY DO KIMMIE K 709.9 Unspecified Disorder Of Skin And Subcutaneous Tissue 02/28/2012 YE MIRZA APRN 709.9 Unspecified Disorder Of Skin And Subcutaneous Tissue 02/28/2012 HATHAWAY DO KIMMIE K 709.9 Unspecified Disorder Of Skin And Subcutaneous Tissue 02/28/2012 709.9 Unsp ecified Disorder Of Skin And Subcutaneous Tissue 02/28/2012 709.9 Unsp ecified Disorder Of Skin And Subcutaneous Tissue 02/28/2012 709.9 Unsp ecified Disorder Of Skin And Subcutaneous Tissue 02/28/2012 MAG SKINNER KIMMIE K 709.9 Unspecified Disorder Of Skin And Subcutaneous Tissue 02/28/2012 HATHAWAY DO KIMMIE K 709.9 Unspecified Disorder Of Skin And Subcutaneous Tissue 02/28/2012 HATHAWAY DO, KIMMIE K 709.9 Unspecified Disorder Of Skin And Subcutaneous Tissue 02/28/2012 HATHAWAY DO KIMMIE K 709.9 Unspecified Disorder Of Skin And Subcutaneous Tissue 02/28/2012 TIN WATKINS APRN 709.9 Unspecified Disorder Of Skin And Subcutaneous Tissue 02/28/2012 YE MIRZA APRN R 709.9 Unspecified Disorder Of Skin And Subcutaneous Tissue 02/28/2012 HATHAWAY DO KIMMIE K 709.9 Unspecified Disorder Of Skin And Subcutaneous Tissue 02/28/2012 HATHAWAY DO, KIMMIE K 709.9 Unspecified Disorder Of Skin And Subcutaneous Tissue 02/28/2012 HATHAWAY DO KIMMIE K 709.9 UNSPECIFIED DISORDER OF SKIN AND SUBCUTANEOUS TISSUE 02/28/2012 HATHAWAY DO KIMMIE K 709.9 Unspecified Disorder Of Skin And Subcutaneous Tissue 02/28/2012 ALLYSON VERA APRN 70 9.9 Unspecified Disorder Of Skin And Subcutaneous Tissue 04/24/2012 276.51 DEH YDRATION 04/24/2012 HATHAWAY DO, KIMMIE K 276.51 Dehydration 04/24/2012 BARON MIRZA APRNIA R 276.51 Dehydration 04/24/[address] DO, KIMMIE K 276.51 Dehydration 04/24/2012 276.51 Deh ydration 04/24/2012 276.51 Deh ydration 04/24/2012 276.51 Deh ydration 04/24/2012 HATHAWAY DO, KIMMIE K 276.51 Dehydration 04/24/2012 HATHAWAY DO, KIMMIE K 276.51 Dehydration 04/24/2012 HATHAWAY DO, KIMMIE K 276.51 Dehydration 04/24/2012 HATHAWAY DO, KIMMIE K 276.51 Dehydration 04/24/2012 KATIE WATKINS APRNINA R 276.51 Dehydration 04/24/2012 REG MIRZA APRNRICIA R 276.51 Dehydration 04/24/2012 HATHAWAY DO, KIMMIE K 276.51 Dehydration 04/24/2012 HATHAWAY DO, KIMMIE K 276.51 Dehydration 04/24/2012 HATHAWAY DO, KIMMIE K 276.51 DEHYDRATION 04/24/2012 HATHAWAY DO, KIMMIE K 276.51 Dehydration 04/24/2012 ALLYSON VERA APRN 276.51 Dehydration 05/01/2012 250.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 05/01/2012 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 05/01/2012 780.50 UNS PECIFIED SLEEP DISTURBANCE 05/01/2012 780.57 UNS PECIFIED SLEEP APNEA 05/01/2012 HATHAWAY DO, KIMMIE K 250.00 DIABETES MELLITUS TYPE 2 05/01/2012 HATHAWAY DO, KIMMIE K 729.82 CRAMP OF LIMB 05/01/2012 HATHAWAY DO, KIMMIE K 780.50 UNSPECIFIED SLEEP DISTURBANCE 05/01/2012 HATHAWAY DO, KIMMIE K 780.57 UNSPECIFIED SLEEP APNEA 05/01/2012 BARON MIRZA APRNIA R 250.00 DIABETES MELLITUS TYPE 2 05/01/2012 BARON MIRZA APRNIA R 729.82 CRAMP OF LIMB 05/01/2012 REG MIRZA APRNRICIA R 780.50 UNSPECIFIED SLEEP DISTURBANCE 05/01/2012 REG MIRZA APRNRICIA R 780.57 UNSPECIFIED SLEEP APNEA 05/01/2012 HATHAWAY DO, KIMMIE K 250.00 DIABETES MELLITUS TYPE 2 05/01/2012 HATHAWAY DO, KIMMIE K 729.82 Cramp Of Limb 05/01/2012 HATHAWAY DO, KIMMIE K 780.50 UNSPECIFIED SLEEP DISTURBANCE 05/01/2012 HATHAWAY DO, KIMMIE K 780.57 UNSPECIFIED SLEEP APNEA 05/01/2012 250.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 05/01/2012 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 05/01/2012 780.50 UNS PECIFIED SLEEP DISTURBANCE 05/01/2012 780.57 UNS PECIFIED SLEEP APNEA 05/01/2012 250.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 05/01/2012 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 05/01/2012 780.50 UNS PECIFIED SLEEP DISTURBANCE 05/01/2012 780.57 UNS PECIFIED SLEEP APNEA 05/01/2012 250.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 05/01/2012 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 05/01/2012 780.50 UNS PECIFIED SLEEP DISTURBANCE 05/01/2012 780.57 UNS PECIFIED SLEEP APNEA 05/01/2012 HATHAWAY DO, KIMMIE K [...] DIABETES MELLITUS TYPE 2 05/01/2012 HATHAWAY DO, KIMIME K 729.82 Cramp Of Limb 05/01/2012 HATHAWAY DO, KIMMIE K 780.50 UNSPECIFIED SLEEP DISTURBANCE 05/01/2012 HATHAWAY DO, KIMMIE K 780.57 UNSPECIFIED SLEEP APNEA 05/01/2012 TIN WATKINS APRN 250.00 DIABETES MELLITUS TYPE 2 05/01/2012 ROLAND MACHINE BRUSHER, TIN R 729.82 Cramp Of Limb 05/01/2012 ROLAND MACHINE BRUSHER, TIN R 780.50 UNSPECIFIED SLEEP DISTURBANCE 05/01/2012 ROLAND MACHINE BRUSHER, TIN R 780.57 UNSPECIFIED SLEEP APNEA 05/01/2012 YUKI MACHINE BRUSHER, YE R 250.00 DIABETES MELLITUS TYPE 2 05/01/2012 YUKI MAYERN, YE R 729.82 Cramp Of Limb 05/01/2012 YUKI MAYERN YE R 780.50 UNSPECIFIED SLEEP DISTURBANCE 05/01/2012 YUKI MAYERN YE R 780.57 UNSPECIFIED SLEEP APNEA 05/01/2012 HATHAWAY [...] VERA APRN 780.57 UNSPECIFIED SLEEP APNEA 07/11/2012 MIRZA MACHINE BRUSHER, YE R 112.1 CANDIDIASIS VAGINAL 07/11/2012 MIRZA MACHINE BRUSHER, YE R 455.6 UNSPECIFIED HEMORRHOIDS WITHOUT COMPLICATION 07/11/2012 MIRZA MACHINE BRUSHER, YE R 461.9 SINUSITIS ACUTE 07/11/2012 MIRZA MACHINE BRUSHER, YE R 564.00 UNSPECIFIED CONSTIPATION 07/11/2012 HATHAWAY DO, KIMMIE K 112.1 Candidiasis Vaginal 07/11/2012 HATHAWAY DO, KIMMIE K 455.6 UNSPECIFIED HEMORRHOIDS WITHOUT COMPLICATION 07/11/2012 HATHAWAY DO, KIMMIE K 461.9 Sinusitis Acute 07/11/2012 HATHAWAY DO, KIMMIE K 564.00 Unspecified Constipation 07/11/2012 112.1 Cand idiasis Vaginal 07/11/2012 455.6 UNSP ECIFIED HEMORRHOIDS WITHOUT COMPLICATION 07/11/2012 461.9 Sinu sitis Acute 07/11/2012 564.00 Uns pecified Constipation 07/11/2012 112.1 Cand idiasis Vaginal 07/11/2012 455.6 UNSP ECIFIED HEMORRHOIDS WITHOUT COMPLICATION 07/11/2012 461.9 Sinu sitis Acute 07/11/2012 564.00 Uns pecified Constipation 07/11/2012 112.1 Cand idiasis Vaginal 07/11/2012 455.6 UNSP ECIFIED HEMORRHOIDS WITHOUT COMPLICATION 07/11/2012 461.9 Sinu sitis Acute 07/11/2012 564.00 Uns pecified Constipation 07/11/2012 HATHAWAY DO, KIMMIE K 112.1 [...] KIMMIE K 564.00 Unspecified Constipation 07/11/2012 ROLAND MACHINE BRUSHER, TIN R 112.1 Candidiasis Vaginal 07/11/2012 ROLAND MACHINE BRUSHER, TIN R 455.6 UNSPECIFIED HEMORRHOIDS WITHOUT COMPLICATION 07/11/2012 ROLAND MACHINE BRUSHER, TIN R 461.9 Sinusitis Acute 07/11/2012 ROLAND MACHINE BRUSHER, TIN R 564.00 Unspecified Constipation 07/11/2012 YUKI MACHINE BRUSHER, YE R 112.1 Candidiasis Vaginal 07/11/2012 YUKI MACHINE BRUSHER, YE R 455.6 UNSPECIFIED HEMORRHOIDS WITHOUT COMPLICATION 07/11/2012 YUKI MACHINE BRUSHER, YE R 461.9 Sinusitis Acute 07/11/2012 YUKI MACHINE BRUSHER, YE R 564.00 Unspecified Constipation 07/11/2012 HATHAWAY [...] 564.00 Unspecified Constipation 07/11/2012 ALLYSON VERA APRN 11 2.1 Candidiasis Vaginal 07/11/2012 ALLYSON VERA APRN 45 5.6 UNSPECIFIED HEMORRHOIDS WITHOUT COMPLICATION 07/11/2012 ALLYSON VERA APRN 46 1.9 Sinusitis Acute 07/11/2012 ALLYSON VERA APRN 564.00 Unspecified Constipation 07/25/2012 YE MIRZA APRN R 564.00 CONSTIPATION 07/25/2012 HATHAWAY DO, KIMMIE K 564.00 CONSTIPATION 07/25/2012 564.00 CON STIPATION 07/25/2012 564.00 CON STIPATION 07/25/2012 564.00 CON STIPATION 07/25/2012 HATHAWAY DO, KIMMIE K 564.00 CONSTIPATION [...] DO, KIMMIE K 536.3 GASTROPARESIS 08/01/2012 536.3 [place] ROPARESIS 08/01/2012 536.3 [place] ROPARESIS 08/01/2012 536.3 [place] ROPARESIS 08/01/2012 HATHAWAY DO, KIMMIE K 536.3 GASTROPARESIS 08/01/2012 HATHAWAY DO, KIMMIE K 536.3 GASTROPARESIS 08/01/2012 HATHAWAY DO, KIMMIE K 536.3 GASTROPARESIS 08/01/2012 HATHAWAY DO, KIMMIE K 536.3 GASTROPARESIS 08/01/2012 ROLAND COLLINS TIN R 536.3 GASTROPARESIS 08/01/2012 YE MIRZA APRN R 536.3 GASTROPARESIS 08/01/2012 HATHAWAY DO, KIMMIE K 536.3 GASTROPARESIS 08/01/2012 HATHAWAY DO, KIMMIE K 536.3 GASTROPARESIS 08/01/2012 HATHAWAY DO, KIMMIE K 536.3 GASTROPARESIS 08/01/2012 ALLYSON VERA APRN 53 6.3 GASTROPARESIS 10/30/2012 078.10 VIR AL WARTS UNSPECIFIED 10/30/2012 388.70 PERIODONTAL ASSISTANT LGIA UNSPECIFIED 10/30/2012 521.00 UNS PECIFIED DENTAL CARIES 10/30/2012 627.8 OTHE R SPECIFIED MENOPAUSAL AND POSTMENOPAUSAL DISORDERS 10/30/2012 791.0 PROT EINURIA 10/30/2012 078.10 VIR AL WARTS UNSPECIFIED 10/30/2012 388.70 PERIODONTAL ASSISTANT LGIA UNSPECIFIED 10/30/2012 521.00 UNS PECIFIED DENTAL CARIES 10/30/2012 627.8 OTHE R SPECIFIED MENOPAUSAL AND POSTMENOPAUSAL DISORDERS 10/30/2012 791.0 PROT EINURIA 10/30/2012 078.10 VIR AL WARTS UNSPECIFIED 10/30/2012 388.70 PERIODONTAL ASSISTANT LGIA UNSPECIFIED 10/30/2012 521.00 UNS PECIFIED DENTAL CARIES 10/30/2012 627.8 OTHE R SPECIFIED MENOPAUSAL AND POSTMENOPAUSAL DISORDERS 10/30/2012 791.0 PROT EINURIA 10/30/2012 HATHAWAY DO, KIMMIE K 078.10 VIRAL [...] HATHAWAY DO, KIMMIE K 791.0 PROTEINURIA 10/30/2012 ROLAND MACHINE BRUSHER, TIN R 078.10 VIRAL WARTS UNSPECIFIED 10/30/2012 ROLAND MACHINE BRUSHER, TIN R 388.70 OTALGIA UNSPECIFIED 10/30/2012 ROLAND MACHINE BRUSHER, TIN R 521.00 UNSPECIFIED DENTAL CARIES 10/30/2012 ROLAND MACHINE BRUSHER, TIN R 627.8 OTHER SPECIFIED MENOPAUSAL AND POSTMENOPAUSAL DISORDER S 10/30/2012 ROLAND MAYERN, TIN R 791.0 PROTEINURIA 10/30/2012 BARON MIRZA APRNIA R 078.10 VIRAL WARTS UNSPECIFIED 10/30/2012 REG MIRZA APRNRICIA R 388.70 OTALGIA UNSPECIFIED 10/30/2012 RGE MIRZA APRNRICIA R 521.00 UNSPECIFIED DENTAL CARIES 10/30/2012 BARON MIRZA APRNIA R 627.8 OTHER SPECIFIED MENOPAUSAL AND POSTMENOPAUSAL DISORDER S 10/30/2012 REG MIRZA APRNRICIA R 791.0 PROTEINURIA 10/30/2012 MAG DO, KIMMIE K 078.10 VIRAL WARTS UNSPECIFIED 10/30/2012 MAG DO, KIMMIE K 388.70 OTALGIA UNSPECIFIED 10/30/2012 [...] UNSPECIFIED DENTAL CARIES 10/30/2012 ALLYSON VERA APRN 62 7.8 OTHER SPECIFIED MENOPAUSAL AND POSTMENOPAUSAL DISORDERS 10/30/2012 ALLYSON VERA APRN 79 1.0 PROTEINURIA 01/01/2013 132.2 PHTH IRUS PUBIS (PUBIC LOUSE) 01/01/2013 132.2 PHTH IRUS PUBIS (PUBIC LOUSE) 01/01/2013 HATHAWAY DO, KIMMIE K 132.2 PHTHIRUS PUBIS (PUBIC LOUSE) 01/01/2013 HATHAWAY DO, KIMMIE K 132.2 PHTHIRUS PUBIS (PUBIC LOUSE) 01/01/2013 HATHAWAY DO, KIMMIE K 132.2 PHTHIRUS PUBIS (PUBIC LOUSE) 01/01/2013 HATHAWAY DO, KIMMIE K 132.2 PHTHIRUS PUBIS (PUBIC LOUSE) 01/01/2013 ROLAND COLLINS TIN R 132.2 PHTHIRUS PUBIS (PUBIC LOUSE) 01/01/2013 YE MIRZA APRN R 132.2 PHTHIRUS PUBIS (PUBIC LOUSE) 01/01/2013 HATHAWAY DO, KIMMIE K 132.2 PHTHIRUS PUBIS (PUBIC LOUSE) 01/01/2013 HATHAWAY DO, KIMMIE K 132.2 PHTHIRUS PUBIS (PUBIC LOUSE) 01/01/2013 HATHAWAY DO, KIMMIE K 132.2 PHTHIRUS PUBIS (PUBIC LOUSE) 01/01/2013 ALLYSON VERA APRN 13 2.2 PHTHIRUS PUBIS (PUBIC LOUSE) 03/08/2013 530.81 GERD 03/08/2013 729.5 PAIN IN LIMB 03/08/2013 V58.69 LUIS G-TERM (CURRENT) USE OF OTHER MEDICATIONS 03/08/2013 HATHAWAY [...] (CURRENT) USE OF OTHER MEDICATIONS 03/08/2013 ROLAND MACHINE BRUSHER TIN R 530.81 GERD 03/08/2013 ROLAND MACHINE BRUSHER TIN R 729.5 PAIN IN LIMB 03/08/2013 ROLAND MACHINE BRUSHER, TIN R V58.69 LONG-TERM (CURRENT) USE OF OTHER MEDICATIONS 03/08/2013 REG MIRZA APRNRICIA R 530.81 GERD 03/08/2013 YUKI MACHINE BRUSHER YE R 729.5 PAIN IN LIMB 03/08/2013 YUKI MACHINE BRUSHER YE R V58.69 LONG-TERM (CURRENT) USE OF [...] APRN 530.81 GERD 03/08/2013 ALLYSON VERA APRN 72 9.5 PAIN IN LIMB 03/08/2013 ALLYSON VERA APRN V58.69 LONG-TERM (CURRENT) USE OF OTHER MEDICATIONS 04/10/2013 HATHAWAY DO, KIMMIE K 550.90 HERNIA INGUINAL 04/10/2013 HATHAWAY DO, KIMMIE K 550.90 HERNIA INGUINAL 04/10/2013 HATHAWAY DO, KIMMIE K 550.90 HERNIA INGUINAL 04/10/2013 KATIE WATKINS APRNINA R 550.90 HERNIA INGUINAL 04/10/2013 YE MIRZA APRN R 550.90 HERNIA INGUINAL 04/10/2013 HATHAWAY DO, KIMMIE K 550.90 HERNIA INGUINAL 04/10/2013 HATHAWAY DO, KIMMIE K 550.90 HERNIA INGUINAL 04/10/2013 HATHAWAY DO, KIMMIE K 550.90 HERNIA INGUINAL 04/10/2013 ALLYSON VERA APRN 550.90 HERNIA INGUINAL 05/21/2013 HATHAWAY DO, KIMMIE K 522.5 PERIAPICAL ABSCESS WITHOUT SINUS 05/21/2013 HATHAWAY DO, KIMMIE K 522.5 PERIAPICAL ABSCESS WITHOUT SINUS 05/21/2013 TIN WATKINS APRN R 522.5 PERIAPICAL ABSCESS WITHOUT SINUS 05/21/2013 BARON MIRZA APRNIA R 522.5 PERIAPICAL ABSCESS WITHOUT SINUS 05/21/2013 HATHAWAY DO, KIMMIE K 522.5 PERIAPICAL ABSCESS WITHOUT SINUS 05/21/2013 HATHAWAY DO, KIMMIE K 522.5 PERIAPICAL ABSCESS WITHOUT SINUS 05/21/2013 HATHAWAY DO, KIMMIE K 522.5 PERIAPICAL ABSCESS WITHOUT SINUS 05/21/2013 ALLYSON VERA APRN 52 2.5 PERIAPICAL ABSCESS WITHOUT SINUS 06/04/2013 HATHAWAY DO, KIMMIE K 272.4 OTHER AND UNSPECIFIED HYPERLIPIDEMIA 06/04/2013 HATHAWAY DO, KIMMIE K 496 COPD 06/04/2013 ROLAND COLLINS TIN R 272.4 OTHER AND UNSPECIFIED HYPERLIPIDEMIA 06/04/2013 ROLAND MACHINE BRUSHER, TIN R 4 96 COPD 06/04/2013 YUKI MACHINE BRUSHER, YE R 272.4 OTHER AND UNSPECIFIED HYPERLIPIDEMIA 06/04/2013 YUKI MACHINE BRUSHER, YE R 496 COPD 06/04/2013 HATHAWAY DO, KIMMIE K 272.4 OTHER AND UNSPECIFIED HYPERLIPIDEMIA 06/04/2013 HATHAWAY DO, KIMMIE K 496 COPD 06/04/2013 HATHAWAY DO, KIMMIE K 272.4 OTHER AND UNSPECIFIED HYPERLIPIDEMIA 06/04/2013 HATHAWAY DO, KIMMIE K 496 COPD 06/04/2013 HATHAWAY DO, KIMMIE K 272.4 OTHER AND UNSPECIFIED HYPERLIPIDEMIA 06/04/2013 HATHAWAY DO, KIMMIE K 496 COPD 06/04/2013 ALLYSON VERA APRN 27 2.4 OTHER AND UNSPECIFIED HYPERLIPIDEMIA 06/04/2013 ALLYSON VERA APRN 49 6 COPD 07/31/2013 ROLAND MAYERN, TIN R 461.9 SINUSITIS ACUTE 07/31/2013 ROLAND MAYERN TIN R 786.2 COUGH 07/31/2013 ROLAND MAYERN, TIN R 789.09 ABDOMINAL PAIN OTHER SPECIFIED SITE 07/31/2013 REG MIRZA APRNRICIA R 461.9 SINUSITIS ACUTE 07/31/2013 YUKI MAYERN, YE R 786.2 COUGH 07/31/2013 YUKI MAYERN, YE R 789.09 ABDOMINAL PAIN OTHER SPECIFIED [...] OTHER SPECIFIED SITE 07/31/2013 ALLYSON VERA APRN 46 1.9 SINUSITIS ACUTE 07/31/2013 ALLYSON VERA APRN 78 6.2 COUGH 07/31/2013 ALLYSON VERA APRN 789.09 ABDOMINAL PAIN OTHER SPECIFIED SITE 09/07/2013 YUKI COLLINSREGYE R 305.1 TOBACCO ABUSE 09/07/2013 YUKI COLLINS YE R 491.21 BRONCHITIS AECB 09/07/2013 HATHAWAY DO, KIMMIE K 305.1 TOBACCO ABUSE 09/07/2013 HATHAWAY DO, KIMMIE K 491.21 BRONCHITIS AECB 09/07/2013 HATHAWAY DO, KIMMIE K 305.1 TOBACCO ABUSE 09/07/2013 HATHAWAY DO, KIMMIE K 491.21 BRONCHITIS AECB 09/07/2013 HATHAWAY DO, KIMMIE K 305.1 TOBACCO ABUSE 09/07/2013 HATHAWAY DO, KIMMIE K 491.21 BRONCHITIS AECB 09/07/2013 ALLYSON VERA APRN 30 5.1 TOBACCO ABUSE 09/07/2013 ALLYSON VERA APRN 491.21 BRONCHITIS AECB 12/04/2013 HATHAWAY DO, KIMMIE K 112.1 CANDIDIASIS OF VULVA AND VAGINA 12/04/2013 HATHAWAY DO, KIMMIE K 228.01 HEMANGIOMA OF SKIN AND SUBCUTANEOUS TISSUE 12/04/2013 HATHAWAY DO, KIMMIE K 564.00 UNSPECIFIED CONSTIPATION 12/04/2013 HATHAWAY DO, KIMMIE K 112.1 CANDIDIASIS OF VULVA AND VAGINA 12/04/2013 HATHAWAY DO, KIMMIE K 228.01 HEMANGIOMA OF SKIN AND SUBCUTANEOUS TISSUE 12/04/2013 HATHAWAY DO, KIMMIE K 564.00 UNSPECIFIED CONSTIPATION 12/04/2013 HATHAWAY DO, KIMMIE K 112.1 CANDIDIASIS OF VULVA AND VAGINA 12/04/2013 HATHAWAY DO, KIMMIE K 228.01 HEMANGIOMA OF SKIN AND SUBCUTANEOUS TISSUE 12/04/2013 HATHAWAY DO, KIMMIE K 564.00 UNSPECIFIED CONSTIPATION 12/04/2013 ALLYSON VERA APRN 11 2.1 CANDIDIASIS OF VULVA AND VAGINA 12/04/2013 ALLYSON VERA APRN 228.01 HEMANGIOMA OF SKIN AND SUBCUTANEOUS TISSUE 12/04/2013 ALLYSON VERA APRN 564.00 UNSPECIFIED CONSTIPATION 06/25/2014 HATHAWAY DO, KIMMIE K 625.8 OTHER SPECIFIED SYMPTOMS ASSOCIATED WITH FEMALE GENITAL ORGANS 06/25/2014 HATHAWAY DO, KIMMIE K 780.79 OTHER MALAISE AND FATIGUE 06/25/2014 ALLYSON VERA APRN 62 5.8 OTHER SPECIFIED SYMPTOMS ASSOCIATED WITH FEMALE GENITAL ORGANS 06/25/2014 ALLYSON VERA APRN 780.79 OTHER MALAISE AND FATIGUE 10/02/2014 ALLYSON VERA APRN 493.92 ASTHMA (ACUTE) EXACERBATION 11/16/2014 EDNA MINOR MD Ot 250.00 DIAB CARMEN WO COMPL, TYPE II OR UNSPEC TY 11/16/2014 DENA MINOR MD Ot 272.0 PURE HYPERCHOLESTEROLEM 11/16/2014 DENA MINOR MD Ot 305.1 TOBACCO USE DISORDER 11/16/2014 DENA MINOR MD Ot 401.9 HYPERTENSION NOS 11/16/2014 DENA MINOR MD Ot 496 CHR AIRWAY OBSTRUCT NEC 11/16/2014 DENA MINOR MD Ot 552.20 OBSTR VENTRAL HERNIA NOS 11/16/2014 DENA MINOR MD Ot 250.00 11/16/2014 DENA MINOR MD Ot 272.0 11/16/2014 DENA MINOR MD Ot 305.1 11/16/2014 DENA MINOR MD Ot 401.9 11/16/2014 DENA MINOR MD Ot 496 11/16/2014 DENA MINOR MD Ot 552.20 11/18/2014 HUBERT PA, TARUN M Ot 429 .9 11/18/2014 HUBERT PA, TARUN M Ot 491.21 11/18/2014 HUBERT PA, TARUN M Ot 793.11 11/18/2014 Ot 496 11/18/2014 Ot 786.6 11/18/2014 Ot 496 11/18/2014 Ot 786.6 12/17/2014 GASPAR PA, TARUN M Ot 429 .9 12/17/2014 GASPAR PA, TARUN M Ot 491.21 12/17/2014 GASPAR PA, TARUN M Ot 793.11 12/17/2014 Ot 496 12/17/2014 Ot 786.6 12/17/2014 Ot 496 12/17/2014 Ot 786.6 02/05/2015 Ot 496 02/05/2015 Ot 786.6 06/17/2015 GASPAR PA, TARUN M Ot 429 .9 06/17/2015 GASPAR PA, TARUN M Ot 491.21 06/17/2015 HUBERT PA, TARUN M Ot 793.11 06/17/2015 Ot 496 06/17/2015 Ot 786.6 09/02/2015 TARUN YANG Ot 429 .9 09/02/2015 TARUN YANG Ot 491.21 09/02/2015 TARUN YANG Ot 793.11 09/02/2015 Ot 496 09/02/2015 Ot 786.6 09/02/2015 BALAJI DAMON APRN Ot Z12.31 09/02/2015 ZEV PALMA DO Ot K63. 5 POLYP OF COLON 09/10/2015 ZEV PALMA DO Ot Z01.818 09/10/2015 ZEV PALMA DO Ot Z01.818 03/05/2016 MERARY JOSUE Ot R10.32 LEFT LOWER QUADRANT PAIN 03/10/2016 MERARY JOSUE Ot R10.32 LEFT LOWER QUADRANT PAIN 03/31/2016 TARUN YANG Ot 429 .9 HEART DISEASE NOS 03/31/2016 TARUN YANG Ot 491.21 OBSTR CHRONIC BRONCHITIS, W (ACUTE) EXAC 03/31/2016 TARUN YANG Ot 793.11 SOLITARY PULMONARY NODULE 03/31/2016 Ot 496 CHR AI RWAY OBSTRUCT NEC 03/31/2016 Ot 786.6 CHES T SWELLING/MASS/LUMP 03/31/2016 BALAJI DAMON APRN Ot Z12.31 ENCNTR SCREEN MAMMOGRAM FOR MALIGNANT NE 03/31/2016 ZEV PALMA DO Ot Z01.818 ENCOUNTER FOR OTHER PREPROCEDURAL EXAMIN 03/31/2016 MERARY JOSUE Ot R10.32 LEFT LOWER QUADRANT PAIN 03/31/2016 MERARY JOSUE Ot R10.32 LEFT LOWER QUADRANT PAIN 04/05/2016 ZEV PALMA DO Ot K43. 9 VENTRAL HERNIA WITHOUT OBSTRUCTION OR GA 04/05/2016 ZEV PALMA DO Ot Z01.818 ENCOUNTER FOR OTHER PREPROCEDURAL EXAMIN 04/06/2016 TARUN YANG Ot 429 .9 HEART DISEASE NOS 04/06/2016 TARUN YANG Ot 491.21 OBSTR CHRONIC BRONCHITIS, W (ACUTE) EXAC 04/06/2016 TARUN YANG Ot 793.11 SOLITARY PULMONARY NODULE 04/06/2016 Ot 496 CHR AI RWAY OBSTRUCT NEC 04/06/2016 Ot 786.6 CHES T SWELLING/MASS/LUMP 04/06/2016 BALAJI DAMON APRN Ot Z12.31 ENCNTR SCREEN MAMMOGRAM FOR MALIGNANT NE 04/06/2016 ZEV PALMA DO Ot Z01.818 ENCOUNTER FOR OTHER PREPROCEDURAL EXAMIN 04/06/2016 MERARY JOSUE PBX MANAGER Ot R10.32 LEFT LOWER QUADRANT PAIN 04/06/2016 LIATMERARY SMITH PBX MANAGER Ot R10.32 LEFT LOWER QUADRANT PAIN 04/06/2016 LIATMERARY SMITH PBX MANAGER Ot R10.32 LEFT LOWER QUADRANT PAIN 04/06/2016 LIATMERARY SMITHP Ot R10.32 LEFT LOWER QUADRANT PAIN 04/06/2016 TARUN YANG Ot 429 .9 HEART DISEASE NOS 04/06/2016 TARUN YANG Ot 491.21 OBSTR CHRONIC BRONCHITIS, W (ACUTE) EXAC 04/06/2016 TARUN YANG Ot 793.11 SOLITARY PULMONARY NODULE 04/06/2016 Ot 496 CHR AI RWKATHERINE OBSTRUCT NEC 04/06/2016 Ot 786.6 CHES T SWELLING/MASS/LUMP 04/07/2016 TARUN YANG Ot 429 .9 HEART DISEASE NOS 04/07/2016 TARUN YANG Ot 491.21 OBSTR CHRONIC BRONCHITIS, W (ACUTE) EXAC 04/07/2016 TARUN YANG Ot 793.11 SOLITARY PULMONARY NODULE 04/07/2016 ZEV PALMA DO Ot K43. 9 VENTRAL HERNIA WITHOUT OBSTRUCTION OR GA 04/07/2016 ZEV PALMA DO Ot Z01.818 ENCOUNTER FOR OTHER PREPROCEDURAL EXAMIN 04/13/2016 TARUN YANG Ot 429 .9 HEART DISEASE NOS 04/13/2016 TARUN YANG Ot 491.21 OBSTR CHRONIC BRONCHITIS, W (ACUTE) EXAC 04/13/2016 TARUN YANG Ot 793.11 SOLITARY PULMONARY NODULE 04/13/2016 Ot 496 CHR AI RWAY OBSTRUCT NEC 04/13/2016 Ot 786.6 CHES T SWELLING/MASS/LUMP 04/13/2016 JENERICBALAJI HE MACHINE BRUSHER Ot Z12.31 ENCNTR SCREEN MAMMOGRAM FOR MALIGNANT NE 04/13/2016 ZEV PALMA DO Ot Z01.818 ENCOUNTER FOR OTHER PREPROCEDURAL EXAMIN 04/13/2016 MERARY JOSUE PBX MANAGER Ot R10.32 LEFT LOWER QUADRANT PAIN 04/13/2016 MERARY JOSUE PBX MANAGER Ot R10.32 LEFT LOWER QUADRANT PAIN 04/16/2016 MIKAL YANGC, ALI FACP CCDS Ot E11.9 TYPE 2 DIABETES MELLITUS WITHOUT COMPLIC 04/16/2016 MIKAL WALL FACC, ALI FACP CCDS Ot I10 ESSENTIAL (PRIMARY) HYPERTENSION 04/16/2016 MIKAL WALL FACC, ALI FACP CCDS Ot J44.9 CHRONIC OBSTRUCTIVE PULMONARY DISEASE, U 04/16/2016 MIKAL WALL FACC, ALI FACP CCDS Ot R06.02 SHORTNESS OF BREATH 04/16/2016 MIKAL YANGC, ALI FACP CCDS Ot R07.89 OTHER CHEST PAIN 04/16/2016 MIKAL YANGC, ALI FACP CCDS Ot Z72.0 TOBACCO USE [...] TOBACCO USE 04/21/2016 ZEV PALMA DO Ot K43. 9 VENTRAL HERNIA WITHOUT OBSTRUCTION OR GA 04/21/2016 ZEV PALMA DO Ot Z01.812 ENCOUNTER FOR PREPROCEDURAL LABORATORY E 04/21/2016 ZEV PALMA DO Ot Z11. 2 ENCOUNTER FOR SCREENING FOR OTHER BACTER 04/22/2016 ZEV PALMA DO Ot K43. 9 VENTRAL HERNIA WITHOUT OBSTRUCTION OR GA 04/22/2016 ZEV PALMA DO Ot Z01.812 ENCOUNTER FOR PREPROCEDURAL LABORATORY E 04/22/2016 ZEV PALMA DO Ot Z11. 2 ENCOUNTER FOR SCREENING FOR OTHER BACTER 04/22/2016 ZEV PALMA DO Ot K43. 9 VENTRAL HERNIA WITHOUT OBSTRUCTION OR GA 04/22/2016 ZEV PALMA DO Ot Z01.812 ENCOUNTER FOR PREPROCEDURAL LABORATORY E 04/22/2016 ZEV PALMA DO Ot Z11. 2 ENCOUNTER FOR SCREENING FOR OTHER BACTER 04/29/2016 MINERVA SKINNER ZEV D Ot K43. 9 VENTRAL HERNIA WITHOUT OBSTRUCTION OR GA 04/30/2016 MINERVA SKINNER ZEV Keith Ot K43. 9 VENTRAL HERNIA WITHOUT OBSTRUCTION OR GA 05/24/2016 TARUN YANG Ot 429 .9 HEART DISEASE NOS 05/24/2016 TARUN YANG Ot 491.21 OBSTR CHRONIC BRONCHITIS, W (ACUTE) EXAC 05/24/2016 TARUN YANG Ot 793.11 SOLITARY PULMONARY NODULE 05/24/2016 Ot 496 CHR AI RWAY OBSTRUCT NEC 05/24/2016 Ot 786.6 CHES T SWELLING/MASS/LUMP 05/24/2016 BALAJI DAMON APRN Ot Z12.31 ENCNTR SCREEN MAMMOGRAM FOR MALIGNANT NE 05/24/2016 PALMA ZEV Keith Ot Z01.818 ENCOUNTER FOR OTHER PREPROCEDURAL EXAMIN 05/24/2016 MERARY JOSUE PBX MANAGER Ot R10.32 LEFT LOWER QUADRANT PAIN 05/24/2016 MERARY JOSUE Ot R10.32 LEFT LOWER QUADRANT PAIN 05/24/2016 MIKAL WALL FACC, VIVEK FACP CCDS Ot E11.9 TYPE 2 DIABETES MELLITUS WITHOUT COMPLIC 05/24/2016 MIKAL WALL FACC, VIVEK FACP CCDS Ot I10 ESSENTIAL (PRIMARY) HYPERTENSION 05/24/2016 MIKAL WALL FACC, ALI FACP CCDS Ot J44.9 CHRONIC OBSTRUCTIVE PULMONARY DISEASE, U 05/24/2016 MIKAL WALL FACC, ALI FACP CCDS Ot R06.02 SHORTNESS OF BREATH 05/24/2016 MIKAL WALL FACC, VIVEK FACP CCDS Ot R07.89 OTHER CHEST PAIN [...] Z72.0 TOBACCO USE 05/24/2016 Ot 496 CHR AI RWAY OBSTRUCT NEC 05/24/2016 Ot 786.6 CHES T SWELLING/MASS/LUMP 05/24/2016 MERARY JOSUE PBX MANAGER Ot R10.32 LEFT LOWER QUADRANT PAIN 05/24/2016 MERARY JOSUE PBX MANAGER Ot R10.32 LEFT LOWER QUADRANT PAIN 05/24/2016 MIKAL WALL FACC, VIVEK FACP CCDS Ot E11.9 TYPE 2 DIABETES MELLITUS WITHOUT COMPLIC 05/24/2016 MIKAL WALL FACC, VIVEK FACP CCDS Ot I10 ESSENTIAL (PRIMARY) [...] SHORTNESS OF BREATH 05/24/2016 MIKAL WALL FACC, VIVEK FACP CCDS Ot R07.89 OTHER CHEST PAIN 05/24/2016 MIKAL WALL FACC, ALI FACP CCDS Ot Z72.0 TOBACCO USE 05/25/2016 MIKAL WALL FACC, ALI FACP CCDS Ot E11.9 TYPE 2 DIABETES MELLITUS WITHOUT COMPLIC 05/25/2016 MIKAL WALL FACC, ALI FACP CCDS Ot I10 ESSENTIAL (PRIMARY) HYPERTENSION 05/25/2016 MIKAL WALL FACC, VIVEK FACP CCDS Ot J43.8 OTHER EMPHYSEMA 05/25/2016 MIKAL WALL FACC, ALI FACP CCDS Ot R06.02 SHORTNESS OF BREATH 05/25/2016 MIKAL WALL FACC, ALI FACP CCDS Ot R07.89 OTHER CHEST PAIN 05/25/2016 MIKAL WALL FACC, VIVEK FACP CCDS Ot Z72.0 TOBACCO USE 04/13/2018 TARUN YANG Ot 429 .9 HEART DISEASE NOS 04/13/2018 TARUN YANG Ot 491.21 OBSTR CHRONIC BRONCHITIS, W (ACUTE) EXAC 04/13/2018 TARUN YANG Ot 793.11 SOLITARY PULMONARY NODULE 04/13/2018 Ot 496 CHR AI RWAY OBSTRUCT NEC 04/13/2018 Ot 786.6 CHES T SWELLING/MASS/LUMP 04/13/2018 BALAJI DAOMN APRN Ot Z12.31 ENCNTR SCREEN MAMMOGRAM FOR MALIGNANT NE 04/13/2018 ZEV PALMA DO Ot Z01.818 ENCOUNTER FOR OTHER PREPROCEDURAL EXAMIN 04/13/2018 MERARY JOSUE PBX MANAGER Ot R10.32 LEFT LOWER QUADRANT PAIN 04/13/2018 MERARY JOSUE PBX MANAGER Ot R10.32 LEFT LOWER QUADRANT PAIN 04/13/2018 MIKAL WALL FACC, VIVEK FACP CCDS Ot E11.9 TYPE 2 DIABETES MELLITUS WITHOUT COMPLIC 04/13/2018 MIKAL WALL FACC, VIVEK FACP CCDS Ot I10 ESSENTIAL (PRIMARY) HYPERTENSION 04/13/2018 MIKAL WALL FACC, VIVEK FACP CCDS Ot J44.9 CHRONIC OBSTRUCTIVE PULMONARY DISEASE, U 04/13/2018 MIKAL WALL FACC, VIVEK FACP CCDS Ot R06.02 SHORTNESS OF BREATH 04/13/2018 MIKAL WALL FACC, VIVEK FACP CCDS Ot R07.89 OTHER CHEST PAIN 04/13/2018 MIKAL WALL FACC, ALI FACP CCDS Ot Z72.0 TOBACCO USE 04/13/2018 MIKAL WALL FACC, ALI FACP CCDS Ot E11.9 TYPE 2 DIABETES MELLITUS WITHOUT COMPLIC 04/13/2018 MIKAL WALL FACC, ALI FACP CCDS Ot I10 ESSENTIAL (PRIMARY) HYPERTENSION 04/13/2018 MIKAL WALL FACC, VIVEK FACP CCDS Ot J43.8 OTHER EMPHYSEMA 04/13/2018 MIKAL WALL FACC, ALI FACP CCDS Ot R06.02 SHORTNESS OF BREATH 04/13/2018 MIKAL WALL FACC, ALI FACP CCDS Ot R07.89 OTHER CHEST PAIN 04/13/2018 MIKAL WALL FACC, VIVEK FACP CCDS Ot Z72.0 TOBACCO USE 04/13/2018 TARUN YANG Ot 429 .9 HEART DISEASE NOS 04/13/2018 TARUN YANG Ot 491.21 OBSTR CHRONIC BRONCHITIS, W (ACUTE) EXAC 04/13/2018 TARUN YANG Ot 793.11 SOLITARY PULMONARY NODULE 04/13/2018 Ot 496 CHR AI RWAY OBSTRUCT NEC 04/13/2018 Ot 786.6 CHES T SWELLING/MASS/LUMP 04/13/2018 BALAJI DAMON APRN Ot Z12.31 ENCNTR SCREEN MAMMOGRAM FOR MALIGNANT NE 04/13/2018 ZEV PALMA DO Ot Z01.818 ENCOUNTER FOR OTHER PREPROCEDURAL EXAMIN 04/13/2018 MERARY JOSUE PBX MANAGER Ot R10.32 LEFT LOWER QUADRANT PAIN 04/13/2018 MERARY JOSUE PBX MANAGER Ot R10.32 LEFT LOWER QUADRANT PAIN 04/13/2018 MIKAL WALL FACC, VIVEK FACP CCDS Ot E11.9 TYPE 2 DIABETES MELLITUS WITHOUT COMPLIC 04/13/2018 MIKAL WALL FACC, VIVEK FACP CCDS Ot I10 ESSENTIAL (PRIMARY) HYPERTENSION 04/13/2018 MIKAL WALL FACC, ALI FACP CCDS Ot J44.9 CHRONIC OBSTRUCTIVE PULMONARY DISEASE, U 04/13/2018 MIKAL WALL FACC, VIVEK FACP CCDS Ot R06.02 SHORTNESS OF BREATH [...] TOBACCO USE 04/14/2018 ZEV PALMA DO Ot K43. 2 INCISIONAL HERNIA WITHOUT OBSTRUCTION OR 05/01/2018 ZEV PALMA DO Ot Z01.818 ENCOUNTER FOR OTHER PREPROCEDURAL EXAMIN 05/04/2018 ZEV PALMA DO Ot E11. 40 TYPE 2 DIABETES MELLITUS WITH DIABETIC N 05/04/2018 ZEV PALMA DO Ot F17.210 NICOTINE DEPENDENCE, CIGARETTES, UNCOMPL 05/04/2018 ZEV PALMA DO Ot G47. 33 OBSTRUCTIVE SLEEP APNEA (ADULT) (PEDIATR 05/04/2018 ZEV PALMA DO Ot I10 ESSENTIAL (PRIMARY) HYPERTENSION 05/04/2018 ZEV PALMA DO Ot J44. 9 CHRONIC OBSTRUCTIVE PULMONARY DISEASE, U 05/04/2018 ZEV PALMA DO Ot K21. 9 GASTRO-ESOPHAGEAL REFLUX DISEASE WITHOUT 05/04/2018 ZEV PALMA DO Ot K43. 0 INCISIONAL HERNIA WITH OBSTRUCTION, WITH 05/04/2018 ZEV PALMA DO Ot Z79. 84 NURSING HOME (CURRENT) USE OF ORAL HYPOGLYC 05/04/2018 ZEV PALMA DO Ot Z79.899 OTHER NURSING HOME (CURRENT) DRUG THERAPY 05/05/2018 ZEV PALMA DO Ot E11. 40 TYPE 2 DIABETES MELLITUS WITH DIABETIC N 05/05/2018 ZEV PALMA DO Ot F17.210 NICOTINE DEPENDENCE, CIGARETTES, UNCOMPL 05/05/2018 ZEV PALMA DO Ot G47. 33 OBSTRUCTIVE SLEEP APNEA (ADULT) (PEDIATR 05/05/2018 ZEV PALMA DO Ot I10 ESSENTIAL (PRIMARY) HYPERTENSION 05/05/2018 ZEV PALMA DO Ot J44. 9 CHRONIC OBSTRUCTIVE PULMONARY DISEASE, U 05/05/2018 ZEV PALMA DO Ot K21. 9 GASTRO-ESOPHAGEAL REFLUX DISEASE WITHOUT 05/05/2018 ZEV PALMA DO Ot K43. 0 INCISIONAL HERNIA WITH OBSTRUCTION, WITH 05/05/2018 ZEV PALMA DO Ot Z79. 84 NURSING HOME (CURRENT) USE OF ORAL HYPOGLYC 05/05/2018 ZEV PALMA DO Ot Z79.899 OTHER [employer] (CURRENT) DRUG THERAPY 05/07/2018 ZEV PALMA DO Ot Z01.818 ENCOUNTER FOR OTHER PREPROCEDURAL EXAMIN 05/12/2018 ZEV PALMA DO Ot E11. 40 TYPE 2 DIABETES MELLITUS WITH DIABETIC N 05/12/2018 ZEV PALMA DO Ot F17.210 NICOTINE DEPENDENCE, CIGARETTES, UNCOMPL 05/12/2018 ZEV PALMA DO Ot G47. 33 OBSTRUCTIVE SLEEP APNEA (ADULT) (PEDIATR 05/12/2018 ZEV PALMA DO Ot I10 ESSENTIAL (PRIMARY) HYPERTENSION 05/12/2018 EZV PALMA DO Ot J44. 9 CHRONIC OBSTRUCTIVE PULMONARY DISEASE, U 05/12/2018 ZEV PALMA DO Ot K21. 9 GASTRO-ESOPHAGEAL REFLUX DISEASE WITHOUT 05/12/2018 ZEV PALMA DO Ot K43. 0 INCISIONAL HERNIA WITH OBSTRUCTION, WITH 05/12/2018 ZEV PALMA DO Ot Z79. 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 2 INCISIONAL HERNIA WITHOUT OBSTRUCTION OR 08/10/2018 TARUN YANG Ot 429 .9 HEART DISEASE NOS 08/10/2018 TARUN YANG Ot 491.21 OBSTR CHRONIC BRONCHITIS, W (ACUTE) EXAC 08/10/2018 TARUN YAGN Ot 793.11 SOLITARY PULMONARY NODULE 08/10/2018 Ot 496 CHR AI RWAY OBSTRUCT NEC 08/10/2018 Ot 786.6 CHES T SWELLING/MASS/LUMP 08/10/2018 JENJOSÉ BALAJI Wells KARINA Ot Z12.31 ENCNTR SCREEN MAMMOGRAM FOR MALIGNANT NE 08/10/2018 ZEV PALMA DO Ot Z01.818 ENCOUNTER FOR OTHER PREPROCEDURAL EXAMIN 08/10/2018 MERARY JOSUE PBX MANAGER Ot R10.32 LEFT LOWER QUADRANT PAIN 08/10/2018 MERARY JOSUE PBX MANAGER Ot R10.32 LEFT LOWER QUADRANT PAIN 08/10/2018 MIKAL WALL FAC, ALI FACP CCDS Ot E11.9 TYPE 2 DIABETES MELLITUS WITHOUT COMPLIC 08/10/2018 MIKAL WALL FACJacky, ALI FACP CCDS Ot I10 ESSENTIAL (PRIMARY) HYPERTENSION 08/10/2018 MIKAL WALL FACC, ALI FACP CCDS Ot J44.9 CHRONIC OBSTRUCTIVE PULMONARY DISEASE, U 08/10/2018 MIKAL WALL FACJacky, ALI FACP CCDS Ot R06.02 SHORTNESS OF BREATH 08/10/2018 MIKAL WALL FACJacky, ALI FACP CCDS Ot R07.89 OTHER CHEST PAIN 08/10/2018 MIKAL WALL [facility], ALI FACP CCDS Ot Z72.0 TOBACCO USE 08/10/2018 MIKAL WALL FACJacky, ALI FACP CCDS Ot E11.9 TYPE 2 DIABETES MELLITUS WITHOUT COMPLIC 08/10/2018 MIKAL WALL FACJacky, ALI FACP CCDS Ot I10 ESSENTIAL (PRIMARY) HYPERTENSION 08/10/2018 MIKAL WALL FACC, ALI FACP CCDS Ot J43.8 OTHER EMPHYSEMA 08/10/2018 MIKAL WALL FACC, ALI FACP CCDS Ot R06.02 SHORTNESS OF BREATH 08/10/2018 MIKAL WALL FACC, ALI FACP CCDS Ot R07.89 OTHER CHEST PAIN 08/10/2018 MIKAL WALL FACC, ALI FACP CCDS Ot Z72.0 TOBACCO USE 08/10/2018 ZEV PALMA DO Ot K43. 2 INCISIONAL HERNIA WITHOUT OBSTRUCTION OR 08/11/2018 MERARY JOSUE PBX MANAGER Ot I77.1 STRICTURE OF ARTERY 08/11/2018 MERARY JOSUE PBX MANAGER Ot R25.2 CRAMP AND SPASM 09/06/2018 MERARY JOSUE PBX MANAGER Ot I77.1 STRICTURE OF ARTERY 09/06/2018 MERARY JOSUE PBX MANAGER Ot R25.2 CRAMP AND SPASM 10/03/2018 TARUN YANG Ot 429 .9 HEART DISEASE NOS 10/03/2018 TARUN YANG Ot 491.21 OBSTR CHRONIC BRONCHITIS, W (ACUTE) EXAC 10/03/2018 TARUN YANG Ot 793.11 SOLITARY PULMONARY NODULE 10/03/2018 Ot 496 CHR AI RWAY OBSTRUCT NEC 10/03/2018 Ot 786.6 CHES T SWELLING/MASS/LUMP 10/03/2018 BALAJI DAMON APRN Ot Z12.31 ENCNTR SCREEN MAMMOGRAM FOR MALIGNANT NE 10/03/2018 ZEV PALMA DO Ot Z01.818 ENCOUNTER FOR OTHER PREPROCEDURAL EXAMIN 10/03/2018 MERARY JOSUE PBX MANAGER Ot R10.32 LEFT LOWER QUADRANT PAIN 10/03/2018 MERARY JOSUE PBX MANAGER Ot R10.32 LEFT LOWER QUADRANT PAIN 10/03/2018 MIKAL WALL FACC, ALI FACP CCDS Ot E11.9 TYPE 2 DIABETES MELLITUS WITHOUT COMPLIC 10/03/2018 MIKAL WALL FACC, ALI FACP CCDS Ot I10 ESSENTIAL (PRIMARY) HYPERTENSION 10/03/2018 MIKAL WALL FACC, ALI FACP CCDS Ot J44.9 CHRONIC OBSTRUCTIVE PULMONARY DISEASE, U 10/03/2018 MIKAL WALL FACC, ALI FACP CCDS Ot R06.02 SHORTNESS OF BREATH 10/03/2018 MIKAL WALL FACC, ALI FACP CCDS Ot R07.89 OTHER CHEST PAIN 10/03/2018 MIKAL WALL FACC, ALI FACP CCDS Ot Z72.0 TOBACCO USE 10/03/2018 MIKAL WALL FACC, ALI FACP CCDS Ot E11.9 TYPE 2 DIABETES MELLITUS WITHOUT COMPLIC 10/03/2018 MIKAL WALL FACC, ALI FACP CCDS Ot I10 ESSENTIAL (PRIMARY) HYPERTENSION 10/03/2018 MIKAL WALL FACC, ALI FACP CCDS Ot J43.8 OTHER EMPHYSEMA 10/03/2018 MIKAL WALL FACC, ALI FACP CCDS Ot R06.02 SHORTNESS OF BREATH 10/03/2018 MIKAL WALL FACC, ALI FACP CCDS Ot R07.89 OTHER CHEST PAIN 10/03/2018 MIKAL WALL FACC, ALI FACP CCDS Ot Z72.0 TOBACCO USE 10/03/2018 ANTOLIN PALMA DOTT Keith Ot K43. 2 INCISIONAL HERNIA WITHOUT OBSTRUCTION OR 10/03/2018 LIATANTOLINMERARY PBX MANAGER Ot I77.1 STRICTURE OF ARTERY 10/03/2018 MERARY JOSUE PBX MANAGER Ot R25.2 CRAMP AND SPASM 10/04/2018 MIKAL YANGC, ALI FACP CCDS Ot E11.9 TYPE 2 DIABETES MELLITUS WITHOUT COMPLIC 10/04/2018 MIKAL WALL FACC, ALI FACP CCDS Ot F17.210 NICOTINE DEPENDENCE, CIGARETTES, UNCOMPL 10/04/2018 MIKAL WALL FACC, ALI FACP CCDS Ot G47.33 OBSTRUCTIVE SLEEP APNEA (ADULT) (PEDIATR 10/04/2018 MIKAL WALL FACC, ALI FACP CCDS Ot I10 ESSENTIAL (PRIMARY) HYPERTENSION 10/04/2018 MIKAL WALL FACC, VIVEK FACP CCDS Ot I70.203 UNSP [facility]CL [place] [facility] 10/04/2018 MIKAL WALL FACC, VIVEK FACP CCDS Ot J44.9 CHRONIC OBSTRUCTIVE PULMONARY DISEASE, U 10/04/2018 MIKAL WALL FACC, VIVEK FACP CCDS Ot Z11.2 ENCOUNTER FOR SCREENING FOR OTHER BACTER 10/04/2018 MIKAL WALL FACC, ALI FACP CCDS Ot Z91.19 PATIENT'S NONCOMPLIANCE W [facility] 10/05/2018 MIKAL WALL FACC, VIVEK FACP CCDS Ot E11.9 TYPE 2 DIABETES MELLITUS WITHOUT COMPLIC 10/05/2018 MIKAL WALL FACC, ALI FACP CCDS Ot F17.210 NICOTINE DEPENDENCE, CIGARETTES, UNCOMPL 10/05/2018 MIKAL WALL FACC, ALI FACP CCDS Ot G47.33 OBSTRUCTIVE SLEEP APNEA (ADULT) (PEDIATR 10/05/2018 MIKAL WALL FACC, ALI FACP CCDS Ot I10 ESSENTIAL (PRIMARY) HYPERTENSION 10/05/2018 MIKAL WALL FACC, ALI FACP CCDS Ot I70.203 UNSP ATHSCL [place] [facility] 10/05/2018 MIKAL WALL FACC, ALI FACP CCDS Ot J44.9 CHRONIC OBSTRUCTIVE PULMONARY DISEASE, U 10/05/2018 MIKAL WALL FACC, ALI FACP CCDS Ot Z11.2 ENCOUNTER FOR SCREENING FOR OTHER BACTER 10/05/2018 MIKAL WALL FACC, VIVEK FACP CCDS Ot Z91.19 PATIENT'S NONCOMPLIANCE W [facility] MED[facility] TR 12/19/2018 TARUN YANG Ot 429 .9 HEART DISEASE NOS 12/19/2018 TARUN YANG Ot 491.21 OBSTR CHRONIC BRONCHITIS, W (ACUTE) EXAC 12/19/2018 TARUN YANG Ot 793.11 SOLITARY PULMONARY NODULE 12/19/2018 Ot 496 CHR AI RWAY OBSTRUCT NEC 12/19/2018 Ot 786.6 CHES T SWELLING/MASS/LUMP 12/19/2018 BALAJI DAMON APRN Ot Z12.31 ENCNTR SCREEN MAMMOGRAM FOR MALIGNANT NE 12/19/2018 ZEV PALMA DO Ot Z01.818 ENCOUNTER FOR OTHER PREPROCEDURAL EXAMIN 12/19/2018 MERARY JOSUE PBX MANAGER Ot R10.32 LEFT LOWER QUADRANT PAIN 12/19/2018 MERARY JOSUE PBX MANAGER Ot R10.32 LEFT LOWER QUADRANT PAIN 12/19/2018 MIKAL WALL FACC, VIVEK FACP CCDS Ot E11.9 TYPE 2 DIABETES MELLITUS WITHOUT COMPLIC 12/19/2018 MIKAL WALL FACC, VIVEK FACP CCDS Ot I10 ESSENTIAL (PRIMARY) HYPERTENSION 12/19/2018 MIKAL WALL FACC, VIVEK FACP CCDS Ot J44.9 CHRONIC OBSTRUCTIVE PULMONARY DISEASE, U 12/19/2018 MIKAL WALL FACC, VIVEK FACP CCDS Ot R06.02 SHORTNESS OF BREATH 12/19/2018 MIKAL WALL FACC, ALI FACP CCDS Ot R07.89 OTHER CHEST PAIN 12/19/2018 MIKAL WALL FACC, ALI FACP CCDS Ot Z72.0 TOBACCO USE 12/19/2018 MIKAL WALL FACC, ALI FACP CCDS Ot E11.9 TYPE 2 DIABETES MELLITUS WITHOUT COMPLIC 12/19/2018 MIKAL WALL FACC, ALI FACP CCDS Ot I10 ESSENTIAL (PRIMARY) HYPERTENSION 12/19/2018 MIKAL WALL FACC, ALI FACP CCDS Ot J43.8 OTHER EMPHYSEMA 12/19/2018 MIKAL WALL FACC, ALI FACP CCDS Ot R06.02 SHORTNESS OF BREATH 12/19/2018 MIKAL WALL [facility], VIVEK BISHOP CCDS Ot R07.89 OTHER CHEST PAIN 12/19/2018 MIKAL WALL FAC, VIVEK BISHOP CCDS Ot Z72.0 TOBACCO USE 12/19/2018 ZEV PALMA DO Ot K43. 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 12/21/2018 BAIMA, EPIFANIO L PBX MANAGER Ot I73.9 PERIPHERAL VASCULAR DISEASE, UNSPECIFIED 12/21/2018 BAIMA, EPIFANIO L PBX MANAGER Ot R06.02 SHORTNESS OF BREATH 01/16/2019 BAIMA, EPIFANIO L PBX MANAGER Ot I 10 ESSENTIAL (PRIMARY) HYPERTENSION 01/16/2019 BAIMA, EPIFANIO L PBX MANAGER Ot 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 01/16/2019 BAIMA, EPIFANIO L PBX MANAGER Ot I73.9 PERIPHERAL VASCULAR DISEASE, UNSPECIFIED 01/16/2019 BAIMA, EPIFANIO L PBX MANAGER Ot R06.02 SHORTNESS OF BREATH 03/22/2019 TARUN YANG Ot 429 .9 HEART DISEASE NOS 03/22/2019 TARUN YANG Ot 491.21 OBSTR CHRONIC BRONCHITIS, W (ACUTE) EXAC 03/22/2019 TARUN YANG Ot 793.11 SOLITARY PULMONARY NODULE 03/22/2019 Ot 496 CHR AI RWAY OBSTRUCT NEC 03/22/2019 Ot 786.6 CHES T SWELLING/MASS/LUMP 03/22/2019 BALAJI DAMON APRN Ot Z12.31 ENCNTR SCREEN MAMMOGRAM FOR MALIGNANT NE 03/22/2019 ZEV PALMA DO Ot Z01.818 ENCOUNTER FOR OTHER PREPROCEDURAL EXAMIN 03/22/2019 MERARY JOSUEP Ot R10.32 LEFT LOWER QUADRANT PAIN 03/22/2019 MERARY JOSUEP Ot R10.32 LEFT LOWER QUADRANT PAIN 03/22/2019 MIKAL WALL [facility], ALI FACP CCDS Ot E11.9 TYPE 2 DIABETES MELLITUS WITHOUT COMPLIC 03/22/2019 MIKAL WALL [facility], ALI FACP CCDS Ot I10 ESSENTIAL (PRIMARY) HYPERTENSION 03/22/2019 MIKAL WALL [facility], ALI FACP CCDS Ot J44.9 CHRONIC OBSTRUCTIVE PULMONARY DISEASE, U 03/22/2019 MIKAL MD FAC, ALI FACP CCDS Ot R06.02 SHORTNESS OF BREATH 03/22/2019 [facility], ALI FACP CCDS Ot R07.89 OTHER CHEST PAIN 03/22/2019 [facility], ALI FACP CCDS Ot Z72.0 TOBACCO USE 03/22/2019 [facility], ALI FACP CCDS Ot E11.9 TYPE 2 DIABETES MELLITUS WITHOUT COMPLIC 03/22/2019 [facility], ALI FACP CCDS Ot I10 ESSENTIAL (PRIMARY) HYPERTENSION 03/22/2019 [facility], ALI FACP CCDS Ot J43.8 OTHER EMPHYSEMA 03/22/2019 [facility], ALI FACP CCDS Ot R06.02 SHORTNESS OF BREATH 03/22/2019 [facility], ALI FACP CCDS Ot R07.89 OTHER CHEST PAIN 03/22/2019 [facility], ALI FACP CCDS Ot Z72.0 TOBACCO USE 03/22/2019 ZEV PALMA DO Ot K43. 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512 PAIN IN LEFT SHOULDER 03/26/2019 MERARY JOSUE Ot M48.02 SPINAL STENOSIS, CERVICAL REGION 04/16/2019 MERARY JOSUE Ot E07.89 OTHER SPECIFIED DISORDERS OF THYROID 04/16/2019 MERARY JOSUE Ot M25.512 PAIN IN LEFT SHOULDER 04/16/2019 MERARY JOSUE Ot M48.02 SPINAL STENOSIS, CERVICAL REGION 04/16/2019 MERARY JOSUE Ot M19.012 PRIMARY OSTEOARTHRITIS, LEFT SHOULDER 04/16/2019 MERARY JOSUE Ot M75.122 COMPLETE ROTATR-CUFF TEAR/RUPTR OF LEFT 04/16/2019 MERARY JOSUE Ot S46.112A STRAIN OF MUSC/FASC/TEND LONG HEAD OF BI 04/16/2019 MERARY JOSUE Ot E07.89 OTHER SPECIFIED DISORDERS OF THYROID 05/10/2019 MERARY JOSUE Ot 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 05/17/2019 MERARY JOSUE Ot 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 09/18/2019 TARUN YANG Ot 429 .9 HEART DISEASE NOS 09/18/2019 TARUN YANG Ot 491.21 OBSTR CHRONIC BRONCHITIS, W (ACUTE) EXAC 09/18/2019 TARUN YANG Ot 793.11 SOLITARY PULMONARY NODULE 09/18/2019 Ot 496 CHR AI RWAY OBSTRUCT NEC 09/18/2019 Ot 786.6 CHES T SWELLING/MASS/LUMP 09/18/2019 BALAJI DAMON APRN Ot Z12.31 ENCNTR SCREEN MAMMOGRAM FOR MALIGNANT NE 09/18/2019 ZEV PALMA DO Ot Z01.818 ENCOUNTER FOR OTHER PREPROCEDURAL EXAMIN 09/18/2019 MERARY JOSUE Ot R10.32 LEFT LOWER QUADRANT PAIN 09/18/2019 MERARY JOSUE Ot R10.32 LEFT LOWER QUADRANT PAIN 09/18/2019 MIKAL [facility], VIVEK YANGP CCDS Ot E11.9 TYPE 2 DIABETES MELLITUS WITHOUT COMPLIC 09/18/2019 [facility]ALL [facility], VIVEK YANGP CCDS Ot I10 ESSENTIAL (PRIMARY) HYPERTENSION 09/18/2019 [facility], ALI FACP CCDS Ot J44.9 CHRONIC OBSTRUCTIVE PULMONARY DISEASE, U 09/18/2019 [facility], ALI FACP CCDS Ot R06.02 SHORTNESS OF BREATH 09/18/2019 [facility], ALI FACP CCDS Ot R07.89 OTHER CHEST PAIN 09/18/2019 [facility], ALI FACP CCDS Ot Z72.0 TOBACCO USE 09/18/2019 [facility], [facility]I FACP CCDS Ot E11.9 TYPE 2 DIABETES MELLITUS WITHOUT COMPLIC 09/18/2019 [facility], ALI FACP CCDS Ot I10 ESSENTIAL (PRIMARY) HYPERTENSION 09/18/2019 [facility], ALI FACP CCDS Ot J43.8 OTHER EMPHYSEMA 09/18/2019 [facility], ALI FACP CCDS Ot R06.02 SHORTNESS OF BREATH 09/18/2019 [facility], ALI FACP CCDS Ot R07.89 OTHER CHEST PAIN 09/18/2019 [facility], ALI FACP CCDS Ot Z72.0 TOBACCO USE 09/18/2019 ZEV PALMA DO D Ot K43. 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 09/18/2019 BAIMA, EPIFANIO L PBX MANAGER Ot I73.9 PERIPHERAL VASCULAR DISEASE, UNSPECIFIED 09/18/2019 CHANDU, EPIFANIO L PBX MANAGER Ot R06.02 SHORTNESS OF BREATH 09/18/2019 MERARY JOSUE PBX MANAGER Ot E07.89 OTHER SPECIFIED DISORDERS OF THYROID 09/18/2019 MERARY JOSUE PBX MANAGER Ot M25.512 PAIN IN LEFT SHOULDER 09/18/2019 MERARY JOSUE PBX MANAGER Ot M48.02 SPINAL STENOSIS, CERVICAL REGION 09/18/2019 MERARY JOSUE PBX MANAGER Ot M19.012 PRIMARY OSTEOARTHRITIS, LEFT SHOULDER 09/18/2019 MERARY JOSUE Ot M75.122 COMPLETE ROTATR-CUFF TEAR/RUPTR OF LEFT 09/18/2019 MERARY JOSUE Ot S46.112A STRAIN OF MUSC/FASC/TEND LONG HEAD OF BI 09/18/2019 MERARY JOSUE Ot E07.89 OTHER SPECIFIED DISORDERS OF THYROID 09/18/2019 MERARY JOSUE Ot 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 Procedures Code Description [place] [address] A1C (IN-HOUSE) 05/01/2012 94833 CMP 05/01/2012 67578 LIPI D PANEL 05/01/2012 [id number] GF R CALC (RESULT ONLY) 05/01/2012 79789 ROUT INE VENIPUNCTURE 10/30/2012 19802 MICR O ALBUMIN-IN HOUSE 10/30/2012 30493 A1C (IN-HOUSE) 10/30/2012 22321 CMP 10/30/2012 [id number] GF R CALC (RESULT ONLY) 10/30/2012 93455 MICR OALBUMIN 10/31/2012 36813 WART DESTRUCT 1-14 (CRYO) 11/01/2012 JOSE SIMS 03/21/2013 70171 ROUT INE VENIPUNCTURE 05/21/2013 87246 THER APUTIC INJ SQ/IM 05/21/2013 J0696 ROCE PHIN INJ 1 g 05/21/2013 J1040 DEPO MEDROL 80 MG INJ 05/21/2013 31683 CMP 05/21/2013 84756 MICR OALBUMIN 05/21/2013 95131 MICR O ALBUMIN-IN HOUSE 05/21/2013 16625 A1C (IN-HOUSE) 06/04/2013 38655 UA W / CULTURE IF INDICATED 07/31/2013 45903 OXIMETRY 08/01/2013 61560 NEBU LIZER TREATMENT 09/07/2013 J7644 ATRO VENT/IPRATROPIUM BROMIDE NON-COMP 09/07/2013 98687 A1C (IN-HOUSE) 12/04/2013 78045 A1C (IN-HOUSE) 03/11/2014 31723 ROUT INE VENIPUNCTURE 06/25/2014 35011 XRAY CHEST 2 VIEW 06/25/[address] C HEST W/O DYE 06/25/2014 36698 EKG, TRACING (IN-HOUSE) 06/25/2014 97487 A1C (IN-HOUSE) 06/25/2014 45760 MICR O ALBUMIN-IN HOUSE 06/25/2014 99321 CBC 06/26/2014 [id number] GF R CALC (RESULT ONLY) 06/26/2014 61551 CMP 06/26/2014 35646 LIPI D PANEL 06/26/2014 30408 MICR OALBUMIN 06/26/[address] C HEST W/O DYE 06/28/2014 J7613 ALBU TEROL UNIT DOSE FORM INHALED 10/02/2014 83423 THER APUTIC INJ SQ/IM 10/02/2014 J2930 SOLU MEDROL INJ 10/02/2014 04337 OXIMETRY 10/04/2014 Results Test Result Range Automated blood complete blood count ([facility]) panel - 03/04/16 17:45 Blood leukocytes automated count (number/volume) 6.4 10*3/uL 4.3-11.0 Blood erythrocytes automated count (number/volume) 5.01 10*6/uL 4.35-5.85 Venous blood hemoglobin measurement (mass/volume) 13.4 g/dL 11.5-16.0 Blood hematocrit (volume fraction) 40 % 35-52 Automated erythrocyte mean corpuscular volume 81 [ foz_us] 80-99 Automated erythrocyte mean corpuscular h emoglobin (mass per erythrocyte) 27 pg 25-34 Automated erythrocyte mean corpuscular h emoglobin concentration measurement (mass/volume) 33 g/dL 32-36 Automated erythrocyte distribution width ratio 15. 4 % 10.0- 14.5 Automated blood platelet count (count/volume) 356 10*3/uL [...] 5-14 Serum or plasma urea nitrogen measurement (mass/volume ) 18 mg/dL 7-18 Serum or plasma creatinine measurement (mass/volume) 1.01 mg/dL 0.60-1.30 Serum or plasma urea nitrogen/creatinine mass ratio 18 NRG Serum or plasma creatinine measurement w ith calculation of estimated glomerular filtration rate 56 NRG Serum or plasma glucose measurement (mass/volume) 101 mg/dL 70-105 Serum or plasma calcium measurement (mass/volume) 9.5 mg/dL 8.5-10.1 Serum or plasma total bilirubin measurement (mass/volu me) 0.4 mg/dL 0.1-1.0 Serum or plasma alkaline phosphatase andressa surement (enzymatic activity/volume) 81 U/L 40-136 Serum or plasma aspartate aminotransfera se measurement (enzymatic activity/volume) 17 U/L 5-34 Serum or plasma alanine aminotransferase measurement (enzymatic activity/volume) 16 U/L 0-55 Serum or plasma protein measurement (mass/volume) 7.7 g/dL 6.4-8.2 Serum or plasma albumin measurement (mass/volume) 4.3 g/dL 3.2-4.5 Automated blood complete blood count (he mogram) panel - 03/09/16 07:53 Blood leukocytes automated count (number/volume) 8.4 10*3/uL 4.3-11.0 Blood erythrocytes automated count (number/volume) 4.79 10*6/uL 4.35-5.85 Venous blood hemoglobin measurement (mass/volume) 13.1 g/dL 11.5-16.0 Blood hematocrit (volume fraction) 39 % 35-52 Automated erythrocyte mean corpuscular volume 82 [ foz_us] 80-99 Automated erythrocyte mean corpuscular h emoglobin (mass per erythrocyte) 27 pg 25-34 Automated erythrocyte mean corpuscular h emoglobin concentration measurement (mass/volume) 34 g/dL 32-36 Automated erythrocyte distribution width ratio 15. 2 % 10.0- 14.5 Automated blood platelet count (count/volume) 364 10*3/uL [...] 5-14 Serum or plasma urea nitrogen measurement (mass/volume ) 11 mg/dL 7-18 Serum or plasma creatinine measurement (mass/volume) 0.84 mg/dL 0.60-1.30 Serum or plasma urea nitrogen/creatinine mass ratio 13 NRG Serum or plasma creatinine measurement w ith calculation of estimated glomerular filtration rate > NRG Serum or plasma glucose measurement (mass/volume) 129 mg/dL 70-105 Serum or plasma calcium measurement (mass/volume) 9.6 mg/dL 8.5-10.1 Serum or plasma total bilirubin measurement (mass/volu me) 0.2 mg/dL 0.1-1.0 Serum or plasma alkaline phosphatase andressa surement (enzymatic activity/volume) 84 U/L 40-136 Serum or plasma aspartate aminotransfera se measurement (enzymatic activity/volume) 14 U/L 5-34 Serum or plasma alanine aminotransferase measurement (enzymatic activity/volume) 14 U/L 0-55 Serum or plasma protein measurement (mass/volume) 7.4 g/dL 6.4-8.2 Serum or plasma albumin measurement (mass/volume) 4.1 g/dL 3.2-4.5 Complete blood count (CBC) with automate d white blood cell (WBC) differential - 04/21/16 15:25 Blood leukocytes automated count (number/volume) 6.0 10*3/uL 4.3-11.0 Blood erythrocytes automated count (number/volume) 4.80 10*6/uL 4.35-5.85 Venous blood hemoglobin measurement (mass/volume) 13.1 g/dL 11.5-16.0 Blood hematocrit (volume fraction) 39 % 35-52 Automated erythrocyte mean corpuscular volume 82 [ foz_us] 80-99 Automated erythrocyte mean corpuscular h emoglobin (mass per erythrocyte) 27 pg 25-34 Automated erythrocyte mean corpuscular h emoglobin concentration measurement (mass/volume) 33 g/dL 32-36 Automated erythrocyte distribution width ratio 15. 2 % 10.0- 14.5 Automated blood platelet count (count/volume) 358 10*3/uL [...] 10*3 1.0-4.0 Blood monocytes automated count (number/volume) 0. 6 10*3 0.0-1.0 Automated eosinophil count 0.2 10*3/uL 0 .0-0.3 Automated blood basophil count (count/volume) 0.1 10*3/uL 0.0-0.1 Methicillin resistant Staphylococcus aur eus (MRSA) screening culture - 04/21/16 15:25 Methicillin resistant Staphylococcus aureus (MRSA) scr eening culture NEG NRG Capillary blood glucose measurement by g lucometer (mass/volume) - 04/29/16 06:41 Capillary blood glucose measurement by glucometer (mas s/volume) 160 mg/dL 70-110 Capillary blood glucose measurement by g lucometer (mass/volume) - 04/29/16 09:18 Capillary blood glucose measurement by glucometer (mas s/volume) 141 mg/dL 70-110 [id number] - 04/13/18 12:05 Serum or plasma urea nitrogen measurement (mass/volume ) 16 mg/dL 7-18 Serum or plasma creatinine measurement (mass/volume) 1.03 mg/dL 0.60-1.30 Serum or plasma urea nitrogen/creatinine mass ratio 16 NRG Serum or plasma creatinine measurement w ith calculation of estimated glomerular filtration rate 55 NRG Methicillin resistant Staphylococcus aur eus (MRSA) screening culture - 05/01/18 15:07 Methicillin resistant Staphylococcus aureus (MRSA) scr eening culture NEG NRG Capillary blood glucose measurement by g lucometer (mass/volume) - 05/04/18 08:04 Capillary blood glucose measurement by glucometer (mas s/volume) 173 mg/dL 70-110 Complete blood count (CBC) with automate d white blood cell (WBC) differential - 05/04/18 08:24 Blood leukocytes automated count (number/volume) 7.4 10*3/uL 4.3-11.0 Blood erythrocytes automated count (number/volume) 5.11 10*6/uL 4.35-5.85 Venous blood hemoglobin measurement (mass/volume) 14.5 g/dL 11.5-16.0 Blood hematocrit (volume fraction) 43 % 35-52 Automated erythrocyte mean corpuscular volume 84 [ foz_us] 80-99 Automated erythrocyte mean corpuscular h emoglobin (mass per erythrocyte) 28 pg 25-34 Automated erythrocyte mean corpuscular h emoglobin concentration measurement (mass/volume) 34 g/dL 32-36 Automated erythrocyte distribution width ratio 14. 5 % 10.0- 14.5 Automated blood platelet count (count/volume) 341 10*3/uL 130-400 Automated blood platelet mean volume measurement 9.8 [foz_us] 7.4-10.4 Automated blood neutrophils/100 leukocytes 62 % 42-75 Automated blood lymphocytes/100 leukocytes 25 % 12-44 Blood monocytes/100 leukocytes 10 % 0-12 Automated blood eosinophils/100 leukocytes 2 % 0-10 Automated blood basophils/100 leukocytes 1 % 0-10 Blood neutrophils automated count (number/volume) 4.6 10*3 1.8-7.8 Blood lymphocytes automated count (number/volume) 1.9 10*3 1.0-4.0 Blood monocytes automated count (number/volume) 0. 8 10*3 0.0-1.0 Automated eosinophil count 0.1 10*3/uL 0 .0-0.3 Automated blood basophil count (count/volume) 0.1 10*3/uL 0.0-0.1 Automated blood complete blood count ( mogram) panel - 10/03/18 08:03 Blood leukocytes automated count (number/volume) 8.3 10*3/uL 4.3-11.0 Blood erythrocytes automated count (number/volume) 4.88 10*6/uL 4.35-5.85 Venous blood hemoglobin measurement (mass/volume) 13.5 g/dL 11.5-16.0 Blood hematocrit (volume fraction) 42 % 35-52 Automated erythrocyte mean corpuscular volume 85 [ foz_us] 80-99 Automated erythrocyte mean corpuscular h emoglobin (mass per erythrocyte) 28 pg 25-34 Automated erythrocyte mean corpuscular h emoglobin concentration measurement (mass/volume) 33 g/dL 32-36 Automated erythrocyte distribution width ratio 14. 7 % 10.0- 14.5 Automated blood platelet count (count/volume) 348 10*3/uL 130-400 Automated blood platelet mean volume measurement 9.7 [foz_us] 7.4-10.4 PT panel in platelet poor plasma by coag ulation assay - 10/03/18 08:03 Prothrombin time (PT) in platelet poor plasma by coagu lation assay 12.8 s 12.2-14.7 INR in platelet poor plasma or blood by coagulation as say 0.9 0.8-1.4 Activated partial thromboplastin time (a PTT) in platelet poor plasma bycoagulation assay - 10/03/18 08:03 Activated partial thromboplastin time (a PTT) in platelet poor plasma bycoagulation assay 30 s 24-35 Comprehensive metabolic panel - 10/03/18 08:03 Serum or plasma sodium measurement (moles/volume) 140 mmol/L 135-145 Serum or plasma potassium measurement (moles/volume) 3.7 mmol/L 3.6-5.0 Serum or plasma chloride measurement (moles/volume) 102 mmol/L 98-107 Carbon dioxide 26 mmol/L 21-32 Serum or plasma anion gap determination (moles/volume) 12 mmol/L 5-14 Serum or plasma urea nitrogen measurement (mass/volume ) 20 mg/dL 7-18 Serum or plasma creatinine measurement (mass/volume) 1.15 mg/dL 0.60-1.30 Serum or plasma urea nitrogen/creatinine mass ratio 17 NRG Serum or plasma creatinine measurement w ith calculation of estimated glomerular filtration rate 48 NRG Serum or plasma glucose measurement (mass/volume) 129 mg/dL 70-105 Serum or plasma calcium measurement (mass/volume) 10.1 mg/dL 8.5-10.1 Serum or plasma total bilirubin measurement (mass/volu me) 0.4 mg/dL 0.1-1.0 Serum or plasma alkaline phosphatase andressa surement (enzymatic activity/volume) 87 U/L 40-136 Serum or plasma aspartate aminotransfera se measurement (enzymatic activity/volume) 16 U/L 5-34 Serum or plasma alanine aminotransferase measurement (enzymatic activity/volume) 18 U/L 0-55 Serum or plasma protein measurement (mass/volume) 7.6 g/dL 6.4-8.2 Serum or plasma albumin measurement (mass/volume) 4.2 g/dL 3.2-4.5 CALCIUM CORRECTED 9.9 mg/dL 8.5-10.1 Lipid 1996 panel - 10/03/18 08:03 Serum or plasma triglyceride measurement (mass/volume) 135 mg/dL <150 Serum or plasma cholesterol measurement (mass/volume) 257 mg/dL < 200 Serum or plasma cholesterol in HDL measurement (mass/v olume) 65 mg/dL 40-60 Cholesterol in LDL [mass/volume] in serum or plasma by direct assay 175 mg/dL 1-129 Serum or plasma cholesterol in VLDL measurement (mass/ volume) 27 mg/dL 5-40 Methicillin resistant Staphylococcus aur eus (MRSA) screening culture - 10/03/18 08:03 Methicillin resistant Staphylococcus aureus (MRSA) scr eening culture NEG NRG Capillary blood glucose measurement by g lucometer (mass/volume) - 10/03/18 16:12 Capillary blood glucose measurement by glucometer (mas s/volume) 160 mg/dL 70-110 Capillary blood glucose measurement by g lucometer (mass/volume) - 10/03/18 20:47 Capillary blood glucose measurement by glucometer (mas s/volume) 235 mg/dL 70-110 Automated blood complete blood count (he mogram) panel - 10/04/18 03:20 Blood leukocytes automated count (number/volume) 8.3 10*3/uL 4.3-11.0 Blood erythrocytes automated count (number/volume) 4.88 10*6/uL 4.35-5.85 Venous blood hemoglobin measurement (mass/volume) 13.8 g/dL 11.5-16.0 Blood hematocrit (volume fraction) 42 % 35-52 Automated erythrocyte mean corpuscular volume 86 [ foz_us] 80-99 Automated erythrocyte mean corpuscular h emoglobin (mass per erythrocyte) 28 pg 25-34 Automated erythrocyte mean corpuscular h emoglobin concentration measurement (mass/volume) 33 g/dL 32-36 Automated erythrocyte distribution width ratio 15. 4 % 10.0- 14.5 Automated blood platelet count (count/volume) 329 10*3/uL 130-400 Automated blood platelet mean volume measurement 10.1 [foz_us] 7.4-10.4 Whole blood basic metabolic panel - 09/19 03:20 Serum or plasma sodium measurement (moles/volume) 140 mmol/L 135-145 Serum or plasma potassium measurement (moles/volume) 4.0 mmol/L 3.6-5.0 Serum or plasma chloride measurement (moles/volume) 104 mmol/L 98-107 Carbon dioxide 26 mmol/L 21-32 Serum or plasma anion gap determination (moles/volume) 10 mmol/L 5-14 Serum or plasma urea nitrogen measurement (mass/volume ) 14 mg/dL 7-18 Serum or plasma creatinine measurement (mass/volume) 0.92 mg/dL 0.60-1.30 Serum or plasma urea nitrogen/creatinine mass ratio 15 NRG Serum or plasma creatinine measurement w ith calculation of estimated glomerular filtration rate > NRG Serum or plasma glucose measurement (mass/volume) 119 mg/dL 70-105 Serum or plasma calcium measurement (mass/volume) 9.4 mg/dL 8.5-10.1 [id number] - 04/27/19 14:35 Serum or plasma urea nitrogen measurement (mass/volume ) 12 mg/dL 7-18 Serum or plasma creatinine measurement (mass/volume) 1.02 mg/dL 0.60-1.30 Serum or plasma urea nitrogen/creatinine mass ratio 12 NRG Serum or plasma creatinine measurement w ith calculation of estimated glomerular filtration rate 55 NRG Capillary blood glucose measurement by g lucometer (mass/volume) - 09/18/19 00:58 Capillary blood glucose measurement by glucometer (mas s/volume) 183 mg/dL 70-110 Complete blood count (CBC) with automate d white blood cell (WBC) differential - 09/18/19 01:05 Blood leukocytes automated count (number/volume) 8.7 10*3/uL 4.3-11.0 Blood erythrocytes automated count (number/volume) 5.24 10*6/uL 4.35-5.85 Venous blood hemoglobin measurement (mass/volume) 13.8 g/dL 11.5-16.0 Blood hematocrit (volume fraction) 42 % 35-52 Automated erythrocyte mean corpuscular volume 81 [ foz_us] 80-99 Automated erythrocyte mean corpuscular h emoglobin (mass per erythrocyte) 26 pg 25-34 Automated erythrocyte mean corpuscular h emoglobin concentration measurement (mass/volume) 33 g/dL 32-36 Automated erythrocyte distribution width ratio 14. 5 % 10.0- 14.5 Automated blood platelet count (count/volume) 424 10*3/uL 130-400 Automated blood platelet mean volume measurement 10.2 [foz_us] 7.4-10.4 Automated blood neutrophils/100 leukocytes 76 % 42-75 Automated blood lymphocytes/100 leukocytes 14 % 12-44 Blood monocytes/100 leukocytes 9 % 0-12 Automated blood eosinophils/100 leukocytes 1 % 0-10 Automated blood basophils/100 leukocytes 1 % 0-10 Blood neutrophils automated count (number/volume) 6.6 10*3 1.8-7.8 Blood lymphocytes automated count (number/volume) 1.2 10*3 1.0-4.0 Blood monocytes automated count (number/volume) 0. 8 10*3 0.0-1.0 Automated eosinophil count 0.1 10*3/uL 0 .0-0.3 Automated blood basophil count (count/volume) 0.1 10*3/uL 0.0-0.1 Comprehensive metabolic panel - 09/18/19 01:05 Serum or plasma sodium measurement (moles/volume) 139 mmol/L 135-145 Serum or plasma potassium measurement (moles/volume) 3.9 mmol/L 3.6-5.0 Serum or plasma chloride measurement (moles/volume) 100 mmol/L 98-107 Carbon dioxide 20 mmol/L 21-32 Serum or plasma anion gap determination (moles/volume) 19 mmol/L 5-14 Serum or plasma urea nitrogen measurement (mass/volume ) 29 mg/dL 7-18 Serum or plasma creatinine measurement (mass/volume) 2.35 mg/dL 0.60-1.30 Serum or plasma urea nitrogen/creatinine mass ratio 12 NRG Serum or plasma creatinine measurement w ith calculation of estimated glomerular filtration rate 21 NRG Serum or plasma glucose measurement (mass/volume) 172 mg/dL 70-105 Serum or plasma calcium measurement (mass/volume) 9.8 mg/dL 8.5-10.1 Serum or plasma total bilirubin measurement (mass/volu me) 0.3 mg/dL 0.1-1.0 Serum or plasma alkaline phosphatase andressa surement (enzymatic activity/volume) 89 U/L 40-136 Serum or plasma aspartate aminotransfera se measurement (enzymatic activity/volume) 12 U/L 5-34 Serum or plasma alanine aminotransferase measurement (enzymatic activity/volume) 12 U/L 0-55 Serum or plasma protein measurement (mass/volume) 8.2 g/dL 6.4-8.2 Serum or plasma albumin measurement (mass/volume) 4.4 g/dL 3.2-4.5 CALCIUM CORRECTED 9.5 mg/dL 8.5-10.1 Magnesium - 09/18/19 01:05 Magnesium 2.0 mg/dL 1.6-2.4 Serum or plasma creatine kinase measurem ent (enzymatic activity/volume) - 09/18/19 01:05 Serum or plasma creatine kinase measurem ent (enzymatic activity/volume) 68 U/L 29-168 PT panel in platelet poor plasma by coag ulation assay - 09/18/19 01:05 Prothrombin time (PT) in platelet poor plasma by coagu lation assay 13.4 s 12.2-14.7 INR in platelet poor plasma or blood by coagulation as say 1.0 0.8-1.4 Activated partial thromboplastin time (a PTT) in platelet poor plasma bycoagulation assay - 09/18/19 01:05 Activated partial thromboplastin time (a PTT) in platelet poor plasma bycoagulation assay 37 s 24-35 Serum or plasma lithium measurement (mol es/volume) - 09/18/19 01:05 BNP PT 53.9 pg/mL <100.0 Serum or plasma creatine kinase MB measu rement (enzymatic activity/volume) - 09/18/19 01:05 Serum or plasma creatine kinase MB measu rement (enzymatic activity/volume) 1.8 ng/mL <6.6 Serum or plasma troponin i.cardiac measu rement (mass/volume) - 09/18/19 01:05 Serum or plasma troponin i.cardiac measurement (mass/v olume) < ng/mL <0.028 PROCALCITONIN (PCT) - 09/18/19 01:05 PROCALCITONIN (PCT) 0.09 ng/mL <0.10 Influenza virus A and B antigen detectio n - 09/18/19 01:32 CALL POSITIVES (F1 HELP) PATRICK @ [address] FLU RESULT POSITIVE FOR INFLUENZA A ANT IGEN, NEG FOR B ANTIGEN, BY IA NRG Blood lactic acid measurement (moles/vol ume) - 09/18/19 01:40 Blood lactic acid measurement (moles/volume) 2.57 mmol/L 0.50-2.00 Encounters ACCT No. Visit Date/Time Discharge Status Pt. 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 [id number] 04/06/2019 13:15:00 23:59:59 CLS Outpatient MERARY JOSUE PBX MANAGER [facility] RAD THYROID MASS [id number] 03/27/2019 15:55:00 23:59:59 CLS Outpatient СВЕТЛАНА JOSUEA PBX MANAGER [facility] RAD LEFT ANTERIOR SHOULDER PAIN [id number] 03/22/2019 13:23:00 23:59:59 CLS Outpatient СВЕТЛАНА JOSUEA PBX MANAGER [facility] RAD LEFT ANTERIOR SHOULDER PAIN, CERVICALGIA [id number] 12/19/2018 12:03:00 23:59:59 CLS Outpatient EPIFANIO SCHOFIELD PBX MANAGER [facility] CARD HYPERTENSION [id number] 12/01/2018 12:57:00 23:59:59 CLS Preadmit TAHMINA SCHOFIELDHER L PBX MANAGER [facility] RAD HYPERTENSION [id number] 10/03/2018 07:22:00 11:00:00 DIS Outpatient MIKAL WALL FACC, VIVEK BISHOP CC DS [facility] CATH DM,HTN,SOB [id number] 08/10/2018 14:41:00 23:59:59 CLS Outpatient MERARY JOSUE PBX MANAGER [facility] RAD CRAMPS EXTREMITY [id number] 05/04/2018 07:50:00 16:10:00 [facility] SP[facility]EL[facility] HER [facility] [id number] 05/01/2018 05:48:00 15:10:00 DIS Outpatient ZEV PALMA DO [facility] 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 [id number] 04/13/2018 11:37:00 23:59:59 CLS Outpatient ZEV PALMA DO [facility] RAD HERNIA OF ABD CAVITY [id number] 04/29/2016 06:18:00 12:14:00 DIS Outpatient ZEV PALMA DO [facility] LEFT SPIGELIAN HERNIA [id number] 04/21/2016 14:56:00 16:00:00 DIS Outpatient ZEV PALMA DO [facility] PREOP LEFT SPIGELILAN HERNIA [id number] 04/14/2016 15:25:00 23:59:59 CLS Outpatient MIKAL WALL FACC, ALI FACP CC DS [facility] CARD CHEST DISCO MFORT [id number] 04/13/2016 13:19:00 23:59:59 CLS Outpatient MIKAL WALL FACC, ALI FACP CC DS [facility] CARD SOB,COPD,DM II,CHEST DISCOMFORT [id number] 04/08/2016 09:00:00 23:59:59 CLS Preadmit ZEV PALMA DO [facility] SDC LEFT SPIGELIAN HERNIA [id number] 04/05/2016 15:03:00 16:30:00 DIS Outpatient ZEV PALMA DO [facility] PREOP LEFT SPIGELIAN HERNIA [id number] 03/09/2016 07:41:00 23:59:59 CLS Outpatient MERARY JOSUE [facility] RAD LLQ PAIN [id number] 03/04/2016 17:34:00 016 23:59:59 CLS Outpatient MERARY JOSUE [facility] LAB LEFT LOWER QUADRANT PA IN [id number] 09/02/2015 09:09:00 016 15:05:00 DIS Outpatient ZEV PALMA DO [facility] SDC POSITIVE FOR OCCULT BLO OD IN STOOL [id number] 08/29/2015 05:41:00 016 23:59:59 CLS Outpatient ZEV PALMA DO [facility] PREOP OCCULT BLOOD IN STOOL [id number] 08/01/2015 05:41:00 016 23:59:59 CLS Outpatient ZEV PALMA DO [facility] PREOP [id number] 06/17/2015 13:49:00 015 23:59:59 CLS Outpatient BALAJI DAMON APRN [facility] RAD SCREENING [id number] 11/16/2014 03:19:00 015 13:05:00 DIS Inpatient IVÁN WALL, DENA Mulligan ia [facility] SURGICAL ABD PAIN,HERNIA [id number] 06/26/2014 07:58:00 014 23:59:59 CLS Outpatient TARUN YANG [facility] RAD COPD BRONCHITIS [id number] 09/18/2019 02:10:[address] Inpatient EMERALD CAPELLAN MD [facility] 4TH COPD EXACERBATION;NIDDM;JEFFRY L INSUFFICIENCY-ACUTE; [id number] 11/18/2014 11:06:00 Document Registration [id number] 11/16/2014 01:53:00 Document Registration [id number] 10/02/2014 17:35:00 10/02/2014 23:59: 59 CLS Outpatient ALLYSON VERA APRN [id number] 06/25/2014 16:15:00 06/25/2014 23:59: 59 CLS Outpatient KIMMIE HATHAWAY DO [id number] 03/11/2014 15:54:00 03/11/2014 23:59: 59 CLS Outpatient HATHAWAY DOKIMMIE [id number] 12/04/2013 16:18:00 12/04/2013 23:59: 59 CLS Outpatient HATHAWAY DOKIMMIE [id number] 09/07/2013 13:23:00 09/07/2013 23:59: 59 CLS Outpatient YE MIRZA APRN Tania [id number] 07/31/2013 18:05:00 07/31/2013 23:59: 59 CLS Outpatient ROLAND COLLINS [place] [id number] 06/04/2013 14:03:00 06/04/2013 23:59: 59 CLS Outpatient HATHAWAY DOKIMMIE [id number] 05/21/2013 14:11:00 05/21/2013 23:59: 59 CLS Outpatient HATHAWAY DOKIMMIE [id number] 04/10/2013 09:27:00 04/10/2013 23:59: 59 CLS Outpatient HATHAWAY DOKIMMIE [id number] 03/21/2013 14:57:00 03/21/2013 23:59: 59 CLS Outpatient HATHAWAY DOKIMMIE [id number] 08/01/2012 09:28:00 08/01/2012 23:59: 59 CLS Outpatient HATHAWAY DOKIMMIE [id number] 07/25/2012 14:16:00 07/25/2012 23:59: 59 CLS Outpatient YUKI COLLINS YE [place] [id number] 07/11/2012 11:29:00 07/11/2012 23:59: 59 CLS Outpatient HATHAWAY DOKIMMIE [id number] 05/01/2012 14:44:00 05/01/2012 23:59: 59 CLS Outpatient [id number] 05/01/2012 14:44:00 05/01/2012 23:59:5 9 CLS Outpatient HATHAWAY DOKIMMIE [id number] 03/08/2013 11:06:00 Document Registration [id number] 01/01/2013 13:13:00 Document Registration [id number] 10/30/2012 14:06:00 Document Registration
[2019-09-18 05:12] VITALS: BP 119/75
[2019-09-18] MEDS ORDERED: RT-ALBUTEROL/IPRATROPIUM 3 ML (DUONEB) VIAL INH PRN (05:15)
--- NOTE | 2019-09-18 06:18 | Diagnostic Imaging Report ---
Indication: Cough and congestion Portable chest 1:27 AM Heart size and pulmonary vascularity are normal. Lungs are clear. There are no effusions or pneumothoraces. IMPRESSION: No acute abnormalities in the chest Dictated by: Dictated on workstation # [id number]
[2019-09-18 06:20] LABS: BASOPHILS % (AUTO) 0 % (0-10); EOSINOPHILS % (AUTO) 0 % (0-10); HEMATOCRIT 37 % (35-52); HEMOGLOBIN 11.7 G/DL (11.5-16.0); LYMPHOCYTES # (AUTO) 0.4 X 10^3 (1.0-4.0); LYMPHOCYTES % (AUTO) 5 % (12-44); MEAN CORPUSCULAR HEMOGLOBIN 26 PG (25-34); MEAN CORPUSCULAR HGB CONC 32 G/DL (32-36); MEAN CORPUSCULAR VOLUME 82 FL (80-99); MEAN PLATELET VOLUME 10.5 FL (7.4-10.4); MONOCYTES # (AUTO) 0.1 X 10^3 (0.0-1.0); MONOCYTES % (AUTO) 2 % (0-12); NEUTROPHILS # (AUTO) 6.7 X 10^3 (1.8-7.8); NEUTROPHILS % (AUTO) 93 % (42-75); PLATELET COUNT 304 10^3/uL (130-400); RED CELL DISTRIBUTION WIDTH 14.4 % (10.0-14.5); WHITE BLOOD COUNT 7.3 10^3/uL (4.3-11.0)
[2019-09-18] MEDS: inSUlin ASPART (NovoLOG) 1 UNIT/0.01 ML (CHARGE PER UNIT) SC SCH ×4 (06:38→21:39)
[2019-09-18] MEDS: methylPREDNISolone 125 MG (Solu-MEDROL) VIAL IV SCH ×3 (06:38→16:51)
[2019-09-18 07:02] LABS: LYMPHOCYTES % (MANUAL) 5 %; MONOCYTES % (MANUAL) 1 %; NEUTROPHILS % (MANUAL) 94 %; RBC MORPH NORMAL
[2019-09-18] MEDS: ENOXAPARIN 30 MG/0.3 ML (LOVENOX) SYR SC SCH (07:06)
[2019-09-18] MEDS: RT-ALBUTEROL/IPRATROPIUM 3 ML (DUONEB) VIAL INH SCH ×5 (07:27→21:30)
[2019-09-18 08:06] VITALS: BP 110/68
[2019-09-18] MEDS ORDERED: OSELTAMIVIR 30 MG (TAMIFLU) CAPSULE ONE (08:16)
[2019-09-18] MEDS ORDERED: OSELTAMIVIR 75 MG (TAMIFLU) CAPSULE PO SCH (09:00)
[2019-09-18] MEDS ORDERED: ENOXAPARIN 40 MG/0.4 ML (LOVENOX) SYR SC SCH (09:00)
[2019-09-18 10:13] LABS: AMPHETAMINE SCREEN, URINE NEGATIVE (NEGATIVE); BARBITURATE SCREEN URINE NEGATIVE (NEGATIVE); BENZODIAZEPINES SCREEN URINE NEGATIVE (NEGATIVE); CANNABINOID SCREEN, URINE NEGATIVE (NEGATIVE); COCAINE SCREEN URINE NEGATIVE (NEGATIVE); METHADONE STAT NEGATIVE (NEGATIVE); METHAMPHETAMINE SCREEN URINE S POSITIVE (NEGATIVE); OPIATE SCREEN URINE NEGATIVE (NEGATIVE); OXYCODONE STAT NEGATIVE (NEGATIVE); PROPOXYPHENE STAT NEGATIVE (NEGATIVE); TRICYCLIC ANTIDEPRESSANTS SCRE NEGATIVE (NEGATIVE)
--- NOTE | 2019-09-18 10:33 | NUR ---
1002: LAB CALLED WITH CRITICAL LACTIC ACID 5.41 1014: LEFT A VOICEMAIL AND SENT A TEXT TO DR CAPELLAN REGARDING THE CRITICAL LAB
[2019-09-18] MEDS ORDERED: CLOP75TA28 PO (10:40)
[2019-09-18] MEDS ORDERED: METF-399 PO (10:40)
[2019-09-18] MEDS ORDERED: ASPI-983 PO (10:40)
[2019-09-18] MEDS ORDERED: LISI-552 PO (10:40)
--- NOTE | 2019-09-18 10:41 | NUR ---
SPOKE WITH THE PT AND CALLED [facility] AND [facility] TO COMPLETE THE MED REC. THE FOLLOWING FILL DATES ARE FROM [facility]: 07-30-2019 SYMBICORT #1 09-12-2019 METFORMIN 1000MG #60/30DS 09-12-2019 AMLODIPINE 10MG #30/30DS IN MAY 2019 THE PT RECEIVED PLAVIX 75MG #90 AND LISINOPRIL 20MG #90 FROM THE REPOSITORY BUT THEY DID NOT KNOW THE EXACT DATE THEY WERE PICKED UP PT ALSO SAID SHE WAS USING AN ALBUTEROL INH AND NEBULIZER SOLUTION HOWEVER [facility] HAS NEVER FILLED THESE BEFORE SO THEY WERE NOT INCLUDED ON THE MED REC OTC MEDS: FLONASE MAG-OX FISH OIL VIT B12 BIOTIN
[2019-09-18 11:21] LABS: CALCIUM 8.4 MG/DL (8.5-10.1); CREATININE SERUM 1.67 MG/DL (0.60-1.30); POTASSIUM 3.6 MMOL/L (3.6-5.0)
[2019-09-18 11:36] VITALS: BP 136/80
[2019-09-18 11:38] LABS: ABG BASE EXCESS -6.8 MMOL/L (-2.5-2.5); ABG OXYGEN SATURATION 96 % (94-100); ABG PCO2 31 MMHG (35-45); ABG PH 7.37 (7.37-7.43); ABG PO2 85 MMHG (79-93); ABG TCO2 18.5 MMOL/L (21.0-31.0); ALLENS TEST YES-POS; INSPIRED O2 2; VENTILATOR NO
[2019-09-18 11:39] LABS: PATIENT TEMP 36.7
--- NOTE | 2019-09-18 12:14 | NUR ---
LACTIC ACID 4.28. DR CAPELLAN NOTIFIED.
--- NOTE | 2019-09-18 15:51 | NUR ---
LACTIC ACID 2.53. DR CAPELLAN NOTIFIED.
[2019-09-18 16:00] VITALS: BP 122/79
--- NOTE | 2019-09-18 16:11 | History & Physical ---
HPI History of Present Illness: 59 yo F that presented with increasing shortness of breath and fatigue. Patient states that she has been getting worse for the last 4-5 days. Denies any sick contacts. No travel. She has been taking her breathing treatments with minimal improvement. Decreased PO intake. Source: patient, RN/MD Exam Limitations: no limitations Date seen by provider: Sep 18, 2019 Time Seen by Provider: 11:00 Attending Physician Marcia Andrade MD PCP Center/[facility] [place] Consult Date of Admission Sep 18, 2019 at 02:10 Home Medications Home Medications Reviewed patient Home Medication Reconciliation performed by pharmacy medication reconciliations cell phone repair technician and/or nursing. Patients Allergies have been reviewed. Allergies Coded Allergies: Sulfa (Sulfonamide Antibiotics) (Verified Allergy, Mild, 11/16/14) Saehtep-Neo-Jjc Reductase Inhibitor (Verified Allergy, Unknown, 08/29/15) ESA-Kcvnrh-Azlpxx Hx Patient Social History Alcohol Use: Occasionally Uses Recreational Drug Use: Yes (THC "YEARS AGO" ) Drug of Choice: THC "YEARS AGO" Smoking Status: Current Everyday Smoker (4 PPD) Type Used: Cigarettes (4 PPD) Recent Foreign Travel: No Contact w/other who traveled: No Recent Hopitalizations: No Recent Infectious Disease Expo: No Immunizations Up To Date Tetanus Booster (TDap): More than 5yrs Date of Influenza Vaccine: Jun 19, 2019 Past Medical History NIDDM HTN COPD no oxygen requirement Family Medical History Significant Family History: No Pertinent Family Hx Other Significan Family Hx: PSH: -HERNIA REPAIR X 2 -HYSTERCTOMY/OVARIES INTACT -TONSILECTOMY -STENTS IN LEFT LEG X 2 -REMOVAL OF LEFT NECK MASS 08/14/19 Review of Systems ([facility]) Constitutional: fever, malaise, weakness EENTM: nose congestion; No nose pain, No throat swelling Respiratory: cough, dyspnea on exertion, orthopnea, short of breath Cardiovascular: no symptoms reported; No chest pain, No edema, No palpitations Gastrointestinal: No abdominal pain, No constipation, No diarrhea; loss of appetite, nausea Genitourinary: decreased output : No Musculoskeletal: no symptoms reported; No joint pain, No muscle pain Skin: no symptoms reported; No lesions, No rash Psychiatric/Neurological: Weakness Reviewed Test Results Reviewed Test Results Lab Laboratory Tests Test 09/18/19 00:58 3/17/20 01:05 09/18/19 01:40 09/18/19 03:40 Range/Units Glucometer 183 H 70-110 MG/DL White Blood Count 8.7 4.3-11.0 10^3/uL Red Blood Count 5.24 4.35-5.85 10^6/uL Hemoglobin 13.8 11.5-16.0 G/DL Hematocrit 42 35-52 % Mean Corpuscular Volume 81 80-99 FL Mean Corpuscular Hemoglobin 26 25-34 PG Mean Corpuscular Hemoglobin Concent 33 32-36 G/DL Red Cell Distribution Width 14.5 10.0-14.5 % Platelet Count 424 H 130-400 10^3/uL Mean Platelet Volume 10.2 7.4-10.4 FL Neutrophils (%) (Auto) 76 H 42-75 % Lymphocytes (%) (Auto) 14 12-44 % Monocytes (%) (Auto) 9 0-12 % Eosinophils (%) (Auto) 1 0-10 % Basophils (%) (Auto) 1 0-10 % Neutrophils # (Auto) 6.6 1.8-7.8 X 10^3 Lymphocytes # (Auto) 1.2 1.0-4.0 X 10^3 Monocytes # (Auto) 0.8 0.0-1.0 X 10^3 Eosinophils # (Auto) 0.1 0.0-0.3 10^3/uL Basophils # (Auto) 0.1 0.0-0.1 10^3/uL Prothrombin Time 13.4 12.2-14.7 SEC INR Comment 1.0 0.8-1.4 Activated Partial Thromboplast Time 37 H 24-35 SEC Sodium Level 139 135-145 MMOL/L Potassium Level 3.9 3.6-5.0 MMOL/L Chloride Level 100 98-107 MMOL/L Carbon Dioxide Level 20 L 21-32 MMOL/L Anion Gap 19 H 5-14 MMOL/L Blood Urea Nitrogen 29 H 7-18 MG/DL Creatinine 2.35 H 0.60-1.30 MG/DL Estimat Glomerular Filtration Rate 21 BUN/Creatinine Ratio 12 Glucose Level 172 H 70-105 MG/DL Calcium Level 9.8 8.5-10.1 MG/DL Corrected Calcium 9.5 8.5-10.1 MG/DL Magnesium Level 2.0 1.6-2.4 MG/DL Total Bilirubin 0.3 0.1-1.0 MG/DL Aspartate Amino Transf (AST/SGOT) 12 5-34 U/L Alanine Aminotransferase (ALT/SGPT) 12 0-55 U/L Alkaline Phosphatase 89 40-136 U/L Total Creatine Kinase 68 29-168 U/L Creatine Kinase MB 1.8 <6.6 NG/ML Troponin I < 0.028 <0.028 NG/ML B-Type Natriuretic Peptide 53.9 <100.0 PG/ML Total Protein 8.2 6.4-8.2 GM/DL Albumin 4.4 3.2-4.5 GM/DL Procalcitonin 0.09 <0.10 NG/ML Lactic Acid Level 2.57 *H 3.02 *H 0.50-2.00 MMOL/L Test 09/18/19 04:17 09/18/19 06:01 09/18/19 06:03 09/18/19 09:35 Range/Units Urine Color YELLOW Urine Clarity CLEAR Urine pH 6.0 5-9 Urine Specific [place] 1.020 1.016-1.022 Urine Protein TRACE H NEGATIVE Urine Glucose (UA) TRACE H NEGATIVE Urine Ketones NEGATIVE NEGATIVE Urine Nitrite NEGATIVE NEGATIVE Urine Bilirubin NEGATIVE NEGATIVE Urine Urobilinogen 0.2 < = 1.0 MG/DL Urine Leukocyte Esterase TRACE H NEGATIVE Urine RBC (Auto) TRACE-I NEGATIVE Urine RBC 0-2 /HPF Urine WBC 0-2 /HPF Urine Squamous Epithelial Cells 2-5 /HPF Urine Crystals NONE /LPF Urine Bacteria FEW H /HPF Urine Casts NONE /LPF Urine Mucus SMALL H /LPF Urine Culture Indicated CULTURE PENDING Urine Opiates Screen NEGATIVE NEGATIVE Urine Oxycodone Screen NEGATIVE NEGATIVE Urine Methadone Screen NEGATIVE NEGATIVE Urine Propoxyphene Screen NEGATIVE NEGATIVE Urine Barbiturates Screen NEGATIVE NEGATIVE Ur Tricyclic Antidepressants Screen NEGATIVE NEGATIVE Urine Phencyclidine Screen NEGATIVE NEGATIVE Urine Amphetamines Screen NEGATIVE NEGATIVE Urine Methamphetamines Screen POSITIVE H NEGATIVE Urine Benzodiazepines Screen NEGATIVE NEGATIVE Urine Cocaine Screen NEGATIVE NEGATIVE Urine Cannabinoids Screen NEGATIVE NEGATIVE Glucometer 289 H 70-110 MG/DL White Blood Count 7.3 4.3-11.0 10^3/uL Red Blood Count 4.46 4.35-5.85 10^6/uL Hemoglobin 11.7 11.5-16.0 G/DL Hematocrit 37 35-52 % Mean Corpuscular Volume 82 80-99 FL Mean Corpuscular Hemoglobin 26 25-34 PG Mean Corpuscular Hemoglobin Concent 32 32-36 G/DL Red Cell Distribution Width 14.4 10.0-14.5 % Platelet Count 304 130-400 10^3/uL Mean Platelet Volume 10.5 H 7.4-10.4 FL Neutrophils (%) (Auto) 93 H 42-75 % Lymphocytes (%) (Auto) 5 L 12-44 % Monocytes (%) (Auto) 2 0-12 % Eosinophils (%) (Auto) 0 0-10 % Basophils (%) (Auto) 0 0-10 % Neutrophils # (Auto) 6.7 1.8-7.8 X 10^3 Lymphocytes # (Auto) 0.4 L 1.0-4.0 X 10^3 Monocytes # (Auto) 0.1 0.0-1.0 X 10^3 Eosinophils # (Auto) 0.0 0.0-0.3 10^3/uL Basophils # (Auto) 0.0 0.0-0.1 10^3/uL Neutrophils % (Manual) 94 % Lymphocytes % (Manual) 5 % Monocytes % (Manual) 1 % Blood Morphology Comment NORMAL Sodium Level 137 135-145 MMOL/L Potassium Level 3.6 3.6-5.0 MMOL/L Chloride Level 106 98-107 MMOL/L Carbon Dioxide Level 14 L 21-32 MMOL/L Anion Gap 17 H 5-14 MMOL/L Blood Urea Nitrogen 24 H 7-18 MG/DL Creatinine 1.67 H 0.60-1.30 MG/DL Estimat Glomerular Filtration Rate 31 BUN/Creatinine Ratio 14 Glucose Level 272 H 70-105 MG/DL Lactic Acid Level 2.93 *H 5.41 *H 0.50-2.00 MMOL/L Calcium Level 8.4 L 8.5-10.1 MG/DL Test 09/18/19 11:25 09/18/19 11:29 09/18/19 11:40 09/18/19 15:15 Range/Units Glucometer 300 H 70-110 MG/DL Blood Gas Puncture Site LT RAD Blood Gas Patient Temperature 36.7 Arterial Blood pH 7.37 7.37-7.43 Arterial Blood Partial Pressure CO2 31 L 35-45 MMHG Arterial Blood Partial Pressure O2 85 79-93 MMHG Arterial Blood HCO3 18 L 23-27 MMOL/L Arterial Blood Total CO2 18.5 L 21.0-31.0 MMOL/L Arterial Blood Oxygen Saturation 96 94-100 % Arterial Blood Base Excess -6.8 L -2.5-2.5 MMOL/L [place] Test YES-POS Blood Gas Ventilator Setting NO Blood Gas Inspired Oxygen 2 Lactic Acid Level 4.28 *H 2.53 *H 0.50-2.00 MMOL/L Physical Exam-([facility]) Physical Exam Vital Signs VS - Last 72 Hours, by Label 09/18/19 09/18/19 09/18/19 09/18/19 00:43 01:12 04:42 04:45 Temp 36.8 37.3 Pulse 20 91 Resp 20 20 B/P (MAP) 94/76 (82) 119/75 Pulse Ox 95 95 98 O2 Delivery Room Air Room Air Nasal Cannula Nasal Cannula O2 Flow Rate 3.00 2.00 09/18/19 09/18/19 09/18/19 09/18/19 05:12 07:27 08:00 08:06 Temp 37.3 37.3 Pulse 91 81 Resp 16 B/P (MAP) 110/68 (82) Pulse Ox 95 93 93 93 O2 Delivery Nasal Cannula Nasal Cannula Nasal Cannula O2 Flow Rate 2.00 2.00 2.00 09/18/19 09/18/19 09/18/19 10:50 11:36 14:17 Temp 36.7 Pulse 74 Resp 22 B/P (MAP) 136/80 (98) Pulse Ox 95 96 94 O2 Delivery Nasal Cannula Nasal Cannula Nasal Cannula O2 Flow Rate 2.00 2.00 2.00 Capillary Refill : Less Than 3 Seconds General Appearance: WD/WN, mild distress (with minimal exertion) HEENT: PERRL/EOMI Neck: non-tender, full range of motion, supple Respiratory: respiratory distress, wheezing, expiration, inspiration Cardiovascular: normal peripheral pulses, regular rate, rhythm, no edema, no murmur Gastrointestinal: normal bowel sounds, non tender, soft, no organomegaly Back: no CVA tenderness, no vertebral tenderness Extremities: normal range of motion, non-tender, normal inspection, no pedal edema, no calf tenderness, normal capillary refill Neurologic/Psychiatric: brick mason II-XII nml as tested, no motor/sensory deficits, alert, normal mood/affect, oriented x 3 Skin: normal color, warm/dry Lymphatic: no adenopathy Assessment/Plan Assessment/Plan Admission Status: Observation (1) COPD exacerbation Status: Acute Assessment & Plan: - IV steroids, MAT protocol, Tamiflu for Flu A, Titrate oxygen as tolerated, no home O2 requirement (2) Influenza A Status: Acute (3) Lactic acid acidosis Status: Acute Assessment & Plan: - Likely metabolic due to severe dehydration, improving with fluid hydration, trending (4) Non-insulin treated type 2 diabetes mellitus Status: Chronic Assessment & Plan: - A1c pending (5) HTN (hypertension) Status: Chronic Assessment & Plan: - Holding meds at this time Qualifiers: Qualified Codes: I10 - Essential (primary) hypertension (6) Acute renal insufficiency Status: Acute Assessment & Plan: - IVF hydration, trend Cr (7) Tobacco abuse Status: Chronic Assessment & Plan: - Discussed the importance of cessation, patient no interested in quitting (8) Methamphetamine abuse Status: Chronic Assessment & Plan: - Cessation encouraged (9) DVT prophylaxis Status: Acute Assessment & Plan: - Lovenox Clinical Quality Measures DVT/VTE Risk/Contraindication: Risk Factor Score Per Nursin RFS Level Per Nursing on Admit: 4+=Very High Copy Copies To 1: Flory MCFADDEN APRN GAULT, HOLLY R MD Sep 18, 2019 16:11
--- NOTE | 2019-09-18 17:50 | NUR ---
1720 PATIENT COMPLAINED OF CHEST PAIN, EKG DONE, VITALS TAKEN.. DR CAPELLAN NOTIFIED. ORDERS ENTERED
[2019-09-18] MEDS ORDERED: ASPIRIN 325 MG (5 GR) TABLET ONE (17:59)
[2019-09-18] MEDS: ASPIRIN 325 MG (5 GR) TABLET PO SCH (18:07)
[2019-09-18 20:00] VITALS: BP 138/69
[2019-09-18] MEDS ORDERED: ASPIRIN E.C. 81 MG (ECOTRIN) TAB PO SCH (21:00)
--- NOTE | 2019-09-18 21:22 | NUR ---
2049- LAB CALLED WITH CRITICAL LACTIC OF 2.42. 2117- DR. CAPELLAN NOTIFIED. ORDER TO REPEAT LACTIC IN AM.
[2019-09-18] MEDS: CLOPIDOGREL 75 MG (PLAVIX) TABLET PO SCH (21:39)
[2019-09-18] MEDS: ACETAMINOPHEN 500 MG TAB (TYLENOL) PO PRN (21:39)
[2019-09-19 00:42] VITALS: BP 154/70
[2019-09-19] MEDS: cefTRIAXone 1,000 MG/SWFI 10 ML IV PUSH IV SCH ×2 (00:46)
[2019-09-19] MEDS: AZITHROMYCIN 250 MG TAB (ZITHROMAX) PO SCH ×2 (00:47→21:02)
[2019-09-19] MEDS: NS IV 1000 ML 1,000 ML IV SCH ×4 (00:47→21:01)
[2019-09-19] MEDS: RT-ALBUTEROL/IPRATROPIUM 3 ML (DUONEB) VIAL INH SCH ×6 (02:08→22:23)
[2019-09-19 03:32] VITALS: BP 150/68
[2019-09-19 05:02] LABS: BASOPHILS % (AUTO) 0 % (0-10); EOSINOPHILS % (AUTO) 0 % (0-10); HEMATOCRIT 32 % (35-52); HEMOGLOBIN 10.4 G/DL (11.5-16.0); LYMPHOCYTES % (AUTO) 7 % (12-44); MEAN CORPUSCULAR HEMOGLOBIN 27 PG (25-34); MEAN CORPUSCULAR HGB CONC 32 G/DL (32-36); MEAN CORPUSCULAR VOLUME 82 FL (80-99); MEAN PLATELET VOLUME 10.5 FL (7.4-10.4); MONOCYTES # (AUTO) 0.8 X 10^3 (0.0-1.0); MONOCYTES % (AUTO) 5 % (0-12); NEUTROPHILS # (AUTO) 13.3 X 10^3 (1.8-7.8); NEUTROPHILS % (AUTO) 88 % (42-75); PLATELET COUNT 284 10^3/uL (130-400); RED CELL DISTRIBUTION WIDTH 14.1 % (10.0-14.5); WHITE BLOOD COUNT 15.1 10^3/uL (4.3-11.0)
[2019-09-19 05:21] LABS: ALBUMIN 3.4 GM/DL (3.2-4.5); BILIRUBIN,TOTAL 0.1 MG/DL (0.1-1.0); CALCIUM 8.6 MG/DL (8.5-10.1); CREATININE SERUM 1.17 MG/DL (0.60-1.30); POTASSIUM 4.3 MMOL/L (3.6-5.0); TOTAL PROTEIN 6.4 GM/DL (6.4-8.2)
[2019-09-19] MEDS: inSUlin ASPART (NovoLOG) 1 UNIT/0.01 ML (CHARGE PER UNIT) SC SCH ×4 (05:24→20:26)
[2019-09-19] MEDS: ENOXAPARIN 30 MG/0.3 ML (LOVENOX) SYR SC SCH (06:13)
[2019-09-19 08:00] VITALS: BP 122/64
[2019-09-19] MEDS: ASPIRIN 325 MG (5 GR) TABLET PO SCH (08:54)
[2019-09-19] MEDS ORDERED: OSELTAMIVIR 30 MG (TAMIFLU) CAPSULE PO SCH (09:00)
[2019-09-19 12:00] VITALS: BP 137/69
--- NOTE | 2019-09-19 15:06 | Progress Note ---
Subjective Subjective/Events-last exam States that she is feeling better but still very weak and tired. She is on and off oxygen. She has not been out of bed. Tolerating PO diet. Review of Systems General: No Chills Pulmonary: Dyspnea, Cough Cardiovascular: No: Chest Pain, Palpitations Neurological: Weakness Focused Exam Lactate Level 09/18/19 20:07: Lactic Acid Level 2.42*H 09/18/19 22:14: Lactic Acid Level 2.11*H 09/19/19 04:40: Lactic Acid Level 0.75 Time of Focused Exam: 01:50 Objective Exam Last Set of Vital Signs Vital Signs Date Time Temp Pulse Resp B/P (MAP) Pulse Ox O2 Delivery O2 Flow Rate FiO2 09/19/19 12:00 36.7 78 20 137/69 (91) 94 Room Air 09/19/19 03:32 1.00 Capillary Refill : Less Than 3 Seconds I&O Intake and Output 09/19/19 00:00 Intake Total 5360 ml Output Total 1200 ml Balance 4160 ml Intake Oral 3360 ml IV Total 2000 ml Output Urine Total 1200 ml # Voids 5 # Bowel Movements 1 Daily Weight Change No No General: Alert, Cooperative, Mild Distress (ill appearing) HEENT: Mucous Memb Moist/[place] Lungs: Normal Air Movement, Other (wheezing bilateral lung bases) Heart: Regular Rate, No Murmurs Abdomen: Normal Bowel Sounds, Soft, No Tenderness, No Masses Extremities: No Edema, No Tenderness/Swelling Skin: No Rashes, No Breakdown Neuro: Normal Speech, Sensation Intact, Cranial Nerves 3-12 NL Results/Procedures Lab Laboratory Tests 09/18/19 15:15: Lactic Acid Level 2.53*H 09/18/19 16:12: Glucometer 233H 09/18/19 17:25: Lactic Acid Level 2.87*H, Troponin I < 0.028 09/18/19 20:07: Lactic Acid Level 2.42*H 09/18/19 20:37: Glucometer 218H 09/18/19 22:14: Lactic Acid Level 2.11*H 09/19/19 04:40: Lactic Acid Level 0.75, White Blood Count 15.1H, Red Blood Count 3.93L, Hemoglobin 10.4L, Hematocrit 32L, Mean Corpuscular Volume 82, Mean Corpuscular Hemoglobin 27, Mean Corpuscular Hemoglobin Concent 32, Red Cell Distribution Width 14.1, Platelet Count 284, Mean Platelet Volume 10.5H, Neutrophils (%) (Auto) 88H, Lymphocytes (%) (Auto) 7L, Monocytes (%) (Auto) 5, Eosinophils (%) (Auto) 0, Basophils (%) (Auto) 0, Neutrophils # (Auto) 13.3H, Lymphocytes # (Auto) 1.0, Monocytes # (Auto) 0.8, Eosinophils # (Auto) 0.0, Basophils # (Auto) 0.0, Sodium Level 139, Potassium Level 4.3, Chloride Level 111H, Carbon Dioxide Level 19L, Anion Gap 9, Blood Urea Nitrogen 23H, Creatinine 1.17, Estimat Glomerular Filtration Rate 47, BUN/Creatinine Ratio 20, Glucose Level 146H, Calcium Level 8.6, Corrected Calcium 9.1, Total Bilirubin 0.1, Aspartate Amino Transf (AST/SGOT) 13, Alanine Aminotransferase (ALT/SGPT) 9, Alkaline Phosphatase 63, Total Protein 6.4, Albumin 3.4 09/19/19 11:31: Glucometer 141H Microbiology 09/18/19 Urine Culture - Final, Complete 3 or more isolates 09/18/19 Blood Culture - Preliminary, Resulted No growth 09/18/19 Influenza Types A,B Antigen (OBEY) - Final, Complete Assessment/Plan Assessment/Plan (1) COPD exacerbation Status: Acute Assessment & Plan: - IV steroids, MAT protocol, Tamiflu for Flu A, Titrate oxygen as tolerated, no home O2 requirement 08/21: Continue Tamiflu, Encourage ambulation and OOB (2) Influenza A Status: Acute (3) Lactic acid acidosis Status: Resolved Assessment & Plan: - Likely metabolic due to severe dehydration, improving with fluid hydration, trending (4) Non-insulin treated type 2 diabetes mellitus Status: Chronic Assessment & Plan: - A1c pending (5) HTN (hypertension) Status: Chronic Assessment & Plan: - Holding meds at this time Qualifiers: Qualified Codes: I10 - Essential (primary) hypertension (6) Acute renal insufficiency Status: Resolved Assessment & Plan: - IVF hydration, trend Cr (7) Tobacco abuse Status: Chronic Assessment & Plan: - Discussed the importance of cessation, patient no interested in quitting (8) Methamphetamine abuse Status: Chronic Assessment & Plan: - Cessation encouraged (9) DVT prophylaxis Status: Acute Assessment & Plan: - Lovenox Clinical Quality Measures DVT/VTE Risk/Contraindication: Risk Factor Score Per Nursin RFS Level Per Nursing on Admit: 4+=Very High EMERALD CAPELLAN MD Sep 19, 2019 15:06
[2019-09-19 15:39] VITALS: BP 176/76
[2019-09-19 20:48] VITALS: BP 181/85
[2019-09-19] MEDS: CLOPIDOGREL 75 MG (PLAVIX) TABLET PO SCH (21:02)
[2019-09-19] MEDS: OSELTAMIVIR 30 MG (TAMIFLU) CAPSULE PO SCH (21:03)
[2019-09-20 00:29] VITALS: BP 184/96
[2019-09-20] MEDS: RT-ALBUTEROL/IPRATROPIUM 3 ML (DUONEB) VIAL INH SCH ×6 (02:17→21:19)
[2019-09-20] MEDS ORDERED: BENZONATATE 100 MG (TESSALON) CAPSULE PO ONE (02:37)
[2019-09-20] MEDS ORDERED: BENZONATATE 100 MG (TESSALON) CAPSULE PO PRN (02:45)
[2019-09-20] MEDS: cefTRIAXone 1,000 MG/SWFI 10 ML IV PUSH IV SCH ×2 (02:46)
[2019-09-20] MEDS: NS IV 1000 ML 1,000 ML IV SCH ×2 (02:51→10:05)
[2019-09-20 04:45] VITALS: BP 186/98
[2019-09-20 04:52] LABS: BASOPHILS % (AUTO) 0 % (0-10); EOSINOPHILS % (AUTO) 0 % (0-10); HEMATOCRIT 34 % (35-52); HEMOGLOBIN 10.9 G/DL (11.5-16.0); LYMPHOCYTES # (AUTO) 2.1 X 10^3 (1.0-4.0); LYMPHOCYTES % (AUTO) 25 % (12-44); MEAN CORPUSCULAR HEMOGLOBIN 26 PG (25-34); MEAN CORPUSCULAR HGB CONC 32 G/DL (32-36); MEAN CORPUSCULAR VOLUME 82 FL (80-99); MEAN PLATELET VOLUME 10.3 FL (7.4-10.4); MONOCYTES # (AUTO) 0.6 X 10^3 (0.0-1.0); MONOCYTES % (AUTO) 7 % (0-12); NEUTROPHILS # (AUTO) 5.7 X 10^3 (1.8-7.8); NEUTROPHILS % (AUTO) 67 % (42-75); PLATELET COUNT 281 10^3/uL (130-400); RED CELL DISTRIBUTION WIDTH 14.7 % (10.0-14.5); WHITE BLOOD COUNT 8.4 10^3/uL (4.3-11.0)
[2019-09-20 05:12] LABS: CALCIUM 8.8 MG/DL (8.5-10.1); CREATININE SERUM 1.13 MG/DL (0.60-1.30); POTASSIUM 3.7 MMOL/L (3.6-5.0)
[2019-09-20] MEDS: inSUlin ASPART (NovoLOG) 1 UNIT/0.01 ML (CHARGE PER UNIT) SC SCH ×4 (06:00→21:12)
[2019-09-20] MEDS: ENOXAPARIN 40 MG/0.4 ML (LOVENOX) SYR SC SCH (06:19)
[2019-09-20 08:00] VITALS: BP 157/90
[2019-09-20] MEDS: ASPIRIN 325 MG (5 GR) TABLET PO SCH (09:13)
[2019-09-20] MEDS: OSELTAMIVIR 30 MG (TAMIFLU) CAPSULE PO SCH ×2 (09:13→20:31)
[2019-09-20 12:00] VITALS: BP 157/98
--- NOTE | 2019-09-20 15:30 | NUR ---
TOOK OVER CARE OF THIS PATIENT FROM VINICIO LILLY
[2019-09-20 16:00] VITALS: BP 136/76
[2019-09-20 20:00] VITALS: BP 171/96
[2019-09-20] MEDS: CLOPIDOGREL 75 MG (PLAVIX) TABLET PO SCH (20:31)
--- NOTE | 2019-09-20 21:21 | Progress Note ---
Subjective Subjective/Events-last exam Patient still very weak and states that it is hard for her to get out of bed. She is tolerating PO diet. Review of Systems General: Malaise Pulmonary: Dyspnea, Cough Cardiovascular: No: Chest Pain, Edema Gastrointestinal: No: Nausea, Vomiting, Abdominal Pain Genitourinary: No Dysuria, No Frequency Neurological: Weakness Focused Exam Lactate Level 09/18/19 20:07: Lactic Acid Level 2.42*H 09/18/19 22:14: Lactic Acid Level 2.11*H 09/19/19 04:40: Lactic Acid Level 0.75 Time of Focused Exam: 01:50 Objective Exam Last Set of Vital Signs Vital Signs Date Time Temp Pulse Resp B/P (MAP) Pulse Ox O2 Delivery O2 Flow Rate FiO2 09/20/19 20:00 36.4 82 18 171/96 (121) 92 Room Air 09/19/19 03:32 1.00 Capillary Refill : Less Than 3 SecondsLess Than 3 Seconds I&O Intake and Output 09/20/19 00:00 Intake Total 2891 ml Output Total 3550 ml Balance -659 ml Intake Oral 1881 ml IV Total 1010 ml Output Urine Total 3550 ml General: Alert, Oriented X3, Cooperative, No Acute Distress HEENT: Mucous Memb Moist/Orient Lungs: Normal Air Movement, Other (wheezing present in R lung base) Heart: Regular Rate, No Murmurs Abdomen: Normal Bowel Sounds, Soft, No Tenderness, No Masses Extremities: No Edema, No Tenderness/Swelling Skin: No Breakdown Neuro: Normal Speech, Sensation Intact, Cranial Nerves 3-12 NL Results/Procedures Lab Laboratory Tests 09/20/19 04:22: White Blood Count 8.4, Red Blood Count 4.14L, Hemoglobin 10.9L, Hematocrit 34L, Mean Corpuscular Volume 82, Mean Corpuscular Hemoglobin 26, Mean Corpuscular Hemoglobin Concent 32, Red Cell Distribution Width 14.7H, Platelet Count 281, Mean Platelet Volume 10.3, Neutrophils (%) (Auto) 67, Lymphocytes (%) (Auto) 25, Monocytes (%) (Auto) 7, Eosinophils (%) (Auto) 0, Basophils (%) (Auto) 0, Neutrophils # (Auto) 5.7, Lymphocytes # (Auto) 2.1, Monocytes # (Auto) 0.6, Eosinophils # (Auto) 0.0, Basophils # (Auto) 0.0, Sodium Level 140, Potassium Level 3.7, Chloride Level 106, Carbon Dioxide Level 22, Anion Gap 12, Blood Urea Nitrogen 24H, Creatinine 1.13, Estimat Glomerular Filtration Rate 49, BUN/Creatinine Ratio 21, Glucose Level 105, Calcium Level 8.8 09/20/19 11:39: Glucometer 121H 09/20/19 16:07: Glucometer 123H 09/20/19 17:49: Troponin I 0.091H 09/20/19 21:03: Glucometer 131H Microbiology 09/18/19 Urine Culture - Final, Complete 3 or more isolates 09/18/19 Blood Culture - Preliminary, Resulted No growth 09/18/19 Influenza Types A,B Antigen (OBEY) - Final, Complete Assessment/Plan Assessment/Plan (1) COPD exacerbation Status: Acute Assessment & Plan: - IV steroids, MAT protocol, Tamiflu for Flu A, Titrate oxygen as tolerated, no home O2 requirement 08/21: Continue Tamiflu, Encourage ambulation and OOB 08/22: Continue steroids, patient to sit in chair today, plan for d/c tomorrow (2) Influenza A Status: Acute (3) Lactic acid acidosis Status: Resolved Assessment & Plan: - Likely metabolic due to severe dehydration, improving with fluid hydration, trending (4) Non-insulin treated type 2 diabetes mellitus Status: Chronic Assessment & Plan: - A1c pending (5) HTN (hypertension) Status: Chronic Assessment & Plan: - Holding meds at this time Qualifiers: Qualified Codes: I10 - Essential (primary) hypertension (6) Acute renal insufficiency Status: Resolved Assessment & Plan: - IVF hydration, trend Cr (7) Tobacco abuse Status: Chronic Assessment & Plan: - Discussed the importance of cessation, patient no interested in quitting (8) Methamphetamine abuse Status: Chronic Assessment & Plan: - Cessation encouraged (9) DVT prophylaxis Status: Acute Assessment & Plan: - Lovenox Clinical Quality Measures DVT/VTE Risk/Contraindication: Risk Factor Score Per Nursin RFS Level Per Nursing on Admit: 4+=Very High EMERALD CAPELLAN MD Sep 20, 2019 21:21
[2019-09-20] MEDS: ACETAMINOPHEN 500 MG TAB (TYLENOL) PO PRN (22:49)
[2019-09-21 00:41] VITALS: BP 164/87
[2019-09-21] MEDS: RT-ALBUTEROL/IPRATROPIUM 3 ML (DUONEB) VIAL INH SCH ×4 (02:15→14:28)
[2019-09-21 05:04] LABS: BASOPHILS % (AUTO) 0 % (0-10); EOSINOPHILS # (AUTO) 0.2 10^3/uL (0.0-0.3); EOSINOPHILS % (AUTO) 2 % (0-10); HEMATOCRIT 37 % (35-52); HEMOGLOBIN 11.8 G/DL (11.5-16.0); LYMPHOCYTES # (AUTO) 2.5 X 10^3 (1.0-4.0); LYMPHOCYTES % (AUTO) 35 % (12-44); MEAN CORPUSCULAR HEMOGLOBIN 26 PG (25-34); MEAN CORPUSCULAR HGB CONC 32 G/DL (32-36); MEAN CORPUSCULAR VOLUME 81 FL (80-99); MEAN PLATELET VOLUME 10.6 FL (7.4-10.4); MONOCYTES # (AUTO) 0.6 X 10^3 (0.0-1.0); MONOCYTES % (AUTO) 8 % (0-12); NEUTROPHILS # (AUTO) 3.9 X 10^3 (1.8-7.8); NEUTROPHILS % (AUTO) 55 % (42-75); PLATELET COUNT 327 10^3/uL (130-400); RED CELL DISTRIBUTION WIDTH 14.5 % (10.0-14.5); WHITE BLOOD COUNT 7.1 10^3/uL (4.3-11.0)
[2019-09-21 05:24] LABS: CALCIUM 8.8 MG/DL (8.5-10.1); CREATININE SERUM 1.1 MG/DL (0.60-1.30); POTASSIUM 3.9 MMOL/L (3.6-5.0)
[2019-09-21] MEDS: inSUlin ASPART (NovoLOG) 1 UNIT/0.01 ML (CHARGE PER UNIT) SC SCH ×3 (05:32→12:00)
[2019-09-21] MEDS: ENOXAPARIN 40 MG/0.4 ML (LOVENOX) SYR SC SCH (06:21)
[2019-09-21 08:00] VITALS: BP 135/90
[2019-09-21] MEDS: OSELTAMIVIR 30 MG (TAMIFLU) CAPSULE PO SCH (08:43)
[2019-09-21] MEDS ORDERED: ASPIRIN E.C. 81 MG (ECOTRIN) TAB PO SCH (09:00)
--- NOTE | 2019-09-21 12:04 | Discharge Summary ---
Diagnosis/Chief Complaint Date of Admission Sep 18, 2019 at 02:10 Date of Discharge Discharge Diagnosis Problems/Diagnosis: (1) COPD exacerbation Assessment & Plan: - IV steroids, MAT protocol, Tamiflu for Flu A, Titrate oxygen as tolerated, no home O2 requirement 08/21: Continue Tamiflu, Encourage ambulation and OOB 08/22: Continue steroids, patient to sit in chair today, plan for d/c tomorrow Status: Acute (2) Influenza A Status: Acute (3) Lactic acid acidosis Assessment & Plan: - Likely metabolic due to severe dehydration, improving with fluid hydration, trending Status: Resolved Resolution Date/Time: 09/19/19 @ 15:07 (4) Non-insulin treated type 2 diabetes mellitus Assessment & Plan: - A1c pending Status: Chronic (5) HTN (hypertension) Assessment & Plan: - Holding meds at this time Qualifiers: Qualified Codes: I10 - Essential (primary) hypertension Status: Chronic (6) Acute renal insufficiency Assessment & Plan: - IVF hydration, trend Cr Status: Resolved Resolution Date/Time: 09/19/19 @ 15:08 (7) Tobacco abuse Assessment & Plan: - Discussed the importance of cessation, patient no interested in quitting Status: Chronic (8) Methamphetamine abuse Assessment & Plan: - Cessation encouraged Status: Chronic (9) DVT prophylaxis Assessment & Plan: - Lovenox Status: Acute Chief Complaint/HPI Chief Complaint/HPI 59 yo F that presented with increasing shortness of breath and fatigue. Patient states that she has been getting worse for the last 4-5 days. Denies any sick contacts. No travel. She has been taking her breathing treatments with minimal improvement. Decreased PO intake. Discharge Summary-Simple/Stand Consultations Discharge Physical Examination Allergies: Coded Allergies: Sulfa (Sulfonamide Antibiotics) (Verified Allergy, Mild, 11/16/14) Fdszfxu-Dkt-Pcg Reductase Inhibitor (Verified Allergy, Unknown, 08/29/15) Vitals & I&Os Vital Sign - Last 12Hours Date Time Temp Pulse Resp B/P (MAP) Pulse Ox O2 Delivery O2 Flow Rate FiO2 09/21/19 11:02 92 Room Air 09/21/19 08:00 36.1 96 18 135/90 (105) 09/19/19 03:32 1.00 Intake and Output 09/20/19 23:59 Intake Total 1805 ml Output Total 2000 ml Balance -195 ml Hospital Course See final discharge diagnosis. Discharge Instructions to patient/family Please see electronic discharge instructions given to patient. Discharge Medications Reviewed and agree with Discharge Medication list on patient's Discharge Instruction sheet Clinical Quality Measures DVT/VTE Risk/Contraindication: Risk Factor Score Per Nursin RFS Level Per Nursing on Admit: 4+=Very High EMERALD CAPELLAN MD Sep 21, 2019 12:04
[2019-09-21] MEDS ORDERED: PRD20T PO (12:11)
[2019-09-21] MEDS ORDERED: BENZ100C18 PO (12:11)
--- NOTE | 2019-09-21 12:12 | Discharge Summary ---
Discharge [facility] Reconcile Patient Problems Problems Reviewed?: Yes Discharge Medications New, Converted or Re-Newed RX: Transmitted to Pharmacy New Medications: Prednisone (Prednisone) 20 Mg Tab 20 MG PO DAILY, #5 TAB Benzonatate (Tessalon Perles) 100 Mg Capsule 100 MG PO Q4HR PRN for COUGH, #30 CAP Continued Medications: Amlodipine Besylate (Amlodipine Besylate) 10 Mg Tablet 10 MG PO HS, TAB Aspirin (Aspirin EC) 81 Mg Tablet.dr 81 MG PO HS, TAB Biotin (Biotin) 5,000 Mcg Tab.subl 5000 MCG SL DAILY, TAB Budesonide/Formoterol Fumarate (Symbicort 160-4.5 Mcg Inhaler) 10.2 Gm Hfa.aer.ad 2 PUFF IH BID PRN for SHORTNESS OF BREATH, INHALER Clopidogrel Bisulfate (Clopidogrel) 75 Mg Tablet 75 MG PO HS, TAB Cyanocobalamin (Vitamin B-12) (Vitamin B-12) 250 Mcg Tablet 250 MCG PO DAILY, TAB Fluticasone Propionate (Flonase Allergy Relief) 9.9 Ml [place].susp 1 SPRAY NS DAILY PRN for CONGESTION, SPRAY Lisinopril (Lisinopril) 20 Mg Tablet 20 MG PO HS, TAB Magnesium Oxide (Magnesium) 250 Mg Tablet 250 MG PO DAILY, TAB Metformin HCl (Metformin HCl) 1,000 Mg Tablet 1000 MG PO BID, TAB Discontinued Medications: Mclain-3 Fatty Acids/Fish Oil (Mclain 3 1,000 mg Softgel) 1 Each Capsule 1 EACH PO DAILY, CAP Patient Instructions Goal/Follow Up Appt: You have a [facility]. appt next week 09/25@[id number] Activity & Diet Discharge Diet: ADA Diet, Cardiac Diet Orders-Post D/C & Referrals Pneu Vac Indicated: Yes EMERALD CAPELLAN MD Sep 21, 2019 12:12
[2019-09-21] MEDS ORDERED: OSELTAMIVIR 30 MG (TAMIFLU) CAPSULE PO SCH (12:30)
== END 2019-09-21 15:50 | disposition home or self-care (01) ==
LOC: EDUNIT# 00:26 → ER 00:33 → 4TH 02:10
PROVIDERS: ADMIT Family Medicine; ATTEND Family Medicine
DX: J44.1 Chronic obstructive pulmonary disease with (acute) exacerbation (principal); J10.1 Influenza due to other identified influenza virus with other respiratory manifestations; E87.2 Acidosis; I10 Essential (primary) hypertension; N28.9 Disorder of kidney and ureter, unspecified; F15.10 Other stimulant abuse, uncomplicated; G43.909 Migraine, unspecified, not intractable, without status migrainosus; M19.90 Unspecified osteoarthritis, unspecified site; G47.33 Obstructive sleep apnea (adult) (pediatric); E11.51 Type 2 diabetes mellitus with diabetic peripheral angiopathy without gangrene; F17.210 Nicotine dependence, cigarettes, uncomplicated; Z88.2 Allergy status to sulfonamides; Z88.8 Allergy status to other drugs, medicaments and biological substances; Z79.82 Long term (current) use of aspirin; Z79.02 Long term (current) use of antithrombotics/antiplatelets; Z79.84 Long term (current) use of oral hypoglycemic drugs; Z79.51 Long term (current) use of inhaled steroids; Z90.710 Acquired absence of both cervix and uterus
CPT/HCPCS: 36415; 36600; 71045; 80048; 80053; 80306; 81000; 82550; 82553; 82805; 82962; 83036; 83605; 83735; 83880; 84145; 84484; 85007; 85025; 85027; 85610; 85730; 87040; 87088; 87804; 93005; 93041; 94640; 94760; 96365; 96375

== ENCOUNTER → 2022-05-07 | Outpatient (CLI) | payer MEDICAID ==
[~2022-05-07] MED LIST changes: +ALBU8.5H6 IH; +AMLO-251 PO; -AMLO10TA7 PO; +ASPI-1238 PO; +BENZ100C18 PO; -CYAN250T PO; +CYAN250T3 PO; +CYCL10TA25 PO; -CYCL10TA9 PO; +LISI10TA25 PO; +LISI20TA26 PO; +METF-399 PO; +PRD20T PO; -RT-ALBUINH IH
[2022-05-07 11:42] LABS: CHOLESTEROL 160 MG/DL (< 200); HDL CHOLESTEROL 59 MG/DL (40-60); TRIGLYCERIDES 114 MG/DL (<150); VLDL CHOLESTEROL 23 MG/DL (5-40)
== END ==
LOC: LAB 10:54
DX: E78.2 Mixed hyperlipidemia (principal)
CPT/HCPCS: 36415; 80061